=== PATIENT | female | born 1995 | race Caucasian/White ===

== ENCOUNTER 2017-08-10 18:05 | Inpatient (IN) | payer MEDICAID, SELFPAY ==
[2017-08-10 18:05] VITALS: BMI 32.6
[2017-08-10] MEDS: Lactated Ringers 1,000 ML 50 ML IV ×2 (18:15→19:18)
[2017-08-10 18:32] LABS: Hematocrit 32.6 % (37-47); Hemoglobin 10.4 g/dl (12.0-15.0); Mean Corp Hgb Conc 31.9 g/gl (32-36); Mean Corpuscular Hgb 27.7 pg (27.0-32.0); Mean Corpuscular Volume 86.7 fL (81-99); Mean Platelet Vol. 10.8 fl (6.2-12.0); Platelet Count 173 K/mm3 (150-450); RBC Distribution Width SD 41.4 fl (35.1-43.9); Red Blood Count 3.76 M/mm3 (4.2-5.4); White Blood Count 13.1 K/mm3 (4.4-11.0)
[2017-08-10 18:36] LABS: Scan Indicated on CBC? Y/N NO
--- NOTE | 2017-08-10 18:49 | PCM.HP.OB ---
(1) abnormality affecting management of mother, single gestation Status: Acute Comment: enlarged cisterna magna on fetus, recommended by [facility] for fu after delivery with peds (2) complicated by tobacco use in third trimester Status: Acute Comment: BI- 08/22/17 evelynDigna LANG janell jeanie (3) Abnormal ultrasonic finding on screening of mother Status: Acute Comment: following with [facility]- HC 8 %ile but overall growth normal, mildly enlarged cisterna magna- plan fu . seen by treatment center (4) Gall bladder disease Status: Acute Comment: recommend surgical consult (5) Unspecified high-risk Status: Acute Qualifiers: Comment: BI- 08/22/17 ulises LANG janell jeanie History Date of Admission: 08/10/17 Gestational age: 38.1 History of this : 22 yo @ 38w1d presents IAL. she has had a complicated by AGA size but decreased AC. The baby also has a borderline enlarged cisterna magna and it was recommended to have a fu after . Allergies No Known Allergies Allergy (Verified 08/10/17 07:55)
--- NOTE | 2017-08-10 19:28 | HP.PCM_ITS ---
(1) abnormality affecting management of mother, single gestation Status: Acute Comment: enlarged cisterna magna on fetus, recommended by [facility] for fu after delivery with peds (2) complicated by tobacco use in third trimester Status: Acute Comment: BI- 08/22/17 evelynDigna LANG janell jeanie (3) Abnormal ultrasonic finding on screening of mother Status: Acute Comment: following with [facility]- HC 8 %ile but overall growth normal , mildly enlarged cisterna magna- plan fu . seen by treatment center (4) Gall bladder disease Status: Acute Comment: recommend surgical consult (5) Unspecified high-risk Status: Acute Qualifiers: Comment: BI- 08/22/17 ulises LANG janell jenaie History Date of Admission: 08/10/17 Gestational age: 38.1 History of this : 22 yo @ 38w1d presents IAL. she has had a complicated by AGA size but decreased AC. The baby also has a borderline enlarged cisterna magna and it was recommended to have a fu after . Allergies No Known Allergies Allergy (Verified 08/10/17 07:55)
[2017-08-10] MEDS: Oxytocin 30 units/NS 500 ml 30 UNITS/500 ML IV.SOLN 334 UNITS IV (20:12)
--- NOTE | 2017-08-10 20:39 | PCM.OB.VAG ---
(1) abnormality affecting management of mother, single gestation Status: Acute Comment: enlarged cisterna magna on fetus, recommended by [facility] for fu after delivery with peds (2) complicated by tobacco use in third trimester Status: Acute Comment: BI- 08/22/17 ulises ware (3) Abnormal ultrasonic finding on screening of mother Status: Acute Comment: following with [facility]- HC 8 %ile but overall growth normal, mildly enlarged cisterna magna- plan fu . seen by treatment center (4) Gall bladder disease Status: Acute Comment: recommend surgical consult (5) Unspecified high-risk Status: Acute Qualifiers: Comment: BI- 08/22/17 ulises ware (6) Normal delivery at term Status: Acute Vaginal Delivery Maternal Presentation: Active Labor 22 yo @ 38w1d prsents IAL Amniotic Membrane Rupture Type: Artificial Amniotic Fluid Description: Clear Final BI: 08/22/17 Gestational age: 38 Weeks and 2 Days Date of Procedure: 08/10/17 Pre-Operative Diagnosis: ial Post-Operative Diagnosis: same Surgery/ Procedure Performed: Spontaneous Vaginal Delivery Type of Anesthesia: Epidural Description of Procedure: Patient began pushing and delivered the head in the GALLITO presentation. The head was delivered atraumatically. The anterior and posterior shoulders delivered without complication followed by the rest of the infant and the was placed on the maternal abdomen. Delayed cord clamping was employed for approximately 60 seconds. Cord was clamped and cut and gentle traction was applied to the cord and the placenta delivered spontaneously immediately following it was noted to be intact with three-vessel cord. The perineum and vagina were inspected and noted to have a small superficial area of bleeding that was remedied with 3-0 Vicryl repeat. EBL was 250. Patient and tolerated delivery well. Presentation: GALLITO Placental Delivery Description: Spontaneous Placenta Disposition: [facility] Cord Vessel Description: 3 Vessels Cord Entanglement: None Estimated Blood Loss: 250 A gender: Male Episiotomy Description: None Laceration: Perineal Extension/lac, 1st degree Medications given after delivery: IV Pitocin Complications: None
--- NOTE | 2017-08-10 20:42 | OP.PCM_ITS ---
(1) abnormality affecting management of mother, single gestation Status: Acute Comment: enlarged cisterna magna on fetus, recommended by [facility] for fu after delivery with peds (2) complicated by tobacco use in third trimester Status: Acute Comment: BI- 08/22/17 ulises ware (3) Abnormal ultrasonic finding on screening of mother Status: Acute Comment: following with [facility]- HC 8 %ile but overall growth normal , mildly enlarged cisterna magna- plan fu . seen by treatment center (4) Gall bladder disease Status: Acute Comment: recommend surgical consult (5) Unspecified high-risk Status: Acute Qualifiers: Comment: BI- 08/22/17 ulises ware (6) Normal delivery at term Status: Acute Vaginal Delivery Maternal Presentation: Active Labor 22 yo @ 38w1d prsents IAL Amniotic Membrane Rupture Type: Artificial Amniotic Fluid Description: Clear Final BI: 08/22/17 Gestational age: 38 Weeks and 2 Days Date of Procedure: 08/10/17 Pre-Operative Diagnosis: ial Post-Operative Diagnosis: same Surgery/ Procedure Performed: Spontaneous Vaginal Delivery Type of Anesthesia: Epidural Description of Procedure: Patient began pushing and delivered the head in the GALLITO presentation. The head was delivered atraumatically. The anterior and posterior shoulders delivered without complication followed by the rest of the infant and the was placed on the maternal abdomen. Delayed cord clamping was employed for approximately 60 seconds. Cord was clamped and cut and gentle traction was applied to the cord and the placenta delivered spontaneously immediately following it was noted to be intact with three-vessel cord. The perineum and vagina were inspected and noted to have a small superficial area of bleeding that was remedied with 3-0 Vicryl repeat. EBL was 250. Patient and infant tolerated delivery well. Presentation: GALLITO Placental Delivery Description: Spontaneous Placenta Disposition: [facility] Cord Vessel Description: 3 Vessels Cord Entanglement: None Estimated Blood Loss: 250 Infant A gender: Male Episiotomy Description: None Laceration: Perineal Extension/lac, 1st degree Medications given after delivery: IV Pitocin Complications: None
[2017-08-10] MEDS: Oxytocin 30 units/NS 500 ml 30 UNITS/500 ML IV.SOLN 167 UNITS IV (20:43)
[2017-08-10] MEDS: 0.9% Saline Lock 10 ML Syringe IV (21:43)
[2017-08-10 23:49] VITALS: BP 111/89; PULSE 114; RESP 18; TEMP 37.3; O2SAT 97
[2017-08-11] MEDS: Naproxen 250 MG Tablet PO ×3 (00:35→17:15)
[2017-08-11 03:35] VITALS: BP 111/71; PULSE 75; RESP 17; TEMP 36.2; O2SAT 96
[2017-08-11 08:59] VITALS: BP 107/71; PULSE 70; RESP 16; TEMP 36.5; O2SAT 99
--- NOTE | 2017-08-11 09:41 | NURSING ---
pumping instructions given. patient pumped bilaterally at 0830 for 15 minutes. Colostrum collected and taken to [facility].
[2017-08-11 13:30] VITALS: BP 125/71; PULSE 76; RESP 16; TEMP 36.7; O2SAT 98
[2017-08-11 17:10] VITALS: BP 107/54; PULSE 70; RESP 16; TEMP 36.6; O2SAT 99
[2017-08-11] MEDS: Famotidine 20 MG Tablet PO (18:44)
--- NOTE | 2017-08-11 18:47 | NURSING ---
Mom pumped every 3 hours throughout the day and milk was delivered to baby in SCN
[2017-08-11 20:10] VITALS: BP 106/64; PULSE 66; RESP 16; TEMP 36.4
[2017-08-12 02:15] VITALS: BP 101/59; PULSE 75; RESP 16; TEMP 36.4
[2017-08-12] MEDS: Naproxen 250 MG Tablet PO ×2 (02:23→11:00)
--- NOTE | 2017-08-12 06:31 | PCM.PN.OB ---
Patient Problems: Active and Suspected Problems (Last Reviewed 08/10/17 @ 07:56 by Chanel Gonzales) Normal delivery at term (Acute) Subjective: late entry- patient seen 08/11/17 at 12:20 pm. doing wel lno complaints - Physical Exam General: Alert, Oriented x3 Vital Signs Temp Pulse Resp BP Pulse Ox 97.5 F L 75 16 101/59 L 99 08/12/17 02:15 08/12/17 02:15 08/12/17 02:15 08/12/17 02:15 08/11/17 17:10 Oxygen Delivery Method Room Air Weight: 196 lb 3.382 oz Body Mass Index (BMI) 32.6 Intake and Output for Last 24 Hours 08/10/17 08/11/17 08/12/17 23:59 23:59 23:59 Intake Total 1367 / 1367 Output Total 800 / 800 200 / 200 Balance 567 / 567 -200 / -200 Assessment/Plan Active and Suspected Problems (Last Reviewed 08/10/17 @ 07:56 by Chanel Gonzales) Normal delivery at term (Acute) s/p routine care in SCN- doing well, BS issues
[2017-08-12 09:30] VITALS: BP 120/58; PULSE 74; RESP 16; TEMP 36.3
--- NOTE | 2017-08-12 10:48 | NURSING ---
Called [facility] notified of pt's request for breastpump. Shrtui stating she will take care of pump today or tuesday. Pt has medicaid and called already for approval.
[2017-08-12] MEDS: Famotidine 20 MG Tablet PO (11:01)
--- NOTE | 2017-08-12 12:48 | PCM.PN.OB ---
Patient Problems: Active and Suspected Problems (Last Reviewed 08/10/17 @ 07:56 by Chanel Gonzales) Normal delivery at term (Acute) Subjective: doing well n ocomplaints - Physical Exam General: Alert, Oriented x3 Vital Signs Temp Pulse Resp BP Pulse Ox 97.4 F L 74 16 120/58 L 99 08/12/17 09:30 08/12/17 09:30 08/12/17 09:30 08/12/17 09:30 08/11/17 17:10 Oxygen Delivery Method Room Air Weight: 196 lb 3.382 oz Body Mass Index (BMI) 32.6 Intake and Output for Last 24 Hours 08/10/17 08/11/17 08/12/17 23:59 23:59 23:59 Intake Total 1367 / 1367 Output Total 800 / 800 200 / 200 Balance 567 / 567 -200 / -200 Assessment/Plan Active and Suspected Problems (Last Reviewed 08/10/17 @ 07:56 by Chanel Gonzales) Normal delivery at term (Acute) s/p routine care infant in SCN- doing well, BS issues dc home
[2017-08-12 14:00] VITALS: BP 127/61; PULSE 80; RESP 16; TEMP 36.8
[2017-08-12] MEDS: Acetaminophen 500 MG Tablet 1000 MG PO (15:28)
--- NOTE | 2017-08-12 17:11 | DCINST_ITS ---
Discharge Diet: No Restrictions Discharge Activity: Return to Normal Activity, May not drive while taking narcotic pain medications., May Shower May resume sexual activity in: 4-6 weeks Additional Activity Instructions:: Nothing in the vagina for 4-6 weeks. You may return to work/school in 6 weeks. Call your doctor if your incision/area has: Continuous Slow Oozing, Sudden Increased Bleeding, Increased Pain/ Swelling, Increased Redness, Foul Smelling Discharge Additional Instructions: If you experience any of the following, contact your healthcare provider. * Bleeding that soaks a pad every hour for 2 hours * Fever 100.4 or higher * Unrelieved incision or abdominal pain * Swelling, redness, discharge or bleeding from your incision or episiotomy site * Your incision begins to separate * Problems urinating (including inability to urinate or burning while urinating) . * Visual changes * Severe headache * Flu-like symptoms * Pain or redness in one of both of your breasts * Pain, warmth, tenderness or swelling in your legs, especially the calf area * Frequent nausea and vomiting * Symptoms of depression or anxiety If you experience any of the following, call 911 or go to the nearest Emergency Room. * Chest pain * Problems breathing * Seizure activity * Partial or complete paralysis of a body part, slurred speech, weakness or drooping of the face, or a sudden inability to walk or hold your balance Allergies/Adverse Reactions: Allergies No Known Allergies Allergy (Verified 08/10/17 07:55) Medications to take at Discharge Vits [Prenatabs FA] 1 tab PO DAILY 11/20/16 Ranitidine [Zantac] 150 mg PO BID 06/10/17 When: Call to make an appointment with your doctor in 6 weeks. If you had elevated Blood Pressure or 4th degree laceration you will need to be seen in 2 weeks. Primary Care Physician: Care Physician,No Primary [Primary Care Provider] -
--- NOTE | 2017-08-15 13:40 | CASEMGMT ---
Social Work Assessment completed. Refer to documentation below for further details. Referral: per nursing staff Reason for referral: maternal history of depression and resources History obtained from: Medical record and patient/mother of baby (MOB) Bertha Bal. Household composition: MOB, father of baby (FOB), and infant's older sibling Dennis Bal (born 6[birth year]15). MOB reports this is their own home, reports home situation is safe and adequate. Patient's parent/guardian status: MOB and FOB Tay Bal have been together for 4 years, since October 2016. MOB denies any form of abuse in relationship with FOB. Medical History: MOB is G2, P1 to 2 after delivering Rex. Rex born at 38 weeks, weighed 5 pounds 9 ounces. Apgars 8 and 10 at 1 and 5 minutes of life. Rex admitted to [facility] shortly after due to small for gestational age and hypoglycemia issues. Developmental Concerns: No reported or identified concerns. 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 MOB denies any issues with reading, writing, or learning comprehension. Health Care Coverage: [employer] Medicaid. Financial Status: FOB works full stack php developer at [employer] on 1st shift. 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 Supplies: MOB reports to have needed supplies including pack-n-play, crib, bassinet, cradle, car seat, clothing, diapers, and plans to breast feed. Has a breast pump. Childcare/Caregiver(s): MOB to be the primary caregiver to . Transportation: No reports issues for either parent. Programs/Agencies Involved: [place] has [employer] medicaid through [facility]. MOB reports willingness to apply for WIC.. Children Services History: MOB denies any current children services involvement, but reports history in 06/2016 related to MOB's mother/infant's maternal grandmother making a reports of claims of neglect and unkempt household. MOB reports that MOB's mother was unhappy at the time that MOB was reconnecting with the FOB (apparently took a break in relationship). MOB reports that MOB's mother actually tried to kidnap Dennis, making false reports, trying to keep Dennis from MOB and FOB. MOB reports had to call the police as an escort to get Dennis back from MOB's mother. MOB reports this issues turned into a court issue between the family, which ended in MOB and FOB keeping custody of Dennis, but the grandmother getting some visitation. Children services reported investigated the claims and closed the case. MOB denies other involvement with children services outside of this time in June 2016. Behavioral Health Issues: MOB reports history of depression and anxiety, history of treatment at [facility]. No medication history, denies any history thoughts of harm to self or others. MOB denies history of depression. MOB denies any illicit substance use or abuse history. MOB reports history of occasional wine consumption, not during however. MOB reports to be tobacco smoker, not in the home. Family and/or Social Stressors/Concerns: History of stress within family systems, after MOB's mother tried to kidnap and obtain custody of Dennis. MOB reports this has put strain on relationships. [place] baby is now admitted to [facility] for further treatment. MOB is hopeful that baby will discharge soon however. FOB reportedly has history of bipolar disorder, ADHD, and is on medication, treated by Dr. Hearn at [facility]. MOB reports FOB does well with staying on medication and adhering to treatment recommendations. MOB reports things are going well with FOB and again, denies any safety concerns in marriage or home situation. Otherwise, MOB denies other stressors or concerns. Support Systems: MOB reports support from FOB, who will be able to take some time off after discharge. MOB reports 's paternal grandmother lives close by and is able to help out. MOB reports support from infant's maternal uncle/MOB's brother. Assessment MOB engaged in conversation with this advertising writer, non defensive, good eye contact, pleasant, and talkative. MOB with appropriate mood and congruent affect to content discussed. MOB reports to have needed baby supplies at home, reports to have support from famiy and to feel this is adequate. MOB reports to feel a connection to this baby, denies any symptoms ofdepression. MOB listened attentively to social work faculty member on depression and anxiety, as well as safe sleeping and shaken baby. MOB able to identify coping skills in the form of talking with , playing with son Dennis, taking some me time each day, to enjoy watching [employer] An[employer], and to walk. MOB reports receptivity to taking WIC applications and even a medicaid application to apply for food assistance, but declines a rferral to help me grow. MOB denies any safety concerns the home home at this time, and reports to have adequate supplies to care for baby. No reported concerns by nursing regarding mother/child interactions or care of baby thus far. Plan MOB is already discharged home, just wating on hotel status at hospital for baby to be discharge from the [facility]. [facility] Tube Knitter resource list given Packet on depression given, including information on local supports and online support programs MOB given WIC and Medicaid applications. Response to Plan: MOB does express understanding of proposed plan. No other services requested at this time, though social work does remain available should needs arise. BINA Mercer 08/15/2017
== END 2017-08-12 17:15 | disposition home or self-care (01) | DRG 373 ==
LOC: WPOUT 18:10 → WP 08-11 09:21
PROVIDERS: Admitting Provider Obstetrics & Gynecology; Visit Provider Obstetrics & Gynecology
DX: O35.8XX0 Maternal care for other (suspected) fetal abnormality and damage, not applicable or unspecified (principal); F17.200 Nicotine dependence, unspecified, uncomplicated; O70.0 First degree perineal laceration during delivery; O99.334 Smoking (tobacco) complicating childbirth; O99.613 Diseases of the digestive system complicating pregnancy, third trimester; Z37.0 Single live birth; Z3A.38 38 weeks gestation of pregnancy
CPT/HCPCS: 59050; 85027; 86850; 86900; 99218; J7120; A4216; G0378

== ENCOUNTER 2017-09-03 15:05 | Inpatient (IN) | payer MEDICAID, SELFPAY ==
[2017-09-03] VITALS (7 sets, daily range): BP systolic 131–140; BP diastolic 73–95; PULSE 51–73; RESP 14–16; TEMP 36.7–37; O2SAT 97–99; BMI 30.2; BMI 30.1
[2017-09-03 16:33] LABS: Absolute Lymphocyte Count 1.53 X10^3/ul (0.83-4.51); Absolute Neutrophil Count 6.5 X10^3/uL (2.0-7.7); Basophil# 0.01 X10^3/uL; Basophil% 0.1 % (0-1); Eosinophil# 0.66 X10^3/uL; Eosinophils% 7.1 % (0-5); Hematocrit 39.3 % (37-47); Hemoglobin 12.3 g/dl (12.0-15.0); Lymphocyte # 1.53 X10^3/ul (4.0); Lymphocyte % 16.4 % (19-41); Mean Corp Hgb Conc 31.3 g/gl (32-36); Mean Corpuscular Hgb 26.9 pg (27.0-32.0); Mean Platelet Vol. 10.3 fl (6.2-12.0); Monocyte# 0.59 X10^3/uL; Monocyte% 6.3 % (0-10); Neutrophil % 69.9 % (47-70); POSITIVE COUNT NO; POSITIVE DIFFERENTIAL NO; POSITIVE MORPHOLOGY NO; Platelet Count 272 K/mm3 (150-450); RBC Distribution Width CV 12.9 % (11.6-14.6); RBC Distribution Width SD 40.6 fl (35.1-43.9); Red Blood Count 4.57 M/mm3 (4.2-5.4); White Blood Count 9.3 K/mm3 (4.4-11.0)
--- NOTE | 2017-09-03 16:51 | ED.VISSUMM ---
- ER Visit Summary Date of Service: 09/03/17 Chief Complaint: Abdominal pain History of Present Illness: The patient is a 22 F who presents with abdominal pain. Patient has been having intermittent similar symptoms for months. However she was . She is 2 weeks . She has seen Dr. Alvarenga as an outpatient and was scheduled for laparoscopic cholecystectomy on September 07. However she has had constant right upper quadrant abdominal pain for greater than 24 hours. She currently rates her pain as 7 out of 10. She states all that she had eaten or drank was water. She reports nausea without vomiting. No diarrhea. She denies fever. She spoke to Dr. Sanchez today and given her ongoing pain was advised to present to the emergency department with plan for surgery today. Physical Examination: Afebrile vitals are stable Patient resting comfortably in no distress Heart regular rate and rhythm Lungs are clear Abdomen soft nondistended she does have right upper quadrant tenderness she does not have a Perkins's sign Alert Test Results: CBC unremarkable. Total bilirubin is 3.1, alkaline phosphatase 312, ALT 602, AST 1065. Final results not yet resulted on lipase but we were called by lab and told that it would be greater than 30,000. Emergency Department Course and Treatment: Patient was treated with IV fluids Toradol and Zofran here. She is resting comfortably. I spoke to Dr. Sanchez who asked that the patient be admitted to the hospitalist service and will see the patient in consult. Treatment Plan: [] Disposition: Admit Impression: Gallstone pancreatitis This note was generated with [employer] dictation software. It may contain incorrect words, spelling, and punctuation that were not noted in review of the chart prior to signing ED Disposition - Plan for ED Patient: Chief Complaint: Abd Pain Referrals: Care Physician,No Primary [Primary Care Provider] -
[2017-09-03 16:57] LABS: ALB/GLOB Ratio 0.8 RATIO (0.9-2.4); AST(SGOT) 1065 U/L (15-37); Alanine Aminotransfer ALT/SGPT 602 U/L (13-56); Albumin, Serum 3.1 g/dL (3.2-5.0); Alkaline Phosphatase 312 U/L (45-117); Anion Gap 8 (5-15); BUN 6 mg/dL (7-18); BUN/Creat Ratio 8.4 RATIO (10-20); Calcium,Total 9.4 mg/dL (8.5-10.1); Chloride 104 mmol/L (98-107); Creatinine, Serum 0.72 mg/dL (0.55-1.02); EST Glomerular Filtration Rate 108 mL/min (>60); Est Glom Filt Rate - Afr Amer 131 mL/min (>60); Estimated Creatinine Clearance 110.28 ml/min; Glucose 106 mg/dL (74-106); Potassium 3.5 mmol/L (3.5-5.1); Protein, Total 7.1 g/dL (6.4-8.2); Sodium Level 140 mmol/L (136-145)
[2017-09-03] MEDS: Ondansetron 4 MG/2 ML Vial IV ×2 (17:03→23:01)
[2017-09-03] MEDS: Ketorolac 30 MG/ML Syringe IV ×2 (17:03→23:01)
[2017-09-03] MEDS: 0.9% Normal Saline 1,000 ML 1000 ML IV (17:03)
[2017-09-03 17:25] LABS: Lipase 33845 U/L (73-393)
--- NOTE | 2017-09-03 17:26 | HP.PCM_ITS ---
Problem List (1) Acute biliary pancreatitis Status: Acute Qualifiers: Acute pancreatitis complication: no infection or necrosis Qualified Code(s) : K85.10 - Biliary acute pancreatitis without necrosis or infection History of Present Illness Date of Admission: 09/03/17 Chief Complaint: left upper abdominal pain The patient is a 22 year old F with a PMH of gallstones, and who is 3 weeks presents with a 2 day history of left upper abdominal pain. Pain is colicky at baseline, with sharp exacerbations, rated ~ 8/10, aggravated by eating and drinking, and relieved with rest and not eating. She has a history of gallstones and was scheduled for cholecystectomy with Dr Alvarenga on Sep 07. SHe had associated nausea and vomiting, but denied any diarrhea, fever, chills, SOB or palpitations or excessive alcohol intake. She called the diamond mounter surgeon (Dr Sanchez) because her symptoms lasted for >24hrs, which is unusual. She was asked to come to the ED. On arrival in the ED, CT showed acute pancreatitis, and labwork showed lipase of >30,000. She is being admitted and managed for acute gallstone pancreatitis. 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 Had spontaneous vaginal delivery Smoking Status: Current every day smoker - *Family History Maternal History Items: No pertinent history Review of Systems Constitutional: Denies: Chills, Fever, Malaise, Weight Change Eyes: Denies: Blurred vision HEENT: Denies: Head Aches, Sinus Congestion, Sinus Drainage Cardiovascular: Denies: Chest Pain, Light Headedness, Palpitations Respiratory: Denies: Cough, Shortness of breath at rest, Sputum production Gastrointestinal: Reports: Abdominal Pain, Nausea, Vomiting. Denies: Diarrhea Genitourinary: Denies: Dysuria Musculoskeletal: Denies: Joint Pain, Joint Tenderness Skin: Denies: Rash, Wounds Neurological: Denies: Numbness, Tingling, Focal weakness Psychiatric: Denies: Anxiety, Depression, Homicidal Ideations, Suicidal Ideations Hematologic/ Lymphatic: Denies: Easy Bruising, Easy Bleeding VTE Information - Inpt Only VTE Present on Admission: No VTE Mechan Device Prophylaxis: SCD's VTE Pharm Prophylaxis ordered?: Yes Patient Problems: Active and Suspected Problems (Last Reviewed 08/25/17 @ 13:26 by Rosario Moreno) Acute biliary pancreatitis (Acute) - Physical Exam General: Alert, Oriented x3, Cooperative, No apparent distress HEENT: Atraumatic, PERRLA, EOMI, Normocephalic Oral: Moist Mucosa Neck: Supple, No JVD, Negative Carotid Bruits Lungs: Clear to auscultation, Normal air movement, No rhonchi, No wheeze, No rales Cardiovascular: Regular rate, Regular Rhythm, Normal S1, Normal S2, No murmurs Abdomen: Bowel Sounds Present, Soft, No Hepato-splenomegaly, - - mild left hypochondrial tenderness, with positive Perkins's sign. No epigastric tenderness. No guarding or rebound tenderness Extremities: No clubbing, No cyanosis, No edema, Capillary Refill Less than 3 Seconds Skin: No rashes Musculoskeletal: No Tenderness to Palpation of Joints or Extremities Lymphatic: No Cervical, Supraclavicular, or Inguinal Adenopathy Neurological: Cranial nerves II-XII grossly intact Psych/Mental Status: Normal Affect, Alert and oriented to time, place, person, mood and affect Vital Signs Temp Pulse Resp BP Pulse Ox 98.6 F 73 16 139/73 H 99 09/03/17 15:07 09/03/17 17:18 09/03/17 17:18 09/03/17 17:18 09/03/17 17:18 Oxygen Delivery Method Room Air Weight: 181 lb 10.574 oz Body Mass Index (BMI) 30.2 Laboratory Tests Past 24 Hrs 09/03/17 09/03/17 16:20 16:20 WBC 9.3 RBC 4.57 Hgb 12.3 Hct 39.3 MCV 86.0 MCH 26.9 L MCHC 31.3 L RDW 12.9 RDW Differential 40.6 Plt Count 272 MPV 10.3 Immature Gran % (Auto) 0.200 Neut % (Auto) 69.9 Lymph % (Auto) 16.4 L Oliver % (Auto) 6.3 Eos % (Auto) 7.1 H Baso % (Auto) 0.1 Absolute Neuts (auto) 6.5 Absolute Lymphs (auto) 1.53 Total Counted Not Reportable Sodium 140 Potassium 3.5 Chloride 104 Carbon Dioxide 28.0 Anion Gap 8 BUN 6 L Creatinine 0.72 Estim Creat Clear Calc 110.28 Est GFR (MDRD) Af Amer 131 Est GFR (MDRD) Non-Af 108 BUN/Creatinine Ratio 8.4 L Glucose 106 Calcium 9.4 Total Bilirubin 3.10 H AST 1065 H ALT 602 H Alkaline Phosphatase 312 H Total Protein 7.1 Albumin 3.1 L Globulin 4.0 Albumin/Globulin Ratio 0.8 L Lipase Pending Assessment/Plan Active and Suspected Problems (Last Reviewed 08/25/17 @ 13:26 by Rosario Moreno) Acute biliary pancreatitis (Acute) 1. Acute BILIARY pancreatitis due to gallstones * vitals are stable. has mild left upper quadrant tenderness, with no guarding or rebound tenderness * has a history of gallstones and had been scheduled for cholecystectomy on 09/07. * CBC: no leucocytosis * CMP: lipase [id number]. * AST/ALT- 1065/602 * CT abdomen not done as patient meets criteria for acute pancreatitis with abdominal pain and elevated lipase * will admit to med surg floor. Patient reviewed with Dr Sanchez in ED * will keep NPO; will hydrate with NS @ 150cc/hr * will give IV ketorolac for pain control * IV zofran to help with nausea * for cholecystectomy once acute pancreatitis resolves * 2. DVT prophylaxis * heparin * 3. GI prophylaxis * pantoprazole Code Visit Inpatient E&M: 67789 Init Hosp L2
--- NOTE | 2017-09-03 17:40 | PCM.CONS.GEN ---
Problem List (1) Acute biliary pancreatitis Status: Acute Qualifiers: Acute pancreatitis complication: no infection or necrosis Qualified Code(s): K85.10 - Biliary acute pancreatitis without necrosis or infection Reason for Consult Date of Consultation: 09/03/17 History of Present Illness: The patient is a 22 year old F with a PMH of gallstones, and who is 3 weeks presents with a 2 day history of left upper abdominal pain. Pain is colicky at baseline, with sharp exacerbations, rated ~ 8/10, aggravated by eating and drinking, and relieved with rest and not eating. She has a history of gallstones and was scheduled for cholecystectomy with Dr Alvarenga on Sep 07. SHe had associated nausea and vomiting, but denied any diarrhea, fever, chills, SOB or palpitations or excessive alcohol intake. She called the on me because her symptoms lasted for >24hrs, which is unusual. She was asked to come to the ED. On arrival in the ED, CT showed acute pancreatitis, and labwork showed lipase of >30,000. She is being admitted and managed for acute gallstone pancreatitis by the hospitalist service. 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 Had spontaneous vaginal delivery Smoking Status: Current every day smoker - *Family History Maternal History Items: No pertinent history Review of Systems Constitutional: Reports: Anorexia Cardiovascular: Denies: Chest Pain, Chest Pressure, Chest Tightness, Palpitations Respiratory: Denies: Cough, Hemoptysis, Shortness of breath at rest, Shortness of breath upon exertion, Wheezing Gastrointestinal: Reports: Abdominal Pain Gynecological: Reports: - - Patient is status post vaginal delivery 3 weeks ago Patient Problems: Active and Suspected Problems (Last Reviewed 08/25/17 @ 13:26 by Rosario Moreno) Acute biliary pancreatitis (Acute) - Physical Exam General: Alert, Oriented x3 HEENT: Atraumatic, PERRLA, EOMI, Normocephalic Oral: Moist Mucosa Neck: Supple, No JVD Lungs: Clear to auscultation Cardiovascular: Regular rate, Regular Rhythm, No murmurs Abdomen: Bowel Sounds Present, Soft, Non Tender, Non-Distended Extremities: No clubbing, No cyanosis, No edema Psych/Mental Status: Normal Affect, Appropriate Vital Signs Temp Pulse Resp BP Pulse Ox 98.6 F 73 16 139/73 H 99 09/03/17 15:07 09/03/17 17:18 09/03/17 17:18 09/03/17 17:18 09/03/17 17:18 Oxygen Delivery Method Room Air Weight: 181 lb 10.574 oz Body Mass Index (BMI) 30.2 Laboratory Tests Past 24 Hrs 09/03/17 09/03/17 16:20 16:20 WBC 9.3 RBC 4.57 Hgb 12.3 Hct 39.3 MCV 86.0 MCH 26.9 L MCHC 31.3 L RDW 12.9 RDW Differential 40.6 Plt Count 272 MPV 10.3 Immature Gran % (Auto) 0.200 Neut % (Auto) 69.9 Lymph % (Auto) 16.4 L Rice % (Auto) 6.3 Eos % (Auto) 7.1 H Baso % (Auto) 0.1 Absolute Neuts (auto) 6.5 Absolute Lymphs (auto) 1.53 Total Counted Not Reportable Sodium 140 Potassium 3.5 Chloride 104 Carbon Dioxide 28.0 Anion Gap 8 BUN 6 L Creatinine 0.72 Estim Creat Clear Calc 110.28 Est GFR (MDRD) Af Amer 131 Est GFR (MDRD) Non-Af 108 BUN/Creatinine Ratio 8.4 L Glucose 106 Calcium 9.4 Total Bilirubin 3.10 H AST 1065 H ALT 602 H Alkaline Phosphatase 312 H Total Protein 7.1 Albumin 3.1 L Globulin 4.0 Albumin/Globulin Ratio 0.8 L Lipase 29464 H Assessment/Plan Active and Suspected Problems (Last Reviewed 08/25/17 @ 13:26 by Rosario Moreno) Acute biliary pancreatitis (Acute) We will need to see that her labs come down appropriately and her pain improved. Once this is accomplished then during this admission she will need to undergo a laparoscopic cholecystectomy with intraoperative cholangiograms. DVT prophylaxis will need to be stopped at least 24 hours prior to surgery
--- NOTE | 2017-09-03 17:44 | CON.PCM_ITS ---
Problem List (1) Acute biliary pancreatitis Status: Acute Qualifiers: Acute pancreatitis complication: no infection or necrosis Qualified Code(s) : K85.10 - Biliary acute pancreatitis without necrosis or infection Reason for Consult Date of Consultation: 09/03/17 History of Present Illness: The patient is a 22 year old F with a PMH of gallstones, and who is 3 weeks presents with a 2 day history of left upper abdominal pain. Pain is colicky at baseline, with sharp exacerbations, rated ~ 8/10, aggravated by eating and drinking, and relieved with rest and not eating. She has a history of gallstones and was scheduled for cholecystectomy with Dr Alvarenga on Sep 07. SHe had associated nausea and vomiting, but denied any diarrhea, fever, chills, SOB or palpitations or excessive alcohol intake. She called the on me because her symptoms lasted for >24hrs, which is unusual. She was asked to come to the ED. On arrival in the ED, CT showed acute pancreatitis, and labwork showed lipase of >30,000. She is being admitted and managed for acute gallstone pancreatitis by the hospitalist service. 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 Had spontaneous vaginal delivery Smoking Status: Current every day smoker - *Family History Maternal History Items: No pertinent history Review of Systems Constitutional: Reports: Anorexia Cardiovascular: Denies: Chest Pain, Chest Pressure, Chest Tightness, Palpitations Respiratory: Denies: Cough, Hemoptysis, Shortness of breath at rest, Shortness of breath upon exertion, Wheezing Gastrointestinal: Reports: Abdominal Pain Gynecological: Reports: - - Patient is status post vaginal delivery 3 weeks ago Patient Problems: Active and Suspected Problems (Last Reviewed 08/25/17 @ 13:26 by Rosario Moreno) Acute biliary pancreatitis (Acute) - Physical Exam General: Alert, Oriented x3 HEENT: Atraumatic, PERRLA, EOMI, Normocephalic Oral: Moist Mucosa Neck: Supple, No JVD Lungs: Clear to auscultation Cardiovascular: Regular rate, Regular Rhythm, No murmurs Abdomen: Bowel Sounds Present, Soft, Non Tender, Non-Distended Extremities: No clubbing, No cyanosis, No edema Psych/Mental Status: Normal Affect, Appropriate Vital Signs Temp Pulse Resp BP Pulse Ox 98.6 F 73 16 139/73 H 99 09/03/17 15:07 09/03/17 17:18 09/03/17 17:18 09/03/17 17:18 09/03/17 17:18 Oxygen Delivery Method Room Air Weight: 181 lb 10.574 oz Body Mass Index (BMI) 30.2 Laboratory Tests Past 24 Hrs 09/03/17 09/03/17 16:20 16:20 WBC 9.3 RBC 4.57 Hgb 12.3 Hct 39.3 MCV 86.0 MCH 26.9 L MCHC 31.3 L RDW 12.9 RDW Differential 40.6 Plt Count 272 MPV 10.3 Immature Gran % (Auto) 0.200 Neut % (Auto) 69.9 Lymph % (Auto) 16.4 L [place] % (Auto) 6.3 Eos % (Auto) 7.1 H Baso % (Auto) 0.1 Absolute Neuts (auto) 6.5 Absolute Lymphs (auto) 1.53 Total Counted Not Reportable Sodium 140 Potassium 3.5 Chloride 104 Carbon Dioxide 28.0 Anion Gap 8 BUN 6 L Creatinine 0.72 Estim Creat Clear Calc 110.28 Est GFR (MDRD) Af Amer 131 Est GFR (MDRD) Non-Af 108 BUN/Creatinine Ratio 8.4 L Glucose 106 Calcium 9.4 Total Bilirubin 3.10 H AST 1065 H ALT 602 H Alkaline Phosphatase 312 H Total Protein 7.1 Albumin 3.1 L Globulin 4.0 Albumin/Globulin Ratio 0.8 L Lipase 50367 H Assessment/Plan Active and Suspected Problems (Last Reviewed 08/25/17 @ 13:26 by Rosario Moreno) Acute biliary pancreatitis (Acute) We will need to see that her labs come down appropriately and her pain improved. Once this is accomplished then during this admission she will need to undergo a laparoscopic cholecystectomy with intraoperative cholangiograms. DVT prophylaxis will need to be stopped at least 24 hours prior to surgery
[2017-09-03] MEDS: 0.9% Normal Saline 1,000 ML 150 ML IV (19:01)
[2017-09-04] MEDS: 0.9% Normal Saline 1,000 ML 150 ML IV ×4 (01:47→23:25)
[2017-09-04 04:15] VITALS: BP 112/67; PULSE 83; RESP 18; TEMP 36.9; O2SAT 95
[2017-09-04 06:40] LABS: Absolute Lymphocyte Count 1.71 X10^3/ul (0.83-4.51); Absolute Neutrophil Count 2.8 X10^3/uL (2.0-7.7); Basophil# 0.01 X10^3/uL; Basophil% 0.2 % (0-1); Eosinophil# 0.67 X10^3/uL; Eosinophils% 11.8 % (0-5); Hemoglobin 11.1 g/dl (12.0-15.0); Lymphocyte # 1.71 X10^3/ul (4.0); Lymphocyte % 30.1 % (19-41); Mean Corp Hgb Conc 30.8 g/gl (32-36); Mean Corpuscular Hgb 26.9 pg (27.0-32.0); Mean Corpuscular Volume 87.2 fL (81-99); Mean Platelet Vol. 10.2 fl (6.2-12.0); Monocyte# 0.47 X10^3/uL; Monocyte% 8.3 % (0-10); Neutrophil # 2.83 X10^3/uL (2.7-7.7); Neutrophil % 49.6 % (47-70); Platelet Count 228 K/mm3 (150-450); RBC Distribution Width CV 13.1 % (11.6-14.6); RBC Distribution Width SD 42.2 fl (35.1-43.9); Red Blood Count 4.13 M/mm3 (4.2-5.4); White Blood Count 5.7 K/mm3 (4.4-11.0)
[2017-09-04 06:42] LABS: POSITIVE COUNT NO; POSITIVE DIFFERENTIAL NO; POSITIVE MORPHOLOGY NO
[2017-09-04 07:09] LABS: ALB/GLOB Ratio 0.7 RATIO (0.9-2.4); AST(SGOT) 515 U/L (15-37); Alanine Aminotransfer ALT/SGPT 417 U/L (13-56); Albumin, Serum 2.5 g/dL (3.2-5.0); Alkaline Phosphatase 314 U/L (45-117); Anion Gap 5 (5-15); BUN 6 mg/dL (7-18); BUN/Creat Ratio 8.7 RATIO (10-20); Calcium,Total 8.3 mg/dL (8.5-10.1); Chloride 111 mmol/L (98-107); Creatinine, Serum 0.69 mg/dL (0.55-1.02); EST Glomerular Filtration Rate 113 mL/min (>60); Est Glom Filt Rate - Afr Amer 137 mL/min (>60); Estimated Creatinine Clearance 115.08 ml/min; Globulin 3.4 g/dL (2.2-4.2); Glucose 89 mg/dL (74-106); Lipase 1778 U/L (73-393); Potassium 3.8 mmol/L (3.5-5.1); Protein, Total 5.9 g/dL (6.4-8.2); Sodium Level 144 mmol/L (136-145)
[2017-09-04] MEDS: Ketorolac 30 MG/ML Syringe IV ×2 (07:19→22:26)
[2017-09-04] MEDS: Ondansetron 4 MG/2 ML Vial IV ×2 (07:20→22:26)
[2017-09-04 09:20] VITALS: BP 135/79; PULSE 54; RESP 16; TEMP 36.8; O2SAT 97
--- NOTE | 2017-09-04 09:40 | PCM.PN.HOSP ---
Patient Problems: Active and Suspected Problems (Last Reviewed 08/25/17 @ 13:26 by Rosario Moreno) Acute biliary pancreatitis (Acute) Subjective: Patient is a 22-year-old female with past medical history of gallstones who presented with a complaint of left upper abdominal pain for the past 2 days prior to presentation. She had been scheduled for cholecystectomy on September 07, 2017 but had to come in this time because abdominal pain recurred and did not resolve within 24 hours and occasionally did. In admission, she was found to have lipase level of around 34,000 and a diagnosis of gallstone pancreatitis was made. She has been admitted and managed for gallstone pancreatitis, and general surgery is on board with the plan for laparoscopic cholecystectomy once pancreatitis resolves. Seen and examined this morning. She has no complaints and pain has significantly improved. She denies any fever, chills, nausea or vomiting or diarrhea. She still n.p.o. and has IV fluids running. Review of systems otherwise negative. She is anxious about cholecystectomy and wishes that it will be done today. Patient counseled that Dr. Sanchez would need to evaluate her and decide if it was ok to do surgery today. Vitals/I&O's: Vital Signs Temp Pulse Resp BP Pulse Ox 98.4 F 83 18 112/67 95 09/04/17 04:15 09/04/17 04:15 09/04/17 04:15 09/04/17 04:15 09/04/17 04:15 Oxygen Delivery Method Room Air Weight: 181 lb Body Mass Index (BMI) 30.1 Intake and Output for Last 24 Hours 09/02/17 09/03/17 09/04/17 23:59 23:59 23:59 Intake Total 427 / 427 1098 / 1098 Output Total 300 / 300 Balance 427 / 427 798 / 798 General: Alert, Oriented x3, Cooperative, No apparent distress HEENT: Atraumatic, PERRLA, EOMI, Normocephalic Oral: Moist Mucosa Neck: Supple, No JVD, Negative Carotid Bruits Lungs: Clear to auscultation, Normal air movement, No rhonchi, No wheeze, No rales Cardiovascular: Regular rate, Regular Rhythm, Normal S1, Normal S2, No murmurs Abdomen: Bowel Sounds Present, Soft, Non Tender, Non-Distended, No Hepato-splenomegaly Extremities: No clubbing, No cyanosis, No edema, Capillary Refill Less than 3 Seconds Skin: No rashes, No breakdown Musculoskeletal: No Tenderness to Palpation of Joints or Extremities Lymphatic: No Cervical, Supraclavicular, or Inguinal Adenopathy Neurological: Cranial nerves II-XII grossly intact Psych/Mental Status: Normal Affect, Appropriate, Alert and oriented to time, place, person, mood and affect Laboratory Results 09/04/17 06:27: WBC 5.7, RBC 4.13 L, Hgb 11.1 L, Hct 36.0 L, MCV 87.2, MCH 26.9 L, MCHC 30.8 L, RDW 13.1, RDW Differential 42.2, Plt Count 228, MPV 10.2, Immature Gran % (Auto) 0.000, Neut % (Auto) 49.6, Lymph % (Auto) 30.1, [place] % (Auto) 8.3, Eos % (Auto) 11.8 H, Baso % (Auto) 0.2, Absolute Neuts (auto) 2.8, Absolute Lymphs (auto) 1.71, Total Counted Not Reportable 09/04/17 06:27: Sodium 144, Potassium 3.8, Chloride 111 H, Carbon Dioxide 28.0, Anion Gap 5, BUN 6 L, Creatinine 0.69, Estim Creat Clear Calc 115.08, Est GFR (MDRD) Af Amer 137, Est GFR (MDRD) Non-Af 113, BUN/Creatinine Ratio 8.7 L, Glucose 89, Calcium 8.3 L, Total Bilirubin 2.60 H, AST 515 H, ALT 417 H, Alkaline Phosphatase 314 H, Total Protein 5.9 L, Albumin 2.5 L, Globulin 3.4, Albumin/Globulin Ratio 0.7 L, Lipase 1778 H Current Medications Hydrocodone Bitart/Acetaminophen ([place] 5mg-325mg) 1 - 2 tablet PO Q6H PRN PRN PRN Reason: Moderate-severe pain Enoxaparin Sodium (Lovenox) 40 mg SC DAILY@1000 YEE Last Admin: 09/04/17 09:29 Dose: Not Given Sodium Chloride () 1,000 mls @ 150 mls/hr IV .Q6H40M [facility] Last Admin: 09/04/17 09:28 Dose: 150 mls/hr Pantoprazole Sodium 40 mg/ (Sodium Chloride) 110 mls @ 330 mls/hr IV Q24 YEE Last Admin: 09/04/17 09:23 Dose: 330 mls/hr Ketorolac Tromethamine (Toradol) 30 mg IV Q6H PRN PRN PRN Reason: PAIN Stop: 09/08/17 18:39 Last Admin: 09/04/17 07:19 Dose: 30 mg Magnesium Hydroxide (Milk Of Magnesia) 30 ml PO DAILY PRN PRN PRN Reason: Constipation Morphine Sulfate (Morphine) 1 - 2 mg IV Q4H PRN PRN PRN Reason: PAIN Ondansetron HCl (Zofran) 4 mg IV Q6H PRN PRN PRN Reason: NAUSEA/VOMITING Last Admin: 09/04/17 07:20 Dose: 4 mg Sodium Chloride () 5 - 30 ml IV UD PRN PRN Reason: SALINE FLUSH Assessment/Plan Active and Suspected Problems (Last Reviewed 08/25/17 @ 13:26 by Rosario Moreno) Acute biliary pancreatitis (Acute) 1. Acute BILIARY pancreatitis due to gallstones Resolving. Left upper quadrant tenderness has improved significantly. Vitals have remained stable. Lipase has trended down from 33,845 down to about 1777 this morning. Bilirubin has also trended down from 3.1 on admission to 2.6. AST has trended down from 1065 on admission to 515 today and ALT has gone down from 602 on admission to 417 today. ALP has remained around 312 Will maintain on IV fluids normal saline at 1 50 cc/h. General surgery on board. Will await recommendations about whether to do cholecystectomy today or tomorrow. On IV ketorolac and morphine for pain and IV Zofran for nausea. Will hold Lovenox for 24 hours prior to surgery. maintain NPO 2. DVT prophylaxis lovenox sc 40mg daily; will hold today as per Dr Sanchez's note, she may go for surgery tomorrow. On SCDs. Lovenox to be resumed after surgery. 3. GI prophylaxis pantoprazole This note was generated with [employer] software. It may contain incorrect words, spelling, and punctuation that were not noted in checking the note before signing. Code Visit Inpatient E&M: 27493 Subs Hosp L2
--- NOTE | 2017-09-04 09:46 | PN_ITS ---
Patient Problems: Active and Suspected Problems (Last Reviewed 08/25/17 @ 13:26 by Rosario Moreno) Acute biliary pancreatitis (Acute) Subjective: Patient is a 22-year-old female with past medical history of gallstones who presented with a complaint of left upper abdominal pain for the past 2 days prior to presentation. She had been scheduled for cholecystectomy on September 07, 2017 but had to come in this time because abdominal pain recurred and did not resolve within 24 hours and occasionally did. In admission, she was found to have lipase level of around 34,000 and a diagnosis of gallstone pancreatitis was made. She has been admitted and managed for gallstone pancreatitis, and general surgery is on board with the plan for laparoscopic cholecystectomy once pancreatitis resolves. Seen and examined this morning. She has no complaints and pain has significantly improved. She denies any fever, chills, nausea or vomiting or diarrhea. She still n.p.o. and has IV fluids running. Review of systems otherwise negative. She is anxious about cholecystectomy and wishes that it will be done today. Patient counseled that Dr. Sanchez would need to evaluate her and decide if it was ok to do surgery today. Vitals/I&O's: Vital Signs Temp Pulse Resp BP Pulse Ox 98.4 F 83 18 112/67 95 09/04/17 04:15 09/04/17 04:15 09/04/17 04:15 09/04/17 04:15 09/04/17 04:15 Oxygen Delivery Method Room Air Weight: 181 lb Body Mass Index (BMI) 30.1 Intake and Output for Last 24 Hours 09/02/17 09/03/17 09/04/17 23:59 23:59 23:59 Intake Total 427 / 427 1098 / 1098 Output Total 300 / 300 Balance 427 / 427 798 / 798 General: Alert, Oriented x3, Cooperative, No apparent distress HEENT: Atraumatic, PERRLA, EOMI, Normocephalic Oral: Moist Mucosa Neck: Supple, No JVD, Negative Carotid Bruits Lungs: Clear to auscultation, Normal air movement, No rhonchi, No wheeze, No rales Cardiovascular: Regular rate, Regular Rhythm, Normal S1, Normal S2, No murmurs Abdomen: Bowel Sounds Present, Soft, Non Tender, Non-Distended, No Hepato- splenomegaly Extremities: No clubbing, No cyanosis, No edema, Capillary Refill Less than 3 Seconds Skin: No rashes, No breakdown Musculoskeletal: No Tenderness to Palpation of Joints or Extremities Lymphatic: No Cervical, Supraclavicular, or Inguinal Adenopathy Neurological: Cranial nerves II-XII grossly intact Psych/Mental Status: Normal Affect, Appropriate, Alert and oriented to time, place, person, mood and affect Laboratory Results 09/04/17 06:27: WBC 5.7, RBC 4.13 L, Hgb 11.1 L, Hct 36.0 L, MCV 87.2, MCH 26.9 L, MCHC 30.8 L, RDW 13.1, RDW Differential 42.2, Plt Count 228, MPV 10.2, Immature Gran % (Auto) 0.000, Neut % (Auto) 49.6, Lymph % (Auto) 30.1, [place] % ( Auto) 8.3, Eos % (Auto) 11.8 H, Baso % (Auto) 0.2, Absolute Neuts (auto) 2.8, Absolute Lymphs (auto) 1.71, Total Counted Not Reportable 09/04/17 06:27: Sodium 144, Potassium 3.8, Chloride 111 H, Carbon Dioxide 28.0, Anion Gap 5, BUN 6 L, Creatinine 0.69, Estim Creat Clear Calc 115.08, Est GFR ( MDRD) Af Amer 137, Est GFR (MDRD) Non-Af 113, BUN/Creatinine Ratio 8.7 L, Glucose 89, Calcium 8.3 L, Total Bilirubin 2.60 H, AST 515 H, ALT 417 H, Alkaline Phosphatase 314 H, Total Protein 5.9 L, Albumin 2.5 L, Globulin 3.4, Albumin/Globulin Ratio 0.7 L, Lipase 1778 H Current Medications Hydrocodone Bitart/Acetaminophen ([place] 5mg-325mg) 1 - 2 tablet PO Q6H PRN PRN PRN Reason: Moderate-severe pain Enoxaparin Sodium (Lovenox) 40 mg SC DAILY@1000 YEE Last Admin: 09/04/17 09:29 Dose: Not Given Sodium Chloride () 1,000 mls @ 150 mls/hr IV .Q6H40M [facility] Last Admin: 09/04/17 09:28 Dose: 150 mls/hr Pantoprazole Sodium 40 mg/ (Sodium Chloride) 110 mls @ 330 mls/hr IV Q24 YEE Last Admin: 09/04/17 09:23 Dose: 330 mls/hr Ketorolac Tromethamine (Toradol) 30 mg IV Q6H PRN PRN PRN Reason: PAIN Stop: 09/08/17 18:39 Last Admin: 09/04/17 07:19 Dose: 30 mg Magnesium Hydroxide (Milk Of Magnesia) 30 ml PO DAILY PRN PRN PRN Reason: Constipation Morphine Sulfate (Morphine) 1 - 2 mg IV Q4H PRN PRN PRN Reason: PAIN Ondansetron HCl (Zofran) 4 mg IV Q6H PRN PRN PRN Reason: NAUSEA/VOMITING Last Admin: 09/04/17 07:20 Dose: 4 mg Sodium Chloride () 5 - 30 ml IV UD PRN PRN Reason: SALINE FLUSH Assessment/Plan Active and Suspected Problems (Last Reviewed 08/25/17 @ 13:26 by Rosario Moreno) Acute biliary pancreatitis (Acute) 1. Acute BILIARY pancreatitis due to gallstones * Resolving. Left upper quadrant tenderness has improved significantly. * Vitals have remained stable. * Lipase has trended down from 33,845 down to about 1777 this morning. * Bilirubin has also trended down from 3.1 on admission to 2.6. AST has trended down from 1065 on admission to 515 today and ALT has gone down from 602 on admission to 417 today. * ALP has remained around 312 * Will maintain on IV fluids normal saline at 1 50 cc/h. General surgery on board. Will await recommendations about whether to do cholecystectomy today or tomorrow. * On IV ketorolac and morphine for pain and IV Zofran for nausea. * Will hold Lovenox for 24 hours prior to surgery. * maintain NPO * 2. DVT prophylaxis * lovenox sc 40mg daily; will hold today as per Dr Sanchez's note, she may go for surgery tomorrow. On SCDs. Lovenox to be resumed after surgery. * 3. GI prophylaxis * pantoprazole * This note was generated with [employer] software. It may contain incorrect words, spelling, and punctuation that were not noted in checking the note before signing. Code Visit Inpatient E&M: 45476 Subs Hosp L2
--- NOTE | 2017-09-04 11:28 | PCM.PN.SRG ---
Patient Problems: Active and Suspected Problems (Last Reviewed 08/25/17 @ 13:26 by Rosario Moreno) Acute biliary pancreatitis (Acute) Subjective: She is no longer complaining of pain. She is complaining though that she is unable to see her newly born infant. - Physical Exam Abdomen: Bowel Sounds Present, Soft, Non Tender, Non-Distended Vital Signs Temp Pulse Resp BP Pulse Ox 98.3 F 54 L 16 135/79 H 97 09/04/17 09:20 09/04/17 09:20 09/04/17 09:20 09/04/17 09:20 09/04/17 09:20 Oxygen Delivery Method Room Air Weight: 181 lb Body Mass Index (BMI) 30.1 Intake and Output for Last 24 Hours 09/02/17 09/03/17 09/04/17 23:59 23:59 23:59 Intake Total 427 / 427 1098 / 1098 Output Total 300 / 300 Balance 427 / 427 798 / 798 Laboratory Tests Past 24 Hrs 09/04/17 09/04/17 06:27 06:27 WBC 5.7 RBC 4.13 L Hgb 11.1 L Hct 36.0 L MCV 87.2 MCH 26.9 L MCHC 30.8 L RDW 13.1 RDW Differential 42.2 Plt Count 228 MPV 10.2 Immature Gran % (Auto) 0.000 Neut % (Auto) 49.6 Lymph % (Auto) 30.1 [place] % (Auto) 8.3 Eos % (Auto) 11.8 H Baso % (Auto) 0.2 Absolute Neuts (auto) 2.8 Absolute Lymphs (auto) 1.71 Total Counted Not Reportable Sodium 144 Potassium 3.8 Chloride 111 H Carbon Dioxide 28.0 Anion Gap 5 BUN 6 L Creatinine 0.69 Estim Creat Clear Calc 115.08 Est GFR (MDRD) Af Amer 137 Est GFR (MDRD) Non-Af 113 BUN/Creatinine Ratio 8.7 L Glucose 89 Calcium 8.3 L Total Bilirubin 2.60 H AST 515 H ALT 417 H Alkaline Phosphatase 314 H Total Protein 5.9 L Albumin 2.5 L Globulin 3.4 Albumin/Globulin Ratio 0.7 L Lipase 1778 H Assessment/Plan Active and Suspected Problems (Last Reviewed 08/25/17 @ 13:26 by Rosario Moreno) Acute biliary pancreatitis (Acute) Going to put her on the surgery schedule for tomorrow. I have told her there is a chance that she may have a gallstone stuck in her common bile duct still. This may require an ERCP to be removed. Patient is very adamant that she must see her and she is contemplating leaving the hospital AMA.
[2017-09-04 14:50] VITALS: BP 131/82; PULSE 100; RESP 16; TEMP 36.4; O2SAT 97
[2017-09-04 20:45] VITALS: BP 111/73; PULSE 60; RESP 16; TEMP 36.7; O2SAT 94
[2017-09-04 21:48] VITALS: BMI 30.1
[2017-09-05] VITALS (11 sets, daily range): BP systolic 117–137; BP diastolic 66–85; PULSE 55–77; RESP 16–18; TEMP 36.2–37; O2SAT 93–99; BMI 30.1
[2017-09-05 00:20] LABS: Internal QC Validated? YES +Cl - CLEAR BKGD; Pregnancy, Urine Negative Negative
--- NOTE | 2017-09-05 05:00 | EKG12_ITS ---
Test Reason : AM EKG Blood Pressure : / mmHG Vent. Rate : 066 BPM Atrial Rate : 066 BPM P-R Int : 138 ms QRS Dur : 080 ms QT Int : 426 ms P-R-T Axes : 040 042 041 degrees QTc Int : 446 ms Normal sinus rhythm Normal ECG Confirmed by ARIADNE GARCIA, ANITA ([id number]), avid editor ANTHONY NEELY ([id number]) on 09/14/2017 2:39:29 PM Referred By: NAHUN Confirmed By:ANITA RON MD
[2017-09-05 06:07] LABS: Absolute Lymphocyte Count 2.04 X10^3/ul (0.83-4.51); Absolute Neutrophil Count 2.8 X10^3/uL (2.0-7.7); Basophil# 0.02 X10^3/uL; Basophil% 0.3 % (0-1); Eosinophil# 0.73 X10^3/uL; Eosinophils% 12.2 % (0-5); Hematocrit 32.9 % (37-47); Hemoglobin 10.1 g/dl (12.0-15.0); Lymphocyte # 2.04 X10^3/ul (4.0); Mean Corp Hgb Conc 30.7 g/gl (32-36); Mean Corpuscular Hgb 27.2 pg (27.0-32.0); Mean Corpuscular Volume 88.4 fL (81-99); Mean Platelet Vol. 10.3 fl (6.2-12.0); Monocyte% 6.7 % (0-10); Neutrophil # 2.81 X10^3/uL (2.7-7.7); Neutrophil % 46.8 % (47-70); Platelet Count 209 K/mm3 (150-450); RBC Distribution Width CV 13.1 % (11.6-14.6); RBC Distribution Width SD 42.2 fl (35.1-43.9); Red Blood Count 3.72 M/mm3 (4.2-5.4)
[2017-09-05 06:14] LABS: ALB/GLOB Ratio 0.8 RATIO (0.9-2.4); AST(SGOT) 177 U/L (15-37); Alanine Aminotransfer ALT/SGPT 254 U/L (13-56); Albumin, Serum 2.5 g/dL (3.2-5.0); Alkaline Phosphatase 256 U/L (45-117); Anion Gap 13 (5-15); BUN 10 mg/dL (7-18); BUN/Creat Ratio 14.5 RATIO (10-20); Calcium,Total 8.1 mg/dL (8.5-10.1); Chloride 108 mmol/L (98-107); Creatinine, Serum 0.69 mg/dL (0.55-1.02); EST Glomerular Filtration Rate 113 mL/min (>60); Est Glom Filt Rate - Afr Amer 136 mL/min (>60); Estimated Creatinine Clearance 115.08 ml/min; Globulin 3.1 g/dL (2.2-4.2); Glucose 60 mg/dL (74-106); Potassium 3.6 mmol/L (3.5-5.1); Protein, Total 5.6 g/dL (6.4-8.2); Sodium Level 140 mmol/L (136-145)
[2017-09-05 06:22] LABS: POSITIVE COUNT NO; POSITIVE DIFFERENTIAL NO; POSITIVE MORPHOLOGY NO
[2017-09-05] MEDS: 0.9% NaCl Peripheral Flush Adult/Peds IV ×3 (06:44→13:02)
[2017-09-05] MEDS: 0.9% Normal Saline 1,000 ML 150 ML IV (06:44)
[2017-09-05] MEDS: Dextrose 50%-Water 25 GM/50 ML DISP.SYRIN IV (06:47)
[2017-09-05] MEDS: Dext 5%-0.45% NS 1,000 ML 125 ML IV (07:03)
[2017-09-05 07:11] LABS: Bedside Glucose 103 mg/dL (70-110)
--- NOTE | 2017-09-05 07:38 | PCM.PN.SRG ---
Patient Problems: Active and Suspected Problems (Last Reviewed 08/25/17 @ 13:26 by Rosario Moreno) Acute biliary pancreatitis (Acute) Subjective: Patient is feeling well this morning with no pain or nausea or vomiting. - Physical Exam General: Alert, Oriented x3, Cooperative Neck: No JVD Lungs: Normal air movement Cardiovascular: Regular rate, Regular Rhythm Abdomen: Soft, Non Tender, Non-Distended Vital Signs Temp Pulse Resp BP Pulse Ox 98.4 F 68 16 117/73 94 09/05/17 02:45 09/05/17 02:45 09/05/17 02:45 09/05/17 02:45 09/05/17 02:45 Oxygen Delivery Method Room Air Weight: 180 lb 15.992 oz Body Mass Index (BMI) 30.1 Intake and Output for Last 24 Hours 09/03/17 09/04/17 09/05/17 23:59 23:59 23:59 Intake Total 427 / 427 3636 / 3636 1033 / 1033 Output Total 1300 / 1300 600 / 600 Balance 427 / 427 2336 / 2336 433 / 433 Laboratory Tests Past 24 Hrs 09/05/17 09/05/17 09/05/17 00:10 05:35 05:35 WBC 6.0 RBC 3.72 L Hgb 10.1 L Hct 32.9 L MCV 88.4 MCH 27.2 MCHC 30.7 L RDW 13.1 RDW Differential 42.2 Plt Count 209 MPV 10.3 Immature Gran % (Auto) 0.000 Neut % (Auto) 46.8 L Lymph % (Auto) 34.0 [place] % (Auto) 6.7 Eos % (Auto) 12.2 H Baso % (Auto) 0.3 Absolute Neuts (auto) 2.8 Absolute Lymphs (auto) 2.04 Total Counted Not Reportable Sodium 140 Potassium 3.6 Chloride 108 H Carbon Dioxide 19.0 L Anion Gap 13 BUN 10 Creatinine 0.69 Estim Creat Clear Calc 115.08 Est GFR (MDRD) Af Amer 136 Est GFR (MDRD) Non-Af 113 BUN/Creatinine Ratio 14.5 Glucose 60 L Calcium 8.1 L Total Bilirubin 0.70 AST 177 H ALT 254 H Alkaline Phosphatase 256 H Total Protein 5.6 L Albumin 2.5 L Globulin 3.1 Albumin/Globulin Ratio 0.8 L Urine Test Negative POC Glucose 09/05/17 07:02 POC Glucose 103 Assessment/Plan Active and Suspected Problems (Last Reviewed 08/25/17 @ 13:26 by Rosario Moreno) Acute biliary pancreatitis (Acute) 22-year-old female with gallstone pancreatitis and choledocholithiasis 1. The patient's LFTs are downtrending. She is having no abdominal pain this morning and her pancreatitis is resolved. 2. I discussed the fact that she has may still have small stones in her common bile duct. I discussed bringing her this morning instead of Tuesday for laparoscopic cholecystectomy with cholangiogram. I went over the risks again with her. I also discussed the possibility of adding on an ERCP if I do find small stones in the duct. I explained the ERCP in detail including the risks of bleeding, infection, pancreatitis, bile duct or bowel perforation. Patient understands risks and is willing to proceed if needed. Paul Alvarenga MD Pager: [facility] [address], [address] [address] Office:
--- NOTE | 2017-09-05 10:35 | GALL_PTH ---
PATIENT: MARLON QUINTERO LOC: MS2 U#:[id number] AGE/SX: 22/F ROOM: MS213 RE09/03/[address]: Dr. Sammy Moulton DO : 1995 BED: 1 DIS: 09/05/2017 SPEC #: [id number] RECD: 09/05/17 12:04 STATUS: TRUONG RECrow #: [id number] BROCK: 09/05/17 10:[address]: Paul Alvarenga DEPT: SURGICAL PATHOLOGY RECD BY: Yaron Benitez ENTERED: 09/05/17 13:23 SP TYPE: GALLBLADDE OTHR DR: MD Dr. Sammy Boyd DO Dr. Nana Yaa Koram, MD No Primary Care Phys Tissues: Gallbladder, NOS Procedures: Surgery Specimen Level III Comments: @ Ordering doctor for SUIII edited from to @ by ABBY at 09/05/17 1535 @ Submitting doctor edited from to @ by DELMYOD at 09/05/17 1535 HEADER OPERATION: Laparoscopic cholecystectomy with cholangiogram PRE-OP DIAGNOSIS: Acute pancreatitis, gallstones TISSUE SUBMITTED: Gallbladder MICROSCOPIC DIAGNOSIS Gallbladder: Mild chronic cholecystitis and cholelithiasis. RAYSA:mary 09/06/17 MICROSCOPIC DESCRIPTION Slides are reviewed. GROSS DESCRIPTION Received is one container labeled with the patient's name and designated gallbladder. The specimen consists of a gallbladder measuring 9 x 3 x 3 cm. The external surface is smooth and glistening. Focally, it is granular, hemorrhagic and contains cautery artifact. The lumen of the gallbladder contains yellow mucoid bile and multiple mulberry-shaped yellow calculi ranging in size from 0.1 to 0.5 cm in greatest dimension. The mucosa is bile-stained and without any mass lesions. The gallbladder wall measures 0.2 cm in thickness and is free of mass lesions. Lawyer sections of the gallbladder and the cystic duct are submitted in one cassette. / AM:mary 09/05/17 TC:3 CPT: 03310
--- NOTE | 2017-09-05 10:45 | RAD_ITS ---
STUDY: INTRAOPERATIVE CHOLANGIOGRAM. REASON FOR EXAM: Female, 22 years old. Laparoscopic cholecystectomy. FLUOROSCOPY TIME (if supplied): (17.5 seconds) minutes/seconds TECHNIQUE: Intraoperative cholangiogram was performed by the surgeon. Imaging was submitted. COMPARISON: None. FINDINGS: The intrahepatic biliary ducts are unremarkable. The common bile duct is unremarkable as well. No intraluminal filling defect is seen. There is free flow of contrast into the duodenum. RAD/Cholangiogram/ O R,Initial IMPRESSION: Unremarkable intraoperative cholangiogram. Electronically Signed: Miguel Carrera MD at 14:19 EST Tel [phone], Service support ,
[2017-09-05] MEDS: Bupivacaine 0.25% 30 ML Vial (11:31)
--- NOTE | 2017-09-05 11:48 | OP.PCM_ITS ---
Problem List (1) Acute biliary pancreatitis Status: Acute Qualifiers: Acute pancreatitis complication: no infection or necrosis Qualified Code(s) : K85.10 - Biliary acute pancreatitis without necrosis or infection Report of Operation Date of Procedure: 09/05/17 Pre-Operative Diagnosis: Gallstone pancreatitis Post-Operative Diagnosis: Gallstone pancreatitis Surgery/Procedure Performed:: Laparoscopic cholecystectomy with cholangiogram Description of Surgical Findings:: Normal intraoperative cholangiogram with no filling defects noted in the common bile duct. Good filling of the duodenum. Specimen's removed: Gallbladder and contents Description of Procedure: After obtaining informed consent patient was brought back to the operating room. General anesthesia was induced. The abdomen was prepped and draped in usual sterile fashion. A small midline incision was made superior to the umbilicus and deepened to the level of fascia. The fascia was elevated and incised. Next the peritoneum was elevated and incised in the same fashion. Finger sweep was performed and the Thompson trocar was placed into the abdomen. The balloon was inflated. The abdomen was inflated to 15 mmHg. Next a camera was introduced into the abdomen and the abdomen was inspected. Next under direct visualization three 5-mm ports were placed one subxiphoid and 2 subcostal. Next the gallbladder was elevated and retracted toward the right shoulder. The peritoneum was stripped from the gallbladder. The infundibulum was located and retracted laterally. Next the triangle of [place] was dissected and the cystic duct and cystic artery were identified. Cholangiograms were performed. The Gonzalez catheter was used to clamp across the infundibulum and the needle was inserted into the gallbladder. Under fluoroscopy contrast was instilled into the gallbladder and the common duct, cystic duct as well as proximal hepatic ducts were identified. There was good filling of the duodenum. There were no filling defects noted in the common bile duct. The clamp was removed as well as the needle and the infundibulum was grasped once more. Three hemolock clips were placed across the cystic duct. The cystic duct was then divided leaving 2 clips on the stump. The cystic artery was clipped and divided in the same fashion. The hook cautery was then used to take the gallbladder off of the gallbladder bed. Hemostasis was obtained. Gallbladder fossa was irrigated and no active bleeding or bile leakage was noted. Next the camera switched to a 5 mm camera and introduced in the subxiphoid port. An Endopouch bag was placed through the umbilical port and the gallbladder was placed into it. The gallbladder was then removed through the umbilical incision. The camera was then reinserted through the umbilical port. The gallbladder fossa was inspected once more and noted to be hemostatic with no leaking bile. The abdomen was suctioned dry the 5 mm ports were removed under direct visualization. The umbilical port was then removed and the air was removed from the abdomen. Next using an 0 Vicryl suture the umbilical fascia was closed in a [id number] fashion. The umbilical port site was irrigated local anesthetic was administered to all the incisions. All the incisions were closed subcuticular 4-0 Monocryl sutures followed by Steri- Strips and dressings. The patient was awoken and taken to PACU in stable condition. - Admit VTE Documentation VTE Mechan Device Prophylaxis: SCD's
--- NOTE | 2017-09-05 11:48 | PCM.DC.GB ---
Discharge Diet: Light diet - advance as tolerated Discharge Activity: Return to Normal Activity, May Not Drive - for 2-3 days or while taking narcotic pain medicataions., - - Do not drive, work heavy equipment or sign legal documents for 24 hours. May shower in (days): 1 - with the bandage in place. Lifting Restrictions: 20 lbs for 2 weeks Additional Activity Instructions:: Pain medication may cause nausea. You should typically eat light foods as you take your pain medications. Pain medication may also cause constipation. If this is a problem for you, please discuss with your doctor. Call your doctor if your incision/area has: Continuous Slow Oozing, Sudden Increased Bleeding, Increased Pain/ Swelling, Increased Redness, Foul Smelling Discharge, Fever of 101 or Higher Call your doctor if you observe: Fever of 101 or Higher Suture Line Care: Avoid Pulling/Pushing, Avoid Pinching/Bending Additional Dressing/Incision Instructions:: Leave operative bandaids on for 2 days. When you remove dressing, leave Steri-Strips on until your follow-up appointment, or until the Steri-Strips fall off on their own. Additional Instructions: No while on [place] Allergies/Adverse Reactions: Allergies No Known Allergies Allergy (Verified 09/03/17 15:10) Medications to take at Discharge Vits [Prenatabs FA ] 1 tab PO DAILY 11/20/16 Ranitidine [Zantac] 150 mg PO BID 06/10/17 Acetaminophen [Tylenol] 650 mg PO Q4H PRN 09/03/17 Hydrocodone Bitart/Apap 5-325 [[place] 5MG-325MG] 1 - 2 tablet PO Q4H PRN PRN 7 Days #40 tablet 09/05/17 The following prescriptions were given: Hydrocodone Bitart/Apap 5-325 [[place] 5MG-325MG] 1 - 2 tablet PO Q4H PRN PRN 7 Days #40 tablet PRN Reason: Pain Primary Care Physician: Care Physician,No Primary [Primary Care Provider] - Please Follow Up With: Paul Alvarenga MD When: call tomorrow to make 2 week follow up appt [phone]
--- NOTE | 2017-09-05 12:49 | PCM.PN.HOSP ---
Patient Problems: Active and Suspected Problems (Last Reviewed 08/25/17 @ 13:26 by Rosario Moreno) Acute biliary pancreatitis (Acute) Subjective: Postop. Patient did have some right upper quadrant abdominal pain related with his incision but otherwise feeling okay. Vitals/I&O's: Vital Signs Temp Pulse Resp BP Pulse Ox 36.7 C 55 L 16 124/82 H 99 09/05/17 12:45 09/05/17 12:45 09/05/17 12:45 09/05/17 12:45 09/05/17 12:45 Oxygen Flow Rate 2 Oxygen Delivery Method Nasal Cannula Weight: 82.1 kg Body Mass Index (BMI) 30.1 Intake and Output for Last 24 Hours 09/03/17 09/04/17 09/05/17 23:59 23:59 23:59 Intake Total 427 / 427 3636 / 3636 2633 / 2633 Output Total 1300 / 1300 600 / 600 Balance 427 / 427 2336 / 2336 2032 / 2032 General: Alert, - - Boggy. Afebrile. HEENT: Atraumatic, Normocephalic Neck: No Nodes, Thyroid Normal Size and Texture Lungs: Clear to auscultation, Normal air movement, No rhonchi, No wheeze Cardiovascular: Regular rate, Regular Rhythm, Normal S1, Normal S2 Abdomen: Non Tender, Hypoactive Bowel Sounds, Distended Laboratory Results 09/05/17 00:10: Urine Test Negative 09/05/17 05:35: Sodium 140, Potassium 3.6, Chloride 108 H, Carbon Dioxide 19.0 L, Anion Gap 13, BUN 10, Creatinine 0.69, Estim Creat Clear Calc 115.08, Est GFR (MDRD) Af Amer 136, Est GFR (MDRD) Non-Af 113, BUN/Creatinine Ratio 14.5, Glucose 60 L, Calcium 8.1 L, Total Bilirubin 0.70, AST 177 H, ALT 254 H, Alkaline Phosphatase 256 H, Total Protein 5.6 L, Albumin 2.5 L, Globulin 3.1, Albumin/Globulin Ratio 0.8 L 09/05/17 05:35: WBC 6.0, RBC 3.72 L, Hgb 10.1 L, Hct 32.9 L, MCV 88.4, MCH 27.2, MCHC 30.7 L, RDW 13.1, RDW Differential 42.2, Plt Count 209, MPV 10.3, Immature Gran % (Auto) 0.000, Neut % (Auto) 46.8 L, Lymph % (Auto) 34.0, [place] % (Auto) 6.7, Eos % (Auto) 12.2 H, Baso % (Auto) 0.3, Absolute Neuts (auto) 2.8, Absolute Lymphs (auto) 2.04, Total Counted Not Reportable 09/05/17 07:02: POC Glucose 103 Current Medications Hydrocodone Bitart/Acetaminophen ([place] 5mg-325mg) 1 - 2 tablet PO Q6H PRN PRN PRN Reason: Moderate-severe pain Enoxaparin Sodium (Lovenox) 40 mg SC DAILY@1000 YEE Last Admin: 09/04/17 09:29 Dose: Not Given Pantoprazole Sodium 40 mg/ (Sodium Chloride) 110 mls @ 330 mls/hr IV Q24 YEE Last Admin: 09/05/17 09:01 Dose: 330 mls/hr Dextrose/Sodium Chloride () 1,000 mls @ 125 mls/hr IV .Q8H YEE Last Admin: 09/05/17 07:03 Dose: 125 mls/hr Ketorolac Tromethamine (Toradol) 30 mg IV Q6H PRN PRN PRN Reason: PAIN Stop: 09/08/17 18:39 Last Admin: 09/04/17 22:26 Dose: 30 mg Magnesium Hydroxide (Milk Of Magnesia) 30 ml PO DAILY PRN PRN PRN Reason: Constipation Morphine Sulfate (Morphine) 1 - 2 mg IV Q4H PRN PRN PRN Reason: PAIN Ondansetron HCl (Zofran) 4 mg IV Q6H PRN PRN PRN Reason: NAUSEA/VOMITING Last Admin: 09/04/17 22:26 Dose: 4 mg Sodium Chloride () 5 - 30 ml IV UD PRN PRN Reason: SALINE FLUSH Last Admin: 09/05/17 09:37 Dose: 10 ml Assessment/Plan Active and Suspected Problems (Last Reviewed 08/25/17 @ 13:26 by Rosario Moreno) Acute biliary pancreatitis (Acute) 1. Gallstone pancreatitis Status post left scopic cholecystectomy and cholangiogram. No filling defects noted in the common bile duct surgery. Patient be started on diet and if doing well discharge orders are very been placed by general surgery. Patient may follow Dr. Sterling in the coming weeks.
--- NOTE | 2017-09-05 12:52 | PN_ITS ---
Patient Problems: Active and Suspected Problems (Last Reviewed 08/25/17 @ 13:26 by Rosario Moreno) Acute biliary pancreatitis (Acute) Subjective: Postop. Patient did have some right upper quadrant abdominal pain related with his incision but otherwise feeling okay. Vitals/I&O's: Vital Signs Temp Pulse Resp BP Pulse Ox 36.7 C 55 L 16 124/82 H 99 09/05/17 12:45 09/05/17 12:45 09/05/17 12:45 09/05/17 12:45 09/05/17 12:45 Oxygen Flow Rate 2 Oxygen Delivery Method Nasal Cannula Weight: 82.1 kg Body Mass Index (BMI) 30.1 Intake and Output for Last 24 Hours 09/03/17 09/04/17 09/05/17 23:59 23:59 23:59 Intake Total 427 / 427 3636 / 3636 2633 / 2633 Output Total 1300 / 1300 600 / 600 Balance 427 / 427 2336 / 2336 2032 / 2032 General: Alert, - - Boggy. Afebrile. HEENT: Atraumatic, Normocephalic Neck: No Nodes, Thyroid Normal Size and Texture Lungs: Clear to auscultation, Normal air movement, No rhonchi, No wheeze Cardiovascular: Regular rate, Regular Rhythm, Normal S1, Normal S2 Abdomen: Non Tender, Hypoactive Bowel Sounds, Distended Laboratory Results 09/05/17 00:10: Urine Test Negative 09/05/17 05:35: Sodium 140, Potassium 3.6, Chloride 108 H, Carbon Dioxide 19.0 L , Anion Gap 13, BUN 10, Creatinine 0.69, Estim Creat Clear Calc 115.08, Est GFR (MDRD) Af Amer 136, Est GFR (MDRD) Non-Af 113, BUN/Creatinine Ratio 14.5, Glucose 60 L, Calcium 8.1 L, Total Bilirubin 0.70, AST 177 H, ALT 254 H, Alkaline Phosphatase 256 H, Total Protein 5.6 L, Albumin 2.5 L, Globulin 3.1, Albumin/Globulin Ratio 0.8 L 09/05/17 05:35: WBC 6.0, RBC 3.72 L, Hgb 10.1 L, Hct 32.9 L, MCV 88.4, MCH 27.2 , MCHC 30.7 L, RDW 13.1, RDW Differential 42.2, Plt Count 209, MPV 10.3, Immature Gran % (Auto) 0.000, Neut % (Auto) 46.8 L, Lymph % (Auto) 34.0, [place] % (Auto) 6.7, Eos % (Auto) 12.2 H, Baso % (Auto) 0.3, Absolute Neuts (auto) 2.8, Absolute Lymphs (auto) 2.04, Total Counted Not Reportable 09/05/17 07:02: POC Glucose 103 Current Medications Hydrocodone Bitart/Acetaminophen ([place] 5mg-325mg) 1 - 2 tablet PO Q6H PRN PRN PRN Reason: Moderate-severe pain Enoxaparin Sodium (Lovenox) 40 mg SC DAILY@1000 YEE Last Admin: 09/04/17 09:29 Dose: Not Given Pantoprazole Sodium 40 mg/ (Sodium Chloride) 110 mls @ 330 mls/hr IV Q24 YEE Last Admin: 09/05/17 09:01 Dose: 330 mls/hr Dextrose/Sodium Chloride () 1,000 mls @ 125 mls/hr IV .Q8H YEE Last Admin: 09/05/17 07:03 Dose: 125 mls/hr Ketorolac Tromethamine (Toradol) 30 mg IV Q6H PRN PRN PRN Reason: PAIN Stop: 09/08/17 18:39 Last Admin: 09/04/17 22:26 Dose: 30 mg Magnesium Hydroxide (Milk Of Magnesia) 30 ml PO DAILY PRN PRN PRN Reason: Constipation Morphine Sulfate (Morphine) 1 - 2 mg IV Q4H PRN PRN PRN Reason: PAIN Ondansetron HCl (Zofran) 4 mg IV Q6H PRN PRN PRN Reason: NAUSEA/VOMITING Last Admin: 09/04/17 22:26 Dose: 4 mg Sodium Chloride () 5 - 30 ml IV UD PRN PRN Reason: SALINE FLUSH Last Admin: 09/05/17 09:37 Dose: 10 ml Assessment/Plan Active and Suspected Problems (Last Reviewed 08/25/17 @ 13:26 by Rosario Moreno) Acute biliary pancreatitis (Acute) 1. Gallstone pancreatitis * Status post left scopic cholecystectomy and cholangiogram. No filling defects noted in the common bile duct surgery. * Patient be started on diet and if doing well discharge orders are very been placed by general surgery. Patient may follow Dr. Sterling in the coming weeks.
--- NOTE | 2017-09-05 12:52 | PCM.DC.SUM ---
Discharge Date and Diagnosis - Problem List Patient Problems: Active and Suspected Problems (Last Reviewed 08/25/17 @ 13:26 by Rosario Moreno) Acute biliary pancreatitis (Acute) Date of Admission: 09/03/17 Date of Discharge: 09/05/17 - Primary Discharge Diagnosis Active and Suspected Problems (Last Reviewed 08/25/17 @ 13:26 by Rosario Moreno) Acute biliary pancreatitis (Acute) Hospital Course and Treatment Imaging Results: 09/05/17 10:35 O.R. Fluoro for C-Arm [RAD] Urgent 09/05/17 10:45 Cholangiogram/ O R,Initial [RAD] Urgent [place] Operations: cholecystecomy Procedures: None Summary of Care Provided: The patient is a 22 year old F presents with abdominal pain. Patient was found to have acute pancreatitis of 32,845. Cerner was for gallstone pancreatitis and general surgery was consulted. Patient underwent a lap scopic cholecystectomy today. Cholangiogram did not show any bile duct obstruction at this time but the patient's lipase had been trending down to 1778 on the . Patient will be discharged pending if she tolerates diet and to follow-up with general surgery in 2 weeks time. [] Discharge Diet: Light diet - advance as tolerated Discharge Activity: Return to Normal Activity, May Not Drive - for 2-3 days or while taking narcotic pain medicataions., - - Do not drive, work heavy equipment or sign legal documents for 24 hours. May shower in (days): 1 - with the bandage in place. Additional Activity Instructions:: Pain medication may cause nausea. You should typically eat light foods as you take your pain medications. Pain medication may also cause constipation. If this is a problem for you, please discuss with your doctor. Call your doctor if your incision/area has: Continuous Slow Oozing, Sudden Increased Bleeding, Increased Pain/ Swelling, Increased Redness, Foul Smelling Discharge, Fever of 101 or Higher Call your doctor if you observe: Fever of 101 or Higher Suture Line Care: Avoid Pulling/Pushing, Avoid Pinching/Bending Additional Dressing/Incision Instructions:: Leave operative bandaids on for 2 days. When you remove dressing, leave Steri-Strips on until your follow-up appointment, or until the Steri-Strips fall off on their own. Home Medications: Medications to take at Discharge Vits [Prenatabs FA ] 1 tab PO DAILY 11/20/16 Ranitidine [Zantac] 150 mg PO BID 06/10/17 Acetaminophen [Tylenol] 650 mg PO Q4H PRN 09/03/17 Hydrocodone Bitart/Apap 5-325 [[place] 5MG-325MG] 1 - 2 tablet PO Q4H PRN PRN 7 Days #40 tablet 09/05/17 Following Prescrptions Were Given to Patient: Hydrocodone Bitart/Apap 5-325 [[place] 5MG-325MG] 1 - 2 tablet PO Q4H PRN PRN 7 Days #40 tablet PRN Reason: Pain Primary Care Physician: Care Physician,No Primary [Primary Care Provider] - Please Follow Up With: Paul Alvarenga MD When: call tomorrow to make 2 week follow up appt [phone] Additional Instructions: No while on [place] Disposition: Home Minutes spent on discharge:: 25 Patient Condition:: Good Meaningful Use Info Meaningful Use Diagnoses (Choose all that apply): None applicable Code Visit Inpatient E&M: 44882 Disch Hosp
--- NOTE | 2017-09-05 12:55 | DS.PCM_ITS ---
Discharge Date and Diagnosis - Problem List Patient Problems: Active and Suspected Problems (Last Reviewed 08/25/17 @ 13:26 by Rosario Moreno) Acute biliary pancreatitis (Acute) Date of Admission: 09/03/17 Date of Discharge: 09/05/17 - Primary Discharge Diagnosis Active and Suspected Problems (Last Reviewed 08/25/17 @ 13:26 by Rosario Moreno) Acute biliary pancreatitis (Acute) Hospital Course and Treatment Imaging Results: 09/05/17 10:35 O.R. Fluoro for C-Arm [RAD] Urgent 09/05/17 10:45 Cholangiogram/ O R,Initial [RAD] Urgent [place]aura Operations: cholecystecomy Procedures: None Summary of Care Provided: The patient is a 22 year old F presents with abdominal pain. Patient was found to have acute pancreatitis of 32,845. Cerner was for gallstone pancreatitis and general surgery was consulted. Patient underwent a lap scopic cholecystectomy today. Cholangiogram did not show any bile duct obstruction at this time but the patient's lipase had been trending down to 1778 on the . Patient will be discharged pending if she tolerates diet and to follow-up with general surgery in 2 weeks time. [] Discharge Diet: Light diet - advance as tolerated Discharge Activity: Return to Normal Activity, May Not Drive - for 2-3 days or while taking narcotic pain medicataions., - - Do not drive, work heavy equipment or sign legal documents for 24 hours. May shower in (days): 1 - with the bandage in place. Additional Activity Instructions:: Pain medication may cause nausea. You should typically eat light foods as you take your pain medications. Pain medication may also cause constipation. If this is a problem for you, please discuss with your doctor. Call your doctor if your incision/area has: Continuous Slow Oozing, Sudden Increased Bleeding, Increased Pain/ Swelling, Increased Redness, Foul Smelling Discharge, Fever of 101 or Higher Call your doctor if you observe: Fever of 101 or Higher Suture Line Care: Avoid Pulling/Pushing, Avoid Pinching/Bending Additional Dressing/Incision Instructions:: Leave operative bandaids on for 2 days. When you remove dressing, leave Steri-Strips on until your follow-up appointment, or until the Steri-Strips fall off on their own. Home Medications: Medications to take at Discharge Vits [Prenatabs FA ] 1 tab PO DAILY 11/20/16 Ranitidine [Zantac] 150 mg PO BID 06/10/17 Acetaminophen [Tylenol] 650 mg PO Q4H PRN 09/03/17 Hydrocodone Bitart/Apap 5-325 [[place] 5MG-325MG] 1 - 2 tablet PO Q4H PRN PRN 7 Days #40 tablet 09/05/17 Following Prescrptions Were Given to Patient: Hydrocodone Bitart/Apap 5-325 [[place] 5MG-325MG] 1 - 2 tablet PO Q4H PRN PRN 7 Days #40 tablet PRN Reason: Pain Primary Care Physician: Care Physician,No Primary [Primary Care Provider] - Please Follow Up With: Paul Alvarenga MD When: call tomorrow to make 2 week follow up appt [phone] Additional Instructions: No while on [place] Disposition: Home Minutes spent on discharge:: 25 Patient Condition:: Good Meaningful Use Info Meaningful Use Diagnoses (Choose all that apply): None applicable Code Visit Inpatient E&M: 27943 Disch Hosp
[2017-09-05] MEDS: Ketorolac 30 MG/ML Syringe IV (13:02)
--- NOTE | 2017-09-05 14:54 | NURSING ---
UMBILICAL DRSG CHANGED FOR SATURATION OF SANGINOUS DRAINAGE. APPLIED FOLDED 2X2 GAUZE & TAPE.
== END 2017-09-05 16:00 | disposition home or self-care (01) | DRG 377 ==
LOC: ED 17:02 → MS2 17:49
PROVIDERS: Anesthesiology; Surgery; Admitting Provider Student in an Organized Health Care Education/Training Program; Emergency Provider Emergency Medicine
PROC: 0FT44ZZ Resection of Gallbladder, Percutaneous Endoscopic Approach (ICD-10-PCS; CPT 47610; principal; 2017-09-05 10:15)
DX: O26.63 Liver and biliary tract disorders in the puerperium (principal); K85.10 Biliary acute pancreatitis without necrosis or infection; O99.335 Smoking (tobacco) complicating the puerperium; F17.200 Nicotine dependence, unspecified, uncomplicated
CPT/HCPCS: 36415; 74300; 76000; 80053; 81025; 82962; 83690; 85025; 88304; 93005; 99282; 99406; J7030; A4216; J2405; J7799

== ENCOUNTER → 2017-10-03 07:13 | Outpatient (CLI) | payer MEDICAID, SELFPAY ==
[2017-10-13 14:29] LABS: HPV APTIMA, High Risk Positive (Negative); HPV Reflexed? YES, CHARGE PATIENT
== END ==
PROVIDERS: Visit Provider Obstetrics & Gynecology
DX: Z12.4 Encounter for screening for malignant neoplasm of cervix (principal)
CPT/HCPCS: 87624; 88175; G0145

== ENCOUNTER → 2017-10-11 05:33 | Outpatient (CLI) | payer MEDICAID, SELFPAY ==
[2017-08-12 14:00] VITALS: BP 127/61
[2017-08-25 13:26] VITALS: BP 122/80
== END ==
PROVIDERS: Visit Provider Surgery
DX: Z01.818 Encounter for other preprocedural examination (principal)

== ENCOUNTER → 2018-01-30 11:37 | Outpatient (CLI) | payer MEDICAID, SELFPAY ==
[2018-01-30 12:27] LABS: hCG Titer Quant., Serum 136 mIU/mL (<9 non-preg)
== END ==
PROVIDERS: Visit Provider Obstetrics & Gynecology
DX: O09.91 Supervision of high risk pregnancy, unspecified, first trimester (principal); N91.2 Amenorrhea, unspecified; Z3A.00 Weeks of gestation of pregnancy not specified
CPT/HCPCS: 36415; 84702

== ENCOUNTER → 2018-02-01 11:10 | Outpatient (CLI) | payer MEDICAID, SELFPAY ==
[2018-02-01 12:33] LABS: hCG Titer Quant., Serum 342 mIU/mL (<9 non-preg)
== END ==
PROVIDERS: Visit Provider Obstetrics & Gynecology
DX: N91.2 Amenorrhea, unspecified (principal)
CPT/HCPCS: 36415; 84702

== ENCOUNTER 2018-02-11 18:29 | Emergency (ER) | payer MEDICAID, SELFPAY ==
[2018-02-11 18:31] VITALS: BP 116/63; PULSE 95; RESP 16; TEMP 36.6; BMI 29.9
--- NOTE | 2018-02-11 18:43 | ED.RN ---
LAST REGULAR PERIOD December. UPCOMING OB APPT. Feb.
[2018-02-11 18:44] VITALS: O2SAT 95
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
[2018-02-11 20:54] VITALS: RESP 16
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
[2018-02-11 21:11] VITALS: BP 110/65; PULSE 79; RESP 18; O2SAT 96
== END 2018-02-11 21:12 | disposition home or self-care (01) ==
PROVIDERS: Emergency Provider Emergency Medicine
DX: S30.1XXA Contusion of abdominal wall, initial encounter (principal); S00.81XA Abrasion of other part of head, initial encounter; Y04.2XXA Assault by strike against or bumped into by another person, initial encounter; Y93.9 Activity, unspecified; Y92.9 Unspecified place or not applicable; F17.200 Nicotine dependence, unspecified, uncomplicated
CPT/HCPCS: 99282

== ENCOUNTER → 2018-02-13 11:44 | Outpatient (CLI) | payer MEDICAID, SELFPAY ==
[2018-02-13 12:56] LABS: hCG Titer Quant., Serum 33008 mIU/mL (<9 non-preg)
== END ==
PROVIDERS: Visit Provider Nurse Practitioner Women's Health
DX: O20.0 Threatened abortion (principal); Z3A.00 Weeks of gestation of pregnancy not specified
CPT/HCPCS: 36415; 84702

== ENCOUNTER → 2018-02-15 13:42 | Outpatient (CLI) | payer MEDICAID, SELFPAY ==
--- NOTE | 2018-02-15 13:44 | US_ITS ---
STUDY: FIRST TRIMESTER OBSTETRICAL ULTRASOUND REASON FOR EXAM: Female, 22 years old. Viability. LMP: 12/26/2017 TECHNIQUE: Transabdominal PRIOR ULTRASOUND: None. FINDINGS: There is visualization of a single gestational sac in a normal intrauterine position. The mean sac diameter (MSD) measures 2.1 cm, indicating an estimated gestational age (EGA) of 7 weeks, 1 days. The gestational sac shape is within normal limits. There is a visualized yolk sac. The yolk sac measures 3 mm. The placenta is non-visualized. There is visualization of a live embryo. The crown-rump length (CRL) measures 0.6 cm, indicating an estimated gestational age (EGA) of 6 weeks, 3 days. There is demonstrated cardiac activity with a heart rate of 114 bpm. The estimated gestation age (EGA) by LMP is 7 weeks, 2 days. The estimated date of delivery (BI) by LMP is 10/02/2018. The estimated gestation age (EGA) by US is 6 weeks, 6 days. The estimated date of delivery (BI) by US is 10/05/2018. The uterus measures 9.3 x 7.6 x 5.9 cm. There is no demonstrated uterine fibroid. The cervix is closed. The right ovary measures 2.9 x 1.9 x 1.9 cm. There is no right ovarian cyst. There is no visualized right adnexal mass or complex lesion. The left ovary measures 3.8 x 3.8 x 2.9 cm. There is no left ovarian cyst. There is no visualized left adnexal mass or complex lesion. There is no fluid in the cul de sac. US/Transvaginal w/Preg US IMPRESSION: Single live intrauterine gestation with ultrasound EGA of 6 weeks 6 days. Electronically Signed: Adalberto Vaughn MD at 21:26 EDT , Service support ,
== END ==
PROVIDERS: Visit Provider Nurse Practitioner Women's Health
DX: O20.0 Threatened abortion (principal); Z3A.00 Weeks of gestation of pregnancy not specified
CPT/HCPCS: 76817

== ENCOUNTER → 2018-03-03 16:19 | Outpatient (CLI) | payer MEDICAID, SELFPAY ==
[2018-03-03 18:34] LABS: Chlamydia Trachomatis by PCR Negative (Negative); Neisserai gonorrhoeae by PCR Negative (Negative); Probe Check PASS; Sample Adequacy Control PASS; Specimen Processing Control PASS
== END ==
PROVIDERS: Visit Provider Obstetrics & Gynecology
DX: Z34.90 Encounter for supervision of normal pregnancy, unspecified, unspecified trimester (principal)
CPT/HCPCS: 87086; 87491; 87591

== ENCOUNTER 2018-06-13 17:05 | Outpatient (CLI) | payer MEDICAID, SELFPAY ==
[2018-06-13 17:39] VITALS: BMI 30.4
--- NOTE | 2018-06-14 08:18 | OB.TRI.HP_ITS ---
History of Present Illness Date of Service: 06/13/18 Was patient seen by the physician?: Yes Reason For Visit: FALL Date of Service: 06/13/18 Final BI: 10/08/18 Gestational age: 23 Weeks and 2 Days History of Present Illness: 22 yo female presents at 23 wk EGA with CC of fall at noon. Tripped on step while carrying dog food bag... Fell onto abdomen. No bruising. No vaginal bleeding. No cramping. Denies any pain. baby is moving well. Allergies hydrocodone [From [place]] Adverse Reaction (Verified 06/13/18 17:42) Vomiting oxycodone [From Percocet] Adverse Reaction (Verified 06/13/18 17:42) Vomiting - Pertinent Past Medical History Medical History: Past Medical History (Last Reviewed 05/24/18 @ 13:26 by Georgiana Gutierrez) Anxiety Back pain Cholelithiasis Chronic cholecystitis Depression GERD (gastroesophageal reflux disease) Hemorrhoids Surgical History: Past Surgical History (Last Reviewed 05/24/18 @ 13:26 by Georgaina Gutierrez) S/P colonoscopy S/P laparoscopic cholecystectomy Onset Date: ~09/03/17 S/P tonsillectomy and adenoidectomy Review of Systems Gastrointestinal: Denies: Abdominal Pain Gynecological: Denies: Vaginal bleeding, Vaginal discharge Neurological: Denies: Balance problems Hematologic/ Lymphatic: Denies: Easy Bruising NST - FHR Rate Baby A Baseline: 130-140 Variability:: Moderate Accelerations:: None Decelerations:: Variable NST Reactive:: Appropriate for gestational age, Non-Reactive FHR Category:: Category I Uterine Activity:: no UCs noted. Active movement audible Impression/Plan 23 2/7 wk s/p fall onto abdomen , tripped on stairs. No bruising, no pain. Presents 5 1/2-6 hr later for evaluation 6 hr after fall Active FM noted. No bruising, NT abdomen. NO UCs. No vaginal bleeding. Stable. O positive blood type. Home. F/U with Dr Brunson in 1-2 wk for PNV, f/u from hospital.
--- OUTSIDE RECORDS SUMMARY | 2018-08-09 09:28 | XMS RPT_ITS ---
:1995 Author Organization OHIP Support Name Relationship Address Phone CRAOTONIEL, SUNDAY Unavailable [address] + [place] [address] UE Unavailable Unavailable Unavailable BERTHA QUINTERO Unavailable [address] [phone] [place] [address] CRAYDDEN, SUNDAY Unavailable [address] + [place] [address] UE Unavailable Unavailable Unavailable BERTHA QUINTERO Unavailable [address] [phone] [place] [address] CRAYDDEN, SUNDAY Unavailable [address] + [place] [address] UE Unavailable Unavailable Unavailable BERTHA QUINTERO Unavailable [address] [phone] [place] [address] CRAYDDEN, SUNDAY Unavailable [address] + [place] [address] UE Unavailable Unavailable Unavailable CRAYDDEN, SUNDAY Unavailable [address] + [place] [address] UE Unavailable Unavailable Unavailable CRAYDDEN, SUNDAY Unavailable [address] + [place] [address] UE Unavailable Unavailable Unavailable CRAYDDEN, SUNDAY Unavailable [address] + [place] [address] UE Unavailable Unavailable Unavailable CRAYDDEN, SUNDAY Unavailable [address] + [place] [address] UE Unavailable Unavailable Unavailable CRAYDDEN, SUNDAY Unavailable [address] + [place] [address] UE Unavailable Unavailable Unavailable CRAYDDEN, SUNDAY Unavailable [address] + [place] [address] UE Unavailable Unavailable Unavailable CRAYDDEN, SUNDAY Unavailable [address] + [place] [address] UE Unavailable Unavailable Unavailable CRAYDDEN, SUNDAY Unavailable [address] + [place] [address] UE Unavailable Unavailable Unavailable UE Unavailable Unavailable Unavailable CRAYDDEN, SUNDAY Unavailable [address] + [place] [address] UE Unavailable Unavailable Unavailable INGRID, TAY Unavailable [address] + [place] [address] CRAYDDEN, SUNDAY Unavailable [address] + [place] [address] UE Unavailable Unavailable Unavailable INGRID, TAY Unavailable [address] + [place] [address] CRAYDDEN, SUNDAY Unavailable [address] + [place] [address] UE Unavailable Unavailable Unavailable INGRID, TAY Unavailable [address] + [place] [address] CRAYDDEN, SUNDAY Unavailable [address] + [place] [address] UE Unavailable Unavailable Unavailable INGRID, TAY Unavailable [address] + [place] [address] CRAYDDEN, SUNDAY Unavailable [address] + [place] [address] UE Unavailable Unavailable Unavailable INGRID, TAY Unavailable [address] + [place] [address] CRAYDDEN, SUNDAY Unavailable [address] + [place] [address] UE Unavailable Unavailable Unavailable INGRID, TAY Unavailable [address] + [place] [address] CRAYDDEN, SUNDAY Unavailable [address] + [place] [address] UE Unavailable Unavailable Unavailable INGRID, TAY Unavailable [address] + [place] [address] CRAYDDEN, SUNDAY Unavailable [address] + [place] [address] UE Unavailable Unavailable Unavailable INGRID, TAY Unavailable [address] + [place] [address] CRAYDDEN, SUNDAY Unavailable [address] + [place] [address] UE Unavailable Unavailable Unavailable INGRID, TAY Unavailable [address] + [place] [address] CRAYDDEN, SUNDAY Unavailable [address] + [place] [address] UE Unavailable Unavailable Unavailable INGRID, TAY Unavailable [address] + [place] [address] CRAYDDEN, SUNDAY Unavailable [address] + [place] [address] UE Unavailable Unavailable Unavailable INGRID, TAY Unavailable [address] + [place] [address] CRAYDDEN, SUNDAY Unavailable [address] + [place] [address] UE Unavailable Unavailable Unavailable INGRID, TAY Unavailable [address] + [place] [address] CRAYDDEN, SUNDAY Unavailable [address] + [place] [address] UE Unavailable Unavailable Unavailable INGRID, TAY Unavailable [address] + [place] [address] CRAYDDEN, SUNDAY Unavailable [address] + [place] [address] UE Unavailable Unavailable Unavailable INGRID, TAY Unavailable [address] + [place] [address] CRAYDDEN, SUNDAY Unavailable [address] + [place] [address] UE Unavailable Unavailable Unavailable INGRID, TAY Unavailable [address] + [place] [address] CRAYDDEN, SUNDAY Unavailable [address] + [place] [address] UE Unavailable Unavailable Unavailable INGRID, TAY Unavailable [address] + [place] [address] CRAYDDEN, SUNDAY Unavailable [address] + [place] [address] UE Unavailable Unavailable Unavailable INGRID, TAY Unavailable [address] + [place] [address] CRAYDDEN, SUNDAY Unavailable [address] + [place] [address] UE Unavailable Unavailable Unavailable INGRID, TAY Unavailable [address] + [place] [address] CRAYDDEN, SUNDAY Unavailable [address] + [place] [address] UE Unavailable Unavailable Unavailable INGRID, TAY Unavailable [address] + [place] [address] CRAYDDEN, SUNDAY Unavailable [address] + [place] [address] UE Unavailable Unavailable Unavailable INGRID, TAY Unavailable [address] + [place] [address] CRAYDDEN, SUNDAY Unavailable [address] + [place] [address] UE Unavailable Unavailable Unavailable INGRID, TAY Unavailable [address] + [place] [address] CRAYDDEN, SUNDAY Unavailable [address] + [place] [address] UE Unavailable Unavailable Unavailable INGRID, TAY Unavailable [address] + [place] [address] CRAYDDEN, SUNDAY Unavailable [address] + [place] [address] UE Unavailable Unavailable Unavailable INGRID, TAY Unavailable [address] + [place] [address] CRAYDDEN, SUNDAY Unavailable [address] + [place] [address] UE Unavailable Unavailable Unavailable INGRID, TAY Unavailable [address] + [place] [address] CRAYDDEN, SUNDAY Unavailable [address] + [place] [address] UE Unavailable Unavailable Unavailable INGRID, TAY Unavailable [address] + [place] [address] DEQUAN SUNDAY Unavailable [address] + [place] [address] UE Unavailable Unavailable Unavailable INGRID, TAY Unavailable [address] + [place] [address] AVELINOAUSTIN NGYN Unavailable [address] + [place] [address] ZEVDEN, SUNDAY Unavailable [address] + [place] [address] UE Unavailable Unavailable Unavailable INGRID, TAY Unavailable [address] + [place] [address] DEQUAN, SUNDAY Unavailable [address] + [place] [address] UE Unavailable Unavailable Unavailable INGRID, TAY Unavailable [address] + [place] [address] Care Team Providers Name Role Phone AIDA BEACH (PROPERTY CONSULTANT) Referring Unavailable MARIO DUCKWORTH Attending Unavailable AIDA BEACH (PROPERTY CONSULTANT) Referring Unavailable MARIO DUCKWORTH Referring Unavailable COOPER VALLE Attending Unavailable NICOLE VELAZQUEZ Referring Unavailable NO PRIMARY CARE, Primary Care Unavailable COOPER VALLE Attending Unavailable NICOLE VELAZQUEZ Referring Unavailable NO PRIMARY CARE, Primary Care Unavailable SERAFIN VAN Attending Unavailable NICOLE VELAZQUEZ Referring Unavailable NO PRIMARY CARE, Primary Care Unavailable EPIFANIO ZAMBRANO Attending Unavailable NICOLE VELAZQUEZ Referring Unavailable NO PRIMARY CARE, Primary Care Unavailable Nicole Velazquez Admitting Unavailable Nicole Velazquez Attending Unavailable Primay Care Physicia, No Primary Care Unavailable Nicole Velazquez Consulting Unavailable Nicole Velazquez Attending Unavailable Primay Care Physicia, No Referring Unavailable Primay Care Physicia, No Primary Care Unavailable Grace Thomas Attending Unavailable Grace Thomas Referring Unavailable Primay Care Physicia, No Primary Care Unavailable Primay Care Physicia, No Primary Care Unavailable MARIO BRIDGES Attending Unavailable Nicole Velazquez Attending Unavailable Nicole Velazquez Referring Unavailable Primay Care Physicia, No Primary Care Unavailable MarcanthonyNicole Attending Unavailable MarcanthonyNicole Referring Unavailable Primay Care Physicia, No Primary Care Unavailable HildaJulia baird Attending Unavailable Primay Care Physicia, No Referring Unavailable Primay Care Physicia, No Primary Care Unavailable Refugio Ferrera Attending Unavailable Koram, Elda Joana Referring Unavailable Marcanthony, Nicole Attending Unavailable MarcanthonyNicole Referring Unavailable Primay Care Physicia, No Primary Care Unavailable Marcanthony, Nicole Attending Unavailable Primay Care Physicia, No Referring Unavailable Primay Care Physicia, No Primary Care Unavailable TereletsGuevara spann Attending Unavailable Koram, Elda Joana Admitting Unavailable JopperiElioic Attending Unavailable Primay Care Physicia, No Primary Care Unavailable Laura, Wilfredo Consulting Unavailable Jopperi, Sammy Consulting Unavailable Koram, Elda Joana Admitting Unavailable CalabrettaScottieAlana Attending Unavailable Primay Care Physicia, No Primary Care Unavailable [place], Wilfredo Consulting Unavailable Jopperi, Sammy Consulting Unavailable Koram, Elda Joana Admitting Unavailable Laura, Wilfredo Attending Unavailable Primay Care Physicia, No Primary Care Unavailable Laura, Wilfredo Consulting Unavailable Koram, Elda Joana Consulting Unavailable Primay Care Physicia, No Primary Care Unavailable Tereletsky, Guevara Attending Unavailable Primay Care Physicia, No Primary Care Unavailable Koram, Elda Joana Admitting Unavailable Laura, Wilfredo Consulting Unavailable Jopperi, Sammy Attending Unavailable CalabrettaAlana Attending Unavailable CalabrettaScottieAlana Referring Unavailable Primay Care Physicia, No Primary Care Unavailable MarcanthNicole dodge Attending Unavailable Primay Care Physicia, No Referring Unavailable MarcanthonyNicole Admitting Unavailable Marcanthony, Nicole Attending Unavailable Primay Care Physicia, No Primary Care Unavailable MarcanthNicole dodge Consulting Unavailable MarcanthonyNicole Attending Unavailable Primay Care Physicia, No Primary Care Unavailable MarcanthNicole oddge Admitting Unavailable MarcanthonyNicole Attending Unavailable MarcanthonyNicole Attending Unavailable Primay Care Physicia, No Referring Unavailable Primay Care Physicia, No Primary Care Unavailable MarcanthNicole dodge Attending Unavailable Primay Care Physicia, No Referring Unavailable MarcanthonyNicole Attending Unavailable Primay Care Physicia, No Primary Care Unavailable Marcanthony, Nicole Attending Unavailable Primay Care Physicia, No Primary Care Unavailable Marcanthony, Nicole Attending Unavailable Primay Care Physicia, No Referring Unavailable Marcanthony, Nicole Attending Unavailable Primay Care Physicia, No Referring Unavailable Marcanthony, Nicole Admitting Unavailable Marcanthony, Nicole Attending Unavailable Primay Care Physicia, No Primary Care Unavailable Hilda, Julia Attending Unavailable Primay Care Physicia, No Referring Unavailable Marcanthony, Nicole Attending Unavailable Primay Care Physicia, No Referring Unavailable Marcanthony, Nicole Attending Unavailable Primay Care Physicia, No Referring Unavailable Marcanthony, Nicole Attending Unavailable Primay Care Physicia, No Referring Unavailable Marcanthony, Nicole Attending Unavailable Primay Care Physicia, No Referring Unavailable Primay Care Physicia, No Primary Care Unavailable Taylor, Julia Attending Unavailable Taylor, Julia Referring Unavailable Primay Care Physicia, No Primary Care Unavailable Taylor, Julia Attending Unavailable Primay Care Physicia, No Referring Unavailable Hilda, Julia Attending Unavailable Hilda, Juila Referring Unavailable Primay Care Physicia, No Primary Care Unavailable Calabretta, Alana Attending Unavailable Primay Care Physicia, No Referring Unavailable Primay Care Physicia, No Primary Care Unavailable Calabretta, Alana Attending Unavailable Primay Care Physicia, No Referring Unavailable Primay Care Physicia, No Primary Care Unavailable Marcanthony, Nicole Attending Unavailable Primay Care Physicia, No Referring Unavailable Primay Care Physicia, No Primary Care Unavailable Marcanthony, Nicole Attending Unavailable Primay Care Physicia, No Primary Care Unavailable Marcanthony, Nicole Referring Unavailable PROBLEMS PROBLEMS DATE TYPE CONDITION / CODE ATTENDING STATUS SOURCE 06/21/2018 Unknown O09.92 - Supervision HildaJulia baird Active [facility] of high risk Community , Hospital unspecified, second Repository trimester / O09.92(ICD-10) 06/21/2018 Unknown Z3A.24 - 24 weeks HildaJulia baird Active [facility] gestation of Community / Hospital Z3A.24(ICD-10) Repository 06/21/2018 Unknown O09.899 - Hilda, Julia Active [facility] Supervision of other Community high risk Hospital pregnancies, Repository unspecified trimester / O09.899(ICD-10) 06/21/2018 Unknown R87.610 - Atypical Hilda, Julia Active [facility] squamous cells of Community undetermined Hospital significance on Repository cytologic smear of cervix (ASC-US) / R87.610(ICD-10) 06/21/2018 Unknown R87.810 - Cervical HildaJulia baird Active [facility] high risk human Community papillomavirus (HPV) Hospital DNA test positive / Repository R87.810(ICD-10) 05/24/2018 Unknown Z3A.20 - 20 weeks Marcanthecho, Active [facility] gestation of [facility] / Hospital Z3A.20(ICD-10) Repository 05/24/2018 Unknown F53.0 - Marcanthecho, Active [facility] depression / [facility] F53.0(ICD-10) Hospital Repository 04/28/2018 Unknown Z3A.16 - 16 weeks Marcanthony, Active [place] gestation of [facility] / Hospital Z3A.16(ICD-10) Repository 03/04/2018 Unknown Z34.90 - Encounter Nannette, Active [place] for supervision of [facility] normal , Hospital unspecified, Repository unspecified trimester / Z34.90(ICD-10) 02/13/2018 Unknown O20.0 - Threatened TaylorJulia baird Active [place] / [facility] O20.0(ICD-10) Hospital Repository 02/01/2018 Unknown N91.2 - Amenorrhea, Roneyanthecho, Active [place] unspecified / [facility] N91.2(ICD-10) Hospital Repository 12/15/2017 Active Pain in right wrist NA Active [facility] / M25.531(ICD-10) [facility] [place] Repository 11/14/2017 Unknown Z30.431 - Encounter Julia Stevens Active [facility] for routine checking [facility] intrauterine Hospital contraceptive device Repository / Z30.431(ICD-10) 10/03/2017 Unknown Z30.430 - Encounter Nannette, Active [place] for insertion of [facility] intrauterine Hospital contraceptive device Repository / Z30.430(ICD-10) 10/03/2017 Unknown Z39.2 - Encounter Marcalana, Active [place] for routine [facility] follow-up Hospital / Z39.2(ICD-10) Repository 10/03/2017 Unknown F53 - Puerperal Marcalana, 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 / [facility] F53(ICD-10) Hospital Repository 10/04/2017 Unknown Z12.4 - Encounter Marcanthony, Active [facility] for screening for [facility] malignant neoplasm Hospital of cervix / Repository Z12.4(ICD-10) 10/19/2017 Unknown Z01.810 - Encounter Refugio Ferrera Active [place] for preprocedural [facility] cardiovascular Hospital examination / Repository Z01.810(ICD-10) 09/05/2017 Unknown K82.9 - Disease of Jopperi, Sammy Active [facility] gallbladder, Community unspecified / Hospital K82.9(ICD-10) Repository 09/05/2017 Unknown K85.10 - Biliary Jopperi, Sammy Active [facility] acute pancreatitis Community without necrosis or Hospital infection / Repository K85.10(ICD-10) 08/25/2017 Unknown K80.50 - Calculus of Calabretta, Active [facility] bile duct without [facility] cholangitis or Hospital cholecystitis Repository without obstruction / K80.50(ICD-10) 08/17/2017 Unknown O35.8XX0 - Maternal Marcanthony, Active [facility] care for other [facility] (suspected) Hospital abnormality and Repository damage, not applicable or unspecified / O35.8XX0(ICD-10) 08/03/2017 Unknown O99.333 - Smoking Marcanthony, Active [facility] (tobacco) [facility] complicating Hospital , third Repository trimester / O99.333(ICD-10) 08/03/2017 Unknown O09.93 - Supervision Marcanthony, Active [facility] of high risk [facility] , Hospital unspecified, third Repository trimester / O09.93(ICD-10) 08/03/2017 Unknown O28.3 - Abnormal Marcanthony, Active [place] ultrasonic finding [facility] on Hospital screening of mother Repository / O28.3(ICD-10) 08/03/2017 Unknown O09.90 - Supervision Marcanthony, Active [place] of high risk [facility] , Hospital unspecified, Repository unspecified trimester / O09.90(ICD-10) 08/03/2017 Unknown O26.843 - Uterine Marcanthony, Active [facility] size-date [facility] discrepancy, third Hospital trimester / Repository O26.843(ICD-10) 07/27/2017 Unknown O26.899 - Other Marcanthony, Active [facility] specified [facility] related conditions, Hospital unspecified Repository trimester / O26.899(ICD-10) 07/27/2017 Unknown R51 - Headache / Roneyanthecho, Active [facility] R51(ICD-10) [facility] Repository 07/19/2017 Unknown Z34.00 - Encounter Roneyscottieecho, Active [place] for supervision of [facility] , Repository unspecified trimester / Z34.00(ICD-10) PROCEDURES PROCEDURES No Procedure Records FoundRESULTS RESULTS INSPECTOR PLUG SEAM OFFICE VISIT Observed: 06/21/2018 Status: F Source: [place] REPORT 2:21 PM [facility] [place] 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 Ecommerce Required: No Is patient in pain?: No Allergies hydrocodone [From Perrin] Adverse Reaction (Verified 06/21/18 14:02) Vomiting oxycodone [From Percocet] Adverse Reaction (Verified 06/21/18 14:02) Vomiting Medications Acetaminophen [Tylenol] 650 mg PO Q4H PRN 09/03/17 [History Confirmed 06/21/18] vitamin #56-iron 35 mg and 5 mg-folic acid 1 mg-dha capsule 1 cap PO QDAY #30 cap 01/31/18 [Rx Confirmed 06/21/18] ranitidine 75 mg tablet 75 mg PO BID PRN #30 tab 06/06/18 [Rx Confirmed 06/21/18] Last Menstral Period: 01/02/18 Zika: Zika virus screening: Negative : No PFSH PFSH Medical History Anxiety (Acute) Back pain (Acute) Cholelithiasis (Acute) Chronic cholecystitis (Acute) Depression (Acute) GERD (gastroesophageal reflux disease) (Acute) Hemorrhoids (Acute) Surgical History S/P colonoscopy (Acute) S/P laparoscopic cholecystectomy (Acute 09/03/17) S/P tonsillectomy and adenoidectomy (Acute) Family History Brother Asthma Hypertension Mother Asthma Hypertension Clotting disorder malignant hyperthermia--Mother Social History adopted: No Smoking Status: Current every day smoker quit status: considering quitting alcohol intake: never substance use type: does not use caffeine: Yes frequency: 1-2 times per week seatbelt use: always do you feel safe at home: Yes additional social history: Dennis Pregancy History 2 Elective abortions Hx Para 2 Spontaneous abortions Past Pregnancies Del. DateName GA/Weeks Outcome Route Bth WeighInfant GeLabor LgtAnesthesiDel LocatProvider FOB t n h a n Delivery Date: 08/10/17 On 03/03/18 @ 13:58 Georgiana Gutierrez No issues during or delivery. Delivery Date: 01/11/15 On 03/03/18 @ 13:57 Georgiana Gutierrez No issues during or delivery. HPI 25 WEEK OB: Details: BERTHA QUINTERO is a 22 year old who presents for routine OB visit. OB Visit BI Calculator Estimated Delivery Date 10/08/18 Based on Ultrasound Date 02/15/18 Current WG 24w 3d Number 1 Expected Delivery Route/Plan Specific Issue/Plans flu vaccine: declines tdap vaccine: [] rhogam: [] LARC form signed: [] labor support person: [] pain management: [] cut cord/dad catch: [] : [] PP control planned: [] Initial Weight: 175 lb Date Weight BP Urine PrFHR FuHt Pres MoCTX DilationFetal StVisit NoProviderComments E ot v te GA G Effac lucose ed Visit Notes Visit Date: 06/21/18 Had BH yesterday, then stopped. No VB, LOF. Julia Stevens NP-C on 06/21/18 Visit Date: 05/24/18 no vb some cramping. Nicole Velazquez MD on 05/24/18 Visit Date: 04/28/18 no vb abnormal discharge- fell several times denies any dizziness, states she has a bad ankle which causes her to fall at times. no bleeding Nicole Velazquez MD on 04/28/18 Visit Date: 03/30/18 cervix closed us normal placenta fundal Nicole Velazquez MD on 03/30/18 Visit Date: 03/03/18 No visit notes to display ACOG First Trimester First Trimester: Discussed Diagnostics Diagnostics Labs Obstetrics Ultrasound 02/15/18 Chlam trachomat DNA PCR Negative (Negative) 03/03/18 N.gonorrhoeae DNA (PCR) Negative (Negative) 03/03/18 Blood Type O POSITIVE 08/10/17 Antibody Screen NEGATIVE 08/10/17 Hct 32.9 % (37-47) L 09/05/17 Hgb 10.1 g/dl (12.0-15.0) L 09/05/17 Rubella IgG Antibody 73.9 IU/mL 03/18/17 RPR NONREACTIVE (NONREACTIVE) 03/15/17 Hep Bs Antigen Negative (Negative) 03/15/17 Glucose 1 Hr 50 gm 113 mg/dL (70-140) 05/16/17 Group B Strep DNA Negative (Negative) 07/27/17 Details: HIV: Urine Culture: Sequential Screen: NIPT Screen: ROS Const Reports system reviewed and no additional complaints, except as docu GI Denies nausea, Denies vomiting, Denies abdominal pain Exam Const General: cooperative Nutritional Appearance: well nourished GI Palpation: soft, nontender, other (gravid) Results [id number] Office Urine Glucose Negative Last Edit by Loly Diaz on 06/21/18 14:00 Office Urine Protein Negative Last Edit by Loly Diaz on 06/21/18 14:00 Assessment AND Plan Problems 1. Supervision of high risk in second trimester O09.92 BI 10/08/18 boy Rex Dahl FOB- 2. 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 anatomy scan 05/11/18- Repeat US normal of heart/spine. echo scheduled. 3. Short interval between pregnancies affecting , antepartum O09.899 4. Atypical squamous cell changes of undetermined significance (ASCUS) on cervical cytology with positive high risk human papilloma virus (HPV) R87.610; R87.810 repeat pap 2019 Plan Orders placed: none Had echo 2 days ago-results pending Reviewed of labor precautions, movement/kick counts ACOG trimester education reviewed and updated See problem list details for updated plan of care Gestational age appropriate handout given RTO: 4 weeks Orders Orders: Coding Level of Care Code Off vis,est,level 3 Diagnoses Supervision of high risk in second trimester O09.92 Trimester: second trimester 24 weeks gestation of Z3A.24 Weeks of gestation: 24 weeks Short interval between pregnancies affecting , antepartum O09.899 Atypical squamous cell changes of undetermined significance (ASCUS) on cervical cytology with positive high risk human papilloma virus (HPV) R87.610; R87.810 06/21/18 1421 <Electronically signed by Julia BOUDREAUX> Date Julia BOUDREAUX Cosigner Signature: Date (if applicable) CC: INSPECTOR PLUG SEAM OFFICE VISIT Observed: 05/24/2018 Status: F Source: [place] REPORT 1:48 PM [facility] 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 Ecommerce Required: No Is patient in pain?: No Allergies hydrocodone [From Perrin] Adverse Reaction (Verified 05/24/18 13:26) Vomiting oxycodone [From Percocet] Adverse Reaction (Verified 05/24/18 13:26) Vomiting Medications Acetaminophen [Tylenol] 650 mg PO Q4H PRN 09/03/17 [History Confirmed 05/24/18] vitamin #56-iron 35 mg and 5 mg-folic acid 1 mg-dha capsule 1 cap PO QDAY #30 cap 01/31/18 [Rx Confirmed 05/24/18] metoclopramide 10 mg tablet 10 mg PO Q6H PRN #30 tab 04/04/18 [Rx Confirmed 05/24/18] Last Menstral Period: 01/02/18 Zika: Zika virus screening: Negative : No PFSH PFSH Medical History Anxiety (Acute) Back pain (Acute) Cholelithiasis (Acute) Chronic cholecystitis (Acute) Depression (Acute) GERD (gastroesophageal reflux disease) (Acute) Hemorrhoids (Acute) Surgical History S/P colonoscopy (Acute) S/P laparoscopic cholecystectomy (Acute 09/03/17) S/P tonsillectomy and adenoidectomy (Acute) Family History Brother Asthma Hypertension Mother Asthma Hypertension Clotting disorder malignant hyperthermia--Mother Social History adopted: No Smoking Status: Current every day smoker quit status: considering quitting alcohol intake: never substance use type: does not use caffeine: Yes frequency: 1-2 times per week seatbelt use: always do you feel safe at home: Yes additional social history: Dennis Pregancy History 2 Elective abortions Hx Para 2 Spontaneous abortions Past Pregnancies Del. DateName GA/Weeks Outcome Route Bth WeighInfant GeLabor LgtAnesthesiDel LocatProvider FOB t n h a n Delivery Date: 08/10/17 On 03/03/18 @ 13:58 Georgiana Gutierrez No issues during or delivery. Delivery Date: 01/11/15 On 03/03/18 @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 Crouch RN Service: (none) Author Type: (none) Type: Progress Notes Filed: 01/04/2018 8:05 AM Note Text: AMB ROOMING INTAKE FLOWSHEET DATA Risk Screening Do you have concerns about personal safety or safety in the home?: No Pain Pain Score: 8/10 Pain Location: Wrist-Right Description: Aching, Dull, Sharp Duration Amount of Time: 2 Duration Units: Weeks (2 days) Frequency: Continuous Intervention: Splinting, Cold, Positioning Patient presents with: New Patient: right wrist pain, REF: aida Beach, xray 11-29-17, last seen 12-31-13 for right ankle pain Pt. states on 11-29-17 she fell down steps when she had migraine and flu and became dizzy. She injured right wrist. She is wearing splint. She states she was instructed to have another xray done, since they only used portable, and they were unable to do certain view. She has been Tylenol for pain. VIANIA Observed: 12/15/2017 Status: COMPLETED Source: [place] 3:00 PM [facility] REPOSITORY Office Visit (ORTHWS) BERTHA QUINTERO ([id number]) 1995 F Date Time Provider Department 12/15/17 3:00 PM MARIO DUCKWORTH During your visit today, we recorded the following information about you: Weight Height Last Period 78.4 kg 1.6 m 12/08/17 Jayleen Crouch RN 01/04/2018 8:05 AM Signed [facility] ROOMING INTAKE FLOWSHEET DATA Risk Screening Do you have concerns about personal safety or safety in the home?: No Pain Pain Score: 8/10 Pain Location: Wrist-Right Description: Aching, Dull, Sharp Duration Amount of Time: 2 Duration Units: Weeks (2 days) Frequency: Continuous Intervention: Splinting, Cold, Positioning Patient presents with: New Patient: right wrist pain, REF: aida Beach, xray 11-29-17, last seen 12-31-13 for right ankle pain Pt. states on 11-29-17 she fell down steps when she had migraine and flu and became dizzy. She injured right wrist. She is wearing splint. She states she was instructed to have another xray done, since they only used portable, and they were unable to do certain view. She has been Tylenol for pain. Mario Duckworth MD 01/04/2018 8:05 AM Signed Mario Duckworth MD Department of Orthopaedics [facility] [address] [facility] [address] Dept: [phone] Dept December 15, 2017 CHIEF COMPLAINT: New Patient (right wrist pain, REF: aida Beach, xray 11-29-17, last seen 12-31-13 for right ankle pain) HPI: Ms. Bertha Quintero is a 22 year old female who presents about 2 weeks after injuring her right wrist when she fell down some stairs after she became dizzy. She's been wearing a splint during that time. At time she has 8 out of 10 pain that is sharp depending in activities but aching and dull otherwise. She's been using some ice. ASSESSMENT: M25.531 Pain in right wrist (primary encounter diagnosis) PLAN: She remains still some tenderness to the scaphoid though her repeat films look normal. We'll get her into a thumb spica brace and repeat images in 2-4 weeks. FOLLOW UP INSTRUCTIONS: As above Ms. Bertha Quintero was advised as to contrast therapies and/or to take analgesics/anti-inflammatories as needed and all contraindications were reviewed. OBJECTIVE: Ms. Bertha Quintero is a pleasant 22 year old in no apparent distress. Gen:Ht 5' 3 (1.60m) Wt 172 lb 12.8 oz (78.4kg) LMP 12/08/2017 BMI 30.62 kg/(m2). nl development, non obese, no deformities ENT: Normocephalic, normal hearing, moist mucosa CV: Pulses:Radial= 2+ and symmetric, capillary refill < 2 secs, no peripheral edema/varicosities Skin: no rash, bruising or lesions. Good turgor. Psych: cooperative and appropriate, alert and oriented x 3, good mood and affect. Musculoskeletal: No obvious swelling in the wrist or hand, though she does have tenderness at the volar scaphoid tubercle as well as in the anatomic snuffbox. Gentle range of motion with flexion and extension of the wrist joint is without much discomfort. Median, radial and ulnar nerves are intact. Full flexion and extension of all the digits. IMAGING: IMPRESSION: Unremarkable study. [employer]: [employer] ? Transcribe Date/Time: Dec ?4:09P Dictated by : GUEVARA SOLIS MD This examination was interpreted and the report reviewed and electronically signed by: GUEVARA SOLIS MD on Dec ?4:14PM ?EST Results-Findings * * *Final Report* * * DATE OF EXAM: Dec 15 2017 ?3:46PM ? WRX ? 5273 ?- ?XR WRIST 4V PA/LAT/OBL/SCAPH RT ?/ PROCEDURE REASON: Pain in right wrist ?? ? * * * * Physician Interpretation * * * * ?Right wrist HISTORY: ?22 years old Clinical information: Pain in right wrist pt states fell November 29 pain radial side navicular area TECHNIQUE: Images: ?XR WRIST 4V PA/LAT/OBL/SCAPH RT Comparison: ?None. RESULT: Findings: No fracture or dislocation is evident. ?Joint spaces maintained. Supporting Subjective Information Below: Past Medical History: PAST MEDICAL HISTORY Diagnosis Date - acl tear - Encounter for insertion of mirena IUD 03/05/15 Past Surgical History: PAST SURGICAL HISTORY Procedure Laterality Date - COLONOSCOP W/ OR W/O [facility] SPEC 10/2005 Colonoscopy - REMOVAL ADENOIDS,PRIMARY,<12 Y/O 05/2001 Adenoidectomy - REMOVAL OF TONSILS,<12 Y/O 05/2001 Tonsillectomy Family History: FAMILY HISTORY Problem Relation Age of Onset - Allergies Mother - Multiple Sclerosis Mother also on fathers side - Thyroid Mother - Obesity Mother - chiari malformation [OTHER] Mother - sleep apnea [OTHER] Father - Cancer Paternal Grandfather lung - Diabetes Paternal Grandmother - Hypertension Maternal Grandfather - Heart Maternal Grandfather - Seizures Maternal Grandmother was accident related after car accident - Cancer Maternal Aunt ovarian Social History:Social History Marital status: Single Spouse name: Tay Years of education: 12 Number of children: 1 Occupational History 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 triamcinolone acetonide (KENALOG) 0.1 % cream Apply 1 application to affected area three times daily. Apply sparingly to area for rash/itching. (Patient not taking: Reported on 11/29/2017 ) ranitidine (ZANTAC) 150 mg tablet Take 150 mg by mouth twice daily. Aanhewao-Fk-Vav-Fe-FA ( VITAMIN) tab Take 1 tablet by mouth once daily. (Patient not taking: Reported on 11/21/2017 ) No current facility-administered medications for this visit. Allergies: Patient has no known allergies. ROS: General (negative for fatigue, malaise, weight loss/gain) HEENT (negative for headache, earache, recent vision changes, sinus pain, sore throat) Respiratory (no recent shortness of breath, hemoptysis) CV (negative for chest tightness, palpitations) Musculoskeletal (see HPI) Psych (no depression, anxiety) REFERRING PHYSICIAN: Ms. Bertha Quintero was referred to in for consultation by the following physician. This consultation note will be sent to the following physician by either mail or electronic medical record. Aida Beach APRN.[facility] [address] [facility] [address] Abhijit Pizarro MD [address] [facility] [address] This note was partially generated using [employer] voice recognition system, and there may be some incorrect words, spellings, and punctuation that were not noted in checking the note before saving. Mario Duckworth MD Referring Provider: AIDA BEACH ([facility]) [[id number]] Allergies As of Date: 12/15/2017 (No Known Allergies) Date Reviewed: 12/15/2017 Reviewed by: Jayleen Crouch RN - Fully Assessed Reason for Visit: New Patient [172] Cmt: right wrist pain, REF: amelie Cortez 11-29-17, last seen 12-31-13 for right ankle pain Primary Visit Diagnosis:Pain in right wrist [M25.531] Order(s):XR WRIST INJURY 4V PA/LAT/OBL/SCAPH RT [[id number]] Order #: [id number] FUTURE Prescriptions as of 12/15/2017 Sig: TYLENOL ORAL Take by mouth. TRIAMCINOLONE ACETONIDE 0.1 %* Apply 1 application to affect* Patient not taking: Reported on 11/29/2017 RANITIDINE 150 MG TABLET Take 150 mg by mouth twice da* VITAMIN,CALCIUM,MINE* Take 1 tablet by mouth once d* Patient not taking: Reported on 11/21/2017 Problem List As Of Date 12/15/2017 Noted Resolved Hemangioma of skin and subcutaneous tissue [D18*INVALID FOR*07/05/2014 Backache, unspecified [M54.9] INVALID FOR* Sprain of right ankle [S93.401A] INVALID FOR*07/05/2014 Supervision of normal first [Z34.00] INVALID FOR*02/26/2015 More... Bacterial vaginitis [N76.0, B96.89] INVALID FOR*02/26/2015 More... Teen [KTC9519] INVALID FOR*02/26/2015 More... Lymphadenopathy of other site [R59.0] INVALID FOR* Bleeding in early [O20.9] INVALID FOR* More... Obesity in [O99.210] INVALID FOR* More... Tobacco use during , antepartum [O99.3*INVALID FOR* More... Family history of defects [Z82.79] INVALID FOR* More... Encounter Status:Closed by MARIO DUCKWORTH MD on 01/04/18 XR WRIST 3V PA/LAT/OBL Observed: 11/29/2017 Status: F Source: [place] RT 3:27 PM [facility] REPOSITORY * * *Final Report* * * DATE OF EXAM: Nov 29 2017 3:27PM WOX 5271 - XR WRIST 3V PA/LAT/OBL RT / PROCEDURE REASON: Pain in right wrist * * * * Physician Interpretation * * * * Indication: Right wrist pain after fall Comparison: None 3 views of the right wrist are obtained. There is normal architecture and mineralization of the bones. There is no acute fracture or dislocation. Joint spaces are maintained. Impression: 1. No acute fracture or dislocation. [employer]: [employer] Transcribe Date/Time: Nov 29 2017 3:32P Dictated by : BUDDY SAMPSON MD This examination was interpreted and the report reviewed and electronically signed by: BUDDY SAMPSON MD on Nov 29 2017 3:33PM EST [id number] PROGRESS Observed: 11/29/2017 Status: COMPLETED Source: [place] 3:16 PM [facility] REPOSITORY HNO ID: [id number] Author: Annalise Lala (Rt) Service: (none) Author Type: Voice Over Artist Type: Progress Notes Filed: 11/29/2017 3:27 PM Note Text: Radiology Service Progress Note PATIENT NAME: Bertha Quintero DATE OF SERVICE: November 29, 2017 TIME: 3:16 PM PATIENT IDENTITY VERIFICATION COMPLETED USING TWO (2) METHODS: Patient confirmed name verbally and Date of . PATIENT GENDER DATA: Female. status: : No status: NO. PATIENT RELEVANT IMPLANT DATA REVIEWED: Not Applicable RADIOLOGY DEPARTMENT: General X-ray: Exam(s) Completed: Upper Extremity X-Ray(s): Wrist, right : PERIPHERAL IV DATA: Not applicable SIGNED BY: RT Dai November 29, 2017 3:16 PM PROGRESS Observed: 11/29/2017 Status: COMPLETED Source: [place] 2:59 PM [facility] REPOSITORY HNO ID: [id number] Author: Aida Beach Service: (none) Author Type: Nurse Practitioner Type: Progress Notes Filed: 11/29/2017 4:08 PM Note Text: SUBJECTIVE: Bertha Quintero is a 22 year old female. Who presents today with wrist injury. States she woke up this morning and felt dizzy - lightheaded- she denies any spinning, And fell down 13 steps head over heel. -LOC states that she did not hit her head. She put her wrist out to stop her and now she is having wrist pain. This was 6 hours ago. She states she is no longer dizzy. The lightheadedness is common for her and accompanies her migraines. The headache is gone now as well. She also feels lightheaded when she is dehydrated and she drank 9 bottles of water to rehydrate herself. She feels safe at home. No fever abd pain v cp or sob no loss bowel bladder control no weakness in arms or legs HPI PAST MEDICAL HISTORY Diagnosis Date - acl tear - Encounter for insertion of mirena IUD 03/05/15 FAMILY HISTORY Problem Relation Age of Onset - Allergies Mother - Multiple Sclerosis Mother also on fathers side - Thyroid Mother - Obesity Mother - chiari malformation [OTHER] Mother - sleep apnea [OTHER] Father - Cancer Paternal Grandfather lung - Diabetes Paternal Grandmother - Hypertension Maternal Grandfather - Heart Maternal Grandfather - Seizures Maternal Grandmother was accident related after car accident - Cancer Maternal Aunt ovarian Social History Substance Use Topics - Smoking status: Current Every Day Smoker Packs/day: 0.50 Years: 2.00 Types: Cigarettes - Smokeless tobacco: Never Used - Alcohol use Yes Comment: Occasionally, not while ALLERGIES No Known Allergies Current Outpatient Prescriptions: predniSONE (DELTASONE) 10 mg tablet Take 4 tabs daily for 3 days, then 2 tabs daily for 3 days, then 1 tab daily for 3 days with food. Disp: 21 tablet Rfl: 0 ACETAMINOPHEN (TYLENOL ORAL) Take by mouth. Disp: Rfl: triamcinolone acetonide (KENALOG) 0.1 % cream Apply 1 application to affected area three times daily. Apply sparingly to area for rash/itching. (Patient not taking: Reported on 11/29/2017 ) Disp: 80 g Rfl: 0 ranitidine (ZANTAC) 150 mg tablet Take 150 mg by mouth twice daily. Disp: Rfl: Pkpnayea-Fd-Eke-Fe-FA ( VITAMIN) tab Take 1 tablet by mouth once daily. (Patient not taking: Reported on 11/21/2017 ) Disp: 30 tablet Rfl: 12 No current facility-administered medications for this visit. OBJECTIVE: BP 110/80 Pulse 80 Temp 36.6 ?C (97.9 ?F) (Tympanic) Resp 16 Wt 78 kg (172 lb) ? No BMI 29.52 kg/m? ROS all other systems reviewed and are negative Physical Exam Constitutional: Well developed, well nourished, NAD, alert and oriented to person , place and time, in no apparent distress. ENT: Head is atraumatic, airway patent, mucosal membranes moist. Eyes: EOMI, PERRL, no drainage, vision unchanged Neck: supple with no palpable lymph nodes, no midline tenderness Cardiac: Normal rate and rhythm. Heart sounds S1, S2. No murmurs, rubs or gallops. Chest: nontender Respiratory: No retractions or use of accessory muscles. Breath sounds clear and equal bilaterally. GI: Abdomen soft and non-distended, without tenderness, rebound or guarding. Bowel sounds normal. : no CVA tenderness MS: no swelling tenderness or deformity in upper or lower extremities, no midline tenderness in cervical, thoracic or lumbar spine no step off no deformity no paraspinal muscle spasm. Hips stable head atraumatic and nontender Neuro: strength sensation and coordination intact in each upper and lower extremity. R wrist tenderness with swelling and bruising, the wrist has decreased ROM due to pain and guarding, no snuff box tenderness CN II-XII grossly intact, Skin: warm and dry with out rash, lesion or ecchymosis Psych: alert appropriate, speech clear It was a pleasure to take care of Bertha Quintero today. Xray was obtained of the wrist that shows no acute fracture or dislocation. She was placed in a thumb spica splint. Given a work note for left handed work only until seen by ortho. Patient will follow up with family physician. They may return to the Urgent Care or go to the ER for worsening symptoms or concerns. Patient verbalized understanding of plan of care and is in agreement. ASSESSMENT/PLAN: 1. Wrist pain, acute, right - ICD9: 719.43, ICD10: M25.531 - XR WRIST GENERAL 3V PA/LAT/OBL RT Aida Beach APRN.CNP CNOV Observed: 11/29/2017 Status: COMPLETED Source: [place] 2:45 PM [facility] REPOSITORY Office Visit ([facility]) BERTHA QUINTERO ([id number]) 1995 F Date Time Provider Department [facility] During your visit today, we recorded the following information about you: Temperature Pulse Respiration Blood pressure 97.9 degrees 80/minute 16/minute 110/80 Weight 78 kg Aida Beach APRN.CNP 11/29/2017 4:08 PM Signed SUBJECTIVE: Bertha Quintero is a 22 year old female. Who presents today with wrist injury. States she woke up this morning and felt dizzy - lightheaded- she denies any spinning, And fell down 13 steps head over heel. -LOC states that she did not hit her head. She put her wrist out to stop her and now she is having wrist pain. This was 6 hours ago. She states she is no longer dizzy. The lightheadedness is common for her and accompanies her migraines. The headache is gone now as well. She also feels lightheaded when she is dehydrated and she drank 9 bottles of water to rehydrate herself. She feels safe at home. No fever abd pain v cp or sob no loss bowel bladder control no weakness in arms or legs HPI PAST MEDICAL HISTORY Diagnosis Date - acl tear - Encounter for insertion of mirena IUD 03/05/15 FAMILY HISTORY Problem Relation Age of Onset - Allergies Mother - Multiple Sclerosis Mother also on fathers side - Thyroid Mother - Obesity Mother - chiari malformation [OTHER] Mother - sleep apnea [OTHER] Father - Cancer Paternal Grandfather lung - Diabetes Paternal Grandmother - Hypertension Maternal Grandfather - Heart Maternal Grandfather - Seizures Maternal Grandmother was accident related after car accident - Cancer Maternal Aunt ovarian Social History Substance Use Topics - Smoking status: Current Every Day Smoker Packs/day: 0.50 Years: 2.00 Types: Cigarettes - Smokeless tobacco: Never Used - Alcohol use Yes Comment: Occasionally, not while ALLERGIES No Known Allergies Current Outpatient Prescriptions: predniSONE (DELTASONE) 10 mg tablet Take 4 tabs daily for 3 days, then 2 tabs daily for 3 days, then 1 tab daily for 3 days with food. Disp: 21 tablet Rfl: 0 ACETAMINOPHEN (TYLENOL ORAL) Take by mouth. Disp: Rfl: triamcinolone acetonide (KENALOG) 0.1 % cream Apply 1 application to affected area three times daily. Apply sparingly to area for rash/itching. (Patient not taking: Reported on 11/29/2017 ) Disp: 80 g Rfl: 0 ranitidine (ZANTAC) 150 mg tablet Take 150 mg by mouth twice daily. Disp: Rfl: Thrbxqww-Cm-Wgq-Fe-FA ( VITAMIN) tab Take 1 tablet by mouth once daily. (Patient not taking: Reported on 11/21/2017 ) Disp: 30 tablet Rfl: 12 No current facility-administered medications for this visit. OBJECTIVE: BP 110/80 Pulse 80 Temp 36.6 ?C (97.9 ?F) (Tympanic) Resp 16 Wt 78 kg (172 lb) ? No BMI 29.52 kg/m? ROS all other systems reviewed and are negative Physical Exam Constitutional: Well developed, well nourished, NAD, alert and oriented to person , place and time, in no apparent distress. ENT: Head is atraumatic, airway patent, mucosal membranes moist. Eyes: EOMI, PERRL, no drainage, vision unchanged Neck: supple with no palpable lymph nodes, no midline tenderness Cardiac: Normal rate and rhythm. Heart sounds S1, S2. No murmurs, rubs or gallops. Chest: nontender Respiratory: No retractions or use of accessory muscles. Breath sounds clear and equal bilaterally. GI: Abdomen soft and non-distended, without tenderness, rebound or guarding. Bowel sounds normal. : no CVA tenderness MS: no swelling tenderness or deformity in upper or lower extremities, no midline tenderness in cervical, thoracic or lumbar spine no step off no deformity no paraspinal muscle spasm. Hips stable head atraumatic and nontender Neuro: strength sensation and coordination intact in each upper and lower extremity. R wrist tenderness with swelling and bruising, the wrist has decreased ROM due to pain and guarding, no snuff box tenderness CN II-XII grossly intact, Skin: warm and dry with out rash, lesion or ecchymosis Psych: alert appropriate, speech clear It was a pleasure to take care of Bertha Quintero today. Xray was obtained of the wrist that shows no acute fracture or dislocation. She was placed in a thumb spica splint. Given a work note for left handed work only until seen by ortho. Patient will follow up with family physician. They may return to the Urgent Care or go to the ER for worsening symptoms or concerns. Patient verbalized understanding of plan of care and is in agreement. ASSESSMENT/PLAN: 1. Wrist pain, acute, right - ICD9: 719.43, ICD10: M25.531 - XR WRIST GENERAL 3V PA/LAT/OBL RT Aida Beach APRN.[employer]ERTY CONSULTANT Referring Provider: SELF [[id number]] Allergies As of Date: 11/29/2017 (No Known Allergies) Date Reviewed: 11/29/2017 Reviewed by: Nhung Miller LPN - Fully Assessed Reason for Visit: Wrist/forearm Injury [1749] Cmt: Fell down stairs this am injurying right wrist this am Primary Visit Diagnosis:Wrist pain, acute, right [M25.531] Order(s):XR WRIST GENERAL 3V PA/LAT/OBL RT [[id number]] Order #: [id number] #:[id number] Prescriptions as of 11/29/2017 Sig: PREDNISONE 10 MG TABLET Take 4 tabs daily for 3 days,* TYLENOL ORAL Take by mouth. TRIAMCINOLONE ACETONIDE 0.1 %* Apply 1 application to affect* Patient not taking: Reported on 11/29/2017 RANITIDINE 150 MG TABLET Take 150 mg by mouth twice da* VITAMIN,CALCIUM,MINE* Take 1 tablet by mouth once d* Patient not taking: Reported on 11/21/2017 Problem List As Of Date 11/29/2017 Noted Resolved Hemangioma of skin and subcutaneous tissue [D18*INVALID FOR*07/05/2014 Backache, unspecified [M54.9] INVALID FOR* Sprain of right ankle [S93.401A] INVALID FOR*07/05/2014 Supervision of normal first [Z34.00] INVALID FOR*02/26/2015 More... Bacterial vaginitis [N76.0, B96.89] INVALID FOR*02/26/2015 More... Teen [[id number]] INVALID FOR*02/26/2015 More... Lymphadenopathy of other site [R59.0] INVALID FOR* Bleeding in early [O20.9] INVALID FOR* More... Obesity in [O99.210] INVALID FOR* More... Tobacco use during , antepartum [O99.3*INVALID FOR* More... Family history of defects [Z82.79] INVALID FOR* More... Letter Text [facility] [address], [place] [address] 11/29/2017 TO WHOM IT MAY CONCERN: This is to confirm that Bertha Quintero had an appointment and was seen at the [facility] in the Department of Urgent Care on 11/29/2017. She may return to work on 11/30/17 with LEFT handed work only. Until seen by ortho in 2 weeks Sincerely yours, Aida Beach APRN, CNP Encounter Status:Closed by AIDA BEACH CNP on 11/29/17 PROGRESS Observed: 11/21/2017 Status: COMPLETED Source: [place] 7:40 PM [facility] REPOSITORY HNO ID: [id number] Author: Stanley Wylie ([place]ixie) Service: (none) Author Type: Nurse Practitioner Type: Progress Notes Filed: 11/21/2017 8:49 PM Note Text: Subjective HPI HPI Bertha Quintero is a 22 year old female who presents today for CC of itchy rash. This started 2 days ago. Has tried otc treatments. Symptoms are worsened by nothing. Risk factors none. No recent cold symptoms. .Patient presents with: Rash: x 2 days on upper body PAST MEDICAL HISTORY Diagnosis Date - acl tear - Encounter for insertion of mirena IUD 03/05/15 PAST SURGICAL HISTORY Procedure Laterality Date - COLONOSCOP W/ OR W/O [facility] SPEC 10/2005 Colonoscopy - REMOVAL ADENOIDS,PRIMARY,<12 Y/O 05/2001 Adenoidectomy - REMOVAL OF TONSILS,<12 Y/O 05/2001 Tonsillectomy ALLERGIES Patient has no known allergies. MEDICATIONS ACETAMINOPHEN (TYLENOL ORAL) Take by mouth. ranitidine (ZANTAC) 150 mg tablet Take 150 mg by mouth twice daily. Kciyhfrx-Am-Ean-Fe-FA ( VITAMIN) tab Take 1 tablet by mouth once daily. FAMILY HISTORY Problem Relation Age of Onset - Allergies Mother - Multiple Sclerosis Mother also on fathers side - Thyroid Mother - Obesity Mother - chiari malformation [OTHER] Mother - sleep apnea [OTHER] Father - Cancer Paternal Grandfather lung - Diabetes Paternal Grandmother - Hypertension Maternal Grandfather - Heart Maternal Grandfather - Seizures Maternal Grandmother was accident related after car accident - Cancer Maternal Aunt ovarian Social History Substance Use Topics - Smoking status: Current Every Day Smoker Packs/day: 0.50 Years: 2.00 Types: Cigarettes - Smokeless tobacco: Never Used - Alcohol use Yes Comment: Occasionally, not while ROS Objective Blood pressure 110/72, pulse 96, temperature 36.6 ?C (97.9 ?F), temperature source Left Tympanic, resp. rate 16, weight 79.8 kg (176 lb), unknown if currently . Physical Exam Constitutional: She is oriented to person, place, and time and well-developed, well-nourished, and in no distress. Non-toxic appearance. She does not have a sickly appearance. No distress. HENT: Head: Normocephalic and atraumatic. Cardiovascular: Normal rate, regular rhythm, S1 normal, S2 normal and normal heart sounds. Pulmonary/Chest: Effort normal and breath sounds normal. Neurological: She is alert and oriented to person, place, and time. Gait normal. Skin: She is not diaphoretic. ASSESSMENT/PLAN: 1. Rash - ICD9: 782.1, ICD10: R21 -unclear etiology, potentially contact derm, do not suspect insect bite -take medication as prescribed -follow up if symptoms persist/change - PREDNISONE 10 MG TABLET - TRIAMCINOLONE ACETONIDE 0.1 % TOPICAL CREAM Prescription instructions reviewed with patient as applicable. Patient advised if symptoms do not improve or if symptoms worsen sooner, to contact the office for further evaluation by their primary care physician. Potential red flag symptoms discussed with the patient. Reviewed appropriate action plan to take if red flag symptoms occur. Patient agreeable to treatment plan. Stanley Wylie APRN.DIXIE CNOV Observed: 11/21/2017 Status: COMPLETED Source: [place] 7:00 PM [facility] REPOSITORY Office Visit (UCWSTR) BERTHA QUINTERO ([id number]) 1995 F Date Time Provider Department 11/21/17 7:00 PM STANLEY WYLIE) [facility] During your visit today, we recorded the following information about you: Temperature Pulse Respiration Blood pressure 97.9 degrees 96/minute 16/minute 110/72 Weight 79.8 kg Stanley Wylie) 11/21/2017 8:49 PM Signed Subjective HPI HPI Bertha Quintero is a 22 year old female who presents today for CC of itchy rash. This started 2 days ago. Has tried otc treatments. Symptoms are worsened by nothing. Risk factors none. No recent cold symptoms. .Patient presents with: Rash: x 2 days on upper body PAST MEDICAL HISTORY Diagnosis Date - acl tear - Encounter for insertion of mirena IUD 03/05/15 PAST SURGICAL HISTORY Procedure Laterality Date - COLONOSCOP W/ OR W/O [facility] SPEC 10/2005 Colonoscopy - REMOVAL ADENOIDS,PRIMARY,<12 Y/O 05/2001 Adenoidectomy - REMOVAL OF TONSILS,<12 Y/O 05/2001 Tonsillectomy ALLERGIES Patient has no known allergies. MEDICATIONS ACETAMINOPHEN (TYLENOL ORAL) Take by mouth. ranitidine (ZANTAC) 150 mg tablet Take 150 mg by mouth twice daily. Xjdqkjjw-Pv-Nxq-Fe-FA ( VITAMIN) tab Take 1 tablet by mouth once daily. FAMILY HISTORY Problem Relation Age of Onset - Allergies Mother - Multiple Sclerosis Mother also on fathers side - Thyroid Mother - Obesity Mother - chiari malformation [OTHER] Mother - sleep apnea [OTHER] Father - Cancer Paternal Grandfather lung - Diabetes Paternal Grandmother - Hypertension Maternal Grandfather - Heart Maternal Grandfather - Seizures Maternal Grandmother was accident related after car accident - Cancer Maternal Aunt ovarian Social History Substance Use Topics - Smoking status: Current Every Day Smoker Packs/day: 0.50 Years: 2.00 Types: Cigarettes - Smokeless tobacco: Never Used - Alcohol use Yes Comment: Occasionally, not while ROS Objective Blood pressure 110/72, pulse 96, temperature 36.6 ?C (97.9 ?F), temperature source Left Tympanic, resp. rate 16, weight 79.8 kg (176 lb), unknown if currently . Physical Exam Constitutional: She is oriented to person, place, and time and well-developed, well-nourished, and in no distress. Non-toxic appearance. She does not have a sickly appearance. No distress. HENT: Head: Normocephalic and atraumatic. Cardiovascular: Normal rate, regular rhythm, S1 normal, S2 normal and normal heart sounds. Pulmonary/Chest: Effort normal and breath sounds normal. Neurological: She is alert and oriented to person, place, and time. Gait normal. Skin: She is not diaphoretic. ASSESSMENT/PLAN: 1. Rash - ICD9: 782.1, ICD10: R21 -unclear etiology, potentially contact derm, do not suspect insect bite -take medication as prescribed -follow up if symptoms persist/change - PREDNISONE 10 MG TABLET - TRIAMCINOLONE ACETONIDE 0.1 % TOPICAL CREAM Prescription instructions reviewed with patient as applicable. Patient advised if symptoms do not improve or if symptoms worsen sooner, to contact the office for further evaluation by their primary care physician. Potential red flag symptoms discussed with the patient. Reviewed appropriate action plan to take if red flag symptoms occur. Patient agreeable to treatment plan. Stanley Wylie APRN.Stanley Abbott ([facility]) 11/21/2017 7:43 PM Signed ASSESSMENT/PLAN: 1. Rash - ICD9: 782.1, ICD10: R21 -take medication as prescribed -follow up if symptoms persist/change - PREDNISONE 10 MG TABLET - TRIAMCINOLONE ACETONIDE 0.1 % TOPICAL CREAM Referring Provider: SELF [200] Allergies As of Date: 11/21/2017 (No Known Allergies) Date Reviewed: 11/21/2017 Reviewed by: Stanley Wylie ([facility]) - Fully Assessed Reason for Visit: Rash [1087] Cmt: x 2 days on upper body Primary Visit Diagnosis:Rash [R21] Order(s):predniSONE (DELTASONE) 10 mg tabletTake 4 tabs daily for 3 days, then 2 tabs daily for 3 days, then 1 tab daily for 3 days with food.Disp: 21 tabletRfl: 0 triamcinolone acetonide (KENALOG) 0.1 % creamApply 1 application to affected area three times daily. Apply sparingly to area for rash/itching.Disp: 80 gRfl: 0 Prescriptions as of 11/21/2017 Sig: TYLENOL ORAL Take by mouth. PREDNISONE 10 MG TABLET Take 4 tabs daily for 3 days,* TRIAMCINOLONE ACETONIDE 0.1 %* Apply 1 application to affect* RANITIDINE 150 MG TABLET Take 150 mg by mouth twice da* VITAMIN,CALCIUM,MINE* Take 1 tablet by mouth once d* Patient not taking: Reported on 11/21/2017 Problem List As Of Date 11/21/2017 Noted Resolved Hemangioma of skin and subcutaneous tissue [D18*INVALID FOR*07/05/2014 Backache, unspecified [M54.9] INVALID FOR* Sprain of right ankle [S93.401A] INVALID FOR*07/05/2014 Supervision of normal first [Z34.00] INVALID FOR*02/26/2015 More... Bacterial vaginitis [N76.0, B96.89] INVALID FOR*02/26/2015 More... Teen [YUS6969] INVALID FOR*02/26/2015 More... Lymphadenopathy of other site [R59.0] INVALID FOR* Bleeding in early [O20.9] INVALID FOR* More... Obesity in [O99.210] INVALID FOR* More... Tobacco use during , antepartum [O99.3*INVALID FOR* More... Family history of defects [Z82.79] INVALID FOR* More... Other instructions from your clinician: ASSESSMENT/PLAN: 1. Rash - ICD9: 782.1, ICD10: R21 -take medication as prescribed -follow up if symptoms persist/change - PREDNISONE 10 MG TABLET - TRIAMCINOLONE ACETONIDE 0.1 % TOPICAL CREAM Prescriptions ordered this encounter Disp Refills Start End PREDNISONE 10 MG TABLET 21 t* 0 11/21/2017 11/30/2017 Sig: Take 4 tabs daily for 3 days, then 2 tabs daily for 3 days, then 1 tab daily for 3 days with food. TRIAMCINOLONE ACETONIDE 0.1 % TOPICA* 80 g 0 11/21/2017 Route: TOPICAL Sig: Apply 1 application to affected area three times daily. Apply sparingly to area for rash/itching. Encounter Status:Closed by STANLEY WYLIE CNP on 11/21/17 INSPECTOR PL[employer] SE[employer] OFFICE VISIT Observed: 11/14/2017 Status: F Source: [place] RE[place] 10:22 AM [facility] [address] [place] [address] OFFICE VISIT Date of Service: 11/14/17 MR#: [id number] Acct: [id number] Name: AMINA QUINTEROBERTHA Ridge Rep #: [id number] : 1995 Provider: DIONISIO Stevens Age/Sex: 22/F [place] [facility] [place]: Signed Intake Vital Signs11/14/17 Height 5 ft 5 in 11/14/17 Weight: 175 lb 11/14/17 Body Mass Index (BMI) 29.1 11/14/17 Blood Pressure 118/76 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 Is patient in pain?: No Allergies acetaminophen [From Perrin] Adverse Reaction (Verified 11/14/17 10:08) Vomiting hydrocodone [From Perrin] Adverse Reaction (Verified 11/14/17 10:08) Vomiting oxycodone [From Percocet] Adverse Reaction (Verified 11/14/17 10:08) Vomiting Medications Acetaminophen [Tylenol] 650 mg PO Q4H PRN 09/03/17 [History Confirmed 11/14/17] citalopram 20 mg tablet 20 mg PO QDAY #30 tab 10/03/17 [Rx Confirmed 11/14/17] Is last menstrual period known: Yes Last Menstral Period: 10/03/17 Post menopausal: No Patient : No : No PFSH Medical History Anxiety (Acute) Back pain (Acute) Cholelithiasis (Acute) Chronic cholecystitis (Acute) Depression (Acute) GERD (gastroesophageal reflux disease) (Acute) Hemorrhoids (Acute) Surgical History S/P colonoscopy (Acute) S/P laparoscopic cholecystectomy (Acute 09/03/17) S/P tonsillectomy and adenoidectomy (Acute) Family History Brother Asthma Hypertension Mother Asthma Hypertension Clotting disorder malignant hyperthermia--Mother Social History adopted: No Smoking Status: Current every day smoker quit status: considering quitting alcohol intake: never substance use type: does not use caffeine: Yes frequency: 1-2 times per week seatbelt use: always do you feel safe at home: Yes additional social history: Dennis RENO CHECK: Details: BERTHA QUINTERO is a 22 year old who presents for follow up insertion Mirena IUD 10/03/17. She denies pain. She has had light spotting off and on. Female Reproductive History Last Menstral Period: 10/03/17 Pregancy History 2 Elective abortions Hx Para 2 Spontaneous abortions Past Pregnancies Del. DateName GA/Weeks Outcome Route Bth WeighInfant GeLabor LgtAnesthesiDel LocatProvider FOB t n h a n Exam General: bladder normal to palpation External Female Exam: normal external appearance, normal appearance of the urethra Urethra: normal appearance of the urethra Speculum Exam - Vagina: normal appearance of the vagina, normal vaginal discharge, nontender, no lesions Speculum Exam - Cervix: normal appearance of the cervix, other (smooth, nonfriable; IUD strings noted 3cm from os) Bimanual Exam- Vagina AND Uterus: bladder normal to palpation, normal bimanual exam, uterine size normal, uterine shape normal, uterine mobility normal, uterus non-tender Bimanual Exam- Adnexa, other: normal adnexae, no adnexal masses, adnexae non-tender Assessment AND Plan Problems 1. IUD check up Z30.431 Plan Reassured spotting normal especially first 4-6 months RTO 1 year for annual exam and pap, prn with problems. Coding Level of Care Code Off vis,est,level 3 Diagnoses IUD check up Z30.431 11/14/17 1022 <Electronically signed by Julia BOUDREAUX> Date Julia BOUDREAUX Cosigner Signature: Date (if applicable) CC: INSPECTOR PL[employer] SEAM OFFICE VISIT Observed: 10/03/2017 Status: F Source: [place] 2:12 PM [facility] [address] [place] [address]. 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: No Is patient in pain?: No Allergies acetaminophen [From Perrin] Adverse Reaction (Verified 10/03/17 13:35) Vomiting hydrocodone [From Perrin] Adverse Reaction (Verified 10/03/17 13:35) Vomiting oxycodone [From Percocet] Adverse Reaction (Verified 10/03/17 13:35) Vomiting Medications Acetaminophen [Tylenol] 650 mg PO Q4H PRN 09/03/17 [History Confirmed 10/03/17] citalopram 20 mg tablet 20 mg PO QDAY #30 tab 10/03/17 [Rx Confirmed 10/03/17] Last Menstral Period: 10/01/17 : No PFSH Medical History Anxiety (Acute) Back pain (Acute) Cholelithiasis (Acute) Chronic cholecystitis (Acute) Depression (Acute) GERD (gastroesophageal reflux disease) (Acute) Hemorrhoids (Acute) Surgical History S/P colonoscopy (Acute) S/P laparoscopic cholecystectomy (Acute 09/03/17) S/P tonsillectomy and adenoidectomy (Acute) Family History Brother Asthma Hypertension Mother Asthma Hypertension Clotting disorder malignant hyperthermia--Mother Social History adopted: No Smoking Status: Current every day smoker quit status: considering quitting alcohol intake: never substance use type: does not use caffeine: Yes frequency: 1-2 times per week seatbelt use: always do you feel safe at home: Yes additional social history: Dennis Pregancy History 2 Elective abortions Hx Para 2 Spontaneous abortions Past Pregnancies Del. DateName GA/Weeks Outcome Route Bth WeighInfant GeLabor LgtAnesthesiDel LocatProvider FOB t n h a n Depression Screen PHQ-2/9 PHQ-2 Over the last 2 weeks, how often have you been bothered by any of the following problems? 1. Little interest or pleasure in doing things: nearly every day 2. Feeling down, depressed, or hopeless: more than half the days Total score: 5 If score is 2 or greater, continue 3. Trouble falling or staying asleep, or sleeping too much: nearly every day 4. Feeling tired or having little energy: nearly every day 5. Poor appetite or overeating: nearly every day 6. Feeling bad about yourself - or that you are a failure or have let yourself and your family down: not at all 7. Trouble concentrating on things, such as reading the newspaper or watching television: several days 8. Moving or speaking so slowly that other people could have noticed? - Or the opposite - being so fidgety or restless that you have been moving around a lot more than usual: not at all 9. Thoughts that you would be better off or of hurting yourself in some way: several days Total score: 16 Source: Developed by Drs. Ky Currie, Rosmery Keen, Nick Rodriguez and colleagues, with an educational lolly from [employer]. Scoring: Total Score Depression Severity Action 1-4 Minimal depression No action needed 5-9 Mild depression Repeat PHQ-9 at follow up 10-14 Moderate depression Make tx plan,consider counseling, fup, prescription Post HPI 6 WEEK PP: Details: BERTHA QUINTERO is a 22 year old who presents for her post visit. bleeding heavy right now on menses. Feeding: Bottle Menses resumed: Yes [place] since delivery: Yes Emotional Support: No Last Pap:: due ROS Const Reports system reviewed and no additional complaints, except as docu GI Reports system reviewed and no additional complaints, except as docu, Denies bloating, Denies nausea, Denies vomiting, Denies constipation Reports system reviewed and no additional complaints, except as docu, Denies abnormal vaginal bleeding, Denies pelvic pain, Denies sexual problems, Denies urinary urgency, Denies vaginal discharge, Denies urinary hesitancy, Denies urinary incontinence Skin/Breast Reports system reviewed and no additional complaints, except as docu, Reports as per HPI Psych Reports as per HPI Exam Const General: cooperative, healthy appearing, comfortable, no acute distress [facility] Head: normal to inspection Neck Neck: normal visual inspection, no lymphadenopathy Thyroid: thyroid normal Chest Breast inspection: normal inspection of the breasts, normal inspection of the axillae Breast palpation: normal palpation of the breasts, normal palpation of the axillae Resp Effort AND Inspection: normal respiratory effort GI Inspection: normal to inspection Palpation: soft, no hepatosplenomegaly, nontender General: bladder normal to palpation External Female Exam: normal external appearance, normal appearance of the urethra Urethra: normal appearance of the urethra Speculum Exam - Vagina: normal appearance of the vagina, normal vaginal discharge Speculum Exam - Cervix: normal appearance of the cervix Bimanual Exam- Vagina AND Uterus: bladder normal to palpation, normal bimanual exam, uterine shape normal, uterine size normal, uterus non-tender Bimanual Exam- Adnexa, other: normal adnexae, pelvic support normal Pelvic Support: normal Skin General: no rashes or lesions noted Office Procedures Mirena IUD IUD GC/Chlamydia:: not done Test: Yes declined Consent Signed: Yes Time out checklist: patient, procedure, site marked/identified, positioning of patient, supplies available, allergies confirmed, team agrees on procedure IUD: Yes Mirena Time out time: 14:08 Details: Sign in Communication: Completed Sign out documentation: Completed The uterus sounded to 8 cm. After prepping the cervix with betadine and using sterile technique, the cervix was grasped with a single tooth tenaculum and the IUD was inserted without difficulty and the string was cut to 3cm from the external os of the cervix. All instruments were removed from the vagina and excellent hemostasis was noted. Procedure Summary: patient tolerated the procedure well without complication. Office Meds levonorgestrel Performing Provider: Nicole Velazquez MD Administered by: Nicole Velazquez MD on 10/03/17 13:59 Dose Route Admin Location Lot Number Expiration DateNDC Auto Hiker 1 insert Intrauterine alsea [id number] 02/16/20 52709-216-05 [facility] en's care Assessment AND Plan Problems 1. care and examination Z39.2 2. depression F53 celexa Plan Cervical cancer screening: pap Contraceptive plans: mirena iud Complications: discussed celexa for ppd follow up in 6 weeks Follow up for annual exams or sooner if indicated. Orders Orders: Medications New: Discontinued: levonorgestrel Discontinued Reason: Office Medicati1 insert Intrauterine ONCE Z30.430 on has been Documented as given Coding Level of Care Code Off vis,est,level 4 Diagnoses care and examination Z39.2 depression F53 Additional Codes IUD ([id number]) 10/03/17 1412 <Electronically signed by Nicole Velazquez MD> Date Nicole Velazquez MD Cosigner Signature: Date (if applicable) CC: PAP I-G W/RFX Collected: 10/03/2017 Status: F Source: [place] HRH[facility] 1:30 PM [facility] [place] Order Comment: CYTOLOGY INFORMATION: - CLINICAL INFORMATION: ANNUAL - DATE LMP/MENOPAUSE: LMP/ NOT GIVEN - COLLECTION VIAL: Thin Prep Vial - TONGUE AND QUARTER STITCHER SOURCE: CERVICAL - COLLECTION TECHNIQUE: BRUSH ONLY/ CERVIX BROOM ONLY Specimen Comment: [id number] Specimen Comment: No. of containers..01 ThinPrep Vial TYPE CODE TESTS RESULT OUT OF REFERENCE UNITS RANGE LAB L7400.0800 . High DIAGN Comment Result Comment: EPITHELIAL CELL ABNORMALITY. ATYPICAL SQUAMOUS CELLS OF UNDETERMINED SIGNIFICANCE. LAB L7400.0900 . Normal ADEQ Comment Result Comment: Satisfactory for evaluation. Endocervical and/or squamous metaplastic cells (endocervical component) are present. Areas of partially obscuring blood are present. LAB L7400.1300 . High RECOMM Comment Result Comment: If not for the atypia seen, the specimen would have been considered unsatisfactory due to low cellularity. Suggest follow up as clinically appropriate. LAB L7400.1400 . Normal PERFORM Comment Result Comment: Peggy Azar, Room Service Manager (ASCP) LAB L7400.1700 . Normal SIGN Comment Result Comment: Benjie Looney MD, Pathologist LAB L7400.1720 . Normal Path prov. Comment ICD9 Result Comment: R87.610 LAB L7400.2575 . Normal TEST METHOD Comment Result Comment: This liquid based ThinPrep(R) pap test was screened with the use of an image guided system. LAB L7400.2600 . Normal . COMM LAB L7400.2700 . Normal PAPSMR Comment Result Comment: The Pap smear is a screening test designed to aid in the detection of premalignant and malignant conditions of the uterine cervix. It is not a diagnostic procedure and should not be used as the sole means of detecting cervical cancer. Both false-positive and false-negative reports do occur. LAB L7400.2760 Negative High HPV APTIMA, HR Positive Result Comment: This test detects fourteen high-risk HPV types (16/18/31/33/35/39/45/ 51/52/56/58/59/66/68) without differentiation. Performed at: - [facility] [id number] Mrp Controller: Gemini Vargas MD, Phone: [phone] Performed at: = - [facility] [id number] Mrp Controller: Gemini Vargas MD, Phone: [phone] LAB L7400.1602 . Normal HPV RFLX Comment Result Comment: See below for HPV testing results. Performed By: #### L7400.0353 #### [facility] (refer to report for specific site) refer to report for address and phone number PAP I-G W/RFX Collected: 10/03/2017 Status: F Source: [place] HRHPV[facility] 1:30 PM [facility] [place] Order Comment: CYTOLOGY INFORMATION: - CLINICAL INFORMATION: ANNUAL - DATE LMP/MENOPAUSE: LMP/ NOT GIVEN - COLLECTION VIAL: Thin Prep Vial - TONGUE AND QUARTER STITCHER SOURCE: CERVICAL - COLLECTION TECHNIQUE: BRUSH ONLY/ CERVIX BROOM ONLY Specimen Comment: [id number] Specimen Comment: No. of containers..01 ThinPrep Vial TYPE CODE TESTS RESULT OUT OF REFERENCE UNITS RANGE LAB L7400.0800 . High DIAGN Comment Result Comment: EPITHELIAL CELL ABNORMALITY. ATYPICAL SQUAMOUS CELLS OF UNDETERMINED SIGNIFICANCE. LAB L7400.0900 . Normal ADEQ Comment Result Comment: Satisfactory for evaluation. Endocervical and/or squamous metaplastic cells (endocervical component) are present. Areas of partially obscuring blood are present. LAB L7400.1300 . High RECOMM Comment Result Comment: If not for the atypia seen, the specimen would have been considered unsatisfactory due to low cellularity. Suggest follow up as clinically appropriate. LAB L7400.1400 . Normal PERFORM Comment Result Comment: Peggy Azar, Room Service Manager (ASCP) LAB L7400.1700 . Normal SIGN Comment Result Comment: Benjie Looney MD, Pathologist LAB L7400.1720 . Normal Path prov. Comment ICD9 Result Comment: R87.610 LAB L7400.2575 . Normal TEST METHOD Comment Result Comment: This liquid based ThinPrep(R) pap test was screened with the use of an image guided system. LAB L7400.2600 . Normal . COMM LAB L7400.2700 . Normal PAPSMR Comment Result Comment: The Pap smear is a screening test designed to aid in the detection of premalignant and malignant conditions of the uterine cervix. It is not a diagnostic procedure and should not be used as the sole means of detecting cervical cancer. Both false-positive and false-negative reports do occur. LAB L7400.2760 Negative High HPV APTIMA, HR Positive Result Comment: This test detects fourteen high-risk HPV types (16/18/31/33/35/39/45/ 51/52/56/58/59/66/68) without differentiation. Performed at: [address] [id number] Mrp Controller: Gemini Vargas MD, Phone: [phone] Performed at: =[facility] [id number] Mrp Controller: Gemini Vargas MD, Phone: [phone] LAB L7400.0525 . Normal HPV RFLX Comment Result Comment: See below for HPV testing results. 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: No Is patient in pain?: No Allergies acetaminophen [From Perrin] Adverse Reaction (Verified 09/16/17 13:30) Vomiting hydrocodone [From Perrin] Adverse Reaction (Verified 09/16/17 13:30) Vomiting oxycodone [From Percocet] Adverse Reaction (Verified 09/16/17 13:30) Vomiting Medications Vits [Prenatabs FA ] 1 tab PO DAILY 11/20/16 [History Confirmed 09/16/17] Ranitidine [Zantac] 150 mg PO BID 06/10/17 [History Confirmed 09/16/17] Acetaminophen [Tylenol] 650 mg PO Q4H PRN 09/03/17 [History Confirmed 09/16/17] TraMADol [Ultram (G)] 50 - 100 mg PO Q4H PRN PRN 7 Days #40 tab 09/05/17 [Rx Confirmed 09/16/17] PFSH Medical History (Reviewed 09/16/17 @ 1:27 pm by Lorena Rosales) Anxiety (Acute) Back pain (Acute) Cholelithiasis (Acute) Chronic cholecystitis (Acute) Depression (Acute) GERD (gastroesophageal reflux disease) (Acute) Hemorrhoids (Acute) Surgical History (Reviewed 09/16/17 @ 1:27 pm by Lorena Rosales) S/P colonoscopy (Acute) S/P laparoscopic cholecystectomy (Acute 09/03/17) S/P tonsillectomy and adenoidectomy (Acute) Family History Brother Asthma Hypertension Mother Asthma Hypertension Clotting disorder malignant hyperthermia--Mother Social History adopted: No Smoking Status: Current every day smoker quit status: considering quitting alcohol intake: never substance use type: does not use caffeine: Yes frequency: 1-2 times per week seatbelt use: always do you feel safe at home: Yes additional social history: Dennis HPI HPI HPI: BERTHA QUINTERO, is a 22 F who presents to the office today for follow-up after laparoscopic cholecystectomy. The patient is doing well with no nausea or vomiting. She has no abdominal pain at this time. She is tolerating regular diet. Exam GI Other: Abdomen is soft, nontender, nondistended. Incisions are clean dry and intact and healing well. Assessment AND Plan Problems 1. Acute biliary pancreatitis without infection or necrosis K85.10 Plan 1. Patient is doing well after surgery. I advised her that she can have diet and activity as tolerated. Follow-up as needed. Alana Alvarenga MD Pager: [facility] [address], [address] [place] [address] Office: Coding Level of Care Code Global Post Op Diagnoses Acute biliary pancreatitis without infection or necrosis K85.10 Acute pancreatitis complication: no infection or necrosis 09/16/17 1403 <Electronically signed by Alana Alvarenga MD> Date Alana Alvarenga MD Cosign Signature: Date (if applicable) CC: 12 LEAD ELECTROCARDIOGRAM Observed: 09/14/2017 Status: F Source: [place] 2:39 PM [facility] Cardiovascular Services [address] [place] [address] 12 Lead EKG 09/05/17 0517 MR#: [id number] Acct: [id number] Name: BERTHA PÉREZ MAGDALENE Rep #: [id number] : 1995 22 From: Refugio Ferrera MD Attending Dr: Sammy Moulton DO Status: DIS IN Ordering Dr: Sammy Oakes MD Date: 09/05/17 Location: [facility] Sex: F C Admitted: 09/03/17 Test Reason : AM EKG Blood Pressure : / mmHG Vent. Rate : 066 BPM Atrial Rate : 066 BPM P-R Int : 138 ms QRS Dur : 080 ms QT Int : 426 ms P-R-T Axes : 040 042 041 degrees QTc Int : 446 ms Normal sinus rhythm Normal ECG Confirmed by REFUGIO FERRERA MD ([id number]), development editor ANTHONY NEELY ([id number]) on 09/14/2017 2:39:29 PM Referred By: NAHUN Confirmed By:REFUGIO FERRERA MD 09/14/17 1439 Date Refugio Ferrera MD CC: No Primary Care Physician; Sammy Oakes MD Signed CONSULTATION Observed: 09/09/2017 Status: F Source: [place] 1:34 PM [facility] Medical Records Department [address] [place] [address] Consultation 09/03/17 1740 MR#: [id number] Acct: [id number] Name: BERTHA PÉREZ MAGDALENE Rep #: [id number] : 1995 22 From: Wilfredo Sanchez MD PCP: Care Physician, No Primary Status: DIS IN Y Location: [facility] [id number] Problem List (1) Acute biliary pancreatitis Status: Acute Qualifiers: Acute pancreatitis complication: no infection or necrosis Qualified Code(s): K85.10 - Biliary acute pancreatitis without necrosis or infection Reason for Consult Date of Consultation: 09/03/17 History of Present Illness: The patient is a 22 year old F with a PMH of gallstones, and who is 3 weeks presents with a 2 day history of left upper abdominal pain. Pain is colicky at baseline, with sharp exacerbations, rated 8/10, aggravated by eating and drinking, and relieved with rest and not eating. She has a history of gallstones and was scheduled for cholecystectomy with Dr Alvarenga on Sep 07. SHe had associated nausea and vomiting, but denied any diarrhea, fever, chills, SOB or palpitations or excessive alcohol intake. She called the on me because her symptoms lasted for >24hrs, which is unusual. She was asked to come to the ED. On arrival in the ED, CT showed acute pancreatitis, and labwork showed lipase of >30,000. She is being admitted and managed for acute gallstone pancreatitis by the hospitalist service. 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 Had spontaneous vaginal delivery Smoking Status: Current every day smoker - *Family History Maternal History Items: No pertinent history Review of Systems Constitutional: Reports: Anorexia Cardiovascular: Denies: Chest Pain, Chest Pressure, Chest Tightness, Palpitations Respiratory: Denies: Cough, Hemoptysis, Shortness of breath at rest, Shortness of breath upon exertion, Wheezing Gastrointestinal: Reports: Abdominal Pain Gynecological: Reports: - - Patient is status post vaginal delivery 3 weeks ago Patient Problems: Active and Suspected Problems (Last Reviewed 08/25/17 @ 13:26 by Rosario Moreno) Acute biliary pancreatitis (Acute) - Physical Exam General: Alert, Oriented x3 HEENT: Atraumatic, PERRLA, EOMI, Normocephalic Oral: Moist Mucosa Neck: Supple, No JVD Lungs: Clear to auscultation Cardiovascular: Regular rate, Regular Rhythm, No murmurs Abdomen: Bowel Sounds Present, Soft, Non Tender, Non-Distended Extremities: No clubbing, No cyanosis, No edema Psych/Mental Status: Normal Affect, Appropriate Vital Signs Temp Pulse Resp BP Pulse Ox 98.6 F 73 16 139/73 H 99 09/03/17 15:07 09/03/17 17:18 09/03/17 17:18 09/03/17 17:18 09/03/17 17:18 Oxygen Delivery Method Room Air Weight: 181 lb 10.574 oz Body Mass Index (BMI) 30.2 Laboratory Tests Past 24 Hrs WBC 9.3 RBC 4.57 Hgb 12.3 Hct 39.3 MCV 86.0 MCH 26.9 L MCHC 31.3 L Assessment/Plan Active and Suspected Problems (Last Reviewed 08/25/17 @ 13:26 by Rosario Moreno) Acute biliary pancreatitis (Acute) We will need to see that her labs come down appropriately and her pain improved. Once this is accomplished then during this admission she will need to undergo a laparoscopic cholecystectomy with intraoperative cholangiograms. DVT prophylaxis will need to be stopped at least 24 hours prior to surgery 09/09/17 1334 <Electronically signed by Wilfredo Sanchez MD> Date Wilfredo Sanchez MD Cosigner Signature (if applicable): Date CC: No Primary Care Physician; Wilfredo Sanchez MD Signed DISCHARGE SUMMARY Observed: 09/05/2017 Status: F Source: [place] 12:55 PM [facility] Medical Records Department [address] [place] [address] Discharge Summary 09/05/17 1252 MR#: [id number] Acct: [id number] Name: BERTHA PÉREZ Rep #: [id number] : 1995 22 From: Sammy Moulton DO PCP: Care Physician, No Primary Status: ADM IN Location: [place] [address] Discharge Date and Diagnosis - Problem List Patient Problems: Active and Suspected Problems (Last Reviewed 08/25/17 @ 13:26 by Rosario Moreno) Acute biliary pancreatitis (Acute) Date of Admission: 09/03/17 Date of Discharge: 09/05/17 - Primary Discharge Diagnosis Active and Suspected Problems (Last Reviewed 08/25/17 @ 13:26 by Rosario Moreno) Acute biliary pancreatitis (Acute) Hospital Course and Treatment Imaging Results: 09/05/17 10:35 O.R. Fluoro for C-Arm [RAD] Urgent 09/05/17 10:45 Cholangiogram/ O R,Initial [RAD] Urgent Lyle/Laura Operations: cholecystecomy Procedures: None Summary of Care Provided: The patient is a 22 year old F presents with abdominal pain. Patient was found to have acute pancreatitis of 32,845. Cerner was for gallstone pancreatitis and general surgery was consulted. Patient underwent a lap scopic cholecystectomy today. Cholangiogram did not show any bile duct obstruction at this time but the patient's lipase had been trending down to 1778 on the . Patient will be discharged pending if she tolerates diet and to follow-up with general surgery in 2 weeks time. [] Discharge Diet: Light diet - advance as tolerated Discharge Activity: Return to Normal Activity, May Not Drive - for 2-3 days or while taking narcotic pain medicataions., - - Do not drive, work heavy equipment or sign legal documents for 24 hours. May shower in (days): 1 - with the bandage in place. Additional Activity Instructions:: Pain medication may cause nausea. You should typically eat light foods as you take your pain medications. Pain medication may also cause constipation. If this is a problem for you, please discuss with your doctor. Call your doctor if your incision/area has: Continuous Slow Oozing, Sudden Increased Bleeding, Increased Pain/ Swelling, Increased Redness, Foul Smelling Discharge, Fever of 101 or Higher Call your doctor if you observe: Fever of 101 or Higher Suture Line Care: Avoid Pulling/Pushing, Avoid Pinching/Bending Additional Dressing/Incision Instructions:: Leave operative bandaids on for 2 days. When you remove dressing, leave Steri-Strips on until your follow-up appointment, or until the Steri-Strips fall off on their own. Home Medications: Medications to take at Discharge Vits [Prenatabs FA ] 1 tab PO DAILY 11/20/16 Ranitidine [Zantac] 150 mg PO BID 06/10/17 Acetaminophen [Tylenol] 650 mg PO Q4H PRN 09/03/17 Hydrocodone Bitart/Apap 5-325 [Perrin 5MG-325MG] 1 - 2 tablet PO Q4H PRN PRN 7 Days #40 tablet 09/05/17 Following Prescrptions Were Given to Patient: Hydrocodone Bitart/Apap 5-325 [Perrin 5MG-325MG] 1 - 2 tablet PO Q4H PRN PRN 7 Days #40 tablet PRN Reason: Pain Primary Care Physician: Care Physician,No Primary [Primary Care Provider] - Please Follow Up With: Alana Alvarenga MD When: call tomorrow to make 2 week follow up appt [phone] Additional Instructions: No while on Perrin Disposition: Home Minutes spent on discharge:: 25 Patient Condition:: Good Meaningful Use Info Meaningful Use Diagnoses (Choose all that apply): None applicable Code Visit Inpatient Tanesha REYES M: [id number] Disch Hosp 09/05/17 1255 <Electronically signed by Sammy Moulton DO> Date Sammy Moulton DO Cosigner Signature (if applicable): Date CC: No Primary Care Physician; Sammy Moulton DO Signed DISCHARGE INSTRUCTION Observed: 09/05/2017 Status: F Source: [place] 11:50 AM [facility] Medical Records Department [address] [place] [address] Instructions for Home/Discharge Instructions 09/05/17 1148 MR#: [id number] Acct: [id number] Name: AMINA BENITEZBERTHA ELY Rep #: [id number] : 1995 22 From: Alana Alvarenga MD PCP: Care Physician, No Primary Status: ADM IN Discharge Diet: Light diet - advance as tolerated Discharge Activity: Return to Normal Activity, May Not Drive - for 2-3 days or while taking narcotic pain medicataions., - - Do not drive, work heavy equipment or sign legal documents for 24 hours. May shower in (days): 1 - with the bandage in place. Lifting Restrictions: 20 lbs for 2 weeks Additional Activity Instructions:: Pain medication may cause nausea. You should typically eat light foods as you take your pain medications. Pain medication may also cause constipation. If this is a problem for you, please discuss with your doctor. Call your doctor if your incision/area has: Continuous Slow Oozing, Sudden Increased Bleeding, Increased Pain/ Swelling, Increased Redness, Foul Smelling Discharge, Fever of 101 or Higher Call your doctor if you observe: Fever of 101 or Higher Suture Line Care: Avoid Pulling/Pushing, Avoid Pinching/Bending Additional Dressing/Incision Instructions:: Leave operative bandaids on for 2 days. When you remove dressing, leave Steri-Strips on until your follow-up appointment, or until the Steri-Strips fall off on their own. Additional Instructions: No while on Perrin Allergies/Adverse Reactions: Allergies No Known Allergies Allergy (Verified 09/03/17 15:10) Medications to take at Discharge Vits [Prenatabs FA ] 1 tab PO DAILY 11/20/16 Ranitidine [Zantac] 150 mg PO BID 06/10/17 Acetaminophen [Tylenol] 650 mg PO Q4H PRN 09/03/17 Hydrocodone Bitart/Apap 5-325 [Perrin 5MG-325MG] 1 - 2 tablet PO Q4H PRN PRN 7 Days #40 tablet 09/05/17 The following prescriptions were given: Hydrocodone Bitart/Apap 5-325 [Perrin 5MG-325MG] 1 - 2 tablet PO Q4H PRN PRN 7 Days #40 tablet PRN Reason: Pain Primary Care Physician: Care Physician,No Primary [Primary Care Provider] - Please Follow Up With: Alana Alvarenga MD When: call tomorrow to make 2 week follow up appt [phone] 09/05/17 1150 <Electronically signed by Alana Alvarenga MD> Date Alana Alvarenga MD CC: No Primary Care Physician; Wilfredo Sanchez MD OPERATIVE REPORT Observed: 09/05/2017 Status: F Source: [place] 11:48 AM [facility] Medical Records Department [address] [place] [place] [address] Operative Report 09/05/17 1147 MR#: [id number] Acct: [id number] Name: BERTHA PÉREZ MAGDALENE Rep #: [id number] : 1995 22 From: Alana Alvarenga MD PCP: Care Physician, No Primary Status: ADM IN Y Location: [facility] [place] [id number] Problem List (1) Acute biliary pancreatitis Status: Acute Qualifiers: Acute pancreatitis complication: no infection or necrosis Qualified Code(s): K85.10 - Biliary acute pancreatitis without necrosis or infection Report of Operation Date of Procedure: 09/05/17 Pre-Operative Diagnosis: Gallstone pancreatitis Post-Operative Diagnosis: Gallstone pancreatitis Surgery/Procedure Performed:: Laparoscopic cholecystectomy with cholangiogram Description of Surgical Findings:: Normal intraoperative cholangiogram with no filling defects noted in the common bile duct. Good filling of the duodenum. Specimen's removed: Gallbladder and contents Description of Procedure: After obtaining informed consent patient was brought back to the operating room. General anesthesia was induced. The abdomen was prepped and draped in usual sterile fashion. A small midline incision was made superior to the umbilicus and deepened to the level of fascia. The fascia was elevated and incised. Next the peritoneum was elevated and incised in the same fashion. Finger sweep was performed and the Thompson trocar was placed into the abdomen. The balloon was inflated. The abdomen was inflated to 15 mmHg. Next a camera was introduced into the abdomen and the abdomen was inspected. Next under direct visualization three 5-mm ports were placed one subxiphoid and 2 subcostal. Next the gallbladder was elevated and retracted toward the right shoulder. The peritoneum was stripped from the gallbladder. The infundibulum was located and retracted laterally. Next the triangle of Calot was dissected and the cystic duct and cystic artery were identified. Cholangiograms were performed. The Gonzalez catheter was used to clamp across the infundibulum and the needle was inserted into the gallbladder. Under fluoroscopy contrast was instilled into the gallbladder and the common duct, cystic duct as well as proximal hepatic ducts were identified. There was good filling of the duodenum. There were no filling defects noted in the common bile duct. The clamp was removed as well as the needle and the infundibulum was grasped once more. Three hemolock clips were placed across the cystic duct. The cystic duct was then divided leaving 2 clips on the stump. The cystic artery was clipped and divided in the same fashion. The hook cautery was then used to take the gallbladder off of the gallbladder bed. Hemostasis was obtained. Gallbladder fossa was irrigated and no active bleeding or bile leakage was noted. Next the camera switched to a 5 mm camera and introduced in the subxiphoid port. An Endopouch bag was placed through the umbilical port and the gallbladder was placed into it. The gallbladder was then removed through the umbilical incision. The camera was then reinserted through the umbilical port. The gallbladder fossa was inspected once more and noted to be hemostatic with no leaking bile. The abdomen was suctioned dry the 5 mm ports were removed under direct visualization. The umbilical port was then removed and the air was removed from the abdomen. Next using an 0 Vicryl suture the umbilical fascia was closed in a [id number] fashion. The umbilical port site was irrigated local anesthetic was administered to all the incisions. All the incisions were closed subcuticular 4-0 Monocryl sutures followed by Steri-Strips and dressings. The patient was awoken and taken to PACU in stable condition. - Admit VTE Documentation VTE Mechan Device Prophylaxis: SCD's 09/05/17 1148 <Electronically signed by Alana Alvarenga MD> Date Alana Alvarenga MD CC: No Primary Care Physician; Alana Alvarenga MD; Wilfredo Sanchez MD Signed GALLBLADDER Observed: 09/05/2017 Status: F Source: [place] 10:35 AM [facility] Patient: BERTHA PÉREZ : 1995 (22/) Acct Num: [id number] Phys: Sammy Moulton DO Unit Num: [id number] Loc: MS2 [id number] Specimen: [id number] Received: 09/05/17 - 1204 Spec Type: GALLBLADDE TISSUES TISSUES: Gallbladder, NOS GROSS DESCRIPTION Received is one container labeled with the patient's name and designated gallbladder. The specimen consists of a gallbladder measuring 9 x 3 x 3 cm. The external surface is smooth and glistening. Focally, it is granular, hemorrhagic and contains cautery artifact. The lumen of the gallbladder contains yellow mucoid bile and multiple mulberry-shaped yellow calculi ranging in size from 0.1 to 0.5 cm in greatest dimension. The mucosa is bile-stained and without any mass lesions. The gallbladder wall measures 0.2 cm in thickness and is free of mass lesions. Aerial Applicator Pilot sections of the gallbladder and the cystic duct are submitted in one cassette. / AM:mary 09/05/17 TC:3 CPT: 51717 HEADER OPERATION: Laparoscopic cholecystectomy with cholangiogram PRE-OP DIAGNOSIS: Acute pancreatitis, gallstones TISSUE SUBMITTED: Gallbladder MICROSCOPIC DESCRIPTION Slides are reviewed. MICROSCOPIC DIAGNOSIS Gallbladder: Mild chronic cholecystitis and cholelithiasis. SJ:mary 09/06/17 Signed Kal Fox 09/06/17 <signature on file> Performed By: #### PGALL #### [facility] [address] [place], [address] CHOLANGIOGRAM/ O Observed: 09/05/2017 Status: F Source: [place] R,INITIAL 8:38 AM [facility] Imaging Services [address] [place] [address] Cholangiogram/ O R,Initial MR#: [id number] Acct: [id number] Name: BERTHA PÉREZ MAGDALENE Rep #: [id number] : 1995 F 22 From: Miguel Carrera MD PCP: Care Physician, No Primary Status: ADM IN Study: Cholangiogram/ O R,Initial Date of Exam: 09/05/17 Exam# [id number] Ordering Dr: Alana Alvarenga MD STUDY: INTRAOPERATIVE CHOLANGIOGRAM. REASON FOR EXAM: Female, 22 years old. Laparoscopic cholecystectomy. FLUOROSCOPY TIME (if supplied): (17.5 seconds) minutes/seconds TECHNIQUE: Intraoperative cholangiogram was performed by the surgeon. Imaging was submitted. COMPARISON: None. FINDINGS: The intrahepatic biliary ducts are unremarkable. The common bile duct is unremarkable as well. No intraluminal filling defect is seen. There is free flow of contrast into the duodenum. RAD/Cholangiogram/ O R,Initial IMPRESSION: Unremarkable intraoperative cholangiogram. 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 BEDSIDE GLUCOSE Collected: 09/05/2017 Status: F Source: [place] 7:02 AM [facility] TYPE CODE TESTS RESULT OUT OF RANGE REFERENCE UNITS LAB L501.080 70-110 mg/dL Normal BEDSIDE GLU 103 Result Comment: MANAGEMENT OF PATIENT CARE PER NURSING PROTOCOL Performed By: #### L501.080 #### [facility] Point of Care [address]ame[address] [place], [place] [id number] COMPREHENSIVE METABOLIC Collected: 09/05/2017 Status: F Source: [facility] 5:35 AM [facility] TYPE CODE TESTS RESULT OUT OF RANGE REFERENCE UNITS LAB L501.0100 74-106 mg/dL Low GLU 60 Result Comment: Please note revised GLUCOSE reference range effective 2017. LAB L501.1000 7-18 mg/dL Normal BUN 10 LAB L501.1100 0.55-1.02 mg/dL Normal CREAT,SERUM 0.69 Result Comment: The validity of the calculated GFR AND GFRAA in patients over 70 years has not been determined. Clinical correlation is essential. LAB L501.1110 >60 mL/min Normal EST GFR 113 Result Comment: Non- GFR Calc LAB L501.1115 >60 mL/min Normal EST GFR - AA 136 Result Comment: GFR Calc LAB L501.1255 ml/min Normal Estimated CRCL 115.08 LAB L501.1300 10-20 RATIO BUN/CRE Normal 14.5 LAB L501.1500 6.4-8. g/dL Low 2 T PROT 5.6 LAB L501.1800 3.2-5. g/dL Low 0 ALB 2.5 LAB L501.1950 2.2-4. g/dL 2 GLOB Normal 3.1 LAB L501.2000 0.9-2. RATIO Low 4 A/G 0.8 LAB L501.2200 8.5-10 mg/dL Low .1 CA 8.1 LAB L501.4100 15-37 U/L High AST 177 LAB L501.4305 45-117 U/L High ALK P 256 LAB L501.4405 13-56 U/L High ALT 254 Result Comment: Please note revised ALT reference range effective 2017. LAB L501.4600 0.20-1.00 mg/dL Normal T BILI 0.70 LAB L501.5300 136-145 mmol/L Normal NA 140 LAB L501.5600 3.5-5.1 mmol/L Normal K 3.6 LAB L501.5900 98-107 mmol/L High CL 108 LAB L501.6100 21.0-32.0 mmol/L Low CO2 19.0 LAB L501.6200 5-15 Normal GAP 13 Performed By: #### L500.4050 #### [facility] [address] [place], [address] CBC W/DIFF, AUTOMATED Collected: 09/05/2017 Status: F Source: [place] 5:35 AM [facility] TYPE CODE TESTS RESULT OUT OF RANGE REFERENCE UNITS LAB L100.1000 4.4-11.0 K/mm3 Normal WBC 6.0 LAB L100.1200 4.2-5.4 M/mm3 Low RBC 3.72 LAB L100.1300 12.0-15.0 g/dl Low HGB 10.1 LAB L100.1400 37-47 % Low HCT 32.9 LAB L100.1500 81-99 fL Normal MCV 88.4 LAB L100.1600 27.0-32.0 pg Normal MCH 27.2 LAB L100.1700 32-36 g/gl Low MCHC 30.7 LAB L100.1810 11.6-14.6 % Normal RDW CV 13.1 LAB L100.1820 35.1-43.9 fl Normal RDW SD 42.2 LAB L100.1900 150-450 K/mm3 Normal PLT 209 LAB L100.2000 6.2-12.0 fl Normal MPV 10.3 LAB L100.2100 47-70 % Low NEUT% 46.8 LAB L100.2200 19-41 % Normal LY% 34.0 LAB L100.2300 0-10 % Normal MONO% 6.7 LAB L100.2400 0-5 % High EO% 12.2 LAB L100.2500 0-1 % Normal BASO% 0.3 LAB L100.2550 0.0-0.9 % Normal IM GRAN % 0.000 Result Comment: IG% - Immature Granulocytes (promyelocytes, myelocytes and metamyelocytes) > 1% indicates that a LEFT SHIFT is Present. LAB L100.2620 2.0-7.7 X10 3/uL Normal Absolute Neut 2.8 LAB L100.2720 0.83-4.51 X10 3/ul Normal Absolute Lymph 2.04 Performed By: #### L100.0100 #### [facility] [address]. [place], [place], [address] ,URINE Collected: 09/05/2017 Status: F Source: [place] 12:10 AM [facility] [place] CODE TESTS RESULT OUT OF REFERENCE UNITS RANGE LAB L400.8000 Negative Normal HCGUQUAL Negative Result Comment: Very dilute urine specimens, as indicated by a low specific gravity, may not contain senior outside sales representative levels of hCG. If is still suspected, a first morning urine specimen should be collected 48 hours later and tested. Performed By: #### L400.7600 #### [facility] [address] [facility]. [place], [place], [address] CBC W/DIFF, AUTOMATED Collected: 09/04/2017 Status: F Source: [place] 6:27 AM [facility] [place] TYPE CODE TESTS RESULT OUT OF RANGE REFERENCE UNITS LAB L100.1000 4.4-11.0 K/mm3 Normal WBC 5.7 LAB L100.1200 4.2-5.4 M/mm3 Low RBC 4.13 LAB L100.1300 12.0-15.0 g/dl Low HGB 11.1 LAB L100.1400 37-47 % Low HCT 36.0 LAB L100.1500 81-99 fL Normal MCV 87.2 LAB L100.1600 27.0-32.0 pg Low MCH 26.9 LAB L100.1700 32-36 g/gl Low MCHC 30.8 LAB L100.1810 11.6-14.6 % Normal RDW CV 13.1 LAB L100.1820 35.1-43.9 fl Normal RDW SD 42.2 LAB L100.1900 150-450 K/mm3 Normal PLT 228 LAB L100.2000 6.2-12.0 fl Normal MPV 10.2 LAB L100.2100 47-70 % Normal NEUT% 49.6 LAB L100.2200 19-41 % Normal LY% 30.1 LAB L100.2300 0-10 % Normal MONO% 8.3 LAB L100.2400 0-5 % High EO% 11.8 LAB L100.2500 0-1 % Normal BASO% 0.2 LAB L100.2550 0.0-0.9 % Normal IM GRAN % 0.000 Result Comment: IG% - Immature Granulocytes (promyelocytes, myelocytes and metamyelocytes) > 1% indicates that a LEFT SHIFT is Present. LAB L100.2620 2.0-7.7 X10 3/uL Normal Absolute Neut 2.8 LAB L100.2720 0.83-4.51 X10 3/ul Normal Absolute Lymph 1.71 Performed By: #### L100.0100 #### [facility] [address] [place], [address] COMPREHENSIVE METABOLIC Collected: 09/04/2017 Status: F Source: [facility] 6:27 AM [facility] [place] TYPE CODE TESTS RESULT OUT OF RANGE REFERENCE UNITS LAB L501.0100 74-106 mg/dL Normal GLU 89 Result Comment: Please note revised GLUCOSE reference range effective 2017. LAB L501.1000 7-18 mg/dL Low BUN 6 LAB L501.1100 0.55-1.02 mg/dL Normal CREAT,SERUM 0.69 Result Comment: The validity of the calculated GFR AND GFRAA in patients over 70 years has not been determined. Clinical correlation is essential. LAB L501.1110 >60 mL/min Normal EST GFR 113 Result Comment: Non- GFR Calc LAB L501.1115 >60 mL/min Normal EST GFR - AA 137 Result Comment: GFR Calc LAB L501.1255 ml/min Normal Estimated CRCL 115.08 LAB L501.1300 10-20 RATIO Low BUN/CRE 8.7 LAB L501.1500 6.4-8. g/dL Low 2 T PROT 5.9 LAB L501.1800 3.2-5. g/dL Low 0 ALB 2.5 LAB L501.1950 2.2-4. g/dL 2 GLOB Normal 3.4 LAB L501.2000 0.9-2. RATIO Low 4 A/G 0.7 LAB L501.2200 8.5-10 mg/dL Low .1 CA 8.3 LAB L501.4100 15-37 U/L High AST 515 LAB L501.4305 45-117 U/L High ALK P 314 LAB L501.4405 13-56 U/L High ALT 417 Result Comment: Please note revised ALT reference range effective 2017. LAB L501.4600 0.20-1.00 mg/dL High T BILI 2.60 LAB L501.5300 136-145 mmol/L Normal NA 144 LAB L501.5600 3.5-5.1 mmol/L Normal K 3.8 LAB L501.5900 98-107 mmol/L High CL 111 LAB L501.6100 21.0-32.0 mmol/L Normal CO2 28.0 LAB L501.6200 5-15 Normal GAP 5 Performed By: #### L500.4050, L501.2450 #### [facility] [address] [place], [address] LIPASE Collected: 09/04/2017 Status: F Source: [place] 6:27 AM [facility] CODE TESTS RESULT OUT OF REFERENCE UNITS RANGE LAB L501.2450 73-393 U/L High LIPASE 1778 Performed By: #### L500.4050, L501.2450 #### [facility] [address] [place], [address] HISTORY AND PHYSICAL Observed: 09/03/2017 Status: F Source: [place] EXAM 5:47 PM [facility] [facility] Medical Records Department [address] [place] [address] History and Physical 09/03/17 1725 MR#: [id number] Acct: [id number] Name: BERTHA PÉREZ MAGDALENE Rep #: [id number] : 1995 22 From: Elda Matos MD PCP: Care Physician, No Primary Status: REG ER Y Location: ED Problem List (1) Acute biliary pancreatitis Status: Acute Qualifiers: Acute pancreatitis complication: no infection or necrosis Qualified Code(s): K85.10 - Biliary acute pancreatitis without necrosis or infection History of Present Illness Date of Admission: 09/03/17 Chief Complaint: left upper abdominal pain The patient is a 22 year old F with a PMH of gallstones, and who is 3 weeks presents with a 2 day history of left upper abdominal pain. Pain is colicky at baseline, with sharp exacerbations, rated 8/10, aggravated by eating and drinking, and relieved with rest and not eating. She has a history of gallstones and was scheduled for cholecystectomy with Dr Alvarenga on Sep 07. SHe had associated nausea and vomiting, but denied any diarrhea, fever, chills, SOB or palpitations or excessive alcohol intake. She called the data migration lead surgeon (Dr Sanchez) because her symptoms lasted for >24hrs, which is unusual. She was asked to come to the ED. On arrival in the ED, CT showed acute pancreatitis, and labwork showed lipase of >30,000. She is being admitted and managed for acute gallstone pancreatitis. 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 Had spontaneous vaginal delivery Smoking Status: Current every day smoker - *Family History Maternal History Items: No pertinent history Review of Systems Constitutional: Denies: Chills, Fever, Malaise, Weight Change Eyes: Denies: Blurred vision HEENT: Denies: Head Aches, Sinus Congestion, Sinus Drainage Cardiovascular: Denies: Chest Pain, Light Headedness, Palpitations Respiratory: Denies: Cough, Shortness of breath at rest, Sputum production Gastrointestinal: Reports: Abdominal Pain, Nausea, Vomiting. Denies: Diarrhea Genitourinary: Denies: Dysuria Musculoskeletal: Denies: Joint Pain, Joint Tenderness Skin: Denies: Rash, Wounds Neurological: Denies: Numbness, Tingling, Focal weakness Psychiatric: Denies: Anxiety, Depression, Homicidal Ideations, Suicidal Ideations Hematologic/ Lymphatic: Denies: Easy Bruising, Easy Bleeding VTE Information - Inpt Only VTE Present on Admission: No VTE Mechan Device Prophylaxis: SCD's VTE Pharm Prophylaxis ordered?: Yes Patient Problems: Active and Suspected Problems (Last Reviewed 08/25/17 @ 13:26 by Rosario Moreno) Acute biliary pancreatitis (Acute) - Physical Exam General: Alert, Oriented x3, Cooperative, No apparent distress HEENT: Atraumatic, PERRLA, EOMI, Normocephalic Oral: Moist Mucosa Neck: Supple, No JVD, Negative Carotid Bruits Lungs: Clear to auscultation, Normal air movement, No rhonchi, No wheeze, No rales Cardiovascular: Regular rate, Regular Rhythm, Normal S1, Normal S2, No murmurs Abdomen: Bowel Sounds Present, Soft, No Hepato-splenomegaly, - - mild left hypochondrial tenderness, with positive Perkins's sign. No epigastric tenderness. No guarding or rebound tenderness Extremities: No clubbing, No cyanosis, No edema, Capillary Refill Less than 3 Seconds Skin: No rashes Musculoskeletal: No Tenderness to Palpation of Joints or Extremities Lymphatic: No Cervical, Supraclavicular, or Inguinal Adenopathy Neurological: Cranial nerves II-XII grossly intact Psych/Mental Status: Normal Affect, Alert and oriented to time, place, person, mood and affect Vital Signs Temp Pulse Resp BP Pulse Ox 98.6 F 73 16 139/73 H 99 09/03/17 15:07 09/03/17 17:18 09/03/17 17:18 09/03/17 17:18 09/03/17 17:18 Oxygen Delivery Method Room Air Weight: 181 lb 10.574 oz Body Mass Index (BMI) 30.2 Laboratory Tests Past 24 Hrs WBC 9.3 RBC 4.57 Hgb 12.3 Hct 39.3 MCV 86.0 MCH 26.9 L MCHC 31.3 L Assessment/Plan Active and Suspected Problems (Last Reviewed 08/25/17 @ 13:26 by Rosario Moreno) Acute biliary pancreatitis (Acute) 1. Acute BILIARY pancreatitis due to gallstones * vitals are stable. has mild left upper quadrant tenderness, with no guarding or rebound tenderness * has a history of gallstones and had been scheduled for cholecystectomy on 09/07/17. * CBC: no leucocytosis * CMP: lipase 16337. * AST/ALT- 1065/602 * CT abdomen not done as patient meets criteria for acute pancreatitis with abdominal pain and elevated lipase * will admit to med surg floor. Patient reviewed with Dr Sanchez in ED * will keep NPO; will hydrate with NS @ 150cc/hr * will give IV ketorolac for pain control * IV zofran to help with nausea * for cholecystectomy once acute pancreatitis resolves * 2. DVT prophylaxis * heparin * 3. GI prophylaxis * pantoprazole Code Visit Inpatient E AND M: 02730 Init Hosp L2 09/03/17 1747 <Electronically signed by Elda Matos MD> Date Elda Matos MD Cosigner Signature: Date (if applicable) CC: No Primary Care Physician; Elda Matos MD Signed EMERGENCY DEPARTMENT Observed: 09/03/2017 Status: F Source: [place] SUMMARY 5:13 PM [facility] [facility] Medical Records Department [address] [place] [address] Emergency Department Summary 09/03/17 1651 MR#: [id number] Acct: [id number] Name: AMINA BENITEZRUFFBERTHA MAGDALENE Rep #: [id number] : 1995 22 From: Kayden Shipman MD PCP: Care Physician, No Primary Status: REG ER - ER Visit Summary Date of Service: 09/03/17 Chief Complaint: Abdominal pain History of Present Illness: The patient is a 22 F who presents with abdominal pain. Patient has been having intermittent similar symptoms for months. However she was . She is 2 weeks . She has seen Dr. Alvarenga as an outpatient and was scheduled for laparoscopic cholecystectomy on September 07. However she has had constant right upper quadrant abdominal pain for greater than 24 hours. She currently rates her pain as 7 out of 10. She states all that she had eaten or drank was water. She reports nausea without vomiting. No diarrhea. She denies fever. She spoke to Dr. Sanchez today and given her ongoing pain was advised to present to the emergency department with plan for surgery today. Physical Examination: Afebrile vitals are stable Patient resting comfortably in no distress Heart regular rate and rhythm Lungs are clear Abdomen soft nondistended she does have right upper quadrant tenderness she does not have a Perkins's sign Alert Test Results: CBC unremarkable. Total bilirubin is 3.1, alkaline phosphatase 312, ALT 602, AST 1065. Final results not yet resulted on lipase but we were called by lab and told that it would be greater than 30,000. Emergency Department Course and Treatment: Patient was treated with IV fluids Toradol and Zofran here. She is resting comfortably. I spoke to Dr. Sanchez who asked that the patient be admitted to the hospitalist service and will see the patient in consult. Treatment Plan: [] Disposition: Admit Impression: Gallstone pancreatitis This note was generated with [employer] dictation software. It may contain incorrect words, spelling, and punctuation that were not noted in review of the chart prior to signing ED Disposition - Plan for ED Patient: Chief Complaint: Abd Pain Referrals: Care Physician,No Primary [Primary Care Provider] - What to do if you have Problems For any increased pain, shortness of breath, bleeding, nausea or vomiting, chest pain, or any unexpected problems, contact your Primary Care Provider. Call [facility] ([phone]) or report to the closest Emergency Room. Call 911 if necessary. 09/03/17 0624 <Electronically signed by Kayden Shipman MD> Date Kayden Shipman MD Cosigner Signature (If Indicated): Date CC: No Primary Care Physician CBC W/DIFF, AUTOMATED Collected: 09/03/2017 Status: F Source: [place] 4:20 PM [facility] TYPE CODE TESTS RESULT OUT OF RANGE REFERENCE UNITS LAB L100.1000 4.4-11.0 K/mm3 Normal WBC 9.3 LAB L100.1200 4.2-5.4 M/mm3 Normal RBC 4.57 LAB L100.1300 12.0-15.0 g/dl Normal HGB 12.3 LAB L100.1400 37-47 % Normal HCT 39.3 LAB L100.1500 81-99 fL Normal MCV 86.0 LAB L100.1600 27.0-32.0 pg Low MCH 26.9 LAB L100.1700 32-36 g/gl Low MCHC 31.3 LAB L100.1810 11.6-14.6 % Normal RDW CV 12.9 LAB L100.1820 35.1-43.9 fl Normal RDW SD 40.6 LAB L100.1900 150-450 K/mm3 Normal PLT 272 LAB L100.2000 6.2-12.0 fl Normal MPV 10.3 LAB L100.2100 47-70 % Normal NEUT% 69.9 LAB L100.2200 19-41 % Low LY% 16.4 LAB L100.2300 0-10 % Normal MONO% 6.3 LAB L100.2400 0-5 % High EO% 7.1 LAB L100.2500 0-1 % Normal BASO% 0.1 LAB L100.2550 0.0-0.9 % Normal IM GRAN % 0.200 Result Comment: IG% - Immature Granulocytes (promyelocytes, myelocytes and metamyelocytes) > 1% indicates that a LEFT SHIFT is Present. LAB L100.2620 2.0-7.7 X10 3/uL Normal Absolute Neut 6.5 LAB L100.2720 0.83-4.51 X10 3/ul Normal Absolute Lymph 1.53 Performed By: #### L100.0100 #### [facility] [address] [place], [place], [id number] COMPREHENSIVE METABOLIC Collected: 09/03/2017 Status: F Source: [facility] 4:20 PM [facility] TYPE CODE TESTS RESULT OUT OF RANGE REFERENCE UNITS LAB L501.0100 74-106 mg/dL Normal GLU 106 Result Comment: Fasting Glucose result from 100 to 125 mg/dL suggests IMPAIRED HOMEOSTASIS per A.D.A. criteria. Please note revised GLUCOSE reference range effective 2017. LAB L501.1000 7-18 mg/dL Low BUN 6 LAB L501.1100 0.55-1.02 mg/dL Normal CREAT,SERUM 0.72 Result Comment: The validity of the calculated GFR AND GFRAA in patients over 70 years has not been determined. Clinical correlation is essential. LAB L501.1110 >60 mL/min Normal EST GFR 108 Result Comment: Non- GFR Calc LAB L501.1115 >60 mL/min Normal EST GFR - AA 131 Result Comment: GFR Calc LAB L501.1255 ml/min Normal Estimated CRCL 110.28 LAB L501.1300 10-20 RATIO Low BUN/CRE 8.4 LAB L501.1500 6.4-8. g/dL 2 T PROT Normal 7.1 LAB L501.1800 3.2-5. g/dL Low 0 ALB 3.1 LAB L501.1950 2.2-4. g/dL 2 GLOB Normal 4.0 LAB L501.2000 0.9-2. RATIO Low 4 A/G 0.8 LAB L501.2200 8.5-10 mg/dL .1 CA Normal 9.4 LAB L501.4100 15-37 U/L High AST 1065 LAB L501.4305 45-117 U/L High ALK P 312 LAB L501.4405 13-56 U/L High ALT 602 Result Comment: Please note revised ALT reference range effective 2017. LAB L501.4600 0.20-1.00 mg/dL High T BILI 3.10 LAB L501.5300 136-145 mmol/L Normal NA 140 LAB L501.5600 3.5-5.1 mmol/L Normal K 3.5 LAB L501.5900 98-107 mmol/L Normal CL 104 LAB L501.6100 21.0-32.0 mmol/L Normal CO2 28.0 LAB L501.6200 5-15 Normal GAP 8 Performed By: #### L500.4050, L501.2450 #### [facility] [place], [address] LIPASE Collected: 09/03/2017 Status: F Source: [place] 4:20 PM [facility] [place] TYPE CODE TESTS RESULT OUT OF REFERENCE UNITS RANGE LAB L501.2450 73-393 U/L High LIPASE [address] Result Comment: Critical Result(s) Called at: 17:25:29 09/03/2017 by: Yifan Dick to [email or web address] Performed By: #### L500.4050, L501.2450 #### [facility] [address] 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 Ecommerce Required: No Is patient in pain?: No Allergies No Known Allergies Allergy (Verified 08/25/17 13:26) Medications Vits [Prenatabs FA] 1 tab PO DAILY 11/20/16 [History Confirmed 08/25/17] Ranitidine [Zantac] 150 mg PO BID 06/10/17 [History Confirmed 08/25/17] PFSH Medical History Anxiety (Acute) Back pain (Acute) Depression (Acute) GERD (gastroesophageal reflux disease) (Acute) Hemorrhoids (Acute) Surgical History S/P colonoscopy (Acute) S/P tonsillectomy and adenoidectomy (Acute) Family History Brother Asthma Hypertension Mother Asthma Hypertension Clotting disorder malignant hyperthermia--Mother Social History adopted: No Smoking Status: Current every day smoker quit status: considering quitting alcohol intake: never substance use type: does not use caffeine: Yes frequency: 1-2 times per week seatbelt use: always do you feel safe at home: Yes additional social history: Dennis HPI HPI HPI: BERTHA QUINTERO, is a 22 F who presents to the office today for follow-up for her gallbladder. She reports that she is 2 weeks post vaginal delivery. She still having right upper quadrant pain and the other day she had an attack for 7 hours. She reports the pain is still in the right upper quadrant and she does have nausea with the episodes. ROS Cardio Cardiovascular: No murmur, pacemaker, heart disease, atrial fibrillation, high blood pressure, heart attack, heart stent, palpitations, shortness of breat with exertion or chest pain Gastro Gastrointestinal: Yes abdominal pain, Yes nausea or vomiting, No diarrhea, No blood in stool Exam Const General: cooperative, healthy appearing, comfortable Resp Effort AND Inspection: normal respiratory effort Auscultation: clear to auscultation bilaterally Cardio Rate: regular rate Rhythm: regular rhythm Heart Sounds: no murmurs GI Inspection: normal to inspection, non-distended Palpation: soft Assessment AND Plan Problems 1. Biliary colic K80.50 Plan 1. Patient is 2 weeks status post uncomplicated vaginal delivery. Now that she has given I will schedule her for laparoscopic cholecystectomy in 1-2 weeks. I rediscussed surgery with her as well as all the risks including but not limited to bleeding, infection, damage to surrounding organs such as the bile duct, bowels, liver. The patient understands risks and is willing to proceed with surgery. Alana Alvarenga MD Pager: [facility] [place] , [address] [address] Office: Coding Level of Care Code Off vis,est,level 3 Diagnoses Biliary colic K80.50 08/25/17 1342 <Electronically signed by Alana Alvarenga MD> Date Alana Alvarenga MD Cosigner Signature: Date (if applicable) CC: Nicole Velazquez MD INSPECTOR PLUG SEAM OFFICE VISIT Observed: 08/14/2017 Status: F Source: [place] REPORT 2:27 PM [facility] [address] [place] [address] OFFICE VISIT Date of Service: 08/10/17 MR#: [id number] Acct: [id number] Name: BERTHA PÉREZ MAGDALENE Rep #: [id number] : 1995 Provider: Nicole Velazquez MD Age/Sex: 22/F [place] [facility]: Signed Intake Vital Signs08/10/17 Height 5 ft 5 in 08/10/17 Weight: 195 lb 08/10/17 Body Mass Index (BMI) 32.4 08/10/17 Blood Pressure 116/71 Intake Visit Reasons: (OB) Chief Complaint: est ob Business Analyst Ecommerce Required: No Is patient in pain?: No Allergies No Known Allergies Allergy (Verified 08/10/17 07:55) Medications Vits [Prenatabs FA] 1 tab PO DAILY 11/20/16 [History Confirmed 08/10/17] Ranitidine [Zantac] 150 mg PO BID 06/10/17 [History Confirmed 08/10/17] Last Menstral Period: 11/15/16 Zika: Zika virus screening: Negative : No PFSH PFSH Medical History Anxiety (Acute) Back pain (Acute) Depression (Acute) GERD (gastroesophageal reflux disease) (Acute) Hemorrhoids (Acute) Surgical History S/P colonoscopy (Acute) S/P tonsillectomy and adenoidectomy (Acute) Family History Brother Asthma Hypertension Mother Asthma Hypertension Clotting disorder malignant hyperthermia--Mother Pregancy History 2 Elective abortions Hx Para 1 Spontaneous abortions Past Pregnancies Del. DatName GA/WeeksOutcome Route Bth WeigInfant GLacarla LgAnesthesDel LocaProviderFOB e ht en th ia tn Unknown 2014 Lan38 live birNSVD 7LB 8 OZMale 10 epiduralWCH SUSIE don th - ful l term HPI (OB): Details: BERTHA QUINTERO is a 22 year old who presents for routine OB visit. OB Visit BI Calculator Estimated Delivery Date 08/22/17 Based on LMP (certain) 11/15/16 Current WG 38w 6d Number 1 Expected Delivery Route/Plan Specific Issue/Plans MC given, flu vaccine declined, given tdap larc form signed Initial Weight: Not Recorded Date Weight BP Urine PrFHR FuHt Pres MoCTX DilationFetal StVisit NoProviderComments E ot v te GA G Effac lucose ed Visit Notes Visit Date: 08/10/17 no vb lof good fm irregular ctx low FH but normal bedside GENO Nicole Velazquez MD on 08/10/17 co migraines, particulary right side, no vb lo goo fm Nicole Velazquez MD on 07/27/17 no CTX, LOF, VB Julia Hilda, FINISHER TAILOR APPRENTICE-C on 07/13/17 Visit Date: 08/03/17 no vb lof good fm irregular ctx. low FH geno at bedside normal. Nicole Velazquez MD on 08/07/17 co migraines, particulary right side, no vb lo goo fm Nicole Velazquez MD on 07/27/17 no CTX, LOF, VB Julia Taylor, FINISHER TAILOR APPRENTICE-C on 07/13/17 no vb lof good fm no regular ctx co abdominal pain with gall bladder attacks, saw general surgery and planning lap sandra 4-6 weeks PP Nicole Velazquez MD on 06/29/17 Visit Date: 07/27/17 co migraines, particulary right side, no vb lo goo fm Nicole Velazquez MD on 07/27/17 no CTX, LOF, VB Julia Hilda, FINISHER TAILOR APPRENTICE-C on 07/13/17 no CTX, LOF, VB Julia Hilda, FINISHER TAILOR APPRENTICE-C on 07/13/17 no vb lof good fm no regular ctx co abdominal pain with gall bladder attacks, saw general surgery and planning lap sandra 4-6 weeks PP Nicole Velazquez MD on 06/29/17 Visit Date: 07/19/17 no CTX, LOF, VB Julia Hilda, FINISHER TAILOR APPRENTICE-C on 07/13/17 no CTX, LOF, VB Julia Hilda, FINISHER TAILOR APPRENTICE-C on 07/13/17 Visit Date: 07/13/17 no CTX, LOF, VB Julia Hilda, FINISHER TAILOR APPRENTICE-C on 07/13/17 no vb lof good fm no regular ctx co abdominal pain with gall bladder attacks, saw general surgery and planning lap sandra 4-6 weeks PP Nicole Velazquez MD on 06/29/17 Visit Date: 06/29/17 no vb lof good fm no regular ctx co abdominal pain with gall bladder attacks, saw general surgery and planning lap sandra 4-6 weeks PP Nicole Velazquez MD on 06/29/17 ACOG First Trimester First Trimester: Desire for , Alcohol, Tobacco Cessation, Illicit/Recreational Drug/Substance Use, Intimate Partner Violence, Barriers to care, Unstable Housing, Communication Barriers, Environmental/Work Hazards, Anticipated Course of Care, Nurtrition and weight gain, Toxoplasmosis Precations, Use of Any medications, Sexual activity, Exercise, Dental Care, Sauna/Hot tub use, Seat Belt use, Childbirth classes/Hospital facilities, , Travel, Indications for US and Screening for Aneuploidy Second Trimester Second Trimester: Signs and Symptoms of Labor, Selecting a care provider, Reproductive Life Planning (mirena iud 6 weeks), Care Planning, Tobacco Cessation, Depression/Anxiety and Intimate Partner Violence Third Trimester Third Trimester: Pain Management Plans, Trial of Labor after Counseling, Labor support person(s) (mom adopted mom tay and best friend in room), Immediate Larc (declined), Circumcision preference Yes Yes, Movement Monitoring, Signs and Symptoms of Preeclampsia, Labor Signs, Cervical Ripening/Labor Induction Counseling, Postterm Counseling, Feeding Yes , Education, Family Medical Leave or Disability Forms, Depression, Tobacco Cessation, Depression and Intimate Partner Violence ROS Const Denies fever(s) GI Denies abdominal pain, Reports as per HPI Denies vaginal discharge, Denies abnormal vaginal bleeding, Reports as per HPI Exam Const General: healthy appearing, comfortable, no acute distress GI Inspection: normal to inspection Palpation: soft, nontender Assessment AND Plan Problems 1. High-risk in third trimester O09.93 BI- 08/22/17 ulises Reynayden RICKEY maciel tay 2. Abnormal ultrasonic finding on screening of mother O28.3 following with [facility]- HC 8 %ile but overall growth normal, mildly enlarged cisterna magna- plan fu . seen by treatment center 3. Gall bladder disease K82.9 recommend surgical consult 4. complicated by tobacco use in third trimester O99.333 BI- 2 evelynDigna LANG dennis tay 5. abnormality affecting management of mother, single gestation O35.9XX0 enlarged cisterna magna on fetus, recommended by [facility] for fu after delivery with peds 6. headache in third trimester O26.893 likely migraine- has history of them. recommend preeclampsia panel 7. 38 weeks gestation of Z3A.38 Plan Orders placed: none ACOG trimester education reviewed and updated. see problem list details for updated plan management information. [place] appropriate handout given. Orders Orders: Results [id number] Office Urine Glucose Negative Last Edit by Chanel Gonzales on 08/10/17 07:58 Office Urine Protein Negative Last Edit by Chanel Gonzales on 08/10/17 07:58 Coding Level of Care Code Off vis,est,level 3 Diagnoses High-risk in third trimester O09.93 Trimester: third trimester Abnormal ultrasonic finding on screening of mother O28.3 Gall bladder disease K82.9 complicated by tobacco use in third trimester O99.333 abnormality affecting management of mother, single gestation O35.9XX0 headache in third trimester O26.893 Trimester: third trimester 38 weeks gestation of Z3A.38 08/14/17 1427 <Electronically signed by Nicole Velazquez MD> Date Nicole Velazquez MD Cosigner Signature: Date (if applicable) CC: DISCHARGE INSTRUCTION Observed: 08/12/2017 Status: F Source: KATE 5:11 PM [facility] [place] Medical Records Department [address] [place] [address] Instructions for Home/Discharge Instructions 08/12/17 1710 MR#: [id number] Acct: [id number] Name: BERTHA PÉREZ MAGDALENE Rep #: [id number] : 1995 22 From: Nicole Velazquez MD PCP: Care Physician, No Primary Status: ADM IN Discharge Diet: No Restrictions Discharge Activity: Return to Normal Activity, May not drive while taking narcotic pain medications., May Shower May resume sexual activity in: 4-6 weeks Additional Activity Instructions:: Nothing in the vagina for 4-6 weeks. You may return to work/school in 6 weeks. Call your doctor if your incision/area has: Continuous Slow Oozing, Sudden Increased Bleeding, Increased Pain/ Swelling, Increased Redness, Foul Smelling Discharge Additional Instructions: If you experience any of the following, contact your healthcare provider. * Bleeding that soaks a pad every hour for 2 hours * Fever 100.4 or higher * Unrelieved incision or abdominal pain * Swelling, redness, discharge or bleeding from your incision or episiotomy site * Your incision begins to separate * Problems urinating (including inability to urinate or burning while urinating). * Visual changes * Severe headache * Flu-like symptoms * Pain or redness in one of both of your breasts * Pain, warmth, tenderness or swelling in your legs, especially the calf area * Frequent nausea and vomiting * Symptoms of depression or anxiety If you experience any of the following, call 911 or go to the nearest Emergency Room. * Chest pain * Problems breathing * Seizure activity * Partial or complete paralysis of a body part, slurred speech, weakness or drooping of the face, or a sudden inability to walk or hold your balance Allergies/Adverse Reactions: Allergies No Known Allergies Allergy (Verified 08/10/17 07:55) Medications to take at Discharge Vits [Prenatabs FA] 1 tab PO DAILY 11/20/16 Ranitidine [Zantac] 150 mg PO BID 06/10/17 When: Call to make an appointment with your doctor in 6 weeks. If you had elevated Blood Pressure or 4th degree laceration you will need to be seen in 2 weeks. Primary Care Physician: Praveena Physician,Kiki Primary [Primary Care Provider] - 08/12/17 1711 <Electronically signed by Nicole Velazquez MD> Date Nicole Velazquez MD CC: No Primary Care Physician HISTORY AND PHYSICAL Observed: 08/12/2017 Status: F Source: EVANT EXAM 6:29 AM [facility] [place] [facility] Medical Records Department [address] [place] [place] [address] History and Physical 08/10/17 1849 MR#: [id number] Acct: [id number] Name: BERTHA PÉREZ MAGDALENE Rep #: [id number] : 1995 22 From: Nicole Velazquez MD PCP: Praveena Physician, No Primary Status: ADM IN Y Location: [id number] (1) abnormality affecting management of mother, single gestation Status: Acute Comment: enlarged cisterna magna on fetus, recommended by [facility] for fu after delivery with peds (2) complicated by tobacco use in third trimester Status: Acute Comment: BI- 08/22/17 ulises maciel tay (3) Abnormal ultrasonic finding on screening of mother Status: Acute Comment: following with [facility]- HC 8 %ile but overall growth normal, mildly enlarged cisterna magna- plan fu . seen by treatment center (4) Gall bladder disease Status: Acute Comment: recommend surgical consult (5) Unspecified high-risk Status: Acute Qualifiers: Comment: BI- 08/22/17 uilses maciel tay History Date of Admission: 08/10/17 Gestational age: 38.1 History of this : 22 yo @ 38w1d presents IAL. she has had a complicated by AGA size but decreased AC. The baby also has a borderline enlarged cisterna magna and it was recommended to have a fu after . Allergies No Known Allergies Allergy (Verified 08/10/17 07:55) 08/12/17 0629 <Electronically signed by Nicole Velazquez MD> Date Nicole Velazquez MD Cosigner Signature: Date (if applicable) CC: No Primary Care Physician; Nicole Velazquez MD Signed OPERATIVE REPORT Observed: 08/10/2017 Status: F Source: EVANT 8:42 PM [facility] [place] [facility] Medical Records Department [address] [place] [address] [place] [address] Operative Report 08/10/172038 MR#: [id number] Acct: [id number] Name: BERTHA PÉREZ MAGDALENE Rep #: [id number] : 1995 22 From: Nicole Velazquez MD PCP: Care Physician, No Primary Status: ADM IN Location: [id number] (1) abnormality affecting management of mother, single gestation Status: Acute Comment: enlarged cisterna magna on fetus, recommended by [facility] for fu after delivery with peds (2) complicated by tobacco use in third trimester Status: Acute Comment: BI- 08/22/17 uilses ware (3) Abnormal ultrasonic finding on screening of mother Status: Acute Comment: following with [facility]- 8 %ile but overall growth normal, mildly enlarged cisterna magna- plan fu . seen by treatment center (4) Gall bladder disease Status: Acute Comment: recommend surgical consult (5) Unspecified high-risk Status: Acute Qualifiers: Comment: BI- 08/22/17 ulises ware (6) Normal delivery at term Status: Acute Vaginal Delivery Maternal Presentation: Active Labor 22 yo @ 38w1d prsents IAL Amniotic Membrane Rupture Type: Artificial Amniotic Fluid Description: Clear Final BI: 08/22/17 Gestational age: 38 Weeks and 2 Days Date of Procedure: 08/10/17 Pre-Operative Diagnosis: ial Post-Operative Diagnosis: same Surgery/ Procedure Performed: Spontaneous Vaginal Delivery Type of Anesthesia: Epidural Description of Procedure: Patient began pushing and delivered the head in the GALLITO presentation. The head was delivered atraumatically. The anterior and posterior shoulders delivered without complication followed by the rest of the infant and the infant was placed on the maternal abdomen. Delayed cord clamping was employed for approximately 60 seconds. Cord was clamped and cut and gentle traction was applied to the cord and the placenta delivered spontaneously immediately following it was noted to be intact with three-vessel cord. The perineum and vagina were inspected and noted to have a small superficial area of bleeding that was remedied with 3-0 Vicryl repeat. EBL was 250. Patient and tolerated delivery well. Presentation: GALLITO Placental Delivery Description: Spontaneous Placenta Disposition: [facility] Cord Vessel Description: 3 Vessels Cord Entanglement: None Estimated Blood Loss: 250 A gender: Male Episiotomy Description: None Laceration: Perineal Extension/lac, 1st degree Medications given after delivery: IV Pitocin Complications: None 08/10/172041 <Electronically signed by Nicole Velazquez MD> Date Nicole Velazquez MD CC: No Primary Care Physician; Nicole Velazquez MD Signed CBC-COMPLETE BLOOD CNT Collected: 08/10/2017 Status: F Source: KATE NO DIFF 6:15 PM [facility] [place] TYPE CODE TESTS RESULT OUT OF RANGE REFERENCE UNITS LAB L100.1000 4.4-11.0 K/mm3 High WBC 13.1 LAB L100.1200 4.2-5.4 M/mm3 Low RBC 3.76 LAB L100.1300 12.0-15.0 g/dl Low HGB 10.4 LAB L100.1400 37-47 % Low HCT 32.6 LAB L100.1500 81-99 fL Normal MCV 86.7 LAB L100.1600 27.0-32.0 pg Normal MCH 27.7 LAB L100.1700 32-36 g/gl Low MCHC 31.9 LAB L100.1810 11.6-14.6 % Normal RDW CV 13.0 LAB L100.1820 35.1-43.9 fl Normal RDW SD 41.4 LAB L100.1900 150-450 K/mm3 Normal PLT 173 LAB L100.2000 6.2-12.0 fl Normal MPV 10.8 Performed By: #### L100.0500 #### [facility] [address] [place], [address] TYPE AND SCREEN Collected: 08/10/2017 Status: F Source: KATE 6:15 PM [facility] [place] Order Comment: Reason for Type AND Screen/Red Cells: ROUTINE TYPE CODE TESTS RESULT OUT OF RANGE REFERENCE UNITS LAB B10.0800 O Normal BLOOD TYPE GEL POSITIVE LAB B100.4000 Normal Antibody NEGATIVE Screen Performed By: #### B101.7450 #### [facility] [address] [place], [address] INSPECTOR PLUG SEAM OFFICE VISIT Observed: 08/10/2017 Status: F Source: KATE REPORT 12:15 PM [facility] [place] [facility] [address] [place] [address] OFFICE VISIT Date of Service: 07/19/17 MR#: [id number] Acct: [id number] Name: BERTHA PÉREZ MAGDALENE Rep #: [id number] : 1995 Provider: Nicole Vealzquez MD Age/Sex: 21/F [place] [facility] [place]: Signed Intake Vital Signs07/19/17 Height 5 ft 5 in 07/19/17 Weight: 192 lb 2 oz 07/19/17 Body Mass Index (BMI) 31.9 07/19/17 Blood Pressure 121/73 Intake Visit Reasons: (OB) Chief Complaint: est ob Is patient in pain?: No Allergies No Known Allergies Allergy (Verified 07/19/17 14:24) Medications Vits [Prenatabs FA] 1 tab PO DAILY 11/20/16 [History Confirmed 07/19/17] Ranitidine [Zantac] 150 mg PO BID 06/10/17 [History Confirmed 07/19/17] Last Menstral Period: 11/15/16 Zika: Zika virus screening: Negative : No PFSH PFSH Medical History complicated by tobacco use in third trimester (Acute) Abnormal ultrasonic finding on screening of mother (Acute) Gall bladder disease (Acute) Unspecified high-risk (Acute) Anxiety (Acute) Back pain (Acute) Depression (Acute) GERD (gastroesophageal reflux disease) (Acute) Hemorrhoids (Acute) Surgical History S/P colonoscopy (Acute) S/P tonsillectomy and adenoidectomy (Acute) Family History Brother Asthma Hypertension Mother Asthma Hypertension Clotting disorder malignant hyperthermia--Mother Social History adopted: No Smoking Status: Current every day smoker quit status: considering quitting alcohol intake: never substance use type: does not use caffeine: Yes frequency: 1-2 times per week seatbelt use: always do you feel safe at home: Yes additional social history: Dennis Pregancy History 2 Elective abortions Hx Para 1 Spontaneous abortions Past Pregnancies Del. DatName GA/WeeksOutcome Route [facility] LgAnesthesDel LocaProviderFOB e ht en ia tn Unknown 2014 Lan38 live birNSVD 7LB 8 OZMale 10 epiduralWCH SUSIE don th - ful l term HPI (OB): Details: BERTHA QUINTERO is a 21 year old who presents for routine OB visit. ROS Const Denies fever(s) GI Denies abdominal pain, Reports as per HPI Denies vaginal discharge, Denies abnormal vaginal bleeding, Reports as per HPI Exam Const General: healthy appearing, comfortable, no acute distress GI Inspection: normal to inspection Palpation: soft, nontender Assessment AND Plan Problems 1. complicated by tobacco use in third trimester O99.333 BI- 2 boyDigna LANG dennis tay 2. High-risk in third trimester O09.93 BI- 08/22/17 ulises LANG dennis tay 3. Abnormal ultrasonic finding on screening of mother O28.3 following with [facility]- HC 8 %ile but overall growth normal, upper limit normal of cisterna magna. repeat us 07/25/17 4. Gall bladder disease K82.9 recommend surgical consult 5. 35 weeks gestation of Z3A.35 Plan Orders placed: none movement and labor precautions reviewed. ACOG trimester education reviewed and updated. see problem list details for updated plan management information. [place] appropriate handout given. Orders Orders: OB Visit BI Calculator Estimated Delivery Date 08/22/17 Based on LMP (certain) 11/15/16 Current WG 35w 5d Number 1 Estimated Due Date: 08/22/17 Expected Delivery Route/Plan Specific Issue/Plans MC given, flu vaccine declined, given tdap Initial Weight: Not Recorded Date Weight BP Urine PrFHR FuHt Pres MoCTX DilationFetal StVisit NoProviderComments E ot v te GA G Effac lucose ed Visit Notes Visit Date: 07/19/17 no CTX, LOF, VB Julia Hilda, FINISHER TAILOR APPRENTICE-C on 07/13/17 no CTX, LOF, VB Julia Hilda, FINISHER TAILOR APPRENTICE-C on 07/13/17 Visit Date: 07/13/17 no CTX, LOF, VB Julia Taylor, FINISHER TAILOR APPRENTICE-C on 07/13/17 no vb lof good fm no regular ctx co abdominal pain with gall bladder attacks, saw general surgery and planning lap sandra 4-6 weeks PP Nicole Velazquez MD on 06/29/17 Visit Date: 06/29/17 no vb lof good fm no regular ctx co abdominal pain with gall bladder attacks, saw general surgery and planning lap sandra 4-6 weeks PP Nicole Velazquez MD on 06/29/17 Results BMSUA Office Urine Color Last Edit by Chanel Gonzales on 07/19/17 14:30 08/10/17 1215 <Electronically signed by Nicole Velazquez MD> Date Nicole Velazquez MD Cosigner Signature: Date (if applicable) CC: INSPECTOR PLUG SEAM OFFICE VISIT Observed: 08/10/2017 Status: F Source: KATE REPORT 12:13 PM [facility] [address] [place] [address] OFFICE VISIT Date of Service: 07/27/17 MR#: [id number] Acct: [id number] Name: BERTHA PÉREZ MAGDALENE Rep #: [id number] : 1995 Provider: Nicole Velazquez MD Age/Sex: 21/F [place] [facility] [place] Signed Intake Vital Signs07/27/17 Height 5 ft 5 in 07/27/17 Weight: 193 lb 9 oz 07/27/17 Body Mass Index (BMI) 32.2 07/27/17 Blood Pressure 120/83 Intake Visit Reasons: ROUTINE OB Allergies No Known Allergies Allergy (Verified 07/27/17 11:21) Medications Vits [Prenatabs FA] 1 tab PO DAILY 11/20/16 [History Confirmed 07/27/17] Ranitidine [Zantac] 150 mg PO BID 06/10/17 [History Confirmed 07/27/17] Last Menstral Period: 10/16/16 Zika: Zika virus screening: Negative PFS PFS Medical History complicated by tobacco use in third trimester (Acute) Abnormal ultrasonic finding on screening of mother (Acute) Gall bladder disease (Acute) Unspecified high-risk (Acute) Anxiety (Acute) Back pain (Acute) Depression (Acute) GERD (gastroesophageal reflux disease) (Acute) Hemorrhoids (Acute) Surgical History S/P colonoscopy (Acute) S/P tonsillectomy and adenoidectomy (Acute) Family History Brother Asthma Hypertension Mother Asthma Hypertension Clotting disorder malignant hyperthermia--Mother Social History adopted: No Smoking Status: Current every day smoker quit status: considering quitting alcohol intake: never substance use type: does not use caffeine: Yes frequency: 1-2 times per week seatbelt use: always do you feel safe at home: Yes additional social history: Dennis Pregancy History 2 Elective abortions Hx Para 1 Spontaneous abortions Past Pregnancies Del. DatName GA/WeeksOutcome Route [facility] Franca Nielson LgAnesthesDel LocaProviderFOB e ht en th ia tn Unknown 2014 Lan38 live birNSVD 7LB 8 OZMale 10 epiduralWCH SUSIE don th - ful l term HPI ROUTINE OB: Details: BERTHA QUINTERO is a 21 year old who presents for routine OB visit. ROS Const Denies fever(s) GI Denies abdominal pain, Reports as per HPI Denies vaginal discharge, Denies abnormal vaginal bleeding, Reports as per HPI Exam Const General: healthy appearing, comfortable, no acute distress GI Inspection: normal to inspection Palpation: soft, nontender Assessment AND Plan Problems 1. High-risk in third trimester O09.93 BI- 08/22/17 ulises LANG dennis tay 2. Gall bladder disease K82.9 recommend surgical consult 3. Abnormal ultrasonic finding on screening of mother O28.3 following with [facility]- HC 8 %ile but overall growth normal, upper limit normal of cisterna magna. repeat us 07/25/17 4. complicated by tobacco use in third trimester O99.333 BI- 08/22/17 ulises LANG dennis tay 5. abnormality affecting management of mother, single gestation O35.9XX0 enlarged cisterna magna on fetus, recommended by [facility] for fu after delivery with peds 6. headache in third trimester O26.893; O26.893; R51; R51 likely migraine- has history of them. recommend preeclampsia panel 7. 36 weeks gestation of Z3A.36 Plan reviewed preeclampsia precautions, likely just migraine but cehck preeclampsia labs discussed [facility] recommendations and patient wants to proceed with postdelivery pediatric evaluation Orders placed: labs and gbs done ACOG trimester education reviewed and updated. see problem list details for updated plan management information. [place] appropriate handout given. Orders Orders: OB Visit BI Calculator Estimated Delivery Date 08/22/17 Based on LMP (certain) 11/15/16 Current WG 36w 4d Number 1 Estimated Due Date: 08/22/17 Expected Delivery Route/Plan Specific Issue/Plans MC given, flu vaccine declined, given tdap larc form signed Initial Weight: Not Recorded Date Weight BP Urine PrFHR FuHt Pres MoCTX DilationFetal StVisit NoProviderComments E ot v te GA G Effac lucose ed Visit Notes Visit Date: 07/27/17 co migraines, particulary right side, no vb lo goo fm Nicole Velazquez MD on 07/27/17 no CTX, LOF, VB Julia Hilda, FINISHER TAILOR APPRENTICE-C on 07/13/17 no CTX, LOF, VB Julia Hilda, FINISHER TAILOR APPRENTICE-C on 07/13/17 no vb lof good fm no regular ctx co abdominal pain with gall bladder attacks, saw general surgery and planning lap sandra 4-6 weeks PP Nicole Velazquez MD on 06/29/17 Visit Date: 07/19/17 no CTX, LOF, VB Julia Hilda, FINISHER TAILOR APPRENTICE-C on 07/13/17 no CTX, LOF, VB Julia Hilda, FINISHER TAILOR APPRENTICE-C on 07/13/17 Visit Date: 07/13/17 no CTX, LOF, VB Julia Hilda, FINISHER TAILOR APPRENTICE-C on 07/13/17 no vb lof good fm no regular ctx co abdominal pain with gall bladder attacks, saw general surgery and planning lap sandra 4-6 weeks PP Nicole Velazquez MD on 06/29/17 Visit Date: 06/29/17 no vb lof good fm no regular ctx co abdominal pain with gall bladder attacks, saw general surgery and planning lap sandra 4-6 weeks PP Nicole Velazquez MD on 06/29/17 Results BMSUA Office Urine Color Last Edit by Grace Westbrook on 07/27/17 11:24 08/10/17 1213 <Electronically signed by Nicole Velazquez MD> Date Nicole Velazquez MD Cosigner Signature: Date (if applicable) CC: INSPECTOR PLUG SEAM OFFICE VISIT Observed: 08/07/2017 Status: F Source: KATE REPORT 3:11 AM [facility] 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: No Is patient in pain?: No Allergies No Known Allergies Allergy (Verified 08/03/17 10:02) Medications Vits [Prenatabs FA] 1 tab PO DAILY 11/20/16 [History Confirmed 08/03/17] Ranitidine [Zantac] 150 mg PO BID 06/10/17 [History Confirmed 08/03/17] Last Menstral Period: 11/15/16 Zika: Zika virus screening: Negative : No PFSH PFSH Medical History Anxiety (Acute) Back pain (Acute) Depression (Acute) GERD (gastroesophageal reflux disease) (Acute) Hemorrhoids (Acute) Surgical History S/P colonoscopy (Acute) S/P tonsillectomy and adenoidectomy (Acute) Family History Brother Asthma Hypertension Mother Asthma Hypertension Clotting disorder malignant hyperthermia--Mother Social History adopted: No Smoking Status: Current every day smoker quit status: considering quitting alcohol intake: never substance use type: does not use caffeine: Yes frequency: 1-2 times per week seatbelt use: always do you feel safe at home: Yes additional social history: Dennis Pregancy History 2 Elective abortions Hx Para 1 Spontaneous abortions Past Pregnancies Del. DatName GA/WeeksOutcome Route Bth WeigInfant GLacarla LgAnesthesDel LocaProviderFOB e ht en th ia tn Unknown 2014 Lan38 live birNSVD 7LB 8 OZMale 10 epiduralWCH SUSIE don th - ful l term HPI ROUTINE OB: Details: BERTHA QUINTERO is a 22 year old who presents for routine OB visit. ROS Const Denies fever(s) GI Denies abdominal pain, Reports as per HPI Denies vaginal discharge, Denies abnormal vaginal bleeding, Reports as per HPI Exam Const General: healthy appearing, comfortable, no acute distress GI Inspection: normal to inspection Palpation: soft, nontender Assessment AND Plan Problems 1. High-risk in third trimester O09.93 BI- 08/22/17 ulises LANG dennis tay 2. Abnormal ultrasonic finding on screening of mother O28.3 following with [facility]- HC 8 %ile but overall growth normal, mildly enlarged cisterna magna- plan fu . seen by treatment center 3. Gall bladder disease K82.9 recommend surgical consult 4. complicated by tobacco use in third trimester O99.333 BI- 08/22/17 ulises maciel tay 5. abnormality affecting management of mother, single gestation O35.9XX0 enlarged cisterna magna on fetus, recommended by [facility] for fu after delivery with peds 6. headache in third trimester O26.893 likely migraine- has history of them. recommend preeclampsia panel Plan Orders placed: geno normal movement and labor precautions reviewed. ACOG trimester education reviewed and updated. see problem list details for updated plan management information. [place] appropriate handout given. Orders Orders: OB Visit BI Calculator Estimated Delivery Date 08/22/17 Based on LMP (certain) 11/15/16 Current WG 37w 6d Number 1 Expected Delivery Route/Plan Specific Issue/Plans MC given, flu vaccine declined, given tdap larc form signed Initial Weight: Not Recorded Date Weight BP Urine PFHR FuHt Pres MCTX DilatioFetal SVisit NProvideComment rot ov n t ote r s EGA Ef Gluco faced se 06/29/1189 lb 98/62 Sclkdee637 30 CephaliActive occasio no vb lSM 7 e c nal of good 32 fm no w 2d Negati regular ve ctx co abdomi nal marina n with gall bl [facility], saw ge neral s urgery and jessie nning l ap chol e 4-6 w eeks PP Visit Notes Visit Date: 08/03/17 no vb lof good fm irregular ctx. low FH geno at bedside normal. Nicole Velazquez MD on 08/07/17 co migraines, particulary right side, no vb lo goo fm Nicole Velazquez MD on 07/27/17 no CTX, LOF, VB Julia Hilda, FINISHER TAILOR APPRENTICE-C on 07/13/17 no vb lof good fm no regular ctx co abdominal pain with gall bladder attacks, saw general surgery and planning lap sandra 4-6 weeks PP Nicole Velazquez MD on 06/29/17 Visit Date: 07/27/17 co migraines, particulary right side, no vb lo goo fm Nicole Velazquez MD on 07/27/17 no CTX, LOF, VB Julia Hilda, FINISHER TAILOR APPRENTICE-C on 07/13/17 no CTX, LOF, VB Julia Hilda, FINISHER TAILOR APPRENTICE-C on 07/13/17 no vb lof good fm no regular ctx co abdominal pain with gall bladder attacks, saw general surgery and planning lap sandra 4-6 weeks PP Nicole Velazquez MD on 06/29/17 Visit Date: 07/19/17 no CTX, LOF, VB Julia Taylor, FINISHER TAILOR APPRENTICE-C on 07/13/17 no CTX, LOF, VB Julia Hilda, FINISHER TAILOR APPRENTICE-C on 07/13/17 Visit Date: 07/13/17 no CTX, LOF, VB Julia Taylor, FINISHER TAILOR APPRENTICE-C on 07/13/17 no vb lof good fm no regular ctx co abdominal pain with gall bladder attacks, saw general surgery and planning lap sandra 4-6 weeks PP Nicole Velazquez MD on 06/29/17 Visit Date: 06/29/17 no vb lof good fm no regular ctx co abdominal pain with gall bladder attacks, saw general surgery and planning lap sandra 4-6 weeks PP Nicole Velazquez MD on 06/29/17 Results [facility] Office Urine Color Last Edit by Chanel Gonzales on 08/03/17 10:06 08/07/17 0311 <Electronically signed by Nicole Velazquez MD> Date Nicole Velazquez MD Cosigner Signature: Date (if applicable) CC: GROUP B STREP DNA Collected: 07/27/2017 Status: F Source: [place] BY PCR 3:16 PM [facility] [place] Order Comment: Source: Vaginal-Rectal TYPE CODE TESTS RESULT OUT OF RANGE REFERENCE UNITS LAB L8200.0100 Negative Normal GBS TEST Negative RESULT Performed By: #### L8200.0000 #### [facility] [address] [place], [address] PROTEIN+CREATININE Collected: Status: F Source: [place] RATIO,URINE 07/27/2017 11:43 AM [facility] TYPE CODE TESTS RESULT OUT OF RANGE REFERENCE UNITS LAB L501.1200 NO RANGE EST. mg/dL Normal UR CREAT 72.20 LAB L501.1930 <11.9 mg/dL High 18.5 PROTEIN,UR.R AN. LAB L501.1940 0-200 mg/g CRE High PROT:CRE 256 RATIO Performed By: #### L501.0900 #### [facility] [address] [place], [address] COMPREHENSIVE METABOLIC Collected: 07/27/2017 Status: F Source: [place] PROFIL 11:43 AM [facility] [place] [facility] [place] Order Comment: Serial Specimen #1, #2 or #3? 1 TYPE CODE TESTS RESULT OUT OF RANGE REFERENCE UNITS LAB L501.0100 70-110 mg/dL Normal GLU 81 LAB L501.1000 7-18 mg/dL Low BUN 4 LAB L501.1100 0.55-1.02 mg/dL Low 0.47 CREAT,SERUM Result Comment: The validity of the calculated GFR AND GFRAA in patients over 70 years has not been determined. Clinical correlation is essential. LAB L501.1110 >60 mL/min Normal EST GFR 176 Result Comment: Non- GFR Calc LAB L501.1115 >60 mL/min Normal EST GFR - AA 213 Result Comment: GFR Calc LAB L501.1300 10-20 RATIO Low BUN/CRE 8.5 LAB L501.1500 6.4-8.2 g/dL Normal T PROT 6.7 LAB L501.1800 3.4-5.0 g/dL Low ALB 2.4 Result Comment: Please note revised Albumin AND Globulin reference range effective 2017. LAB L501.1950 2.2-4.2 g/dL High GLOB 4.3 LAB L501.2000 0.9-2.4 RATIO Low A/G 0.6 LAB L501.2200 8.5-10.1 mg/dL Normal CA 8.8 LAB L501.4100 15-37 U/L Normal AST 16 LAB L501.4305 45-117 U/L High ALK P 130 LAB L501.4405 12-78 U/L Normal ALT 17 LAB L501.4600 0.20-1.00 mg/dL Normal T BILI 0.20 LAB L501.5300 136-145 mmol/L Normal NA 139 LAB L501.5600 3.5-5.1 mmol/L Low K 3.4 LAB L501.5900 98-107 mmol/L Normal CL 106 LAB L501.6100 21.0-32.0 mmol/L Normal CO2 23.0 LAB L501.6200 5-15 Normal GAP 10 Performed By: #### L500.4050, L501.1400, L504.2610 #### [facility] [address] [place], [address] URIC ACID Collected: 07/27/2017 Status: F Source: [place] 11:43 AM [facility] [place] Order Comment: Serial Specimen #1, #2 or #3? 1 TYPE CODE TESTS RESULT OUT OF RANGE REFERENCE UNITS LAB L501.1400 2.6-6.0 mg/dL Normal URIC 3.8 Result Comment: The drugs N-Acetylcysteine and Metamizole may falsely depress this assay. Performed By: #### L500.4050, L501.1400, L504.2610 #### [facility] [address] [place], [address] LDH Collected: 07/27/2017 Status: F Source: [place] 11:43 AM [facility] [facility] [place] Order Comment: Serial Specimen #1, #2 or #3? 1 TYPE CODE TESTS RESULT OUT OF RANGE REFERENCE UNITS LAB L504.2610 84-246 U/L Normal LDH 138 Performed By: #### L500.4050, L501.1400, L504.2610 #### [facility] [address] [place], [address] Observed: 07/27/2017 Status: F Source: [place] CULTURE, GROUP B 12:00 AM [facility] [place] [facility] BRITTNEE Culture Group B Beta Streptococcus is not isolated. Performed By: #### M100.1800 #### [facility] [address] [place], [address] INSPECTOR PLUG SEAM OFFICE VISIT Observed: 07/13/2017 Status: F Source: [place] REPORT 4:24 PM [facility] [facility] [place] [facility] [address] [place] [address] OFFICE VISIT Date of Service: 07/13/17 MR#: [id number] Acct: [id number] Name: AVELINOTHOMPSONBERTHA ELY MAGDALENE Rep #: [id number] : 1995 Provider: Nicole Velazquez MD Age/Sex: 21/F [place] [facility] [place]: Signed Intake Vital Signs07/13/17 Height 5 ft 5 in Intake Visit Reasons: ROUTINE OB Chief Complaint: routine ob Is patient in pain?: No Allergies No Known Allergies Allergy (Verified 06/29/17 11:19) Medications Vits [Prenatabs FA] 1 tab PO DAILY 11/20/16 [History Confirmed 06/29/17] Ranitidine [Zantac] 150 mg PO BID 06/10/17 [History Confirmed 06/29/17] Zika: Zika virus screening: Negative PFS PFS Medical History complicated by tobacco use in third trimester (Acute) Abnormal ultrasonic finding on screening of mother (Acute) Gall bladder disease (Acute) Unspecified high-risk (Acute) Anxiety (Acute) Back pain (Acute) Depression (Acute) GERD (gastroesophageal reflux disease) (Acute) Hemorrhoids (Acute) Surgical History S/P colonoscopy (Acute) S/P tonsillectomy and adenoidectomy (Acute) Family History Brother Asthma Hypertension Mother Asthma Hypertension Clotting disorder malignant hyperthermia--Mother Social History adopted: No Smoking Status: Current every day smoker quit status: considering quitting substance use type: does not use Pregancy History 2 Elective abortions Hx Para 1 Spontaneous abortions Past Pregnancies Del. DatName GA/WeeksOutcome Route [facility] LgAnestheUTel LocaProviderFOB e ht en ia tn Unknown 2014 Lan38 live birNSVD 7LB 8 OZMale 10 epiduralWCH SUSIE don th - ful l term HPI ROUTINE OB: Details: BERTHA QUINTERO is a 21 year old who presents at [] weeks gestation for routine OB visit. Exam Const General: cooperative Nutritional Appearance: well nourished GI Palpation: soft, nontender, other (gravid) Assessment AND Plan Problems 1. High-risk in third trimester O09.93 BI- 08/22/17 boy- Jay PC dennis tay 2. Abnormal ultrasonic finding on screening of mother O28.3 following with MFM- HC 8 %ile but overall growth normal, upper limit normal of cisterna magna. repeat us 07/25/17 Plan - JANUSZ Betancourt Has growth US 07/25/17. Reviewed PTL and kick counts RTO 2 weeks Orders Orders: OB Visit BI Calculator Estimated Delivery Date 08/22/17 Based on LMP (certain) 11/15/16 Current WG 34w 2d Number 1 Expected Delivery Route/Plan Specific Issue/Plans MC given, flu vaccine declined, given tdap Initial Weight: Not Recorded Date Weight BP Urine PrFHR FuHt Pres MoCTX DilationFetal StVisit NoProviderComments E ot v te GA G Effac lucose ed Visit Notes Visit Date: 07/13/17 no CTX, LOF, VB JANUSZ Betancourt on 07/13/17 no vb lof good fm no regular ctx co abdominal pain with gall bladder attacks, saw general surgery and planning lap sandra 4-6 weeks PP Nicole Velazquez MD on 06/29/17 Visit Date: 06/29/17 no vb lof good fm no regular ctx co abdominal pain with gall bladder attacks, saw general surgery and planning lap sandra 4-6 weeks PP Nicole Velazquez MD on 06/29/17 07/13/17 1624 <Electronically signed by Nicole Velazquez MD> Date Nicole Velazquez MD 07/13/17 1618<Electronically signed by Julia BOUDREAUX> Cosigner Signature: Date (if applicable) Julia Stevens CC: PROGRESS Observed: 07/05/2017 Status: COMPLETED Source: [place] 1:53 PM [facility] O ID: [id number] Author: Sonal (Animal Stunner) Tamara Service: (none) Author Type: Nurse Practitioner Type: Progress Notes Filed: 07/05/2017 2:09 PM Note Text: HPI Bertha Quintero is a 21 year old female who presents with a cough and chest congestion, sinus congestion for 3 weeks. She has taken mucinex, robitussin, cough drops, vicks, humidifier for the past few weeks without result. She has ear pain. She complains of green nasal drainage and sinus pain. Review of Systems Constitutional: Negative. Negative for fever. HENT: Positive for congestion, ear pain, sinus pain and sore throat (from coughing). Respiratory: Positive for cough. Negative for shortness of breath. Cardiovascular: Negative. Gastrointestinal: Negative. Negative for abdominal pain, diarrhea, nausea and vomiting. Musculoskeletal: Negative. Skin: Negative. Negative for rash. Neurological: Positive for headaches. BP 102/58 Pulse 102 Temp 36.8 ?C (98.2 ?F) (Left Tympanic) Resp 16 Wt 88 kg (194 lb) LMP 11/15/2016 SpO2 98% BMI 33.3 kg/m2 PAST MEDICAL HISTORY Diagnosis Date - acl tear - Encounter for insertion of mirena IUD 03/05/15 PAST SURGICAL HISTORY Procedure Laterality Date - COLONOSCOP W/ OR W/O BRSH SPEC 10/2005 Colonoscopy - REMOVAL ADENOIDS,PRIMARY,<12 Y/O 05/2001 Adenoidectomy - REMOVAL OF TONSILS,<12 Y/O 05/2001 Tonsillectomy ALLERGIES Review of patient's allergies indicates no known allergies. MEDICATIONS ranitidine (ZANTAC) 150 mg tablet Take 150 mg by mouth twice daily. Pmhzwbcz-Uh-Pii-Fe-FA ( VITAMIN) tab Take 1 tablet by mouth once daily. ACETAMINOPHEN (TYLENOL ORAL) Take by mouth. FAMILY HISTORY Problem Relation Age of Onset - Allergies Mother - Multiple Sclerosis Mother also on fathers side - Thyroid Mother - Obesity Mother - chiari malformation [OTHER] Mother - sleep apnea [OTHER] Father - Cancer Paternal Grandfather lung - Diabetes Paternal Grandmother - Hypertension Maternal Grandfather - Heart Maternal Grandfather - Seizures Maternal Grandmother was accident related after car accident - Cancer Maternal Aunt ovarian Social History Substance Use Topics - Smoking status: Current Every Day Smoker Packs/day: 0.50 Years: 2.00 Types: Cigarettes - Smokeless tobacco: Never Used - Alcohol use Yes Comment: Occasionally, not while Physical Exam Constitutional: She is well-developed, well-nourished, and in no distress. HENT: Head: Normocephalic. Right Ear: Tympanic membrane, external ear and ear canal normal. Left Ear: Tympanic membrane, external ear and ear canal normal. Nose: Rhinorrhea and sinus tenderness present. Right sinus exhibits frontal sinus tenderness. Left sinus exhibits frontal sinus tenderness. Mouth/Throat: Uvula is midline, oropharynx is clear and moist and mucous membranes are normal. No posterior oropharyngeal edema or posterior oropharyngeal erythema. Eyes: Conjunctivae are normal. Right eye exhibits no discharge. Left eye exhibits no discharge. Neck: Neck supple. Cardiovascular: Normal rate and regular rhythm. Pulmonary/Chest: Effort normal and breath sounds normal. No respiratory distress. She has no wheezes. She has no rales. Lymphadenopathy: She has no cervical adenopathy. Neurological: She is alert. Skin: Skin is warm and dry. No rash noted. Nursing note and vitals reviewed. ASSESSMENT/PLAN: 1. Sinobronchitis - ICD9: 473.9, 490, ICD10: J32.9, J40 - Will begin treatment with Amoxicillin for 10 days - The patient should also be given Mucinex for the first 5- 7 days of treatment. - Supportive care with plenty of fluids, rest, and analgesia prn. - AMOXICILLIN 875 MG TABLET - Follow-up with your PCP in 3-5 days if symptoms have not improved or sooner if symptoms worsen - Discussed red flags and need for immediate medical evaluation if any occur. - Discussed supportive care treatment with fluids, rest and analgesia. - Discussed expected course of illness Sonal Mcdonald CNP CNOV Observed: 07/05/2017 Status: COMPLETED Source: [place] 1:15 PM [facility] REPOSITORY Office Visit (WSTR) BERTHA QUINTERO ([id number]) 1995 F Date Time Provider Department 07/05/17 1:15 PM SONAL MCDONALD (DIXIE) [facility] During your visit today, we recorded the following information about you: Temperature Pulse Respiration Blood pressure 98.2 degrees 102/minute 16/minute 102/58 Weight 88 kg Sonal Mcdonald CNP 07/05/2017 2:09 PM Signed HPI Bertha Quintero is a 21 year old female who presents with a cough and chest congestion, sinus congestion for 3 weeks. She has taken mucinex, robitussin, cough drops, vicks, humidifier for the past few weeks without result. She has ear pain. She complains of green nasal drainage and sinus pain. Review of Systems Constitutional: Negative. Negative for fever. HENT: Positive for congestion, ear pain, sinus pain and sore throat (ANDquot;from coughingANDquot;). Respiratory: Positive for cough. Negative for shortness of breath. Cardiovascular: Negative. Gastrointestinal: Negative. Negative for abdominal pain, diarrhea, nausea and vomiting. Musculoskeletal: Negative. Skin: Negative. Negative for rash. Neurological: Positive for headaches. BP 102/58 Pulse 102 Temp 36.8 ?C (98.2 ?F) (Left Tympanic) Resp 16 Wt 88 kg (194 lb) LMP 11/15/2016 SpO2 98% BMI 33.3 kg/m2 PAST MEDICAL HISTORY Diagnosis Date - acl tear - Encounter for insertion of mirena IUD 03/05/15 PAST SURGICAL HISTORY Procedure Laterality Date - COLONOSCOP W/ OR W/O BRSH SPEC 10/2005 Colonoscopy - REMOVAL ADENOIDS,PRIMARY,ANDlt;12 Y/O 05/2001 Adenoidectomy - REMOVAL OF TONSILS,ANDlt;12 Y/O 05/2001 Tonsillectomy ALLERGIES Review of patient's allergies indicates no known allergies. MEDICATIONS ranitidine (ZANTAC) 150 mg tablet Take 150 mg by mouth twice daily. Etvwgwym-Wl-Ldx-Fe-FA ( VITAMIN) tab Take 1 tablet by mouth once daily. ACETAMINOPHEN (TYLENOL ORAL) Take by mouth. FAMILY HISTORY Problem Relation Age of Onset - Allergies Mother - Multiple Sclerosis Mother also on fathers side - Thyroid Mother - Obesity Mother - chiari malformation [OTHER] Mother - sleep apnea [OTHER] Father - Cancer Paternal Grandfather lung - Diabetes Paternal Grandmother - Hypertension Maternal Grandfather - Heart Maternal Grandfather - Seizures Maternal Grandmother was accident related after car accident - Cancer Maternal Aunt ovarian Social History Substance Use Topics - Smoking status: Current Every Day Smoker Packs/day: 0.50 Years: 2.00 Types: Cigarettes - Smokeless tobacco: Never Used - Alcohol use Yes Comment: Occasionally, not while Physical Exam Constitutional: She is well-developed, well-nourished, and in no distress. HENT: Head: Normocephalic. Right Ear: Tympanic membrane, external ear and ear canal normal. Left Ear: Tympanic membrane, external ear and ear canal normal. Nose: Rhinorrhea and sinus tenderness present. Right sinus exhibits frontal sinus tenderness. Left sinus exhibits frontal sinus tenderness. Mouth/Throat: Uvula is midline, oropharynx is clear and moist and mucous membranes are normal. No posterior oropharyngeal edema or posterior oropharyngeal erythema. Eyes: Conjunctivae are normal. Right eye exhibits no discharge. Left eye exhibits no discharge. Neck: Neck supple. Cardiovascular: Normal rate and regular rhythm. Pulmonary/Chest: Effort normal and breath sounds normal. No respiratory distress. She has no wheezes. She has no rales. Lymphadenopathy: She has no cervical adenopathy. Neurological: She is alert. Skin: Skin is warm and dry. No rash noted. Nursing note and vitals reviewed. ASSESSMENT/PLAN: 1. Sinobronchitis - ICD9: 473.9, 490, ICD10: J32.9, J40 - Will begin treatment with Amoxicillin for 10 days - The patient should also be given Mucinex for the first 5- 7 days of treatment. - Supportive care with plenty of fluids, rest, and analgesia prn. - AMOXICILLIN 875 MG TABLET - Follow-up with your PCP in 3-5 days if symptoms have not improved or sooner if symptoms worsen - Discussed red flags and need for immediate medical evaluation if any occur. - Discussed supportive care treatment with fluids, rest and analgesia. - Discussed expected course of illness Sonal Mcdonald, DIXIE Mcdonald CNP 07/05/2017 2:00 PM Signed ACUTE BRONCHITIS: You have acute bronchitis. This means the airway passages in your lungs are inflamed. Bronchitis may be caused by viruses or bacteria. Inhaling cigarette smoke will always make it worse. Exposure to irritating chemicals or second hand smoke as well as allergies can contribute to bronchitis. Repeat episodes of bronchitis may cause lifelong lung problems. Acute bronchitis is usually treated with rest, fluids, cough medicine, and possibly antibiotics or inhaled medicine to open up the small airways. It is very important that you avoid smoke and drink increased amounts of fluids. A cool air vaporizer can help thin bronchial secretions. This makes it easier to cough and clear your chest. If you are a cigarette smoker, consider using nicotine gum or skin patches to help you withdraw. Recovery from bronchitis is often slow, but you should start feeling better after 2-3 days of treatment. Please call your doctor or return here if you have any of the following symptoms: - Increased fever, chills, or chest pain. - Severe shortness of breath or bloody sputum. - Do not improve after 3 days of proper treatment. Acute Sinusitis Each of us has four paired cavities (spaces) in our head that are connected to the nose by narrow channels. These cavities, known as sinuses, produce thin mucus that drains out of the channels of the nose. This drainage helps keep the nose clean and free of particles and bacteria. Normally, sinuses are filled with air. But when sinuses become blocked and filled with fluid, bacteria can grow and cause an infection (bacterial sinusitis). Conditions that cause sinus blockage include: ? the common cold ? allergic rhinitis (swelling of the lining of the nose due to allergies) ? nasal polyps (small growths in the lining of the nose), or ? a deviated septum (the wall between the left and right nostril is crooked). Allergies, such as hay fever, can also cause swelling and poor drainage of the sinuses. One confusing factor to consider is that many people with ?sinus headaches? are actually suffering from migraines. In fact, in large clinical studies, up to 90% of people who reported sinus headaches were diagnosed with migraines instead. Migraines can cause headaches in combination with facial pressure over the sinuses, a runny nose, and nasal congestion. If you have symptoms that involve the sinuses, it may be difficult to tell if you have sinusitis, a cold, nasal allergy, or even a migraine. This article will describe the symptoms, diagnosis, and treatment of sinusitis, and how to tell the difference between sinusitis, cold, migraines, and nasal allergy. What is sinusitis? Sinusitis is an inflammation, or swelling, of the tissue lining the sinuses. There are two types of sinusitis: ? Acute bacterial sinusitis: a sudden onset of cold symptoms such as runny nose, stuffy nose, and facial pain that does not go away after 10 days, or symptoms that seem to begin improving but return worse than the initial symptoms. It responds well to antibiotics and decongestants. ? Chronic sinusitis: a condition defined by nasal congestion, drainage, facial pain/pressure, and decreased sense of smell for at least 12 weeks. Who gets sinusitis? Every year, approximately 1 billion Americans have at least one episode of viral sinusitis. About 37 million will develop a bacterial sinusitis. People who have the following conditions have a higher risk of sinusitis: ? Nasal mucus membrane swelling, as from a common cold or allergies ? Blockage of drainage ducts, leading to trapping of mucus ? Structure differences that narrow the drainage ducts ? Conditions that result in an increased risk of infection ? Polyps (growths) In children, common factors in the environment that contribute to sinusitis include allergies, illness from other children at day care or school, and smoke in the environment. In adults, the contributing factors are most frequently viral infections, allergies, and smoking. What are the signs and symptoms of acute sinusitis? The primary symptoms of acute sinusitis include: ? Facial pain/pressure/tenderness ? Nasal stuffiness ? Nasal discharge (thick yellow or green discharge from nose), especially if it is long-lasting. These also may be present with viral illness. ? Loss of smell and taste ? Cough/congestion Additional symptoms may include: ? Fever of 102? or higher ? Ear pain ? Headache ? Bad breath ? Fatigue ? Ache in upper jaw and teeth How is sinusitis diagnosed? To diagnose sinusitis, your doctor will discuss your symptoms and examine your nose for swelling and drainage. Your personal history is most important in diagnosing sinusitis. A physical exam of the ears, nose, and throat is performed to look for signs of obstruction (blockage) or infection. Some patients may have conditions that may need to be referred to a specialist, such as an ear, nose, and throat (ENT) physician. How is sinusitis treated? Acute sinusitis. If you have a simple sinusitis infection, your health care provider may recommend treatment with ecfi-peu-xpcbinz medications for cold and allergy, nasal saline irrigation, and drinking fluids (as most sinusitis is viral). Use of prescription intranasal steroid sprays might be added to help control symptoms. However, non-prescription drops or sprays should not be used beyond 5 days -- or they may actually increase congestion. If symptoms do not improve after at least 10 days, if the symptoms seem to be getting worse, or if medications for cold or allergy do not improve symptoms, a bacterial infection may be causing the sinusitis. In this case, antibiotics are given for 7 days in adults and 10 days in children. Antibiotics should improve symptoms within 48 hours. Chronic sinusitis. Treating chronic sinusitis begins with controlling the underlying condition, which is most often allergies. Standard treatments include intranasal steroid sprays, topical antihistamine sprays, or antihistamine pills, and leukotriene antagonists such as montelukast. Often you will be encouraged to rinse the nose with saline irrigations. Sometimes medications may be added to these irrigations. If sinusitis is not controlled, the next step is a visit with an Ear, Nose and Throat Specialist. Will I need to make lifestyle changes? If you have indoor allergies, avoiding triggers -- such as animal dander and dust mites ? is recommended in addition to medications. Smoking is never recommended, but if you do smoke, strongly consider a program to help you stop smoking, as this may be the main reason you have sinus infections. No special diet is required, but drinking extra fluids helps to thin nasal secretions. What are the symptoms of the common cold? An upper respiratory infection (the common cold) is usually caused by a virus that infects the nose and throat. Most upper respiratory infections are not bacterial and do not respond to antibiotics. A cold may cause swelling in the sinuses, preventing the outflow of mucus. Cold symptoms include nasal congestion, runny nose, post-nasal drip (ktap-lx-esne release of nasal fluid into the back of the throat), headache, achiness, and fatigue. Cough and fever may also go along with these symptoms. Cold symptoms usually build, peak, and slowly disappear. No treatment is necessary for a cold, but some medications can ease symptoms. For example, decongestants may decrease drainage and open the nasal passages. Analgesics (pain relievers) may help with fever and headache. Cough medication may help, as well. Colds will typically last from a few days to about a week. What is the harm in getting an antibiotic for a common cold? Viral infections like the common cold are not cured by antibiotics. Taking an antibiotic for a viral infection unnecessarily puts you at risk for side effects related to the antibiotic. In addition, the overuse of antibiotics leads to antibiotic resistance, which may make future infections more difficult to treat. Finally, the use of inappropriate medication increases health care costs unnecessarily. What are the symptoms of nasal allergy? Symptoms of nasal allergy include: ? Sneezing ? Itchy nose ? Clear, watery nasal discharge ? Nasal blockage ? Feeling fatigued How is nasal allergy treated? Usually medications are prescribed to relieve symptoms. These may include antihistamines, with or without decongestants, or steroid nasal sprays. Other nasal sprays, which deliver antihistamines or cromolyn sodium, are sometimes helpful. If allergy symptoms are chronic (long-term), allergy testing and allergy shots (immunotherapy) may be helpful. How can I tell if I have a sinus infection, cold, or nasal allergy? Although the symptoms of sinusitis and nasal allergy may occur with a common cold, in general, cold-related symptoms disappear within 1 week. The point at which a normal cold ends and a sinus condition begins is not always easy to know. If you are fighting off a cold and develop symptoms of a sinus infection or nasal allergy, see your health care provider. You will be asked to describe your symptoms and medical history. ? How do I know if my sinus condition requires the care of an ear, nose, and throat specialist? Most routine sinus conditions are easily cared for by primary care physicians. If, however, you are bothered by ongoing abnormal symptoms, recurring infections, or have abnormal X-ray findings or complications, a referral to a specialist is appropriate. References ? Nika Garcia et al., IDSA Clinical Practice Guideline for Acute Bacterial Rhinosinusitis in Children and Adults. Clinical Infectious Diseases; 2012;54(8):3876-0998. ? Evans Nails, Sinusitis: Allergies, antibiotics, aspirin, asthma. [facility] Journal of Medicine 2006; 73(7): 671-678 ? National [place] of Allergy and Infectious Diseases. Sinusitis (Sinus Infection) Accessed 05/27/2015. ? [employer] Academy of Allergy, Asthma, and Immunology. Sinusitis Accessed 05/27/2015. ? [employer] College of Allergy, Asthma ANDamp; Immunology. Sinus Information Accessed 05/27/2015. ? Joe Mccormack., Prevalence of migraine in patients with a history of self-reported or physician-diagnosed ANDquot;sinusANDquot; headache. Arch Vacuum Cleaner Operator Med, 2004. 164(16):1769-72. ? Copyright 8775-4971 [facility]. All rights reserved. Referring Provider: SELF [200] Allergies As of Date: 07/05/2017 (No Known Allergies) Date Reviewed: 07/05/2017 Reviewed by: Sonal ([facility]) Tamara - Fully Assessed Reason for Visit: Cough [28] Cmt: x 3 weeks cough and chest congestion Pain, Sinus [857] Cmt: x 3 weeks Post Nasal Drip [1367] Cmt: x 3 weeks Primary Visit Diagnosis:Sinobronchitis [J32.9, J40] Order(s):amoxicillin (AMOXIL) 875 mg tabletTake 1 tablet by mouth twice daily for 10 days.Disp: 20 tabletRfl: 0 Prescriptions as of 07/05/2017 Sig: RANITIDINE 150 MG TABLET Take 150 mg by mouth twice da* VITAMIN,CALCIUM,MINE* Take 1 tablet by mouth once d* TYLENOL ORAL Take by mouth. AMOXICILLIN 875 MG TABLET Take 1 tablet by mouth twice * Problem List As Of Date 07/05/2017 Noted Resolved Hemangioma of skin and subcutaneous tissue [D18*INVALID FOR*07/05/2014 Backache, unspecified [M54.9] INVALID FOR* Sprain of right ankle [S93.401A] INVALID FOR*07/05/2014 Supervision of normal first [Z34.00] INVALID FOR*02/26/2015 More... Bacterial vaginitis [N76.0, B96.89] INVALID FOR*02/26/2015 More... Teen [TMR6863] INVALID FOR*02/26/2015 More... Lymphadenopathy of other site [R59.0] INVALID FOR* Bleeding in early [O20.9] INVALID FOR* More... Obesity in [O99.210] INVALID FOR* More... Tobacco use during , antepartum [O99.3*INVALID FOR* More... Family history of defects [Z82.79] INVALID FOR* More... Other instructions from your clinician: ACUTE BRONCHITIS: You have acute bronchitis. This means the airway passages in your lungs are inflamed. Bronchitis may be caused by viruses or bacteria. Inhaling cigarette smoke will always make it worse. Exposure to irritating chemicals or second hand smoke as well as allergies can contribute to bronchitis. Repeat episodes of bronchitis may cause lifelong lung problems. Acute bronchitis is usually treated with rest, fluids, cough medicine, and possibly antibiotics or inhaled medicine to open up the small airways. It is very important that you avoid smoke and drink increased amounts of fluids. A cool air vaporizer can help thin bronchial secretions. This makes it easier to cough and clear your chest. If you are a cigarette smoker, consider using nicotine gum or skin patches to help you withdraw. Recovery from bronchitis is often slow, but you should start feeling better after 2-3 days of treatment. Please call your doctor or return here if you have any of the following symptoms: - Increased fever, chills, or chest pain. - Severe shortness of breath or bloody sputum. - Do not improve after 3 days of proper treatment. Acute Sinusitis Each of us has four paired cavities (spaces) in our head that are connected to the nose by narrow channels. These cavities, known as sinuses, produce thin mucus that drains out of the channels of the nose. This drainage helps keep the nose clean and free of particles and bacteria. Normally, sinuses are filled with air. But when sinuses become blocked and filled with fluid, bacteria can grow and cause an infection (bacterial sinusitis). Conditions that cause sinus blockage include: ? the common cold ? allergic rhinitis (swelling of the lining of the nose due to allergies) ? nasal polyps (small growths in the lining of the nose), or ? a deviated septum (the wall between the left and right nostril is crooked). Allergies, such as hay fever, can also cause swelling and poor drainage of the sinuses. One confusing factor to consider is that many people with ?sinus headaches? are actually suffering from migraines. In fact, in large clinical studies, up to 90% of people who reported sinus headaches were diagnosed with migraines instead. Migraines can cause headaches in combination with facial pressure over the sinuses, a runny nose, and nasal congestion. If you have symptoms that involve the sinuses, it may be difficult to tell if you have sinusitis, a cold, nasal allergy, or even a migraine. This article will describe the symptoms, diagnosis, and treatment of sinusitis, and how to tell the difference between sinusitis, cold, migraines, and nasal allergy. What is sinusitis? Sinusitis is an inflammation, or swelling, of the tissue lining the sinuses. There are two types of sinusitis: ? Acute bacterial sinusitis: a sudden onset of cold symptoms such as runny nose, stuffy nose, and facial pain that does not go away after 10 days, or symptoms that seem to begin improving but return worse than the initial symptoms. It responds well to antibiotics and decongestants. ? Chronic sinusitis: a condition defined by nasal congestion, drainage, facial pain/pressure, and decreased sense of smell for at least 12 weeks. Who gets sinusitis? Every year, approximately 1 billion Americans have at least one episode of viral sinusitis. About 37 million will develop a bacterial sinusitis. People who have the following conditions have a higher risk of sinusitis: ? Nasal mucus membrane swelling, as from a common cold or allergies ? Blockage of drainage ducts, leading to trapping of mucus ? Structure differences that narrow the drainage ducts ? Conditions that result in an increased risk of infection ? Polyps (growths) In children, common factors in the environment that contribute to sinusitis include allergies, illness from other children at day care or school, and smoke in the environment. In adults, the contributing factors are most frequently viral infections, allergies, and smoking. What are the signs and symptoms of acute sinusitis? The primary symptoms of acute sinusitis include: ? Facial pain/pressure/tenderness ? Nasal stuffiness ? Nasal discharge (thick yellow or green discharge from nose), especially if it is long-lasting. These also may be present with viral illness. ? Loss of smell and taste ? Cough/congestion Additional symptoms may include: ? Fever of 102? or higher ? Ear pain ? Headache ? Bad breath ? Fatigue ? Ache in upper jaw and teeth How is sinusitis diagnosed? To diagnose sinusitis, your doctor will discuss your symptoms and examine your nose for swelling and drainage. Your personal history is most important in diagnosing sinusitis. A physical exam of the ears, nose, and throat is performed to look for signs of obstruction (blockage) or infection. Some patients may have conditions that may need to be referred to a specialist, such as an ear, nose, and throat (ENT) physician. How is sinusitis treated? Acute sinusitis. If you have a simple sinusitis infection, your health care provider may recommend treatment with krue-srn-pjasgjx medications for cold and allergy, nasal saline irrigation, and drinking fluids (as most sinusitis is viral). Use of prescription intranasal steroid sprays might be added to help control symptoms. However, non- prescription drops or sprays should not be used beyond 5 days -- or they may actually increase congestion. If symptoms do not improve after at least 10 days, if the symptoms seem to be getting worse, or if medications for cold or allergy do not improve symptoms, a bacterial infection may be causing the sinusitis. In this case, antibiotics are given for 7 days in adults and 10 days in children. Antibiotics should improve symptoms within 48 hours. Chronic sinusitis. Treating chronic sinusitis begins with controlling the underlying condition, which is most often allergies. Standard treatments include intranasal steroid sprays, topical antihistamine sprays, or antihistamine pills, and leukotriene antagonists such as montelukast. Often you will be encouraged to rinse the nose with saline irrigations. Sometimes medications may be added to these irrigations. If sinusitis is not controlled, the next step is a visit with an Ear, Nose and Throat Specialist. Will I need to make lifestyle changes? If you have indoor allergies, avoiding triggers -- such as animal dander and dust mites ? is recommended in addition to medications. Smoking is never recommended, but if you do smoke, strongly consider a program to help you stop smoking, as this may be the main reason you have sinus infections. No special diet is required, but drinking extra fluids helps to thin nasal secretions. What are the symptoms of the common cold? An upper respiratory infection (the common cold) is usually caused by a virus that infects the nose and throat. Most upper respiratory infections are not bacterial and do not respond to antibiotics. A cold may cause swelling in the sinuses, preventing the outflow of mucus. Cold symptoms include nasal congestion, runny nose, post- nasal drip (cgvi-sn-arar release of nasal fluid into the back of the throat), headache, achiness, and fatigue. Cough and fever may also go along with these symptoms. Cold symptoms usually build, peak, and slowly disappear. No treatment is necessary for a cold, but some medications can ease symptoms. For example, decongestants may decrease drainage and open the nasal passages. Analgesics (pain relievers) may help with fever and headache. Cough medication may help, as well. Colds will typically last from a few days to about a week. What is the harm in getting an antibiotic for a common cold? Viral infections like the common cold are not cured by antibiotics. Taking an antibiotic for a viral infection unnecessarily puts you at risk for side effects related to the antibiotic. In addition, the overuse of antibiotics leads to antibiotic resistance, which may make future infections more difficult to treat. Finally, the use of inappropriate medication increases health care costs unnecessarily. What are the symptoms of nasal allergy? Symptoms of nasal allergy include: ? Sneezing ? Itchy nose ? Clear, watery nasal discharge ? Nasal blockage ? Feeling fatigued How is nasal allergy treated? Usually medications are prescribed to relieve symptoms. These may include antihistamines, with or without decongestants, or steroid nasal sprays. Other nasal sprays, which deliver antihistamines or cromolyn sodium, are sometimes helpful. If allergy symptoms are chronic (long- term), allergy testing and allergy shots (immunotherapy) may be helpful. How can I tell if I have a sinus infection, cold, or nasal allergy? Although the symptoms of sinusitis and nasal allergy may occur with a common cold, in general, cold-related symptoms disappear within 1 week. The point at which a normal cold ends and a sinus condition begins is not always easy to know. If you are fighting off a cold and develop symptoms of a sinus infection or nasal allergy, see your health care provider. You will be asked to describe your symptoms and medical history. ? How do I know if my sinus condition requires the care of an ear, nose, and throat specialist? Most routine sinus conditions are easily cared for by primary care physicians. If, however, you are bothered by ongoing abnormal symptoms, recurring infections, or have abnormal X-ray findings or complications, a referral to a specialist is appropriate. References ? Ridge Garcia. et al., IDSA Clinical Practice Guideline for Acute Bacterial Rhinosinusitis in Children and Adults. Clinical Infectious Diseases; 2012;54(8):9346-0201. ? Evans Nails, Sinusitis: Allergies, antibiotics, aspirin, asthma. [facility] Journal of Medicine 2006; 73(7): 671-678 ? National [place] of Allergy and Infectious Diseases. Sinusitis (Sinus Infection) Accessed 05/27/2015. ? [employer] Academy of Allergy, Asthma, and Immunology. Sinusitis Accessed 05/27/2015. ? [employer] College of Allergy, Asthma AND Immunology. Sinus Information Accessed 05/27/2015. ? Joe Mccormack., Prevalence of migraine in patients with a history of self-reported or physician-diagnosed sinus headache. Arch Vacuum Cleaner Operator Med, 2004. 164(16):1769-72. ? Copyright 9885-4516 [facility]. All rights reserved. Prescriptions ordered this encounter Disp Refills Start End AMOXICILLIN 875 MG TABLET 20 t* 0 07/05/2017 07/15/2017 Route: ORAL Sig: Take 1 tablet by mouth twice daily for 10 days. Encounter Status:Closed by SONAL MCDONALD on 07/05/17 ALLERGIES ALLERGIES DATE TYPE / CODE NAME / CODE REACTION SEVERITY SOURCE 06/21/2018 Drug hydrocodone/F00 Vomiting Unknown [place] Allergy/402612675(S 4871144(RXNORM) [facility] NOMED CT) Hospital Repository 06/21/2018 Drug oxycodone/F0060 Vomiting Unknown [place] Allergy/130349972(S 89408(RXNORM) [facility] 11/14/2017 Drug acetaminophen/F Vomiting Unknown [place] Allergy/202404398(S 422078043(RXNOR [facility] ) Hospital Repository 09/03/2017 Drug No Known Unknown [place] Allergy/672334256(S Allergies/F0019 [facility] [place]) [address](RXNORM) Hospital Repository Miscellaneous NO KNOWN [place] Allergy/415487089(S ALLERGIES [facility] Hospital Repository Drug NO KNOWN [place] Class/720568451(SNO ALLERGIES [facility]) [place] Repository ENCOUNTERS ENCOUNTERS ADMIT/DISCHARGE ACCOUNT ADMITTING ENCOUNTER LOCATION SOURCE NUMBER CLASS 06/21/2018/06/21/20 [id number] Ambulatory BMSBuilding:Dl Love 18 [place] Repository 06/19/2018/06/19/20 [id number] Ambulatory Building:[address] Repository 06/13/2018/06/13/20 [id number] Ambulatory [address] ing:WPOUTRoom Repository : [id number] 05/29/2018/05/29/20 [id number] Ambulatory Building:[address] Repository 05/24/2018/05/24/20 [id number] Ambulatory BMSBuilding:Dl Love 18 [facility] Repository 05/11/2018/05/11/20 [id number] Ambulatory Building:[address] Repository 04/28/2018/04/28/20 [id number] Ambulatory BMSBuilding:Dl Love 18 [facility] Repository 03/31/2018 [id number] Ambulatory BMSBuilding:Dl Love [place] Repository 03/30/2018/03/30/20 [id number] Ambulatory BMSBuilding:Dl Love 18 [facility] Repository 03/03/2018 [id number] [facility] Repository 03/03/2018/03/03/20 [id number] Ambulatory BMSBuilding:B Kate 18 [facility] Hospital Repository 02/15/2018 [id number] Ambulatory [facility] [place] [facility] ing:US Repository 02/15/2018 [id number] Ambulatory BMSBuilding:B [place] Repository 02/13/2018 [id number] Ambulatory [facility] ing:LAB Repository 02/11/2018/02/12/20 [id number] Emergency [address] Hospital[facility] Hospital ing:ED Repository 02/01/2018 [id number] [facility] Repository 01/30/2018 [id number] [facility] ing:LAB Repository 12/29/2017/12/31/19 [id number] Ambulatory [address] Main [place] Repository 12/15/2017/12/16/19 [id number] Ambulatory [address] [place] Repository 12/15/2017/01/05/20 [id number] Ambulatory [address] Repository 11/29/2017/11/30/19 [id number] Ambulatory [address] [place] Repository 11/29/2017/12/01/19 [id number] Ambulatory [address] Repository 11/21/2017/11/23/19 [id number] Ambulatory [address] Repository 11/14/2017/11/15/19 [id number] Ambulatory BMSBuilding:B [place] 18 [facility] Repository 10/11/2017 [id number] Ambulatory [facility] Hospital ing:CTC Repository 10/03/2017/10/04/19 [id number] Ambulatory BMSBuilding:B [place] 18 [facility] Hospital Repository 10/03/2017 [id number] Ambulatory [facility] [place] [facility] ing:LAB Repository 09/16/2017/09/17/19 [id number] Ambulatory BMSBuilding:B Kate [facility] Repository 09/05/2017/09/05/19 [id number] Ambulatory BMSBuilding:W [place] 18 [facility] Repository 09/03/2017/09/05/19 [id number] Ambulatory BMSBuilding:W Kate 18 [facility] Repository 09/03/2017 [id number] Koram, Elda Ambulatory BMSBuilding:B Kate [place] [facility] Repository 09/03/2017 [id number] Koram, Elda Ambulatory BMSBuilding:B [place] [facility] Repository 09/03/2017 [id number] Koram, Elda Ambulatory BMSBuilding:B [place] [facility] Repository 09/03/2017/09/05/19 [id number] KorKathy hernandeza Inpatient [place] 18 [place] Encounter [facility] ing:VW0Lwor: Repository BD386Hrh: 1 09/03/2017 [id number] Ambulatory BMSBuilding:B Kate [facility] Repository 08/25/2017/08/25/19 [id number] Ambulatory BMSBuilding:B [place] 18 [facility] access [facility] Repository 08/22/2017 [id number] Nannette, Ambulatory [place] [facility] Hospital ing:WP Repository 08/16/2017 [id number] Ambulatory BMSBuilding:B Kate [facility] Repository 08/10/2017 [id number] Nannette, Ambulatory BMSBuilding:B Kate Rivera [place].[facility] Repository 08/10/2017 [id number] Nannette, Ambulatory BMSBuilding:B [place].[facility] Repository 08/10/2017/08/12/19 [id number] Nannette, Inpatient [place] 18 Nicole Encounter [facility] ing:WPRoom: Repository MZ172Dkc: 1 08/10/2017/08/10/19 [id number] Ambulatory BMSBuilding:B Kate 18 [facility] Repository 08/10/2017 [id number] Ambulatory BMS [facility] Repository 08/03/2017/08/03/19 [id number] Ambulatory BMSBuilding:B [place] 18 [facility] Repository 07/28/2017 [id number] Ambulatory [facility] ing:LABSPEC Repository 07/27/2017 [id number] Ambulatory [facility] ing:LAB Repository 07/27/2017/07/27/19 [id number] Ambulatory BMSBuilding:Dl Kate 18 [facility] Repository 07/25/2017/07/25/19 [id number] Ambulatory Building:[facility] [place] 18 [facility] Repository 07/19/2017/07/19/19 [id number] Ambulatory BMSBuilding:Dl Love 18 [facility] Repository 07/13/2017/07/13/20 [id number] Ambulatory BMSBuilding:Dl Love 17 [facility] Repository 07/05/2017/07/07/20 [id number] Ambulatory [address] Repository PAYERS PAYERS ENCOUNTER GUARANTOR PAYER SUBSCRIBER SOURCE 06/21/2018 BERTHA A Primary BERTHA Love [id number] [facility] DANIAL matamoros [place]: [id number] [id number] Repository [address]Arb: [phone]) Date:2018-05-24 [phone] () [address]ATTN: [place] [address]CK: 06/21/2018 Secondary NOT GIVENUNK Kate Insurance:SELF PAY [facility] Number: Effective Repository Date:2018-06-21 06/19/2018 BERTHA A Primary [facility]ER[facility]A [place] [facility]OST[facility]: [facility] Number: [id number] [place] [address] [id number] [place] [address] Date: [place], [place] [address]Noq: [phone] () 06/19/2018 Secondary BERTHA A [place] [facility] Insurance:CARESOURCEP WOODRUFFDOB: Hospital olicy Number: [id number] Repository [id number] [address] [place] Date: [place] [address] 06/13/2018 BERTHA A Primary BERTHA A Kate [id number] Insurance:CARESOURCEP WOODRUFFDOB: [facility] Number: [id number] [place], [place] [id number] Repository [address]Poq: ([phone]) Date:2018-06-13P O [phone] () [address]ATTN: [place] [address]NU: 06/13/2018 Secondary NOT GIVENUNK [place] Insurance:SELF PAY [facility] Number: Effective Repository Date:2018-06-13 05/29/2018 BERTHA Primary BERTHA A [place] [facility] WOODRUFFDOB: Insurance:CARESOURCEP WOODRUFFDOB: [facility] olicy Number: [id number] Repository [place] [id number] [address] [place], [place] Date: [place], [place] [address]Kyo: [phone] () 05/29/2018 Secondary BERTHA A [place] [facility] Insurance:CARESOURCEP WOODRUFFDOB: [facility] Number: [id number] Repository [id number] [address] Date: [place] [address] 05/24/2018 BERTHA A Primary BETRHA A Kate [id number] Insurance:CARESOURCEP WOODRUFFDOB: [facility] Number: [id number] [place], [place] [id number] Repository [address]Cwt: ([phone]) Date:2018-04-28 O [phone] () [address]ATTN: [place] [address]EB: 05/24/2018 Secondary NOT GIVENUNK [place] Insurance:SELF PAY [facility] Number: Effective Repository Date:2018-05-10 05/11/2018 BERTHA Primary BERTHA A [place] [facility] WOODRUFFDOB: Insurance:CARESOURCEP WOODRUFFDOB: [facility] olicy Number: [id number] Repository [place] [id number] [address] [place], [place] Date: [place], [place] [address]Xnm: [phone] () 05/11/2018 Secondary BERTHA A [place] [facility] Insurance:CARESOURCEP WOODRUFFDOB: [facility] [place] Number: [id number] Repository [id number] [address] Date: [place] [address] 04/28/2018 BERTHA A Primary BERTHA A Kate [id number] Insurance:CARESOURCEP WOODRUFFDOB: [facility] Number: [id number], [place] [id number] Repository [address]Cpn: [phone]) Date:2018-03-30P O [phone] () [address]ATTN: [place] [address]CD: 04/28/2018 Secondary NOT GIVENUNK [place] Insurance:SELF PAY [facility] Number: Effective Repository Date:2018-04-28 03/31/2018 BERTHA A Primary BERTHA A Kate [id number] Insurance:CARESOURCEP WOODRUFFDOB: [facility] Number: [id number], [place] [id number] Repository 87[address]Moj: (330) Date:2018-03-03P O [phone] () [address]ATTN: [place] [address]MF: 03/31/2018 Secondary NOT GIVENUNK [place] Insurance:SELF PAY [facility] Number: Effective Repository Date:2018-03-03 03/30/2018 BERTHA A Primary BERTHA A [place] [id number] Insurance:CARESOURCEP WOODRUFFDOB: Community DANIAL icy Number: [id number], [place] [id number] Repository 76484Jnw: (330) Date:2018-03-30P O [phone] () [address]ATTN: [place] [address]CX: 03/30/2018 Secondary NOT GIVENUNK [place] Insurance:SELF PAY [facility] Number: Effective Repository Date:2018-03-30 03/03/2018 BERTHA A Primary BERTHA A [place] [id number] Insurance:CARESOURCEP WOODRUFFDOB: [facility] DANIAL [facility] Number: [id number], [place] [id number] Repository 51663Pok: (330) Date:2018-03-03P O [phone] () [address]ATTN: CLAIMS [place] [address]WP: 03/03/2018 Secondary NOT GIVENUNK [place] Insurance:SELF PAY [facility] Number: Effective Repository Date:2018-03-03 03/03/2018 BERTHA A Primary BERTHA A [place] [id number] Insurance:CARESOURCEP WOODRUFFDOB: [facility]IAL [facility] Number: [id number], [place] [id number] Repository 27[address]Nye: (330) Date:2018-02-01P O [phone] () [address]ATTN: [place] [address]VG: 03/03/2018 Secondary NOT GIVENUNK [place] Insurance:SELF PAY [facility] Number: Effective Repository Date:2018-03-03 02/15/2018 BERTHA A Primary BERTHA A [place] [id number] Insurance:CARESOURCEP WOODRUFFDOB: [facility] DANIAL [facility] Number: [id number], [place] [id number] Repository 667[address]Qne: (330) Date:2018-02-14 O [phone] () [address]ATTN: [place] [address]BG: 02/15/2018 Secondary NOT GIVENUNK [place] Insurance:SELF PAY [facility] Number: Effective Repository Date:2018-02-14 02/15/2018 BERTHA A Primary BERTHA A [place] [id number] Insurance:CARESOURCEP WOODRUFFDOB: Community DANIAL [facility] Number: [id number], [place] [id number] Repository 246[address]Esz: (330) Date:2018-02-13P O [phone] (HP) [address]ATTN: [place] [address]SL: 02/15/2018 Secondary NOT GIVENUNK [place] Insurance:SELF PAY [facility] Number: Effective Repository Date:2018-02-13 02/13/2018 BERTHA A Primary BERTHA A [place] [id number] Insurance:CARESOURCEP WOODRUFFDOB: [facility] DANIAL [facility] Number: [id number], [place] [id number] Repository 33[address]Rij: (330) Date:2018-02-13P O [phone] () [address]ATTN: [place] [address]EY: 02/13/2018 Secondary NOT GIVENUNK [place] Insurance:SELF PAY [facility] Number: Effective Repository Date:2018-02-13 02/11/2018 BERTHA A SNADER Primary BERTHA A SNADER [place] [id number] Insurance:CARESOURCEP WOODRUFFDOB: [facility] DANIAL [facility] Number: [id number], [place] [id number] Repository 723[address]Zbm: (330) Date:2018-02-11P O [phone] (HP) [address]ATTN: [place] [address]ZT: 02/11/2018 Secondary NOT GIVENUNK [place] Insurance:SELF PAY [facility] Number: Effective Repository Date:2018-02-11 02/01/2018 BERTHA A SNADER Primary BERTHA A SNADER [place] [id number] Insurance:CARESOURCEP WOODRUFFDOB: [facility] Number: [id number], [place] [id number] Repository 739[address]Wdu: (330) Date:2018-02-01P O [phone] () [address]ATTN: [place] [address]ZL: 02/01/2018 Secondary NOT GIVENUNK [place] Insurance:SELF PAY [facility] Number: Effective Repository Date:2018-02-01 01/30/2018 BERTHA A SNADER Primary BERTHA A SNADER [place] [id number] Insurance:CARESOURCEP WOODRUFFDOB: [facility] Number: [id number], [place] [id number] Repository [address]Fxj: (330) Date:2018-01-30P O [phone] () [address]ATTN: [place] [address]XI: 01/30/2018 Secondary NOT GIVENUNK [place] Insurance:SELF PAY [facility] Number: Effective Repository Date:2018-01-30 11/14/2017 BERTHA A SNADER Primary BERTHA A SNADER [place] [id number] Insurance:CARESOURCEP WOODRUFFDOB: [facility] Number: [id number], [place] [id number] Repository 924[address]Oyf: (330) Date:2017-10-03P O [phone] () [address]ATTN: [place] [address]KE: 11/14/2017 Secondary NOT GIVENUNK [place] Insurance:SELF PAY [facility] Number: Effective Repository Date:2017-11-14 10/11/2017 BERTHA A SNADER Primary BERTHA A SNADER [place] [id number] Insurance:CARESOURCEP WOODRUFFDOB: [facility] Number: [id number], [place] [id number] Repository 14[address]Bml: (330) Date:2017-08-26P O [phone] (HP) [address]ATTN: [place] [address]BQ: 10/11/2017 Secondary NOT GIVENUNK [place] Insurance:SELF PAY [facility] Number: Effective Repository Date:2017-08-26 10/03/2017 BERTHA MAGDALENE Primary BERTHA MAGDALENE [place] SNA[place] Insurance:CARESOURCEP SNADER [facility] [id number] oly Number: WOODRUFFDOB: [facility] [id number] Creek[place] Date:2017-09-09P O 72240Tna: (330) [address]ATTN: CLAIMS [phone] () [place] [address]EV: 10/03/2017 Secondary NOT GIVENUNK [place] Insurance:SELF PAY [facility] Number: Effective Repository Date:2017-09-09 10/03/2017 BERTHA A AVELINODER Primary BERTHA A SNADER [place] [id number] Insurance:CARESOURCEP WOODRUFFDOB: [facility] Number: [id number], [place] [id number] Repository 70472Bfo: (330) Date:2017-10-04P O [phone] () [address]ATTN: [place] [address]AR: 10/03/2017 Secondary NOT GIVENUNK [place] Insurance:SELF PAY [facility] Number: Effective Repository Date:2017-10-03 09/16/2017 BERTHA MAGDALENE Primary BERTHA MAGDALENE [place] SNADER Insurance:CARESOURCEP SNADER [facility] [id number] oly Number: WOODRUFFDOB: [facility] [id number] Creek, [place] Date:2017-09-09P O 11900Kse: (330) [address]ATTN: CLAIMS [phone] (HP) [place] [address]LX: 09/16/2017 Secondary NOT GIVENUNK [place] Insurance:SELF PAY [facility] Number: Effective Repository Date:2017-09-09 09/05/2017 BERTHAJESSIE YOUDER Primary BERTHA [place] SNADER [place] [id number] Insurance:CARESOURCEP [facility] Number: [id number], [place] [id number] Repository 95[address]Mdl: (330) Date:2017-09-03P O [phone] (HP) [address]ATTN: [place] [address]DM: 09/05/2017 Secondary NOT GIVENUNK [place] Insurance:SELF PAY [facility] Number: Effective Repository Date:2017-09-05 09/03/2017 BERTHA ANN Primary BERTHA MAGDALENE [place] SNADER Insurance:CARESOURCEP SNADER [facility] [id number] olicy Number: WOODRUFFDOB: [facility] [id number] Creek, [place] Date:2017-09-03P O 24809Efe: (330) [address]ATTN: CLAIMS [phone] (HP) [place] [address]NP: 09/03/2017 Secondary NOT GIVENUNK [place] Insurance:SELF PAY [facility] Number: Effective Repository Date:2017-09-03 09/03/2017 BERTHA MAGDALENE Primary BERTHA MAGDALENE [place] SNADER Insurance:CARESOURCEP SNADER [facility] [id number] olicy Number: WOODCHINOFFDOB: [facility] [id number] Creek, [place] Date:2017-09-03P O 48575Rwf: (330) [address]ATTN: CLAIMS [phone] (HP) [place] [address]VK: 09/03/2017 Secondary NOT GIVENUNK [place] Insurance:SELF PAY [facility] Number: Effective Repository Date:2017-09-03 09/03/2017 BERTHA MAGDALENE Primary BERTHA MAGDALENE [place] S[place] Insurance:CARESOURCEP SNADER Community [id number] olicy Number: MEHDIB: [facility] [id number] Repository [place] Date:2017-09-03P O 73335Awn: (330) [address]ATTN: CLAIMS [phone] (HP) [place] [address]NH: 09/03/2017 Secondary NOT GIVENUNK [place] Insurance:SELF PAY [facility] Number: Effective Repository Date:2017-09-03 09/03/2017 BERTHA DEL CASTILLO Primary BERTHA MAGDALENE [place] SNADER Insurance:CARESOURCEP [facility]DER [facility]FF[facility] olicy Number: MEHDIB: [facility] [id number] Repository [place] Date:2017-09-03P O 50361Ewg: (330) [address]ATTN: CLAIMS [phone] (HP) [place] [address]BP: 09/03/2017 Secondary NOT GIVENUNK [place] Insurance:SELF PAY [facility] Number: Effective Repository Date:2017-09-03 09/03/2017 BERTHA MAGDALENE Primary BERTHA MAGDALENE [place] SNADER Insurance:CARESOURCEP SNADER [facility] [id number] olicy Number: MEHDIB: [facility] [id number] Repository [place] Date:2017-09-03P O 35338Lyb: (330) [address]ATTN: CLAIMS [phone] (HP) [place] [address]YW: 09/03/2017 Secondary NOT GIVENUNK [place] Insurance:SELF PAY [facility] Number: Effective Repository Date:2017-09-03 09/03/2017 BERTHA MAGDALENE Primary BERTHA MAGDALENE [place] SNADER Insurance:CARESOURCEP SNADER Community [id number] olicy Number: WOODRUFFDOB: [facility] [id number] [place]ository [place] Date:2017-09-03P O 89276Kdl: (330) [address]ATTN: CLAIMS [id number] (HP) [place] [address]RW: 09/03/2017 Secondary NOT GIVENUNK [place] Insurance:SELF PAY Community [facility] Number: Effective Repository Date:2017-09-03 08/25/2017 BERTHA DEL CASTILLO Primary BERTHA DEL CASTILLO [place] SNADER Insurance:CARESOURCEP SNADER Community [id number] olicy Number: WOODCHINOFFDOB: [facility] [id number] [place]ository [place] Date:2017-08-19P O 64621Qmv: (330) [address]ATTN: CLAIMS [id number] (HP) [place] [address]XY: 08/25/2017 Secondary NOT GIVENUNK [place] Insurance:SELF PAY Community [facility] Number: Effective Repository Date:2017-08-19 08/22/2017 BERTHA DEL CASTILLO Primary BERTHA DEL CASTILLO [place] SNADER Insurance:CARESOURCEP SNADER Community [id number] olicy Number: WOODRUFFDOB: [facility] [id number] [place]ository [place] Date:2017-06-27P O 11583Ced: (330) [address]ATTN: CLAIMS [id number] (HP) [place] [address]EC: 08/22/2017 Secondary NOT GIVENUNK [place] Insurance:SELF PAY Community [facility] Number: Effective Repository Date:2017-06-27 08/16/2017 BERTHA DEL CASTILLO Primary BERTHA MAGDALENE [place] SNADER Insurance:CARESOURCEP SNADER Community [id number] olicy Number: WOODCHINOFFDOB: [facility] [id number] [place]ository [place] Date:2017-08-10P O 79055Qih: (330) [address]ATTN: CLAIMS [phone] (HP) [place] [address]XP: 08/16/2017 Secondary NOT GIVENUNK [place] Insurance:SELF PAY [facility] Number: Effective Repository Date:2017-08-10 08/10/2017 BERTHA MAGDALENE Primary BERTHA MAGDALENE [place] SNADER Insurance:CARESOURCEP SNADER Community [id number] olicy Number: WOODCHINOFFDOB: [facility] [id number] [place]ository [place] Date:2017-08-10P O 79979Mmr: (330) [address]ATTN: CLAIMS [phone] (HP) [place] [address]DP: 08/10/2017 Secondary NOT GIVENUNK [place] Insurance:SELF PAY [facility] Number: Effective Repository Date:2017-08-10 08/10/2017 BERTHA MAGDALENE Primary BERTHA MAGDALENE [place] SNADER Insurance:CARESOURCEP SNADER Community [id number] olicy Number: MEHDIB: [facility] [id number] [place]ository [place] Date:2017-08-10P O 42227Phu: (330) [address]ATTN: CLAIMS [phone] (HP) [place] [address]FW: 08/10/2017 Secondary NOT GIVENUNK [place] Insurance:SELF PAY [facility] Number: Effective Repository Date:2017-08-10 08/10/2017 BERTHA DEL CASTILLO Primary BERTHA MAGDALENE [place] SNADER Insurance:CARESOURCEP SNADER Community [id number] olicy Number: MEHDIB: [facility] [id number] [place]ository [place] Date:2017-08-10P O 98560Zkw: (330) [address]ATTN: CLAIMS [phone] (HP) [place] [address]NL: 08/10/2017 Secondary NOT GIVENUNK [place] Insurance:SELF PAY Community [facility] Number: Effective Repository Date:2017-08-10 08/10/2017 BERTHA MAGDALENE Primary BERTHA MAGDALENE [place] SNADER Insurance:CARESOURCEP SNADER Community [id number] olicy Number: MEHDIB: [facility] [id number] [place]ository [place] Date:2017-08-03P O 98110Geg: (330) [address]ATTN: CLAIMS [phone] (HP) [place] [address]WL: 08/10/2017 Secondary NOT GIVENUNK [place] Insurance:SELF PAY [facility] Number: Effective Repository Date:2017-08-03 08/10/2017 BERTHA DEL CASTILLO Primary BERTHA MAGDALENE [place] SNADER Insurance:CARESOURCEP SNADER Community [id number] olicy Number: MEHDIB: [facility] [id number] [place]ository [place] Date:2017-08-10P O 75371Buh: (330) [address]ATTN: CLAIMS [phone] (HP) [place] [address]QZ: 08/10/2017 Secondary NOT GIVENUNK [place] Insurance:SELF PAY Community [facility] Number: Effective Repository Date:2017-08-10 08/03/2017 BERTHA DEL CASTILLO Primary BERTHA MAGDALENE [place] SNADER Insurance:CARESOURCEP SNADER Community [id number] olicy Number: MEHDIB: [facility] [id number] [place]ository [place] Date:2017-06-29P O 73453Flp: (330) [address]ATTN: CLAIMS [phone] (HP) [place] [address]UJ: 08/03/2017 Secondary NOT GIVENUNK [place] Insurance:SELF PAY Community [facility] Number: Effective Repository Date:2017-06-29 07/28/2017 BERTHA MAGDALENE Primary BERTHA MAGDALENE [place] SNADER Insurance:CARESOURCEP SNADER [facility] [id number] olicy Number: MEHDIB: [facility] [id number] [place]ository [place] Date:2017-07-27P O 99645Wwv: (330) [address]ATTN: CLAIMS [id number] (HP) [place] [address]XY: 07/28/2017 Secondary NOT GIVENUNK [place] Insurance:SELF PAY Community [facility] Number: Effective Repository Date:2017-07-27 07/27/2017 BERTHA DEL CASTILLO Primary BERTHA DEL CASTILLO [place] SNADER Insurance:CARESOURCEP [facility]NA[facility] CenterFF2034 olicy Number: MEHDIB: [facility] [id number] Repository [place] Date:2017-07-27P O 49903Mpu: (330) [address]ATTN: CLAIMS [phone] () [place] [address]IL: 07/27/2017 Secondary NOT GIVENUNK [place] Insurance:SELF PAY [facility] Number: Effective Repository Date:2017-07-27 07/27/2017 BERTHA DEL CASTILLO Primary BERTHA DEL CASTILLO [place] SNADER Insurance:CARESOURCEP [facility] olicy Number: MEHDIB: [facility] [id number] Repository [place] Date:2017-06-29P O 80714Qzz: (330) [address]ATTN: CLAIMS [id number] (HP) [place] [address]YX: 07/27/2017 Secondary NOT GIVENUNK [place] Insurance:SELF PAY Community [facility] Number: Effective Repository Date:2017-06-29 07/25/2017 BERTHA Primary BERTHA [facility]DALRUFFDO Insurance:[facility] B: [place]oh Number: B: Repository [id number] [address] Date: [address] [place], [place] [address]Qpo: (330) [phone] () 07/19/2017 BERTHA DEL CASTILLO Primary BERTHA MAGDALENE [place] SNADER Insurance:CARESOURCEP SNADER Community [id number] olicy Number: MEHDIB: [facility] [id number] [place]ository [place] Date:2017-07-19P O 00061Gix: (091) [address]ATTN: CLAIMS [id number] (HP) [place] [address]SW: 07/19/2017 Secondary NOT GIVENUNK [place] Insurance:SELF PAY [facility] Number: Effective Repository Date:2017-07-19 07/13/2017 BERTHA DEL CASTILLO Primary BERTHA MAGDALENE [place] SNADER Insurance:CARESOURCEP SNADER Community [id number] olicy Number: MEHDIB: [facility] [id number] Repository [place] Date:2017-06-29P O 35549Bci: (753) [address]ATTN: CLAIMS [id number] () [place] [address]NX: 07/13/2017 Secondary NOT GIVENUNK [place] Insurance:SELF PAY Community [facility] Number: Effective Repository Date:2017-06-29
== END 2018-06-13 18:10 | disposition home or self-care (01) ==
LOC: WPOUT 17:10 → WP 17:11
PROVIDERS: Referring Provider Obstetrics & Gynecology; Visit Provider Obstetrics & Gynecology
DX: Z04.3 Encounter for examination and observation following other accident (principal); W01.0XXA Fall on same level from slipping, tripping and stumbling without subsequent striking against object, initial encounter; Y93.9 Activity, unspecified; Y92.9 Unspecified place or not applicable; O76 Abnormality in fetal heart rate and rhythm complicating labor and delivery; Z3A.23 23 weeks gestation of pregnancy
CPT/HCPCS: 59050; 99218; G0378

== ENCOUNTER → 2018-07-19 11:56 | Outpatient (CLI) | payer BC, MEDICAID, SELFPAY ==
[2018-07-19 11:21] VITALS: BMI 30.4
[2018-07-19 12:52] LABS: Absolute Lymphocyte Count 1.92 X10^3/ul (0.83-4.51); Basophil# 0.02 X10^3/uL; Basophil% 0.2 % (0-1); Eosinophil# 0.35 X10^3/uL; Eosinophils% 3.2 % (0-5); Hemoglobin 10.9 g/dl (12.0-15.0); Lymphocyte # 1.92 X10^3/ul (4.0); Lymphocyte % 17.4 % (19-41); Mean Corpuscular Hgb 29.1 pg (27.0-32.0); Mean Corpuscular Volume 88.2 fL (81-99); Mean Platelet Vol. 11.5 fl (6.2-12.0); Monocyte# 0.71 X10^3/uL; Monocyte% 6.4 % (0-10); Neutrophil # 8.01 X10^3/uL (2.7-7.7); Neutrophil % 72.5 % (47-70); Platelet Count 193 K/mm3 (150-450); RBC Distribution Width CV 13.8 % (11.6-14.6); RBC Distribution Width SD 42.9 fl (35.1-43.9); Red Blood Count 3.74 M/mm3 (4.2-5.4)
[2018-07-19 12:53] LABS: POSITIVE COUNT NO; POSITIVE DIFFERENTIAL NO; POSITIVE MORPHOLOGY NO
[2018-07-19 13:20] LABS: Glucose Challenge Gest 1H 50g 91 mg/dL (70-140)
[2018-07-19 14:13] LABS: HIV - WCH Non-Reactive (Nonreactive); Rubella IgG 40.5 IU/mL
[2018-07-20 08:58] LABS: HEPATITIS B SURFACE AG Negative (Negative)
[2018-07-21 01:41] LABS: Rapid Plasmin Reagin (RPR) NONREACTIVE (NONREACTIVE)
== END ==
PROVIDERS: Referring Provider Obstetrics & Gynecology; Visit Provider Obstetrics & Gynecology
DX: Z34.90 Encounter for supervision of normal pregnancy, unspecified, unspecified trimester (principal)
CPT/HCPCS: 36415; 82950; 85025; 86592; 86703; 86762; 86850; 86900; 87340

== ENCOUNTER 2018-08-14 12:55 | Outpatient (CLI) | payer MEDICAID, SELFPAY ==
[2018-08-01 13:59] VITALS: BMI 30.4
[2018-08-14 13:20] VITALS: BMI 31.4
[2018-08-14 17:33] LABS: Hematocrit 29.8 % (37-47); Hemoglobin 9.4 g/dl (12.0-15.0); Mean Corp Hgb Conc 31.5 g/gl (32-36); Mean Corpuscular Hgb 27.4 pg (27.0-32.0); Mean Corpuscular Volume 86.9 fL (81-99); Mean Platelet Vol. 10.3 fl (6.2-12.0); Platelet Count 204 K/mm3 (150-450); RBC Distribution Width CV 13.5 % (11.6-14.6); RBC Distribution Width SD 43.3 fl (35.1-43.9); Red Blood Count 3.43 M/mm3 (4.2-5.4); White Blood Count 8.6 K/mm3 (4.4-11.0)
[2018-08-14 17:51] LABS: Fibrinogen 464 mg/dl (203-444)
[2018-08-14 18:04] LABS: Scan Indicated on CBC? Y/N NO
--- NOTE | 2018-08-16 00:42 | OB.TRI.NOTE ---
- Problem List (1) Abdominal trauma Status: Acute History of Present Illness Date of Service: 08/14/18 Reason For Visit: EXTENDED MONITORING DUE TO FALL History of Present Illness: abdominal trauma s/p fall Allergies hydrocodone [From [place]] Adverse Reaction (Verified 08/15/18 15:46) Vomiting oxycodone [From Percocet] Adverse Reaction (Verified 08/15/18 15:46) Vomiting - Pertinent Past Medical History Medical History: Past Medical History (Last Reviewed 08/15/18 @ 15:47 by Chanel Gonzales) Anxiety Back pain Cholelithiasis Chronic cholecystitis Depression GERD (gastroesophageal reflux disease) Hemorrhoids Surgical History: Past Surgical History (Last Reviewed 08/15/18 @ 15:47 by Chanel Gonzales) S/P colonoscopy S/P laparoscopic cholecystectomy Onset Date: ~09/03/17 S/P tonsillectomy and adenoidectomy Laboratory Studies: Laboratory Tests 08/14/18 08/14/18 Range/Units 17:20 17:20 WBC 8.6 (4.4-11.0) K/mm3 RBC 3.43 L (4.2-5.4) M/mm3 Hgb 9.4 L (12.0-15.0) g/dl Hct 29.8 L (37-47) % MCV 86.9 (81-99) fL MCH 27.4 (27.0-32.0) pg MCHC 31.5 L (32-36) g/gl RDW 13.5 (11.6-14.6) % RDW Differential 43.3 (35.1-43.9) fl Plt Count 204 (150-450) K/mm3 MPV 10.3 (6.2-12.0) fl Fibrinogen 464 H (203-444) mg/dl NST - FHR Rate Baby A Baseline: 120-130 Variability:: Moderate Accelerations:: 15 x 15 Decelerations:: None NST Reactive:: Yes FHR Category:: Category I Uterine Activity:: irregular Impression/Plan abdominal trauma s/p fall
== END 2018-08-14 18:20 | disposition home or self-care (01) ==
LOC: WPOUT 13:01 → WP 13:01
PROVIDERS: Referring Provider Obstetrics & Gynecology; Visit Provider Obstetrics & Gynecology
DX: O9A.219 Injury, poisoning and certain other consequences of external causes complicating pregnancy, unspecified trimester (principal); S39.91XA Unspecified injury of abdomen, initial encounter; Z3A.00 Weeks of gestation of pregnancy not specified; W19.XXXA Unspecified fall, initial encounter; Y93.9 Activity, unspecified; Y92.9 Unspecified place or not applicable; Z90.49 Acquired absence of other specified parts of digestive tract
CPT/HCPCS: 36415; 59025; 59050; 85027; 85384; 99218; G0378

== ENCOUNTER → 2018-08-30 13:24 | Outpatient (CLI) | payer MEDICAID, SELFPAY ==
[2018-08-29 10:04] VITALS: BMI 31.4
--- NOTE | 2018-08-30 13:29 | US_ITS ---
STUDY: SUPERFICIAL ULTRASOUND - LEFT GROIN REASON FOR EXAM: Female, 23 years old. Palpable lump. TECHNIQUE: A superficial ultrasound was performed with real-time and static lyle-scale imaging. COMPARISON: None. FINDINGS: In the area of clinical concern, there is a 1.1 cm indeterminate structure in the subcutaneous tissues. Findings could represent a small hematoma. A small fibroma is not excluded. In the same general area, there is a 1.3 cm normal lymph node. Electronically Signed: Adalberto Vaughn MD at 21:09 EST , Service support , US/Ext Non Vasc Limited/Soft Tiss
== END ==
PROVIDERS: Referring Provider Obstetrics & Gynecology; Visit Provider Obstetrics & Gynecology
DX: R19.09 Other intra-abdominal and pelvic swelling, mass and lump (principal)
CPT/HCPCS: 76882

== ENCOUNTER 2018-09-07 20:25 | Inpatient (IN) | payer BC, MEDICAID, SELFPAY ==
[2018-09-06 14:14] VITALS: BMI 31.4
[2018-09-07 13:50] VITALS: BMI 29.7
[2018-09-07 14:05] LABS: ROM Internal Control Test YES-OK TO RESULT pt. (Internal QC); ROM Patient Test Negative (Negative); Record Kit Lot#, ROM+ J7836
--- NOTE | 2018-09-07 14:17 | OB.TRI.HP_ITS ---
- Problem List (1) labor Status: Acute History of Present Illness Date of Service: 09/07/18 Was patient seen by the physician?: Yes Reason For Visit: R/O LABOR Date of Service: 09/07/18 Final BI: 10/08/18 Gestational age: 35 Weeks and 4 Days History of Present Illness: 23 yo presents iwth threatened labor. she has had contractions throughout the day and hasn't felt well. she denies any vb or lof right now. she has not felt well for several days. Allergies hydrocodone [From [place]] Adverse Reaction (Mild, Verified 09/07/18 13:53) Vomiting oxycodone [From Percocet] Adverse Reaction (Mild, Verified 09/07/18 13:53) Vomiting - Pertinent Past Medical History Medical History: Past Medical History (Last Reviewed 09/06/18 @ 13:57 by Georgiana Gutierrez) Anxiety Back pain Cholelithiasis Chronic cholecystitis Depression GERD (gastroesophageal reflux disease) Hemorrhoids Surgical History: Past Surgical History (Last Reviewed 09/06/18 @ 13:57 by Georgiana Gutierrez) S/P colonoscopy S/P laparoscopic cholecystectomy Onset Date: ~09/03/17 S/P tonsillectomy and adenoidectomy Laboratory Studies: Laboratory Tests 09/07/18 Range/Units 13:30 Vag Amniotic Fld Detect Negative (Negative) Review of Systems Constitutional: Reports: Malaise. Denies: Fever Eyes: Denies: Blurred vision, Vision Change HEENT: Reports: Head Aches. Denies: Visual Changes Cardiovascular: Denies: Chest Pain, Palpitations Respiratory: Reports: Cough. Denies: Shortness of Breath, Wheezing Gastrointestinal: Reports: Abdominal Pain. Denies: Diarrhea, Nausea, Vomiting Genitourinary: Denies: Dysuria, Hematuria Musculoskeletal: Denies: Joint Pain, Muscle pain Skin: Denies: Lesions, Rash Neurological: Denies: Blurred vision, Focal weakness, Headaches Psychiatric: Denies: Anxiety, Depression Endocrine: Denies: Heat/ Cold Intolerance Hematologic/ Lymphatic: Denies: Easy Bruising, Easy Bleeding Physical Exam General: Alert, Cooperative, No apparent distress HEENT: Atraumatic, Normocephalic. Negative for: Thyromegaly, Lymphadenopathy Cardiovascular: Regular rate Lungs: Normal air movement Abdomen: Soft, Non Tender, Gravid Neurological: Deep Tendon Reflexes 2+/4 and Symmetrical, Neuro grossly intact. Negative for: Clonus PER DIEM REGISTERED NURSE: Normal external genitalia. Negative for: Vulvar lesions Estimated gestational size: Appropriate for gestational size Presentation: Cephalic Cervix Dilation (cm): 4.5 NST - FHR Rate Baby A Baseline: 130 Variability:: Moderate Accelerations:: 15 x 15 Decelerations:: None NST Reactive:: Yes FHR Category:: Category I Uterine Activity:: irregular Impression/Plan 23 yo @ 35 weeks presents with threatened labor 1. labor- exp management, IVFs and labs sent, urine culture, gc chlamydia. 2. prematurity- s/p bmz await second dose
[2018-09-07] MEDS: Betamethasone/Betamethasone 30 MG/5 ML Vial 12 MG IM (15:53)
[2018-09-07 16:23] LABS: Group B Strep DNA By PCR Negative (Negative); Internal Control PASS; Probe Check PASS; Specimen Processing Control PASS
[2018-09-07] MEDS: Lactated Ringers 1,000 ML 999 ML IV (16:37)
[2018-09-07 17:00] LABS: Hematocrit 37.1 % (37-47); Hemoglobin 11.8 g/dl (12.0-15.0); Mean Corp Hgb Conc 31.8 g/gl (32-36); Mean Corpuscular Hgb 26.7 pg (27.0-32.0); Mean Corpuscular Volume 83.9 fL (81-99); Mean Platelet Vol. 11.9 fl (6.2-12.0); Platelet Count 165 K/mm3 (150-450); RBC Distribution Width CV 14.1 % (11.6-14.6); RBC Distribution Width SD 42.7 fl (35.1-43.9); Red Blood Count 4.42 M/mm3 (4.2-5.4); Scan Indicated on CBC? Y/N NO
[2018-09-07 17:17] LABS: ALB/GLOB Ratio 0.7 RATIO (0.9-2.4); AST(SGOT) 210 U/L (15-37); Alanine Aminotransfer ALT/SGPT 145 U/L (13-56); Albumin, Serum 2.7 g/dL (3.2-5.0); Alkaline Phosphatase 362 U/L (45-117); Anion Gap 15 (5-15); BUN 4 mg/dL (7-18); BUN/Creat Ratio 4.8 RATIO (10-20); Calcium,Total 8.7 mg/dL (8.5-10.1); Chloride 107 mmol/L (98-107); Creatinine, Serum 0.83 mg/dL (0.55-1.02); EST Glomerular Filtration Rate 91 mL/min (>60); Est Glom Filt Rate - Afr Amer 110 mL/min (>60); Estimated Creatinine Clearance 94.86 ml/min; Globulin 4.1 g/dL (2.2-4.2); Glucose 98 mg/dL (74-106); Potassium 3.3 mmol/L (3.5-5.1); Protein, Total 6.8 g/dL (6.4-8.2); Sodium Level 138 mmol/L (136-145)
[2018-09-07] MEDS: Lactated Ringers 1,000 ML 100 ML IV (18:15)
[2018-09-07 18:54] LABS: Bacteria 0 SEEN /hpf (None Seen); Mucous, Urine 0 SEEN /hpf (<or=2+); Red Blood Cells-Urine 0 SEEN /hpf (0-5); White Blood Cells 0 SEEN /hpf (0-5)
[2018-09-07 18:57] LABS: Color, Urine Yellow (Yellow); Glucose, Dipstick Normal (Normal); Ketone-Dipstick 15 mg/dl (Negative); Leukocyte Esterase-Dipstick 25 /ul (Negative); Nitrite-Dipstick Negative (Negative); Occult Blood-Urine Negative /ul (Negative); Protein-Dipstick Negative (Negative); Specific Gravity, Urine 1.005 (1.002-1.030); Urine Bilirubin Dipstick Negative (Negative); Urine Clarity Clear (Clear); Urine Urobilinogen Normal (Normal)
[2018-09-07 19:02] LABS: Lipase 146 U/L (73-393)
[2018-09-07 19:06] LABS: Protein:Creat Ratio 433 mg/g CRE (0-200)
[2018-09-07 19:11] LABS: Squamous Epithelial Cells - UA 0-5 SEEN /hpf (5-10)
[2018-09-07 19:53] LABS: Chlamydia Trachomatis by PCR Negative (Negative); Neisserai gonorrhoeae by PCR Negative (Negative); Probe Check PASS; Sample Adequacy Control PASS; Specimen Processing Control PASS
[2018-09-07 19:59] LABS: Absolute Lymphocyte Count 0.74 X10^3/ul (0.83-4.51); Basophil# 0.01 X10^3/uL; Basophil% 0.1 % (0-1); Eosinophil# 0.01 X10^3/uL; Eosinophils% 0.1 % (0-5); Hematocrit 36.6 % (37-47); Hemoglobin 11.7 g/dl (12.0-15.0); Lymphocyte # 0.74 X10^3/ul (4.0); Lymphocyte % 8.2 % (19-41); Mean Corpuscular Hgb 26.6 pg (27.0-32.0); Mean Corpuscular Volume 83.2 fL (81-99); Mean Platelet Vol. 10.9 fl (6.2-12.0); Monocyte# 0.25 X10^3/uL; Monocyte% 2.8 % (0-10); Neutrophil # 8.04 X10^3/uL (2.7-7.7); Neutrophil % 88.6 % (47-70); POSITIVE COUNT NO; POSITIVE DIFFERENTIAL NO; POSITIVE MORPHOLOGY NO; Platelet Count 153 K/mm3 (150-450); RBC Distribution Width CV 14.2 % (11.6-14.6); RBC Distribution Width SD 43.4 fl (35.1-43.9); White Blood Count 9.1 K/mm3 (4.4-11.0)
[2018-09-07 20:13] LABS: ALB/GLOB Ratio 0.6 RATIO (0.9-2.4); AST(SGOT) 223 U/L (15-37); Alanine Aminotransfer ALT/SGPT 149 U/L (13-56); Albumin, Serum 2.6 g/dL (3.2-5.0); Alkaline Phosphatase 359 U/L (45-117); Anion Gap 15 (5-15); BUN 3 mg/dL (7-18); BUN/Creat Ratio 4.2 RATIO (10-20); Calcium,Total 8.5 mg/dL (8.5-10.1); Chloride 110 mmol/L (98-107); Creatinine, Serum 0.72 mg/dL (0.55-1.02); EST Glomerular Filtration Rate 106 mL/min (>60); Est Glom Filt Rate - Afr Amer 129 mL/min (>60); Estimated Creatinine Clearance 109.35 ml/min; Globulin 4.1 g/dL (2.2-4.2); Glucose 106 mg/dL (74-106); Potassium 3.4 mmol/L (3.5-5.1); Protein, Total 6.7 g/dL (6.4-8.2); Sodium Level 140 mmol/L (136-145)
[2018-09-07] MEDS: Magnesium Sulfate 20 GM/500 ML BAG IV (21:12)
[2018-09-07] MEDS: Ondansetron 4 MG/2 ML Vial IV (21:26)
[2018-09-07] MEDS: fentaNYL-bupivacaine (epidural) 100 ML BAG EPIDURAL (21:33)
[2018-09-07] MEDS: Oxytocin 30 units/NS 500 ml 30 UNITS/500 ML IV.SOLN 334 UNITS IV (22:45)
--- NOTE | 2018-09-07 22:54 | PCM.HP.OB ---
- Problem List (1) labor Status: Acute (2) Preeclampsia, severe Status: Acute History Date of Admission: 09/03/17 Final BI: 10/08/18 Gestational age: 35 Weeks and 4 Days History of this : This is a 23 year-old, , at 35 weeks gestational age presents IAL and with preeclampsia with severe features. She has not felt well the last few days and was evaluated in triage and initially made only small cervical change. Upon admission she had normal blood pressures and denies any headache or blurry vision denied any significant diarrhea or abdominal pain. Upon laboratory evaluation her liver enzymes were noted to be elevated in the 200s but her platelets are within normal limits. Urine protein creatinine ratio was elevated and therefore patient was diagnosed with preeclampsia with severe features. Medical History: Medical History (Last Reviewed 09/06/18 @ 13:57 by Georgiana Gutierrez) Anxiety F41.9 Back pain M54.9 Cholelithiasis K80.20 Chronic cholecystitis K81.1 Depression F32.9 GERD (gastroesophageal reflux disease) K21.9 Hemorrhoids K64.9 Surgical History: Surgical History (Last Reviewed 09/06/18 @ 13:57 by Georgiana Gutierrez) S/P colonoscopy Z98.890 S/P laparoscopic cholecystectomy Onset Date: ~09/03/17 Z90.49 S/P tonsillectomy and adenoidectomy Z90.89 Allergies hydrocodone [From [facility]] Adverse Reaction (Mild, Verified 09/07/18 13:53) Vomiting oxycodone [From Percocet] Adverse Reaction (Mild, Verified 09/07/18 13:53) Vomiting Home Medications: Home Medications Acetaminophen [Tylenol] 650 mg PO Q4H PRN 09/03/17 vitamin #56-iron 35 mg and 5 mg-folic acid 1 mg-dha capsule 1 cap PO QDAY #30 cap 01/31/18 ranitidine 75 mg tablet 75 mg PO BID PRN #60 tab 07/24/18 DiphenhydrAMINE [Benadryl] 1 tab PO DAILY PRN PRN 09/07/18 Smoking Status: Heavy Smoker (>10/day) Alcohol: None Number of Fetus(es): 1 Heart Tracin moderate variability reactive no decelerations category I tracing [place]: regular History Past Pregnancies: Past Pregnancies Past Pregnancies Del. Date Name GA/Weeks Outcome Route Bth Weight Gen Labor Lgth Anesthesia Del Locatn Provider FOB 01/11/15 Dennis 38 live - full term 7LB 8 OZ Male 10 epidural [facility] SUSIE 08/10/17 Rex 38 live - full term 5lbs 9oz 4 hours epidural [facility] SM Delivery Date: 08/10/17 On 03/03/18 @ 13:58 Georgiana Gutierrez No issues during or delivery. Delivery Date: 01/11/15 On 03/03/18 @ 13:57 Georgiana Gutierrez No issues during or delivery. Labs: Mom's Microbiology 09/07/18 17:10 Urine, Clean Catch Urine Culture - Pending 09/07/18 Unknown Genital vaginal Group B Streptococcus Culture - Pending Mom's Problem List Problem Status Onset Code labor Acute O60.00 Mom's Labs & Results 09/07/18 09/07/18 09/07/18 13:30 15:00 16:40 WBC 8.0 RBC 4.42 Hgb 11.8 L Hct 37.1 MCV 83.9 MCH 26.7 L MCHC 31.8 L RDW 14.1 RDW Differential 42.7 Plt Count 165 MPV 11.9 Immature Gran % (Auto) Neut % (Auto) Lymph % (Auto) Tyler % (Auto) Eos % (Auto) Baso % (Auto) Absolute Neuts (auto) Absolute Lymphs (auto) Total Counted Sodium Potassium Chloride Carbon Dioxide Anion Gap BUN Creatinine Estim Creat Clear Calc Est GFR (MDRD) Af Amer Est GFR (MDRD) Non-Af BUN/Creatinine Ratio Glucose Calcium Total Bilirubin AST ALT Alkaline Phosphatase Total Protein Albumin Globulin Albumin/Globulin Ratio Lipase Urine Color Urine Clarity Urine pH Ur Specific [place] Urine Protein Urine Glucose (UA) Urine Ketones Urine Occult Blood Urine Nitrite Urine Bilirubin Urine Urobilinogen Ur Leukocyte Esterase Urine RBC Urine WBC Ur Squamous Epith Cells Urine Bacteria Urine Mucus U Random Total Protein Urine Creatinine Protein/Creatinin Ratio Vag Amniotic Fld Detect Negative Chlam trachomat DNA PCR Hepatitis A IgM Ab Hep Bs Antigen Hep B Core IgM Ab Hepatitis C Ab (EIA) N.gonorrhoeae DNA (PCR) Group B Strep DNA Negative Miscellaneous Test Specimen Comment Not Reportable Blood Type Antibody Screen 09/07/18 09/07/18 09/07/18 16:40 16:40 17:00 WBC RBC Hgb Hct MCV MCH MCHC RDW RDW Differential Plt Count MPV Immature Gran % (Auto) Neut % (Auto) Lymph % (Auto) Tyler % (Auto) Eos % (Auto) Baso % (Auto) Absolute Neuts (auto) Absolute Lymphs (auto) Total Counted Sodium 138 Potassium 3.3 L Chloride 107 Carbon Dioxide 16.0 L Anion Gap 15 BUN 4 L Creatinine 0.83 Estim Creat Clear Calc 94.86 Est GFR (MDRD) Af Amer 110 Est GFR (MDRD) Non-Af 91 BUN/Creatinine Ratio 4.8 L Glucose 98 Calcium 8.7 Total Bilirubin 0.70 AST 210 H ALT 145 H Alkaline Phosphatase 362 H Total Protein 6.8 Albumin 2.7 L Globulin 4.1 Albumin/Globulin Ratio 0.7 L Lipase Urine Color Urine Clarity Urine pH Ur Specific [place] Urine Protein Urine Glucose (UA) Urine Ketones Urine Occult Blood Urine Nitrite Urine Bilirubin Urine Urobilinogen Ur Leukocyte Esterase Urine RBC Urine WBC Ur Squamous Epith Cells Urine Bacteria Urine Mucus U Random Total Protein Urine Creatinine Protein/Creatinin Ratio Vag Amniotic Fld Detect Chlam trachomat DNA PCR Negative Hepatitis A IgM Ab Hep Bs Antigen Hep B Core IgM Ab Hepatitis C Ab (EIA) N.gonorrhoeae DNA (PCR) Negative Group B Strep DNA Miscellaneous Test Specimen Comment Blood Type O POSITIVE Antibody Screen NEGATIVE 09/07/18 09/07/18 09/07/18 18:25 18:25 18:25 WBC RBC Hgb Hct MCV MCH MCHC RDW RDW Differential Plt Count MPV Immature Gran % (Auto) Neut % (Auto) Lymph % (Auto) Tyler % (Auto) Eos % (Auto) Baso % (Auto) Absolute Neuts (auto) Absolute Lymphs (auto) Total Counted Sodium Potassium Chloride Carbon Dioxide Anion Gap BUN Creatinine Estim Creat Clear Calc Est GFR (MDRD) Af Amer Est GFR (MDRD) Non-Af BUN/Creatinine Ratio Glucose Calcium Total Bilirubin AST ALT Alkaline Phosphatase Total Protein Albumin Globulin Albumin/Globulin Ratio Lipase 146 Urine Color Urine Clarity Urine pH Ur Specific [place] Urine Protein Urine Glucose (UA) Urine Ketones Urine Occult Blood Urine Nitrite Urine Bilirubin Urine Urobilinogen Ur Leukocyte Esterase Urine RBC Urine WBC Ur Squamous Epith Cells Urine Bacteria Urine Mucus U Random Total Protein Urine Creatinine Protein/Creatinin Ratio Vag Amniotic Fld Detect Chlam trachomat DNA PCR Hepatitis A IgM Ab Pending Hep Bs Antigen Pending Hep B Core IgM Ab Pending Hepatitis C Ab (EIA) Pending N.gonorrhoeae DNA (PCR) Group B Strep DNA Miscellaneous Test Pending Specimen Comment Blood Type Antibody Screen 09/07/18 09/07/18 09/07/18 18:40 18:40 19:45 WBC RBC Hgb Hct MCV MCH MCHC RDW RDW Differential Plt Count MPV Immature Gran % (Auto) Neut % (Auto) Lymph % (Auto) Tyler % (Auto) Eos % (Auto) Baso % (Auto) Absolute Neuts (auto) Absolute Lymphs (auto) Total Counted Sodium 140 Potassium 3.4 L Chloride 110 H Carbon Dioxide 15.0 L Anion Gap 15 BUN 3 L Creatinine 0.72 Estim Creat Clear Calc 109.35 Est GFR (MDRD) Af Amer 129 Est GFR (MDRD) Non-Af 106 BUN/Creatinine Ratio 4.2 L Glucose 106 Calcium 8.5 Total Bilirubin 0.70 AST 223 H ALT 149 H Alkaline Phosphatase 359 H Total Protein 6.7 Albumin 2.6 L Globulin 4.1 Albumin/Globulin Ratio 0.6 L Lipase Urine Color Yellow Urine Clarity Clear Urine pH 7.[address] [place] 1.005 Urine Protein Negative Urine Glucose (UA) Normal Urine Ketones 15 H Urine Occult Blood Negative Urine Nitrite Negative Urine Bilirubin Negative Urine Urobilinogen Normal Ur Leukocyte Esterase 25 H Urine RBC 0 SEEN Urine WBC 0 SEEN Ur Squamous Epith Cells 0-5 SEEN Urine Bacteria 0 SEEN Urine Mucus 0 SEEN U Random Total Protein 17.0 H Urine Creatinine 39.30 Protein/Creatinin Ratio 433 H Vag Amniotic Fld Detect Chlam trachomat DNA PCR Hepatitis A IgM Ab Hep Bs Antigen Hep B Core IgM Ab Hepatitis C Ab (EIA) N.gonorrhoeae DNA (PCR) Group B Strep DNA Miscellaneous Test Specimen Comment Blood Type Antibody Screen 09/07/18 19:45 WBC 9.1 RBC 4.40 Hgb 11.7 L Hct 36.6 L MCV 83.2 MCH 26.6 L MCHC 32.0 RDW 14.2 RDW Differential 43.4 Plt Count 153 MPV 10.9 Immature Gran % (Auto) 0.200 Neut % (Auto) 88.6 H Lymph % (Auto) 8.2 L Tyler % (Auto) 2.8 Eos % (Auto) 0.1 Baso % (Auto) 0.1 Absolute Neuts (auto) 8.0 H Absolute Lymphs (auto) 0.74 L Total Counted Not Reportable Sodium Potassium Chloride Carbon Dioxide Anion Gap BUN Creatinine Estim Creat Clear Calc Est GFR (MDRD) Af Amer Est GFR (MDRD) Non-Af BUN/Creatinine Ratio Glucose Calcium Total Bilirubin AST ALT Alkaline Phosphatase Total Protein Albumin Globulin Albumin/Globulin Ratio Lipase Urine Color Urine Clarity Urine pH Ur Specific [place] Urine Protein Urine Glucose (UA) Urine Ketones Urine Occult Blood Urine Nitrite Urine Bilirubin Urine Urobilinogen Ur Leukocyte Esterase Urine RBC Urine WBC Ur Squamous Epith Cells Urine Bacteria Urine Mucus U Random Total Protein Urine Creatinine Protein/Creatinin Ratio Vag Amniotic Fld Detect Chlam trachomat DNA PCR Hepatitis A IgM Ab Hep Bs Antigen Hep B Core IgM Ab Hepatitis C Ab (EIA) N.gonorrhoeae DNA (PCR) Group B Strep DNA Miscellaneous Test Specimen Comment Blood Type Antibody Screen Course Did the patient receive Yes care? Labs Blood Type: O RH: POSITIVE RPR/VDRL/Syphilis Nonreactive Rubella status Immune HbSAg Negative Date Done: 07/19/18 Chlamydia Negative Gonorrhea Negative HIV/AIDS Non-Reactive Group B Strep: Negative Current Obstetrical History Gestational Diabetes No Incompetent Cervix No Infertility No IUGR No Macrosomia No Hypertension/Pre-eclampsia No Placenta Previa/Abruption No PTL/PROM Yes Uterine anomaly No Oligohydramnios No Polyhydramnios No Multiple gestation No Past Medical History Asthma No Diabetes No Hypertension No Heart disease No Mitral valve prolapse No Neurologic/Seizure disorder/ Yes Migraines Kidney disease No Liver disease No Varicosities No Clotting disorders/Hx of DVT No Thyroid Dysfunction No Other medical diseases No Psychiatric disorders No Major trauma No Abnormal PAP smear No Sleep apnea No Mammogram in the last 2 years No Social History Marital Status: Alleged father Tay Hx Smoking Yes Smoking Status Heavy Smoker (>10/day) Expected Delivery Method: Spontaneous Vaginal Review of Systems Constitutional: Reports: Malaise. Denies: Fever Eyes: Denies: Blurred vision, Vision Change HEENT: Denies: Head Aches, Visual Changes Cardiovascular: Denies: Chest Pain, Palpitations Respiratory: Reports: Cough. Denies: Shortness of Breath, Wheezing Gastrointestinal: Reports: Abdominal Pain. Denies: Diarrhea, Nausea, Vomiting Genitourinary: Denies: Dysuria, Hematuria Musculoskeletal: Denies: Joint Pain, Muscle pain Skin: Denies: Lesions, Rash Neurological: Denies: Blurred vision, Focal weakness, Headaches Psychiatric: Denies: Anxiety, Depression Endocrine: Denies: Heat/ Cold Intolerance Hematologic/ Lymphatic: Denies: Easy Bruising, Easy Bleeding Physical Exam General: Alert, Cooperative, No apparent distress HEENT: Atraumatic, Normocephalic. Negative for: Thyromegaly, Lymphadenopathy Cardiovascular: Regular rate Lungs: Normal air movement Abdomen: Soft, Non Tender, Gravid Neurological: Deep Tendon Reflexes 2+/4 and Symmetrical, Neuro grossly intact. 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 Negative for: Vulvar lesions Estimated gestational size: Appropriate for gestational size Presentation: Cephalic Cervix Dilation (cm): 7 Station: -1 Effacement (%): 80 Assessment/Plan All Active Problems (Last Reviewed 09/06/18 @ 13:57 by Georgiana Gutierrez) labor (Acute) Preeclampsia, severe (Acute) Groin lump (Acute) Abdominal trauma (Acute) (Acute) Short interval between pregnancies affecting , antepartum (Acute) Supervision of high-risk (Acute) Atypical squamous cell changes of undetermined significance (ASCUS) on cervical cytology with positive high risk human papilloma virus (HPV) (Acute) Abnormal ultrasonic finding on screening of mother (Resolved) Acute biliary pancreatitis (Resolved) abnormality affecting management of mother, single gestation (Resolved) Gall bladder disease (Resolved) Headache in (Resolved) Normal delivery at term (Resolved) complicated by tobacco use in third trimester (Resolved) Unspecified high-risk (Resolved) This is a 23 year-old, at 35 weeks gestational age presents IAL and with preeclampsia with severe features Patient presents IAL, plan expectant management for , AROM wine colored fluid. Pain management: plans epidural. GBS negative Management of any complications: preeclampsia with severe features- start magnesium and monitor labs. I have reviewed the [facility], [facility] and made any clinically relevant updates.
--- NOTE | 2018-09-07 23:02 | PCM.OB.VAG ---
- Problem List (1) labor Status: Acute (2) Preeclampsia, severe Status: Acute Vaginal Delivery Maternal Presentation: Active Labor 33-year-old presented at 35 weeks 4 days in active labor with labor and preeclampsia with severe features. She had normal blood pressures but had elevated protein in her urine and her liver enzymes were in the 200s. Medical Reason for Induction: Preeclampsia, eclampsia Amniotic Fluid Description: Bloody Final BI: 10/08/18 Gestational age: 35 Weeks and 4 Days Date of Procedure: 09/07/18 Pre-Operative Diagnosis: In active labor premature, preeclampsia with severe features Post-Operative Diagnosis: Same plus abruption Surgery/ Procedure Performed: Spontaneous Vaginal Delivery Type of Anesthesia: Epidural Description of Procedure: Patient began pushing and delivered the head in the GALLITO presentation. The head was delivered atraumatically. The anterior and posterior shoulders delivered without complication followed by the rest of the and the infant was placed on the maternal abdomen. Delayed cord clamping was employed for approximately 60 seconds. Cord was clamped and cut and gentle traction was applied to the cord and the placenta delivered spontaneously immediately following it was noted to be intact with three-vessel cord and had a small peripheral abruption noted with dark adherent blood clot. The perineum and vagina were inspected and noted to have no laceration. EBL was 200 cc. Patient and infant tolerated delivery well. Presentation: GALLITO Placental Delivery Description: Spontaneous Placenta Disposition: [facility] Percentage of Placenta Abruption: 5 - Peripheral adherent dark blood clot Cord Entanglement: None Drain: German to straight drain Estimated Blood Loss: 200 A gender: Male Episiotomy Description: None Laceration: None Medications given after delivery: IV Pitocin Complications: None
--- NOTE | 2018-09-07 23:05 | OP.PCM_ITS ---
- Problem List (1) labor Status: Acute (2) Preeclampsia, severe Status: Acute Vaginal Delivery Maternal Presentation: Active Labor 33-year-old presented at 35 weeks 4 days in active labor with labor and preeclampsia with severe features. She had normal blood pressures but had elevated protein in her urine and her liver enzymes were in the 200s. Medical Reason for Induction: Preeclampsia, eclampsia Amniotic Fluid Description: Bloody Final BI: 10/08/18 Gestational age: 35 Weeks and 4 Days Date of Procedure: 09/07/18 Pre-Operative Diagnosis: In active labor premature, preeclampsia with severe features Post-Operative Diagnosis: Same plus abruption Surgery/ Procedure Performed: Spontaneous Vaginal Delivery Type of Anesthesia: Epidural Description of Procedure: Patient began pushing and delivered the head in the GALLITO presentation. The head was delivered atraumatically. The anterior and posterior shoulders delivered without complication followed by the rest of the and the infant was placed on the maternal abdomen. Delayed cord clamping was employed for approximately 60 seconds. Cord was clamped and cut and gentle traction was applied to the cord and the placenta delivered spontaneously immediately following it was noted to be intact with three-vessel cord and had a small peripheral abruption noted with dark adherent blood clot. The perineum and va sheyla were inspected and noted to have no laceration. EBL was 200 cc. Patient and tolerated delivery well. Presentation: GALLITO Placental Delivery Description: Spontaneous Placenta Disposition: [facility] Percentage of Placenta Abruption: 5 - Peripheral adherent dark blood clot Cord Entanglement: None Drain: German to straight drain Estimated Blood Loss: 200 Infant A gender: Male Episiotomy Description: None Laceration: None Medications given after delivery: IV Pitocin Complications: None
[2018-09-07] MEDS: Oxytocin 30 units/NS 500 ml 30 UNITS/500 ML IV.SOLN 167 UNITS IV (23:15)
--- NOTE | 2018-09-07 23:37 | PLAC_PTH ---
PATIENT: MARLON QUINTERO LOC: [facility] U#:[id number] AGE/SX: ROOM: [id number] RE09/07/[address]: Dr. Nicole Brunson MD : 1995 BED: 1 DIS: 09/09/2018 SPEC #: [id number] RECD: 09/07/18 23:49 STATUS: TRUONG PERCY #: [id number] BROCK: 09/07/18 23:[address]: Nicole Brunson DEPT: SURGICAL PATHOLOGY RECD BY: Coby Underwood ENTERED: 09/08/18 09:25 SP TYPE: PLACENTA OTHR DR: No Primary Care Phys Tissues: Placenta, NOS Procedures: Surgery Specimen Level V HEADER OPERATION: Vaginal delivery PRE-OP DIAGNOSIS: labor; pre-eclampsia, peripheral abruption TISSUE SUBMITTED: Placenta MICROSCOPIC DIAGNOSIS Placenta: Placental disc - third trimester placenta (458 gm). Membranes - no pathologic diagnosis. Umbilical cord - three blood vessels and no pathologic diagnosis. RAYSA:mary 09/12/18 MICROSCOPIC DESCRIPTION Slides are reviewed. GROSS DESCRIPTION SPECIMEN: PLACENTA / CLINICAL INFORMATION: A. Weight: 2.651 kg B. Gestational Age: 35 weeks C. Sex: Male PLACENTAL WEIGHT (POST FIXATION): 458 gm PLACENTAL DIMENSIONS: 16 x 16 x 3 cm PLACENTAL SHAPE: Usual ovoid PLACENTAL WEIGHT FOR GESTATIONAL AGE: Within 10-99th percentile MEMBRANES - Present A. Insertion: Marginal B. Site of rupture from edge: 5 cm from edge of placental disc C. Color of membrane: Bang-lyle D. Abnormalities: None UMBILICAL CORD - Present A. Color: Bang-lyle B. Insertion: Central C. Length: 24 cm D. Diameter: 1-1.5 cm E. Number of vessels: Three F. Abnormalities: None PLACENTAL DISC - Present A. Color of surface: Bang-lyle B. surface abnormalities: None C. Maternal cotyledons: Intact with minimal tears D. Attached retro placental clot: No clot E. Cut surface: Dark red and spongy F. Lesions: None G. Separate clot: Absent SECTIONS SUBMITTED: 1. Membrane roll 2. Cord, maternal end 3. Cord, end 4. Placental disc, and maternal surfaces 5. Placental disc, and maternal surfaces 6. Placental disc, and maternal surfaces SJ:mary 09/11/18 TC:4 CPT: 61440
[2018-09-08] VITALS (11 sets, daily range): BP systolic 95–119; BP diastolic 56–82; PULSE 78–107; RESP 16–18; TEMP 35.9–36.9; O2SAT 94–98
[2018-09-08 00:05] LABS: Pathology Specimen OB SEE PATHOLOGY REPORT
[2018-09-08] MEDS: Acetaminophen 500 MG Tablet 1000 MG PO ×2 (02:54→18:56)
[2018-09-08 05:50] LABS: Hemoglobin 9.9 g/dl (12.0-15.0); Mean Corp Hgb Conc 31.9 g/gl (32-36); Mean Corpuscular Hgb 26.7 pg (27.0-32.0); Mean Corpuscular Volume 83.6 fL (81-99); Mean Platelet Vol. 11.7 fl (6.2-12.0); Platelet Count 154 K/mm3 (150-450); RBC Distribution Width CV 13.9 % (11.6-14.6); RBC Distribution Width SD 41.1 fl (35.1-43.9); Red Blood Count 3.71 M/mm3 (4.2-5.4); White Blood Count 10.3 K/mm3 (4.4-11.0)
[2018-09-08 05:56] LABS: Scan Indicated on CBC? Y/N NO
[2018-09-08 06:00] LABS: ALB/GLOB Ratio 0.7 RATIO (0.9-2.4); AST(SGOT) 257 U/L (15-37); Alanine Aminotransfer ALT/SGPT 155 U/L (13-56); Albumin, Serum 2.3 g/dL (3.2-5.0); Alkaline Phosphatase 314 U/L (45-117); Anion Gap 13 (5-15); BUN 3 mg/dL (7-18); BUN/Creat Ratio 5.1 RATIO (10-20); Calcium,Total 7.2 mg/dL (8.5-10.1); Chloride 109 mmol/L (98-107); Creatinine, Serum 0.59 mg/dL (0.55-1.02); EST Glomerular Filtration Rate 134 mL/min (>60); Est Glom Filt Rate - Afr Amer 162 mL/min (>60); Estimated Creatinine Clearance 133.44 ml/min; Globulin 3.5 g/dL (2.2-4.2); Glucose 113 mg/dL (74-106); Potassium 3.7 mmol/L (3.5-5.1); Protein, Total 5.8 g/dL (6.4-8.2); Sodium Level 140 mmol/L (136-145)
--- NOTE | 2018-09-08 08:48 | PCM.PN.OB ---
Patient Problems: Active and Suspected Problems (Last Reviewed 09/06/18 @ 13:57 by Georgiana Gutierrez) labor (Acute) Preeclampsia, severe (Acute) Subjective: doing well no complaints pain controlled no CP SOB N V ambulating well tolerating po lochia moderate, going well no BEAR BV - Physical Exam General: Alert, Oriented x3 Vital Signs Temp Pulse Resp BP Pulse Ox 98.4 F 97 16 102/58 L 95 09/08/18 05:15 09/08/18 06:15 09/08/18 06:15 09/08/18 06:15 09/08/18 06:15 Oxygen Delivery Method Room Air Weight: 179 lb 0.246 oz Body Mass Index (BMI) 29.7 Intake and Output for Last 24 Hours 09/06/18 09/07/18 09/08/18 23:59 23:59 23:59 Intake Total 740 / 740 Output Total 1150 / 1150 Balance -410 / -410 Laboratory Tests Past 24 Hrs 09/07/18 09/07/18 09/07/18 13:30 15:00 16:40 WBC 8.0 RBC 4.42 Hgb 11.8 L Hct 37.1 MCV 83.9 MCH 26.7 L MCHC 31.8 L RDW 14.1 RDW Differential 42.7 Plt Count 165 MPV 11.9 Immature Gran % (Auto) Neut % (Auto) Lymph % (Auto) [place] % (Auto) Eos % (Auto) Baso % (Auto) Absolute Neuts (auto) Absolute Lymphs (auto) Total Counted Sodium Potassium Chloride Carbon Dioxide Anion Gap BUN Creatinine Estim Creat Clear Calc Est GFR (MDRD) Af Amer Est GFR (MDRD) Non-Af BUN/Creatinine Ratio Glucose Calcium Total Bilirubin AST ALT Alkaline Phosphatase Total Protein Albumin Globulin Albumin/Globulin Ratio Lipase Urine Color Urine Clarity Urine pH Ur Specific [place] Urine Protein Urine Glucose (UA) Urine Ketones Urine Occult Blood Urine Nitrite Urine Bilirubin Urine Urobilinogen Ur Leukocyte Esterase Urine RBC Urine WBC Ur Squamous Epith Cells Urine Bacteria Urine Mucus U Random Total Protein Urine Creatinine Protein/Creatinin Ratio Vag Amniotic Fld Detect Negative Chlam trachomat DNA PCR Hepatitis A IgM Ab Hep Bs Antigen Hep B Core IgM Ab Hepatitis C Ab (EIA) N.gonorrhoeae DNA (PCR) Group B Strep DNA Negative Miscellaneous Test Specimen Comment Not Reportable Blood Type Antibody Screen 09/07/18 09/07/18 09/07/18 16:40 16:40 17:00 WBC RBC Hgb Hct MCV MCH MCHC RDW RDW Differential Plt Count MPV Immature Gran % (Auto) Neut % (Auto) Lymph % (Auto) [place] % (Auto) Eos % (Auto) Baso % (Auto) Absolute Neuts (auto) Absolute Lymphs (auto) Total Counted Sodium 138 Potassium 3.3 L Chloride 107 Carbon Dioxide 16.0 L Anion Gap 15 BUN 4 L Creatinine 0.83 Estim Creat Clear Calc 94.86 Est GFR (MDRD) Af Amer 110 Est GFR (MDRD) Non-Af 91 BUN/Creatinine Ratio 4.8 L Glucose 98 Calcium 8.7 Total Bilirubin 0.70 AST 210 H ALT 145 H Alkaline Phosphatase 362 H Total Protein 6.8 Albumin 2.7 L Globulin 4.1 Albumin/Globulin Ratio 0.7 L Lipase Urine Color Urine Clarity Urine pH Ur Specific [place] Urine Protein Urine Glucose (UA) Urine Ketones Urine Occult Blood Urine Nitrite Urine Bilirubin Urine Urobilinogen Ur Leukocyte Esterase Urine RBC Urine WBC Ur Squamous Epith Cells Urine Bacteria Urine Mucus U Random Total Protein Urine Creatinine Protein/Creatinin Ratio Vag Amniotic Fld Detect Chlam trachomat DNA PCR Negative Hepatitis A IgM Ab Hep Bs Antigen Hep B Core IgM Ab Hepatitis C Ab (EIA) N.gonorrhoeae DNA (PCR) Negative Group B Strep DNA Miscellaneous Test Specimen Comment Blood Type O POSITIVE Antibody Screen NEGATIVE 09/07/18 09/07/18 09/07/18 18:25 18:25 18:25 WBC RBC Hgb Hct MCV MCH MCHC RDW RDW Differential Plt Count MPV Immature Gran % (Auto) Neut % (Auto) Lymph % (Auto) [place] % (Auto) Eos % (Auto) Baso % (Auto) Absolute Neuts (auto) Absolute Lymphs (auto) Total Counted Sodium Potassium Chloride Carbon Dioxide Anion Gap BUN Creatinine Estim Creat Clear Calc Est GFR (MDRD) Af Amer Est GFR (MDRD) Non-Af BUN/Creatinine Ratio Glucose Calcium Total Bilirubin AST ALT Alkaline Phosphatase Total Protein Albumin Globulin Albumin/Globulin Ratio Lipase 146 Urine Color Urine Clarity Urine pH Ur Specific [place] Urine Protein Urine Glucose (UA) Urine Ketones Urine Occult Blood Urine Nitrite Urine Bilirubin Urine Urobilinogen Ur Leukocyte Esterase Urine RBC Urine WBC Ur Squamous Epith Cells Urine Bacteria Urine Mucus U Random Total Protein Urine Creatinine Protein/Creatinin Ratio Vag Amniotic Fld Detect Chlam trachomat DNA PCR Hepatitis A IgM Ab Pending Hep Bs Antigen Pending Hep B Core IgM Ab Pending Hepatitis C Ab (EIA) Pending N.gonorrhoeae DNA (PCR) Group B Strep DNA Miscellaneous Test Pending Specimen Comment Blood Type Antibody Screen 09/07/18 09/07/18 09/07/18 18:40 18:40 19:45 WBC RBC Hgb Hct MCV MCH MCHC RDW RDW Differential Plt Count MPV Immature Gran % (Auto) Neut % (Auto) Lymph % (Auto) [place] % (Auto) Eos % (Auto) Baso % (Auto) Absolute Neuts (auto) Absolute Lymphs (auto) Total Counted Sodium 140 Potassium 3.4 L Chloride 110 H Carbon Dioxide 15.0 L Anion Gap 15 BUN 3 L Creatinine 0.72 Estim Creat Clear Calc 109.35 Est GFR (MDRD) Af Amer 129 Est GFR (MDRD) Non-Af 106 BUN/Creatinine Ratio 4.2 L Glucose 106 Calcium 8.5 Total Bilirubin 0.70 AST 223 H ALT 149 H Alkaline Phosphatase 359 H Total Protein 6.7 Albumin 2.6 L Globulin 4.1 Albumin/Globulin Ratio 0.6 L Lipase Urine Color Yellow Urine Clarity Clear Urine pH 7.0 Ur Specific [place] 1.005 Urine Protein Negative Urine Glucose (UA) Normal Urine Ketones 15 H Urine Occult Blood Negative Urine Nitrite Negative Urine Bilirubin Negative Urine Urobilinogen Normal Ur Leukocyte Esterase 25 H Urine RBC 0 SEEN Urine WBC 0 SEEN Ur Squamous Epith Cells 0-5 SEEN Urine Bacteria 0 SEEN Urine Mucus 0 SEEN U Random Total Protein 17.0 H Urine Creatinine 39.30 Protein/Creatinin Ratio 433 H Vag Amniotic Fld Detect Chlam trachomat DNA PCR Hepatitis A IgM Ab Hep Bs Antigen Hep B Core IgM Ab Hepatitis C Ab (EIA) N.gonorrhoeae DNA (PCR) Group B Strep DNA Miscellaneous Test Specimen Comment Blood Type Antibody Screen 09/07/18 09/08/18 09/08/18 19:45 05:25 05:25 WBC 9.1 10.3 RBC 4.40 3.71 L Hgb 11.7 L 9.9 L Hct 36.6 L 31.0 L MCV 83.2 83.6 MCH 26.6 L 26.7 L MCHC 32.0 31.9 L RDW 14.2 13.9 RDW Differential 43.4 41.1 Plt Count 153 154 MPV 10.9 11.7 Immature Gran % (Auto) 0.200 Neut % (Auto) 88.6 H Lymph % (Auto) 8.2 L [place] % (Auto) 2.8 Eos % (Auto) 0.1 Baso % (Auto) 0.1 Absolute Neuts (auto) 8.0 H Absolute Lymphs (auto) 0.74 L Total Counted Not Reportable Sodium 140 Potassium 3.7 Chloride 109 H Carbon Dioxide 18.0 L Anion Gap 13 BUN 3 L Creatinine 0.59 Estim Creat Clear Calc 133.44 Est GFR (MDRD) Af Amer 162 Est GFR (MDRD) Non-Af 134 BUN/Creatinine Ratio 5.1 L Glucose 113 H Calcium 7.2 L Total Bilirubin 0.40 AST 257 H ALT 155 H Alkaline Phosphatase 314 H Total Protein 5.8 L Albumin 2.3 L Globulin 3.5 Albumin/Globulin Ratio 0.7 L Lipase Urine Color Urine Clarity Urine pH Ur Specific [place] Urine Protein Urine Glucose (UA) Urine Ketones Urine Occult Blood Urine Nitrite Urine Bilirubin Urine Urobilinogen Ur Leukocyte Esterase Urine RBC Urine WBC Ur Squamous Epith Cells Urine Bacteria Urine Mucus U Random Total Protein Urine Creatinine Protein/Creatinin Ratio Vag Amniotic Fld Detect Chlam trachomat DNA PCR Hepatitis A IgM Ab Hep Bs Antigen Hep B Core IgM Ab Hepatitis C Ab (EIA) N.gonorrhoeae DNA (PCR) Group B Strep DNA Miscellaneous Test Specimen Comment Blood Type Antibody Screen Medical Necessity - Tobacco Use Smoking Status: Heavy Smoker (>10/day) Assessment/Plan All Active Problems (Last Reviewed 09/06/18 @ 13:57 by Georgiana Gutierrez) labor (Acute) Preeclampsia, severe (Acute) Groin lump (Acute) Abdominal trauma (Acute) (Acute) Short interval between pregnancies affecting , antepartum (Acute) Supervision of high-risk (Acute) Atypical squamous cell changes of undetermined significance (ASCUS) on cervical cytology with positive high risk human papilloma virus (HPV) (Acute) Abnormal ultrasonic finding on screening of mother (Resolved) Acute biliary pancreatitis (Resolved) abnormality affecting management of mother, single gestation (Resolved) Gall bladder disease (Resolved) Headache in (Resolved) Normal delivery at term (Resolved) complicated by tobacco use in third trimester (Resolved) Unspecified high-risk (Resolved) s/p PPD # 1 1. routine post delivery care 2. breast feeding- support given 3. rh positive 4. rubella immune 5. preeclampsia with severe features- nl bps and stable labs, will dc magnesium after 12 hours .
--- NOTE | 2018-09-08 08:49 | DCINST_ITS ---
Discharge Diet: No Restrictions Discharge Activity: Return to Normal Activity, May not drive while taking narcotic pain medications., May Shower May resume sexual activity in: 4-6 weeks Call your doctor if your incision/area has: Continuous Slow Oozing, Sudden Increased Bleeding, Increased Pain/ Swelling, Increased Redness, Foul Smelling Discharge Additional Instructions: If you experience any of the following, contact your healthcare provider. * Bleeding that soaks a pad every hour for 2 hours * Fever 100.4 or higher * Unrelieved incision or abdominal pain * Swelling, redness, discharge or bleeding from your incision or episiotomy site * Your incision begins to separate * Problems urinating (including inability to urinate or burning while urinating). * Visual changes * Severe headache * Flu-like symptoms * Pain or redness in one of both of your breasts * Pain, warmth, tenderness or swelling in your legs, especially the calf area * Frequent nausea and vomiting * Symptoms of depression or anxiety If you experience any of the following, call 911 or go to the nearest Emergency Room. * Chest pain * Problems breathing * Seizure activity * Partial or complete paralysis of a body part, slurred speech, weakness or drooping of the face, or a sudden inability to walk or hold your balance Allergies/Adverse Reactions: Allergies hydrocodone [From Royal] Adverse Reaction (Mild, Verified 09/07/18 13:53) Vomiting oxycodone [From Percocet] Adverse Reaction (Mild, Verified 09/07/18 13:53) Vomiting Medications to take at Discharge Acetaminophen [Tylenol] 650 mg PO Q4H PRN 09/03/17 vitamin #56-iron 35 mg and 5 mg-folic acid 1 mg-dha capsule 1 cap PO QDAY #30 cap 01/31/18 ranitidine 75 mg tablet 75 mg PO BID PRN #60 tab 07/24/18 DiphenhydrAMINE [Benadryl] 1 tab PO DAILY PRN PRN 09/07/18 Please Follow Up With: Nicole Brunson MD - [phone] When: Call to make an appointment with your doctor in 6 weeks. If you had elevated Blood pressure or 4th degree laceration you will need to be seen in 2 weeks. Primary Care Physician: Care Physician,No Primary [Primary Care Provider] - Test Results: Test results from this visit will be discussed in further detail at your follow- up appointment, if applicable.
[2018-09-08] MEDS: Naproxen 250 MG Tablet PO (08:52)
[2018-09-08] MEDS: Prenatal Vits Tablet 1 TABLET PO (11:12)
[2018-09-09 02:56] VITALS: BP 106/68; PULSE 93; RESP 18; TEMP 36.6
[2018-09-09] MEDS: Acetaminophen 500 MG Tablet 1000 MG PO (03:13)
[2018-09-09 07:07] LABS: HEPATITIS B SURFACE AG Negative (Negative); Hepatitis A IgM Antibody Negative (Negative); Hepatitis B Core AB IgM Negative (Negative)
[2018-09-09 08:00] VITALS: BP 111/69; PULSE 72; RESP 16; TEMP 36.7
[2018-09-09] MEDS: Naproxen 250 MG Tablet PO (09:18)
[2018-09-09 09:26] LABS: Hep C Antibodies 0.2 s/co ratio (0.0-0.9)
[2018-09-09 13:22] VITALS: BP 109/64; PULSE 68; RESP 18; TEMP 36.9
--- NOTE | 2018-09-09 14:52 | NURSING ---
spoke to Roney Miller concerning CMP that was ordered for this morning at 0530 States labs were fine yesterday and she does not want this done... order dcd.
== END 2018-09-09 13:35 | disposition home or self-care (01) | DRG 560 ==
LOC: WP 22:48 → WPOUT 09-08 07:51
PROVIDERS: Admitting Provider Obstetrics & Gynecology; Referring Provider Obstetrics & Gynecology; Visit Provider Obstetrics & Gynecology
DX: O60.14X0 Preterm labor third trimester with preterm delivery third trimester, not applicable or unspecified (principal); Z3A.35 35 weeks gestation of pregnancy; Z37.0 Single live birth; O14.14 Severe pre-eclampsia complicating childbirth; O99.334 Smoking (tobacco) complicating childbirth; F17.200 Nicotine dependence, unspecified, uncomplicated; J18.9 Pneumonia, unspecified organism; Y95 Nosocomial condition; Z87.891 Personal history of nicotine dependence; O99.513 Diseases of the respiratory system complicating pregnancy, third trimester
CPT/HCPCS: 59025; 59050; 71275; 80053; 80074; 81001; 82570; 83690; 84112; 84156; 85025; 85027; 85610; 85730; 86850; 86900; 87081; 87086; 87088; 87491; 87591; 87653; 88307; 93005; 96360; 96361; 99218; 99285; J7030; J7120; Q9967; A4216; G0378; J0702; J2405

== ENCOUNTER 2018-09-10 21:37 | Emergency (ER) | payer MEDICAID, SELFPAY ==
[2018-09-10] VITALS (7 sets, daily range): BP systolic 108–142; BP diastolic 74–96; PULSE 69–97; RESP 18–23; TEMP 37; O2SAT 92–97; BMI 29.2
--- NOTE | 2018-09-10 21:52 | EKG12_ITS ---
Test Reason : CP Blood Pressure : / mmHG Vent. Rate : 081 BPM Atrial Rate : 081 BPM P-R Int : 120 ms QRS Dur : 086 ms QT Int : 356 ms P-R-T Axes : 048 044 041 degrees QTc Int : 413 ms Normal sinus rhythm Normal ECG Confirmed by ARIADNE GARCIA, ANITA ([id number]), assistant film editor SHREYA CASSIDY ([id number]) on 09/12/2018 4:36:52 PM Referred By: CJ Confirmed By:ANITA RON MD
--- NOTE | 2018-09-10 21:55 | CT_ITS ---
STUDY: CTA CHEST REASON FOR EXAM: Female, 23 years old. Shortness of breath and chest pain 3 days . RADIATION DOSAGE (If Supplied By Facility): CTDIvol = ( 14.92 ) mGy, DLP = ( 457.18 ) mGycm TECHNIQUE: The examination was performed with the intravenous administration of Isovue 370 75ML IV. Post-processing of the angiographic images was performed, with multiplanar reformation and 3D reconstruction. Individualized dose optimization techniques were used for this CT. COMPARISON: None. FINDINGS: Normal enhancement of the main pulmonary artery and right and left pulmonary arteries. Normal enhancement of the bilateral peripheral pulmonary arteries. There is no demonstrated pulmonary embolism. Normal thoracic aorta and visualized great vessels. There is no demonstrated aortic dissection. Normal heart and pericardium. Normal mediastinum. Normal hilar regions. Negative for pleural effusion. Multifocal areas of consolidation in the inferior lingula and anterior left lower lobe with additional small patchy infiltrates in the remainder of the left lower lobe. On the right side, there are parenchymal infiltrates associated with bronchial thickening and volume loss in the right middle lobe and a diffuse micronodular infiltrate of the right upper lobe. Bronchial thickening is generally present. Thickening of the bronchi are more notable in the lingula and left lower lobe. Negative for pleural effusion. Normal chest wall structures. Normal osseous structures. Normal visualized upper abdomen. CT/CTA Chest W/WO Contrast IMPRESSION: Negative for pulmonary embolus. Normal thoracic aorta. Normal heart and pericardium, mediastinum and hilar areas. Multifocal consolidation in the inferior lingula and anterior left lower lobe with additional small patchy infiltrates in the remainder of the left lower lobe. Parenchymal peribronchial infiltrates in the right middle lobe with volume loss. Micronodular infiltrate of the right upper lobe. Bronchial thickening is generally present especially in the left lower lobe and lingula. Findings suggest a potential pneumonic process. Electronically Signed: Genny Young MD at 23:19 EST , Service support ,
[2018-09-10] MEDS: 0.9% Normal Saline 1,000 ML 1000 ML IV (22:04)
[2018-09-10 22:09] LABS: Absolute Lymphocyte Count 2.53 X10^3/ul (0.83-4.51); Absolute Neutrophil Count 7.2 X10^3/uL (2.0-7.7); Basophil# 0.03 X10^3/uL; Basophil% 0.3 % (0-1); Eosinophil# 0.03 X10^3/uL; Eosinophils% 0.3 % (0-5); Hematocrit 30.4 % (37-47); Hemoglobin 9.6 g/dl (12.0-15.0); Lymphocyte # 2.53 X10^3/ul (4.0); Lymphocyte % 23.3 % (19-41); Mean Corp Hgb Conc 31.6 g/gl (32-36); Mean Corpuscular Hgb 26.7 pg (27.0-32.0); Mean Corpuscular Volume 84.4 fL (81-99); Mean Platelet Vol. 10.4 fl (6.2-12.0); Monocyte# 0.98 X10^3/uL; Neutrophil # 7.18 X10^3/uL (2.7-7.7); Neutrophil % 66.2 % (47-70); Platelet Count 246 K/mm3 (150-450); RBC Distribution Width CV 13.8 % (11.6-14.6); RBC Distribution Width SD 42.8 fl (35.1-43.9); White Blood Count 10.9 K/mm3 (4.4-11.0)
[2018-09-10 22:12] LABS: Prothrombin Time (Protime)PT. 13.3 SECONDS (11.7-14.9)
[2018-09-10 22:13] LABS: Partial Thromboplast Time 39.2 Seconds (24.1-36.2)
[2018-09-10 22:15] LABS: POSITIVE COUNT NO; POSITIVE DIFFERENTIAL NO; POSITIVE MORPHOLOGY NO
[2018-09-10 22:18] LABS: BUN 9 mg/dL (7-18); Creatinine, Serum 0.55 mg/dL (0.55-1.02); Estimated Creatinine Clearance 143.15 ml/min; Glucose 87 mg/dL (74-106)
[2018-09-10 22:19] LABS: ALB/GLOB Ratio 0.6 RATIO (0.9-2.4); AST(SGOT) 46 U/L (15-37); Alanine Aminotransfer ALT/SGPT 68 U/L (13-56); Albumin, Serum 2.2 g/dL (3.2-5.0); Alkaline Phosphatase 242 U/L (45-117); Anion Gap 9 (5-15); BUN/Creat Ratio 16.4 RATIO (10-20); Chloride 109 mmol/L (98-107); EST Glomerular Filtration Rate 146 mL/min (>60); Est Glom Filt Rate - Afr Amer 176 mL/min (>60); Potassium 3.5 mmol/L (3.5-5.1); Protein, Total 6.2 g/dL (6.4-8.2); Sodium Level 140 mmol/L (136-145)
--- NOTE | 2018-09-10 22:35 | ED.DCSUM_ITS ---
- ER Visit Summary Date of Service: 09/10/18 Chief Complaint: Chest pain and shortness of breath History of Present Illness: The patient is a 23 F who presents with chest pain and shortness of breath that began yesterday. Patient states it is gotten worse today. Patient describes the pain as a heaviness across her chest. Patient states her breathing is worse with any exertion. Patient states she is having difficulty going upstairs due to the breathing. Patient states it improves when she goes to sleep. Patient admits to some diaphoresis some palpitations. Patient also admits to some lightheadedness and dizziness. Patient also admits to a nonproductive cough. Patient is 3 days and was discharged from the hospital yesterday. Physical Examination: Vital signs are stable. Patient is afebrile. Patient is in no acute distress. Oral mucosa is pink and moist. Neck is supple. Trachea is midline. There is no JVD noted. Heart was regular rate and rhythm. Lungs are clear and equal bilateral. Abdomen is soft. Bowel sounds are normal. There is no tenderness. There is no guarding noted. Skin is warm dry. Cranial nerves II through XII are intact. There are no focal motor or sensory deficits noted. The remaining physical exam is within normal limits. Test Results: EKG showed normal sinus rhythm with a rate of 81. There are no acute ST or T wave changes. CBC and conference of metabolic profile were normal. PT with INR and PTT were normal. CTA of the chest showed a left lower lobe infiltrate. There is no evidence of pulmonary embolism. Emergency Department Course and Treatment: Patient was given IV fluids here. Patient was given a dose of Levaquin. Patient was given a prescription for Levaquin and albuterol. Patient was instructed to follow-up with her primary care physician and [employer] in 3-5 days. Patient understood and was agreeable with the plan. All questions were answered. Disposition: Discharge home Impression: Healthcare associated pneumonia This note was generated with [employer] ([employer]) dictation software. It may contain incorrect words, spelling, and punctuation that were not noted in review of the chart prior to signing ED Disposition - Plan for ED Patient: Disposition: Home or Assisted Living Diagnosis: Healthcare-associated pneumonia Instructions: ED Pneumonia Adult Prescriptions: Albuterol Inhaler [Ventolin Hfa] 1 - 2 puff INHALATION Q4H PRN PRN #1 inhaler PRN Reason: Wheezing Levofloxacin [Levaquin] 750 mg PO DAILY #7 tab Referrals: Care Physician,No Primary [Primary Care Provider] - Nicole Brunson MD [STAFF PHYSICIAN] - 5-7 Days
[2018-09-10 22:43] LABS: Bacteria 0 SEEN /hpf (None Seen); Mucous, Urine 0 SEEN /hpf (<or=2+); Squamous Epithelial Cells - UA 0 SEEN /hpf (5-10)
[2018-09-10 22:46] LABS: Color, Urine Yellow (Yellow); Glucose, Dipstick Normal (Normal); Ketone-Dipstick Negative (Negative); Leukocyte Esterase-Dipstick 500 /ul (Negative); Nitrite-Dipstick Negative (Negative); Occult Blood-Urine 250 /ul (Negative); Protein-Dipstick Negative (Negative); Specific Gravity, Urine 1.005 (1.002-1.030); Urine Bilirubin Dipstick Negative (Negative); Urine Clarity Clear (Clear); Urine Urobilinogen Normal (Normal)
[2018-09-10 22:53] LABS: Red Blood Cells-Urine 0-5 SEEN /hpf (0-5); White Blood Cells 0-5 SEEN /hpf (0-5)
[2018-09-10] MEDS: levoFLOXacin 750 MG Tablet PO (23:46)
== END 2018-09-10 23:51 | disposition home or self-care (01) ==
PROVIDERS: Emergency Provider Emergency Medicine
DX: J18.9 Pneumonia, unspecified organism (principal); Y95 Nosocomial condition; Z87.891 Personal history of nicotine dependence
CPT/HCPCS: 71275; 80053; 81001; 85025; 85610; 85730; 93005; 96360; 96361; 99285; J7030; Q9967; A4216

== ENCOUNTER → 2019-02-01 | Outpatient (CLI) | payer BC, SELFPAY ==
[2018-10-19 14:58] VITALS: BMI 29.2
[2019-02-01 10:16] LABS: hCG Titer Quant., Serum < 1 mIU/mL (1-3)
== END | disposition home or self-care (01) ==
PROVIDERS: Referring Provider Obstetrics & Gynecology; Visit Provider Obstetrics & Gynecology
DX: N91.2 Amenorrhea, unspecified (principal)
CPT/HCPCS: 36415; 84702

== ENCOUNTER → 2019-02-12 | Outpatient (CLI) | payer BC, SELFPAY ==
[2018-10-19 14:58] VITALS: BMI 29.2
[2019-02-12 11:46] LABS: hCG Titer Quant., Serum < 1 mIU/mL (1-3)
== END | disposition home or self-care (01) ==
LOC: LAB 11:02
PROVIDERS: Referring Provider Obstetrics & Gynecology; Visit Provider Obstetrics & Gynecology
DX: N91.2 Amenorrhea, unspecified (principal); N92.6 Irregular menstruation, unspecified
CPT/HCPCS: 36415; 84702; 87086; 87088; 87186

== ENCOUNTER → 2019-04-11 11:30 | Outpatient (CLI) | payer BC, SELFPAY ==
[2018-10-19 14:58] VITALS: BMI 29.2
[2019-04-11 13:05] LABS: hCG Titer Quant., Serum < 1 mIU/mL (1-3)
== END ==
PROVIDERS: Referring Provider Obstetrics & Gynecology; Visit Provider Obstetrics & Gynecology
DX: N91.2 Amenorrhea, unspecified (principal)
CPT/HCPCS: 36415; 84702

== ENCOUNTER → 2019-04-13 16:02 | Outpatient (CLI) | payer BC, SELFPAY ==
[2018-10-19 14:58] VITALS: BMI 29.2
[2019-04-13 17:06] LABS: hCG Titer Quant., Serum < 1 mIU/mL (1-3)
== END ==
PROVIDERS: Referring Provider Obstetrics & Gynecology; Visit Provider Obstetrics & Gynecology
DX: N91.2 Amenorrhea, unspecified (principal)
CPT/HCPCS: 36415; 84702

== ENCOUNTER → 2019-04-17 09:17 | Outpatient (CLI) | payer BC, SELFPAY ==
[2019-04-16 16:09] VITALS: BMI 29.2
[2019-04-17 11:24] LABS: Estradiol 157.6 pg/mL; Follicle Stimulating Hormone 3.3 mIU/mL; Prolactin 5.9 ng/mL; T4 Free Direct 1.04 ng/dL (0.76-1.46); Thyroid Stim Hormone (TSH) 3.19 uIU/mL (0.358-3.74)
[2019-04-19 03:06] LABS: DHEA Sulfate 208.1 ug/dL (110.0-431.7)
[2019-04-20 12:49] LABS: Testosterone Free 1.9 pg/mL (0.0-4.2)
== END ==
PROVIDERS: Referring Provider Obstetrics & Gynecology; Visit Provider Obstetrics & Gynecology
DX: N91.4 Secondary oligomenorrhea (principal)
CPT/HCPCS: 36415; 82627; 82670; 83001; 84146; 84402; 84439; 84443; 82626

== ENCOUNTER → 2019-04-20 10:57 | Outpatient (CLI) | payer BC, SELFPAY ==
[2019-04-20 10:01] VITALS: BMI 29.2
[2019-04-20 12:41] LABS: Absolute Lymphocyte Count 2.25 X10^3/uL (0.83-4.51); Absolute Neutrophil Count 3.2 X10^3/uL (2.0-7.7); Basophil# 0.03 X10^3/uL; Basophil% 0.5 % (0-1); Eosinophil# 0.51 X10^3/uL; Eosinophils% 7.8 % (0-5); Hematocrit 42.1 % (37-47); Hemoglobin 13.1 g/dL (12.0-15.0); Lymphocyte # 2.25 X10^3/ul (4.0); Lymphocyte % 34.2 % (19-41); Mean Corp Hgb Conc 31.1 g/dL (32-36); Mean Corpuscular Hgb 26.4 pg (27.0-32.0); Mean Corpuscular Volume 84.9 fL (81-99); Mean Platelet Vol. 11.8 fl (6.2-12.0); Monocyte# 0.55 X10^3/uL; Monocyte% 8.4 % (0-10); NRBC Flagged by Analyzer 0 % (0-5); Neutrophil # 3.22 X10^3/uL (2.7-7.7); Neutrophil % 48.9 % (47-70); Platelet Count 242 K/mm3 (150-450); RBC Distribution Width CV 14.3 % (11.6-14.6); RBC Distribution Width SD 43.7 fl (35.1-43.9); Red Blood Count 4.96 M/mm3 (4.2-5.4); White Blood Count 6.6 K/mm3 (4.4-11.0)
[2019-04-20 12:58] LABS: ALB/GLOB Ratio 1.1 RATIO (0.9-2.4); AST(SGOT) 16 U/L (15-37); Alanine Aminotransfer ALT/SGPT 21 U/L (13-56); Albumin, Serum 3.7 g/dL (3.2-5.0); Alkaline Phosphatase 56 U/L (45-117); Anion Gap 6 (5-15); BUN 11 mg/dL (7-18); BUN/Creat Ratio 13.9 RATIO (10-20); Calcium,Total 9.1 mg/dL (8.5-10.1); Chloride 110 mmol/L (98-107); Creatinine, Serum 0.79 mg/dL (0.55-1.02); EST Glomerular Filtration Rate 95 mL/min (>60); Est Glom Filt Rate - Afr Amer 115 mL/min (>60); Globulin 3.5 g/dL (2.2-4.2); Glucose 56 mg/dL (74-106); Protein, Total 7.2 g/dL (6.4-8.2); Sodium Level 143 mmol/L (136-145)
[2019-04-20 12:59] LABS: Hemoglobin A1c 5.5 % (4.2-6.3)
[2019-04-23 14:07] LABS: ANTINUCLEAR ANTIBODIES DIRECT Positive (Negative); Anti-Centromere B Ab 0.2 AI (0.0-0.9); Anti-Chromatin 1.2 AI (0.0-0.9); Anti-Jo <0.2 AI (0.0-0.9); Anti-Scleroderma-70 AB <0.2 AI (0.0-0.9); RNP Ab <0.2 AI (0.0-0.9); SJOGREN'S Anti-SS-A test < 0.2 AI (0.0-0.9); SJOGREN'S Anti-SS-B test < 0.2 AI (0.0-0.9); Smith Ab <0.2 AI (0.0-0.9)
[2019-04-24 14:33] LABS: Anti-dsDNA Ab <1 IU/mL (0-9)
== END ==
PROVIDERS: Family Provider Internal Medicine; PCP Internal Medicine; Visit Provider Internal Medicine
DX: R53.82 Chronic fatigue, unspecified (principal); M35.9 Systemic involvement of connective tissue, unspecified; E66.3 Overweight
CPT/HCPCS: 36415; 80053; 82306; 83036; 85025; 86038; 86225; 86235

== ENCOUNTER → 2019-04-23 14:20 | Outpatient (CLI) | payer BC, SELFPAY ==
[2019-04-16 16:09] VITALS: BMI 29.2
[2019-04-20 10:01] VITALS: BMI 29.2
--- NOTE | 2019-04-23 14:22 | US_ITS ---
STUDY: ULTRASOUND TRANSVAGINAL CLINICAL: Female, 23 years old. Dysfunctional uterine bleeding. TECHNIQUE: Transvaginal. Transvaginal imaging is performed for improved visualization of the endometrium and adnexal regions. COMPARISON: CT of the abdomen and pelvis dated November 29, 2015. FINDINGS: Normal uterine size measuring 8.5 x 4.7 x 6.6 cm. There are no myometrial masses. Normal endometrial thickness measuring 4.9 mm. There are no endometrial masses, and there is no fluid in the endometrial cavity. Normal uterine cervix. Normal right ovary, measuring 3.9 x 2.9 x 3.0 cm. There are multiple follicles with a dominant cyst. The dominant cyst measures approximately 2.9 x 2.1 x 2.1 cm. Normal left ovary, measuring 4.1 x 2.5 x 3.5 cm. There are multiple follicles with a dominant cyst. The dominant cyst measures 2.1 x 1.1 x 2.1 cm. There is a small amount of pelvic fluid. Polycystic ovary disease: No. US/Transvaginal Non- IMPRESSION: Normal sonographic appearance of the uterus and both ovaries as described. Electronically Signed: Rosalind Henry MD at 4:57 EDT , Service support ,
--- NOTE | 2019-04-23 14:22 | US_ITS ---
STUDY: ULTRASOUND TRANSVAGINAL CLINICAL: Female, 23 years old. Dysfunctional uterine bleeding. TECHNIQUE: Transvaginal. Transvaginal imaging is performed for improved visualization of the endometrium and adnexal regions. COMPARISON: CT of the abdomen and pelvis dated November 29, 2015. FINDINGS: Normal uterine size measuring 8.5 x 4.7 x 6.6 cm. There are no myometrial masses. Normal endometrial thickness measuring 4.9 mm. There are no endometrial masses, and there is no fluid in the endometrial cavity. Normal uterine cervix. Normal right ovary, measuring 3.9 x 2.9 x 3.0 cm. There are multiple follicles with a dominant cyst. The dominant cyst measures approximately 2.9 x 2.1 x 2.1 cm. Normal left ovary, measuring 4.1 x 2.5 x 3.5 cm. There are multiple follicles with a dominant cyst. The dominant cyst measures 2.1 x 1.1 x 2.1 cm. There is a small amount of pelvic fluid. Polycystic ovary disease: No. US/Pelvic (Non ) IMPRESSION: Normal sonographic appearance of the uterus and both ovaries as described. Electronically Signed: Rosalind Henry MD at 4:57 EDT , Service support ,
== END ==
PROVIDERS: Family Provider Internal Medicine; PCP Internal Medicine; Referring Provider Obstetrics & Gynecology; Visit Provider Obstetrics & Gynecology
DX: N91.4 Secondary oligomenorrhea (principal)
CPT/HCPCS: 76830; 76856; 93976

== ENCOUNTER → 2019-04-27 11:43 | Outpatient (CLI) | payer BC, SELFPAY ==
[2019-04-20 10:01] VITALS: BMI 29.2
--- NOTE | 2019-04-27 11:47 | RAD_ITS ---
STUDY: X-RAY - LUMBAR SPINE REASON FOR EXAM: Female, 23 years old. Low back pain, spasms TECHNIQUE: 3 view(s) of the lumbar spine were obtained. COMPARISON: Report a previous study of 06/21/2012 FINDINGS: Normal lumbar lordosis. There is no substantial scoliosis. There is a normal alignment of the vertebrae. Normal vertebral bodies and endplates. Normal disc space heights. The soft tissue structures are unremarkable. RAD/Lumbar Spine 2 or 3 Views IMPRESSION: Normal x-ray examination of the lumbar spine. Electronically Signed: Jarvis Saldana MD at 19:12 EDT , Service support ,
== END ==
PROVIDERS: Family Provider Internal Medicine; PCP Internal Medicine; Referring Provider Internal Medicine; Visit Provider Internal Medicine
DX: M54.9 Dorsalgia, unspecified (principal); G89.29 Other chronic pain
CPT/HCPCS: 72100

== ENCOUNTER → 2019-08-13 14:40 | Outpatient (CLI) | payer BC, SELFPAY ==
[2019-05-25 09:15] VITALS: BMI 29.2
[2019-08-13 15:25] LABS: hCG Titer Quant., Serum < 1 mIU/mL (1-3)
== END ==
PROVIDERS: PCP Internal Medicine; Referring Provider Obstetrics & Gynecology; Visit Provider Obstetrics & Gynecology
DX: N92.6 Irregular menstruation, unspecified (principal)
CPT/HCPCS: 36415; 84702

== ENCOUNTER → 2019-08-16 16:48 | Outpatient (CLI) | payer BC, SELFPAY ==
[2019-05-25 09:15] VITALS: BMI 29.2
[2019-08-16 17:34] LABS: hCG Titer Quant., Serum < 1 mIU/mL (1-3)
== END ==
PROVIDERS: PCP Internal Medicine; Referring Provider Obstetrics & Gynecology; Visit Provider Obstetrics & Gynecology
DX: N91.4 Secondary oligomenorrhea (principal)
CPT/HCPCS: 36415; 84702

== ENCOUNTER 2019-11-01 17:13 | Emergency (ER) | payer BC, SELFPAY ==
[2019-05-25 09:15] VITALS: BMI 29.2
[2019-11-01 17:14] VITALS: BP 138/76; PULSE 103; RESP 17; TEMP 36.8; O2SAT 99
--- NOTE | 2019-11-01 17:27 | CT_ITS ---
STUDY: CT BRAIN WITHOUT CONTRAST REASON FOR EXAM: Female, 24 years old. HEADACHE, SYNCOPE, MIGRAINES RADIATION DOSAGE (If Supplied By Facility): CTDIvol = ( 44.99 ) mGy, DLP = ( 745.49 ) mGycm TECHNIQUE: Transaxial CT imaging of the brain was performed without administration of intravenous contrast material. Individualized dose optimization techniques were used for this CT. COMPARISON: No relevant priors. FINDINGS: Normal soft tissue structures. Normal calvarium. Normal size ventricles and extra-axial spaces for the patient''s age. Normal white matter tracts of the cerebral hemispheres. Normal basal ganglia and thalami. Normal brainstem. Normal cerebellum. There is no intracranial hemorrhage. There are no findings of an acute ischemic infarction. Normal visualized paranasal sinuses. CT/Brain/Head without Contrast IMPRESSION: Normal unenhanced CT scan of the brain. Electronically Signed: Genny Young MD at 18:11 EDT , Service support ,
--- NOTE | 2019-11-01 17:31 | ED.VISSUMM ---
- ER Visit Summary Date of Service: 11/01/19 Chief Complaint: [Headache] History of Present Illness: The patient is a 24 F [presents to the emergency department with complaint of a headache that started yesterday around 4 PM. Patient states that the headache came on gradually.] Patient rates her pain a 9 out of 10 and is complaining of pain above the right eye. Patient states that she started having pins and needle sensation in her left arm as well as the left side of her face and left leg yesterday. At some point today the numbness and tingling sensation resolved but then returned after about an hour. Patient complains of photophobia and some mild blurred vision. Patient complains of nausea but no vomiting. Patient does have history of migraines but typically her migraines are temporal in location and she is never had paresthesias with them before. Patient states that while making breakfast for kids this morning she got lightheaded and dizzy and passed out and her states that she was unconscious for about 15 minutes. Patient denies any fevers or recent illness. No family history of brain tumors or aneurysms. Physical Examination: [HEENT-PERRLA, EOMI. Cranial nerves II through XII grossly intact. TMs clear. Mucous membranes moist. No adenopathy. Cardiovascular-regular rate and rhythm without murmur or ectopy Lungs-clear to auscultation, chest wall stable without crepitus or subcu emphysema Abdomen-normoactive bowel sounds, soft, nontender, no rebound or rigidity, no peritoneal signs. Neuro [id number] and heel andres testing within normal limits, negative Romberg, negative for drift, fundi benign Extremities-intact ?4, normal range of motion, normal pulses, atraumatic] Test Results: [CT scan of the brain without contrast was normal] Emergency Department Course and Treatment: [She was given Reglan, Benadryl, Toradol, and a liter normal same fluid bolus. Her headache did improve down to a 5 or 6 out of 10. She still describes little bit of photophobia and paresthesias. At this point I suspect likely complex migraine phenomenon. I do not feel patient is having a stroke. Onset of pain was gradual in I do not believe the symptoms consistent with subarachnoid hemorrhage or brain aneurysm. Patient was also given Decadron 10 mg IV.] Treatment Plan: [Patient to follow-up with her primary care physician in 3 to 5 days. Patient vies to return if worsening headache, difficulty with balance or speech, or condition should worsen anyway.] Disposition: [Discharged home in stable condition] Impression: [Complex migraine] This note was generated with [employer] dictation software. It may contain incorrect words, spelling, and punctuation that were not noted in review of the chart prior to signing ED Disposition - Plan for ED Patient: Referrals: Azeb White MD [Primary Care Provider] -
[2019-11-01] MEDS: 0.9% Normal Saline 1,000 ML 1000 ML IV (17:37)
[2019-11-01] MEDS: Metoclopramide 10 MG/2 ML Vial IV (17:38)
[2019-11-01] MEDS: Ketorolac 30 MG/ML Syringe IV (17:38)
[2019-11-01] MEDS: DiphenhydrAMINE 50 MG/ML Syringe 25 MG IV (17:38)
--- NOTE | 2019-11-01 18:24 | ED.DEP ---
ED Disposition - Plan for ED Patient: Instructions: ED, Migraine (Classical) Referrals: Azeb White MD [Primary Care Provider] - 3-5 Days
[2019-11-01] MEDS: dexAMETHasone 10 MG/ML Vial IV (19:01)
[2019-11-01 19:21] VITALS: BP 97/71; PULSE 62; RESP 14; O2SAT 98
== END 2019-11-01 19:23 | disposition home or self-care (01) ==
LOC: ED 17:45
PROVIDERS: Emergency Provider Emergency Medicine; PCP Internal Medicine
DX: G43.109 Migraine with aura, not intractable, without status migrainosus (principal)
CPT/HCPCS: 70450; 96361; 96374; 96375; 99283; J7030; A4216

== ENCOUNTER 2019-11-11 00:55 | Emergency (ER) | payer BC, SELFPAY ==
[2019-11-11 01:00] VITALS: BP 118/64; PULSE 89; RESP 22; TEMP 36.6; O2SAT 100; BMI 31.1
--- NOTE | 2019-11-11 01:05 | CT_ITS ---
STUDY: CT ABDOMEN AND PELVIS WITH CONTRAST REASON FOR EXAM: Female, 24 years old. SEVERE RLQ PAIN SUDDEN ONSET WHILE SLEEPING, HX GB SX RADIATION DOSAGE (If Supplied By Facility): CTDIvol = ( 16.32 ) mGy, DLP = ( 932.00 ) mGycm TECHNIQUE: Transaxial images were obtained from the dome of the diaphragm to the symphysis pubis without oral contrast. Oral and amp; IV Gastrografin and amp; 100mL Isovue-370 was administered. Sagittal and coronal images were reconstructed. Individualized dose optimization techniques were used for this CT. COMPARISON: 11/29/2015. FINDINGS: Bilateral posterior dependent atelectasis noted. Questionable subtle bilateral lower lobe groundglass opacities which may indicate superimposed pneumonia. The visualized portions of the heart are within normal limits. Normal liver. Gallbladder is not visualized which may be due to severe contraction versus prior cholecystectomy. Normal spleen. Normal pancreas. Normal bilateral adrenal glands. Normal right kidney. Normal left kidney. Normal visualized stomach. Normal small intestine. Normal colon. The appendix is visualized and appears normal. Normal abdominal aorta. Normal inferior vena cava. Normal retroperitoneum. Normal urinary bladder. The uterus is anteverted. There are 2 left-sided ovarian cyst measuring 5.1 x 4.1 cm and 4.0 x 4.0 cm. Several cysts demonstrated within the right ovary, some degree of peripheral enhancement and largest measuring approximately 3.0 x 3.2 cm and suggestive of collapsing corpus luteum cyst. There is possible right-sided hydrosalpinx. There is mild to moderate free fluid in the cul-de-sac. There is mild free fluid within the right lower quadrant and less prominent within the left lower quadrant. Normal abdominal wall. Normal osseous structures. CT/Abdomen/Pelvis WITH Contrast IMPRESSION: Mild to moderate free fluid in the cul-de-sac and free fluid surrounding the bilateral ovaries with prominent bilateral ovarian cysts, largest seen on the left measuring up to 5.1 cm. Enhancement of the right-sided ovarian cysts which may represent collapsing corpus luteum cyst, differential diagnosis includes inflammatory process or hydrosalpinx, cannot exclude pelvic inflammatory disease. Clinical correlation recommended and further characterization with ultrasound of the pelvis recommended. No acute appendicitis. No bowel obstruction. Electronically Signed: Sandra Adams MD at 3:47 EDT , Service support ,
--- NOTE | 2019-11-11 01:06 | ED.VIS.GEN ---
History of Present Illness Chief Complaint: Abd Pain Informant: Patient Narrative: Patient states developed abdominal pain approximately 2 hours ago. Right lower quadrant. She describes a deep sleep severe deep ache. No home treatment. No previous pain like this before. No vaginal discharge. Denies . No history of ovarian cyst. History of remote cholecystectomy secondary to gallstone pancreatitis. Has not had problems since then. Never had pain like this before. Current severity is moderate to severe. Worsened by pushing on it. Associated with mild nausea. Denies any urinary symptoms. 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 has been on meds in the past. (3) Irregular menses Status: Acute (4) Secondary oligomenorrhea Status: Acute Comment: check labs, provera challenge ordered, pelvic ultrasound ordered Past Medical History - Allergies and Home Meds Allergies/Adverse Reactions: Allergies hydrocodone [From [place]] Adverse Reaction (Mild, Verified 11/11/19 00:59) Vomiting oxycodone [From Percocet] Adverse Reaction (Mild, Verified 11/11/19 00:59) Vomiting Primary Care Physician: Azeb White MD [Primary Care Provider] - Prior records reviewed: Yes Past Medical History: - - See problem list Surgical History: cholecystectomy Lives: With Family Smoking Status: Former smoker Alcohol: None Drugs: None - Family History Maternal Family History: Family History (Last Updated 05/25/19 @ 09:14 by Evelyn Hunt) Brother Asthma Hypertension Mother Asthma Hypertension Clotting disorder malignant hyperthermia--Mother Lupus Fibromyalgia Rheumatoid arthritis Family History: Reports: No pertinent history Review of Systems General: Denies: Chills, Fever, Sweats Eyes: Denies: Visual changes - bilaterally, Diplopia ENT: Denies: Rhinorrhea, Sore throat Cardiovascular: Denies: Chest pain, Palpitations Respiratory: Denies: Dyspnea, Cough, Dyspnea on exertion Gastrointestinal: Reports: Abdominal pain, Nausea. Denies: Vomiting, Diarrhea, Melena, Hematochezia Genitourinary: Denies: Dysuria, Hematuria, Frequency Musculoskeletal: Denies: Back pain, Extremity Pain Skin: Denies: Rash, Wounds Neurological: Denies: Headache, Weakness, Numbness Physical Exam General: Well nourished, Well developed, No Acute Distress Head: Normocephalic, Atraumatic Eyes: Perrl, EOMI ENT: Moist mucous membranes, No rhinorrhea Neck: Supple, Nontender Cardiovascular: Regular rate, Regular rhythm, No murmurs Respiratory: No distress, CTA bilaterally, Chest nontender Abdomen: Soft, Nondistended, Normal bowel sounds, Tender - Slight tenderness over the right lower quadrant appendix region.. Negative for: Nontender, Guarding, Rebound tenderness : - - Pelvic exam shows a normal external exam. Internal exam normal Back: Nontender, Normal Inspection Extremities: Nontender, No edema Skin: Normal color, No rash Neurological: Alert, Oriented x3, Cranial nerves II-XII grossly intact, Normal Strength, Normal Sensation Psychological: Normal affect, Normal Mood Diagnostic/Tx/Re-eval - Medical Decision Making IV fluids Zofran and morphine. Lab work and CT abdomen pelvis obtained. Lab work shows nothing acute. CBC normal. No elevated white count. Electrolytes unremarkable. Liver function test and lipase normal. negative. Urinalysis normal. CT abdomen pelvis was obtained shows possible ovarian cyst bilateral. Possible hydrosalpinx on the right. Pelvic exam showed no cervical discharge or CMT. I do not suspect she has PID. She is in a monogamous relationship with her . She is never had STD. Ultrasound was obtained which shows no ovarian torsion. There is mild free fluid in the pelvis likely from a ruptured right-sided ovarian cyst. No further cyst seen in the right ovary. Left ovary shows a large cyst. Patient will follow-up with her [employer]. Instructed on size of the left cyst as well. At this time I do not feel she needs to be admitted. Appendix was seen on CAT scan that shows no appendicitis. She feels much better will be discharged with a short course of Vicodin ED Disposition - Plan for ED Patient: Disposition: Home or Assisted Living Diagnosis: Ovarian cyst Instructions: ED Cyst Ovarian Prescriptions: Hydrocodone Bitart/Apap 5-325 [[place] 5MG-325MG] 1 tablet PO Q4H PRN PRN 2 Days #10 tablet PRN Reason: Pain Transmission Status: Received by [id number] Referrals: Azeb White MD [Primary Care Provider] - Additional Instructions: Also follow-up with your [employer] regarding your ovarian cyst
[2019-11-11] MEDS: 0.9% Normal Saline 1,000 ML 1000 ML IV (01:15)
[2019-11-11] MEDS: Ondansetron 4 MG/2 ML Vial IV (01:15)
[2019-11-11] MEDS: Morphine 4 MG/ML Syringe IV ×2 (01:15→04:36)
[2019-11-11 01:17] LABS: Absolute Lymphocyte Count 3.56 X10^3/uL (0.83-4.51); Basophil# 0.05 X10^3/uL; Basophil% 0.6 % (0-1); Eosinophil# 0.62 X10^3/uL; Hematocrit 38.8 % (37-47); Hemoglobin 12.3 g/dL (12.0-15.0); Lymphocyte # 3.56 X10^3/ul (4.0); Lymphocyte % 39.9 % (19-41); Mean Corp Hgb Conc 31.7 g/dL (32-36); Mean Corpuscular Hgb 26.7 pg (27.0-32.0); Mean Corpuscular Volume 84.3 fL (81-99); Mean Platelet Vol. 11.4 fl (6.2-12.0); Monocyte# 0.72 X10^3/uL; Monocyte% 8.1 % (0-10); NRBC Flagged by Analyzer 0 % (0-5); Neutrophil # 3.95 X10^3/uL (2.7-7.7); Neutrophil % 44.2 % (47-70); Platelet Count 219 K/mm3 (150-450); RBC Distribution Width CV 14.7 % (11.6-14.6); RBC Distribution Width SD 44.8 fl (35.1-43.9); White Blood Count 8.9 K/mm3 (4.4-11.0)
[2019-11-11 01:27] LABS: Internal QC Validated? YES +Cl - CLEAR BKGD; Pregnancy, Serum, hCG Quali. NEGATIVE Negative
[2019-11-11 01:35] LABS: AST(SGOT) 36 U/L (15-37); Alanine Aminotransfer ALT/SGPT 42 U/L (13-56); Albumin, Serum 3.4 g/dL (3.2-5.0); Alkaline Phosphatase 65 U/L (45-117); Anion Gap 6 (5-15); BUN 14 mg/dL (7-18); BUN/Creat Ratio 18.3 RATIO (10-20); Calcium,Total 9.1 mg/dL (8.5-10.1); Chloride 109 mmol/L (98-107); Creatinine, Serum 0.76 mg/dL (0.55-1.02); EST Glomerular Filtration Rate 99 mL/min (>60); Est Glom Filt Rate - Afr Amer 119 mL/min (>60); Estimated Creatinine Clearance 102.71 ml/min; Globulin 3.5 g/dL (2.2-4.2); Glucose 112 mg/dL (74-106); Lipase 133 U/L (73-393); Potassium 4.1 mmol/L (3.5-5.1); Protein, Total 6.9 g/dL (6.4-8.2); Sodium Level 141 mmol/L (136-145); Total Bilirubin < 0.10 mg/dL (0.20-1.00)
[2019-11-11 02:04] VITALS: BP 115/71; PULSE 86; RESP 19; O2SAT 100
[2019-11-11 02:40] LABS: Bacteria 0 SEEN /hpf (None Seen); Mucous, Urine 0 SEEN /hpf (<or=2+); Red Blood Cells-Urine 0 SEEN /hpf (0-5); Squamous Epithelial Cells - UA 0 SEEN /hpf (5-10)
[2019-11-11 02:41] LABS: Color, Urine Yellow (Yellow); Glucose, Dipstick Normal (Normal); Ketone-Dipstick Negative (Negative); Leukocyte Esterase-Dipstick Negative /ul (Negative); Nitrite-Dipstick Negative (Negative); Occult Blood-Urine Negative /ul (Negative); Protein-Dipstick Negative (Negative); Specific Gravity, Urine 1.015 (1.002-1.030); Urine Bilirubin Dipstick Negative (Negative); Urine Clarity Sl. Cloudy (Clear); Urine Urobilinogen Normal (Normal); Urine pH 6.5 (5.0 - 8.0)
[2019-11-11 02:50] LABS: Amorphous Sediment 1+; White Blood Cells 0-5 SEEN /hpf (0-5)
[2019-11-11 04:00] VITALS: BP 135/80; PULSE 86; RESP 18; O2SAT 99
--- NOTE | 2019-11-11 04:11 | US_ITS ---
STUDY: ULTRASOUND OF THE FEMALE PELVIS - REASON FOR EXAM: Female, 24 years old. RT SIDED PELVIC PAIN/ RULE OUT TORSION TECHNIQUE: Transvaginal TECHNICAL QUALITY: Adequate. COMPARISON: Pelvic ultrasound from 04/23/2019. CT abdomen Pelvis from same day. FINDINGS: The uterus is anteverted and is in a midline position. The uterus measures 8.3 x 5.8 x 8.2 cm. Normal uterine cervix. The endometrium measures 11.1 mm in thickness, and is hyperechoic. There is no demonstrated endometrial mass. There is no demonstrated myometrial mass. I.U.D. - The patient does not have an I.U.D. The right ovary is visualized. The right ovary measures 6.4 x 4.5 x 3.5 cm. There is no right ovarian cyst or ovarian mass. There is no visualized right adnexal mass or complex lesion. There is normal arterial and normal venous vascularity. The left ovary is visualized. The left ovary measures 5.9 x 6.7 x 5.5 cm. . There is normal arterial and normal venous vascularity. There is a 6.1 x 4.6 x 4.3 echogenic finding in the left ovary. Adjacent anechoic left ovarian cyst measuring 3 x 4.2 x 2 cm. There is fluid in the cul-de-sac as seen on CT. US/Transvaginal Non- IMPRESSION: No evidence for ovarian torsion. 6.1 cm left ovarian hypoechoic region, new from prior study likely hemorrhagic cyst. Recommend follow up pelvic ultrasound in six weeks. Bilateral ovarian cysts. Electronically Signed: Sandoval Raygoza, at 6:24 EDT Tel , Service support ,
[2019-11-11 06:00] VITALS: BP 132/84; PULSE 85; RESP 18; O2SAT 100
[2019-11-11 06:45] VITALS: PULSE 18
== END 2019-11-11 06:46 | disposition home or self-care (01) ==
PROVIDERS: Emergency Provider Emergency Medicine; PCP Internal Medicine
DX: N83.201 Unspecified ovarian cyst, right side (principal); N83.202 Unspecified ovarian cyst, left side; Z87.891 Personal history of nicotine dependence
CPT/HCPCS: 74177; 76830; 80053; 81001; 83690; 84703; 85025; 96361; 96374; 96375; 96376; 99283; J7030; Q9967; A4216; J2405

== ENCOUNTER → 2019-11-13 | Outpatient (CLI) | payer BC, SELFPAY ==
[2019-11-13 14:58] VITALS: BMI 31.1
[2019-11-15 20:11] LABS: HPV APTIMA, High Risk Negative (Negative)
== END | disposition home or self-care (01) ==
PROVIDERS: PCP Internal Medicine; Referring Provider Nurse Practitioner Women's Health; Visit Provider Nurse Practitioner Women's Health
DX: R87.610 Atypical squamous cells of undetermined significance on cytologic smear of cervix (ASC-US) (principal)
CPT/HCPCS: 87624; 88175; G0145

== ENCOUNTER → 2019-11-22 09:04 | Outpatient (CLI) | payer BC, SELFPAY ==
[2019-11-13 14:58] VITALS: BMI 31.1
[2019-11-22 09:48] LABS: Estradiol 33.8 pg/mL; Prolactin 16.7 ng/mL; Thyroid Stim Hormone (TSH) 2.31 uIU/mL (0.358-3.74)
== END ==
PROVIDERS: PCP Internal Medicine; Referring Provider Nurse Practitioner Women's Health; Visit Provider Nurse Practitioner Women's Health
DX: N91.4 Secondary oligomenorrhea (principal)
CPT/HCPCS: 36415; 82670; 84146; 84443

== ENCOUNTER → 2019-12-05 08:05 | Outpatient (CLI) | payer BC, SELFPAY ==
[2019-11-13 14:58] VITALS: BMI 31.1
--- NOTE | 2019-12-05 08:08 | US_ITS ---
STUDY: ULTRASOUND OF THE FEMALE PELVIS - COMPLETE REASON FOR EXAM: Female, 24 years old. FOLLOW UP CYST LMP: 11/20/2019 TECHNIQUE: Transabdominal and Transvaginal TECHNICAL QUALITY: Adequate. COMPARISON: 11/11/2019 FINDINGS: The uterus is anteverted and is in a midline position. The uterus measures 10.4 x 6.4 x 4.9 cm. Normal uterine cervix. The endometrium measures 8 mm in thickness, and is hyperechoic. There is separation of the endometrial stripe within the fundus the uterus suggestive of a bicornuate uterus. There is no demonstrated myometrial mass. I.U.D. - The patient does not have an I.U.D. The right ovary is visualized. The right ovary measures 4.0 x 2.6 x 3.2 cm. There is no right ovarian cyst or ovarian mass. There is no visualized right adnexal mass or complex lesion. There is normal arterial and normal venous vascularity. The left ovary is visualized. The left ovary measures 5.2 x 4.1 x 3.5 cm. 2.1 x 3.4 cm oval anechoic mass with increased transmission of the left ovary consistent with corpus luteum cyst. There is no visualized left adnexal mass or complex lesion. There is normal arterial and normal venous vascularity. There is no fluid in the cul-de-sac. The pre void volume of the bladder was ml. The post void volume of the bladder was ml. Polycystic ovary disease: Yes. US/Transvaginal Non- IMPRESSION: 1. Bicornuate uterus. 2. Enlarged polycystic ovaries. 3. 3.4 cm corpus luteum cyst of the left ovary. Electronically Signed: Yaron Bales MD at 9:31 EDT Tel , Service support ,
--- NOTE | 2019-12-05 08:23 | US_ITS ---
STUDY: ULTRASOUND OF THE FEMALE PELVIS - COMPLETE REASON FOR EXAM: Female, 24 years old. FOLLOW UP CYST LMP: 11/20/2019 TECHNIQUE: Transabdominal and Transvaginal TECHNICAL QUALITY: Adequate. COMPARISON: 11/11/2019 FINDINGS: The uterus is anteverted and is in a midline position. The uterus measures 10.4 x 6.4 x 4.9 cm. Normal uterine cervix. The endometrium measures 8 mm in thickness, and is hyperechoic. There is separation of the endometrial stripe within the fundus the uterus suggestive of a bicornuate uterus. There is no demonstrated myometrial mass. I.U.D. - The patient does not have an I.U.D. The right ovary is visualized. The right ovary measures 4.0 x 2.6 x 3.2 cm. There is no right ovarian cyst or ovarian mass. There is no visualized right adnexal mass or complex lesion. There is normal arterial and normal venous vascularity. The left ovary is visualized. The left ovary measures 5.2 x 4.1 x 3.5 cm. 2.1 x 3.4 cm oval anechoic mass with increased transmission of the left ovary consistent with corpus luteum cyst. There is no visualized left adnexal mass or complex lesion. There is normal arterial and normal venous vascularity. There is no fluid in the cul-de-sac. The pre void volume of the bladder was ml. The post void volume of the bladder was ml. Polycystic ovary disease: Yes. US/Pelvic (Non ) IMPRESSION: 1. Bicornuate uterus. 2. Enlarged polycystic ovaries. 3. 3.4 cm corpus luteum cyst of the left ovary. Electronically Signed: Yaron Balse MD at 9:31 EDT Tel , Service support ,
[2019-12-05 08:44] LABS: Progesterone Level 1.26 ng/mL (See Comment)
== END ==
PROVIDERS: PCP Internal Medicine; Referring Provider Nurse Practitioner Women's Health; Visit Provider Nurse Practitioner Women's Health
DX: N83.202 Unspecified ovarian cyst, left side (principal); N92.6 Irregular menstruation, unspecified
CPT/HCPCS: 36415; 76830; 76856; 84144

== ENCOUNTER → 2020-03-25 15:57 | Outpatient (CLI) | payer MEDICAID, SELFPAY ==
[2020-03-25 15:41] VITALS: BMI 31.1
[2020-03-25 16:54] LABS: Absolute Lymphocyte Count 1.87 X10^3/uL (0.83-4.51); Basophil# 0.03 X10^3/uL; Basophil% 0.4 % (0-1); Eosinophil# 0.46 X10^3/uL; Eosinophils% 6.8 % (0-5); Hematocrit 40.7 % (37-47); Hemoglobin 12.7 g/dL (12.0-15.0); Lymphocyte # 1.87 X10^3/ul (4.0); Lymphocyte % 27.8 % (19-41); Mean Corp Hgb Conc 31.2 g/dL (32-36); Mean Corpuscular Hgb 26.9 pg (27.0-32.0); Mean Corpuscular Volume 86.2 fL (81-99); Monocyte% 5.9 % (0-10); NRBC Flagged by Analyzer 0 % (0-5); Neutrophil # 3.96 X10^3/uL (2.7-7.7); Platelet Count 311 K/mm3 (150-450); RBC Distribution Width CV 15.7 % (11.6-14.6); RBC Distribution Width SD 49.2 fl (35.1-43.9); Red Blood Count 4.72 M/mm3 (4.2-5.4); White Blood Count 6.7 K/mm3 (4.4-11.0)
[2020-03-25 18:05] LABS: AST(SGOT) 27 U/L (15-37); Alanine Aminotransfer ALT/SGPT 44 U/L (13-56); Albumin, Serum 3.8 g/dL (3.2-5.0); Alkaline Phosphatase 79 U/L (45-117); Anion Gap 4 (5-15); BUN 7 mg/dL (7-18); BUN/Creat Ratio 9.2 RATIO (10-20); Calcium,Total 9.7 mg/dL (8.5-10.1); Chloride 108 mmol/L (98-107); Creatinine, Serum 0.76 mg/dL (0.55-1.02); EST Glomerular Filtration Rate 99 mL/min (>60); Est Glom Filt Rate - Afr Amer 120 mL/min (>60); Globulin 3.9 g/dL (2.2-4.2); Glucose 97 mg/dL (74-106); Potassium 3.9 mmol/L (3.5-5.1); Protein, Total 7.7 g/dL (6.4-8.2); Sodium Level 140 mmol/L (136-145)
== END ==
PROVIDERS: PCP Internal Medicine; Visit Provider Internal Medicine
DX: R53.81 Other malaise (principal); R53.83 Other fatigue; Z13.29 Encounter for screening for other suspected endocrine disorder
CPT/HCPCS: 36415; 80053; 84443; 85025

== ENCOUNTER 2020-08-20 00:31 | Emergency (ER) | payer MEDICAID, SELFPAY ==
[2020-03-25 15:41] VITALS: BMI 31.1
[2020-08-20 00:32] VITALS: BP 150/101; PULSE 89; RESP 24; TEMP 36.1; O2SAT 99
[2020-08-20 00:33] VITALS: BP 150/101; PULSE 89; RESP 22; TEMP 36.1; O2SAT 99; BMI 26.9
--- NOTE | 2020-08-20 00:55 | ED.DCSUM_ITS ---
- ER Visit Summary Date of Service: 08/20/20 Chief Complaint: Acute right lower quadrant abdominal pain History of Present Illness: The patient is a 25 F history of ovarian cyst and bicornate uterus. Patient states sudden onset of right lower quadrant abdominal pain about 9 PM the night. Associated nausea no vomiting. No diarrhea constipation. No dysuria. No vaginal bleeding or discharge. Last menstrual period was approximately 4 weeks ago. Prior cholecystectomy. No history of kidney stones no abdominal trauma. No fever nor chills. States this is not similar to her prior ovarian cyst pain. Physical Examination: Young female complaining of pain vital signs stable afebrile. HEENT exam unremarkable. Neck nontender no lymphadenopathy. Lungs clear to auscultation bilaterally. Heart regular rhythm rate about 90. No murmur. Abdomen soft. Nondistended. Normal bowel sounds. Only abdominal tenderness is in the right lower quadrant. Upper quadrant left lower quadrant unremarkable. No hernia or mass. No signs of obstruction. Soft. Patient moving all 4 extremities. No edema. Back nontender. Neurologically she is awake alert moving all 4 extremities with no focal motor deficits. Test Results: CBC normal white count 8 hemoglobin 12. Chemistries normal normal creatinine and gap. UA 250 occult blood 5-10 whites 5-10 red cells no bacteria. Serum negative. CT flank study no contrast shows mild right hydronephrosis and hydroureter consistent with a passed stone 2 mm seen in the bladder read by the radiologist reviewed by me. Also a 2 mm left UVJ stone. The appendix is seen is normal. Emergency Department Course and Treatment: Young female with right lower quadrant abdominal pain. Her gallbladder is out. Appendicitis is a possibility. Versus kidney stone versus ruptured ovarian cyst versus UTI. Versus ectopic which I think is less likely. Labs CT being obtained. She will be treated with IV morphine and Zofran. Repeat exam the patient is doing well at 239. Abdomen is benign. She had I went over all test results. She is feeling much better and comfortable being discharged home. Treatment Plan: Tylenol and Motrin for pain. Fluids and rest. Follow-up if not improving. Return if worse. Disposition: discharge Impression: Acute right lower quadrant abdominal pain secondary to past 2 mm kidney stone This note was generated with [employer] software. It may contain incorrect words, spelling, and punctuation that were not noted in review of the chart prior to signing ED Disposition - Plan for ED Patient: Referrals: Azeb White MD [Primary Care Provider] -
--- NOTE | 2020-08-20 00:58 | CT_ITS ---
STUDY: CT ABDOMEN AND PELVIS WITH CONTRAST REASON FOR EXAM: Female, 25 years old. Right lower quadrant pain RADIATION DOSAGE (If Supplied By Facility): CTDIvol = ( 11.63 ) mGy, DLP = ( 660.72 ) mGycm TECHNIQUE: Transaxial images were obtained from the dome of the diaphragm to the symphysis pubis without oral contrast. 100ML ISOVUE 370 was administered. Sagittal and coronal images were reconstructed. Individualized dose optimization techniques were used for this CT. COMPARISON: 11/11/2019 FINDINGS: The visualized lung bases are unremarkable. The visualized portions of the heart are within normal limits. Hypoattenuated lesion within the left lateral hepatic. Gallbladder is absent. Minimal central intrahepatic biliary duct dilatation. Normal spleen. Normal pancreas. Normal bilateral adrenal glands. No renal parenchymal lesion. Mild right-sided hydronephrosis and hydroureter with hyperemia of the urothelium. Minimal right perinephric fluid. There is a 2 millimeter calculus layering in the dependent portion of the urinary bladder. No left-sided hydronephrosis. Minimal left hydroureter. 2 mm calculus at the left ureterovesicular junction, new from prior imaging. Normal visualized stomach. Normal small intestine. Normal colon. The appendix is visualized and appears normal. Normal abdominal aorta. Normal inferior vena cava. Normal retroperitoneum. Normal urinary bladder. Normal uterus. Normal appearing bilateral ovarian follicles Normal abdominal wall. Normal osseous structures. CT/Abdomen/Pelvis W IV Cont ONLY IMPRESSION: 1. Mild right-sided hydroureter nephrosis with a small amount of perinephric fluid, with associated hyperemia of the urothelium and with a 2 mm calculus layering in the dependent portion of the urinary bladder, most likely representing a recently passed stone. 2. 2 mm left ureteral vesicular junction calculus with a left-sided hydroureter. 3. Cyst versus hemangioma versus focal fatty infiltrate within the left lateral hepatic segment at the level of the falciform ligament. Electronically Signed: Obdulio Watson MD at 2:11 EST Tel , Service support ,
[2020-08-20 01:08] LABS: Absolute Neutrophil Count 6.1 X10^3/uL (2.0-7.7); Basophil# 0.03 X10^3/uL; Basophil% 0.3 % (0-1); Eosinophils% 4.6 % (0-5); Hematocrit 38.9 % (37-47); Hemoglobin 12.5 g/dL (12.0-15.0); Lymphocyte % 18.5 % (19-41); Mean Corp Hgb Conc 32.1 g/dL (32-36); Mean Corpuscular Hgb 27.7 pg (27.0-32.0); Mean Corpuscular Volume 86.1 fL (81-99); Mean Platelet Vol. 10.3 fl (6.2-12.0); Monocyte# 0.52 X10^3/uL; NRBC Flagged by Analyzer 0 % (0-5); Neutrophil # 6.06 X10^3/uL (2.7-7.7); Neutrophil % 70.3 % (47-70); Platelet Count 276 K/mm3 (150-450); RBC Distribution Width CV 13.4 % (11.6-14.6); RBC Distribution Width SD 42.3 fl (35.1-43.9); Red Blood Count 4.52 M/mm3 (4.2-5.4); White Blood Count 8.6 K/mm3 (4.4-11.0)
[2020-08-20 01:13] LABS: Internal QC Validated? YES +Cl - CLEAR BKGD; Pregnancy, Serum, hCG Quali. NEGATIVE Negative
[2020-08-20 01:17] LABS: Anion Gap 5 (5-15); BUN 12 mg/dL (7-18); BUN/Creat Ratio 13.1 RATIO (10-20); Calcium,Total 9.4 mg/dL (8.5-10.1); Chloride 108 mmol/L (98-107); Creatinine, Serum 0.91 mg/dL (0.55-1.02); EST Glomerular Filtration Rate 80 mL/min (>60); Est Glom Filt Rate - Afr Amer 97 mL/min (>60); Estimated Creatinine Clearance 85.04 ml/min; Glucose 114 mg/dL (74-106); Potassium 4.1 mmol/L (3.5-5.1); Sodium Level 139 mmol/L (136-145)
[2020-08-20] MEDS: 0.9% Normal Saline 1,000 ML 1000 ML IV (01:19)
[2020-08-20] MEDS: morphine 8 MG/ML Syringe IV (01:19)
[2020-08-20] MEDS: Ondansetron 4 MG/2 ML Vial IV (01:19)
[2020-08-20 02:11] LABS: Bacteria 0 SEEN /hpf (None Seen); Mucous, Urine 0 SEEN /hpf (<or=2+)
[2020-08-20 02:12] LABS: Color, Urine Yellow (Yellow); Glucose, Dipstick Normal (Normal); Ketone-Dipstick Negative (Negative); Leukocyte Esterase-Dipstick 100 /ul (Negative); Nitrite-Dipstick Negative (Negative); Occult Blood-Urine 250 /ul (Negative); Protein-Dipstick 30 mg/dl (Negative); Urine Bilirubin Dipstick Negative (Negative); Urine Clarity Clear (Clear); Urine Urobilinogen Normal (Normal)
[2020-08-20 02:18] LABS: Red Blood Cells-Urine 5-10 SEEN /hpf (0-5); Squamous Epithelial Cells - UA 0-5 SEEN /hpf (5-10); White Blood Cells 5-10 SEEN /hpf (0-5)
--- NOTE | 2020-08-20 02:42 | ED.DEP ---
ED Disposition - Plan for ED Patient: Disposition: Home or Assisted Living Instructions: ED Kidney Stone, Passed Referrals: Azeb White MD [Primary Care Provider] - 3-5 Days if not improving Additional Instructions: Your labs are unremarkable. Your CAT scan is consistent with a kidney stone you passed. It small is about 2 mm. Plenty of fluids and rest. Tylenol and Motrin for pain. Follow-up with your doctor if not improving or return if worse.
[2020-08-20 02:51] VITALS: BP 105/54; PULSE 94; RESP 16; RESP 18; O2SAT 97
== END 2020-08-20 02:59 | disposition home or self-care (01) ==
PROVIDERS: Emergency Provider Emergency Medicine; PCP Internal Medicine
DX: N13.2 Hydronephrosis with renal and ureteral calculous obstruction (principal); Q51.3 Bicornate uterus; Z90.49 Acquired absence of other specified parts of digestive tract; Z72.0 Tobacco use
CPT/HCPCS: 74177; 80048; 81001; 84703; 85025; 96361; 96374; 96375; 99283; J7030; Q9967; A4216; J2405

== ENCOUNTER → 2020-10-01 13:16 | Outpatient (CLI) | payer MEDICAID, SELFPAY ==
[2020-10-01 14:05] LABS: hCG Titer Quant., Serum < 1 mIU/mL (1-3)
== END ==
PROVIDERS: PCP Internal Medicine; Referring Provider Obstetrics & Gynecology; Visit Provider Obstetrics & Gynecology
DX: N91.2 Amenorrhea, unspecified (principal)
CPT/HCPCS: 36415; 84702

== ENCOUNTER → 2020-12-18 18:00 | Outpatient (CLI) | payer MEDICAID, SELFPAY ==
[2020-12-18 18:59] LABS: hCG Titer Quant., Serum 255 mIU/mL (1-3)
== END ==
PROVIDERS: Nurse Practitioner Women's Health; PCP Internal Medicine; Referring Provider Obstetrics & Gynecology; Visit Provider Obstetrics & Gynecology
DX: N92.6 Irregular menstruation, unspecified (principal)
CPT/HCPCS: 36415; 84702

== ENCOUNTER → 2020-12-20 11:59 | Outpatient (CLI) | payer MEDICAID, SELFPAY ==
[2020-12-20 12:41] LABS: hCG Titer Quant., Serum 552 mIU/mL (1-3)
== END ==
PROVIDERS: Obstetrics & Gynecology; PCP Internal Medicine; Referring Provider Obstetrics & Gynecology; Visit Provider Obstetrics & Gynecology
DX: N91.2 Amenorrhea, unspecified (principal)
CPT/HCPCS: 36415; 84702

== ENCOUNTER → 2021-01-08 14:12 | Outpatient (CLI) | payer MEDICAID, SELFPAY ==
--- NOTE | 2021-01-08 14:14 | US_ITS ---
STUDY: FIRST TRIMESTER OBSTETRICAL ULTRASOUND (TWINS) REASON FOR EXAM: Female, 25 years old. LMP: 10/30/2020 dating TECHNIQUE: Transabdominal TECHNICAL QUALITY: Adequate. COMPARISON: None. FINDINGS: There are two demonstrated intrauterine gestational sacs. Two discrete placenta consistent with a dichorionic . Placental location not yet established. The amniotic membrane cannot be visualized. The estimated gestation age (EGA) by LMP is 10 weeks, 0 days. The estimated date of delivery (BI) by LMP is 08/06/2021. BABY A The mean sac diameter (MSD) measure 2.57 cm, indicating an estimated gestational age (EGA) of 7 weeks, 5 days. There is a visualized yolk sac. The yolk sac measures 0.34 cm. There is visualization of an embryo. The crown-rump length (CRL) measures 0.80 cm, indicating an estimated gestational age (EGA) of 6 weeks, 6 days. The estimated gestation age (EGA) by US is 7 weeks, 2 days. The estimated date of delivery (BI) by US is 08/25/2021. There is demonstrated cardiac activity with a heart rate 115 bpm. BABY B The mean sac diameter (MSD) measure 1.11 cm, indicating an estimated gestational age (EGA) of 5 weeks, 6 days. Gestational sac of baby B is of normal shape but smaller than baby A There is a visualized yolk sac. The yolk sac measures 0.30 cm. There is visualization of an embryo. The crown-rump length (CRL) measures 0.51 cm, indicating an estimated gestational age (EGA) of 6 weeks, 2 days. The estimated gestation age (EGA) by US is 6 weeks, 1 days. The estimated date of delivery (BI) by US is 09/02/2021. There is demonstrated cardiac activity with a heart rate 110 bpm. MATERNAL ANATOMY The uterus measures 10.8 x 6.0 x 8.7 cm. There is no demonstrated uterine fibroid. The cervix is closed. The right ovary measures 3.2 x 2.5 cm. There is a simple 1.4 cm cyst. The left ovary measures 2.9 x 3.1 cm. There is no left ovarian cyst. There is no visualized left adnexal mass or complex lesion. There is no fluid in the cul de sac. US/Init OB < 14Wks US IMPRESSION: Live dichorionic diamniotic twin . Heart rate for twin A 115, twin B 110. EGA by ultrasound is 6 weeks 6 days for twin A and 6 weeks 1 days for twin B. No suspicious sonographic findings. However, the gestational sac for twin B is smaller than for twin A has a normal sonographic appearance otherwise. BI for twin A is 08/25/2021, for twin B 09/02/2021 Pending Final Proof Editing
== END ==
PROVIDERS: PCP Internal Medicine; Referring Provider Nurse Practitioner Women's Health; Visit Provider Nurse Practitioner Women's Health
DX: Z34.90 Encounter for supervision of normal pregnancy, unspecified, unspecified trimester (principal)
CPT/HCPCS: 76801; 76802

== ENCOUNTER 2021-01-16 22:12 | Emergency (ER) | payer MEDICAID, SELFPAY ==
[2021-01-14 10:42] VITALS: BMI 26.9
[2021-01-16 22:13] VITALS: BP 129/75; PULSE 102; RESP 18; TEMP 36.6; O2SAT 99; BMI 27.6
--- NOTE | 2021-01-16 22:29 | US_ITS ---
HISTORY: with bleeding, history of twins. EXAMINATION: US OB Transvaginal TECHNIQUE: Transvaginal pelvic obstetrical ultrasound performed, twins. Grayscale, spectral waveform and color Doppler evaluation of bilateral ovaries performed. COMPARISON: Pelvic ultrasound from 01/08/21. FINDINGS: Uterus measures 11.3 x 6.5 x 9.1 cm. Dichorionic, diamniotic twin intrauterine again noted. Closed cervix. Amniotic fluid volume is subjectively within normal limits. Small heterogeneous and hypoechoic fluid collections abutting gestational sacs compatible with small subchorionic hematomas, measuring up to 1.8 cm diameter. Baby A located on the right with heart rate 174 bpm and estimated gestational age of 7 weeks 6 days based on crown-rump length measurement of 1.68 cm. Baby A gestational sac measures 3.91 cm mean diameter. Baby B located on the left with heart rate 157 bpm and estimated gestational age of 7 weeks 2 days based on crown-rump length measurement of 1.13 cm. Baby B gestational sac measures 1.62 cm mean diameter. Clinical age of 7 weeks 4 days based on LMP of 11/24/20. No significant free pelvic fluid demonstrated. Bilateral ovaries demonstrate normal color Doppler flow and spectral Doppler waveforms. Right ovary measures 4.5 x 2.2 x 3.3 cm with isoechoic 2.5 cm corpus luteum cyst and a few small anechoic follicles. Left ovary measures 3.9 x 2.4 x 3.1 cm with anechoic 2 cm cyst. IMPRESSION: 1. Live twin intrauterine gestations with estimated gestational ages of 7 weeks 6 days and 7 weeks 2 days based on crown-rump length measurements. Baby B gestational sac is smaller than baby a gestational sac. Clinical age of 7 weeks 4 days. 2. Small subchorionic hematomas. 3. Small right ovarian corpus luteum cyst and small simple appearing left ovarian cyst/follicle. at 0043 Reported and signed by: Valdez Lindsay MD Electronically Signed: Valdez Lindsay MD at 0:42 EDT Tel , Service support , HISTORY: with bleeding, history of twins. EXAMINATION: US OB Transvaginal TECHNIQUE: Transvaginal pelvic obstetrical ultrasound performed, twins. Grayscale, spectral waveform and color Doppler evaluation of bilateral ovaries performed. COMPARISON: Pelvic ultrasound from 01/08/21. FINDINGS: Uterus measures 11.3 x 6.5 x 9.1 cm. Dichorionic, diamniotic twin intrauterine again noted. Closed cervix. Amniotic fluid volume is subjectively within normal limits. Small heterogeneous and hypoechoic fluid collections abutting gestational sacs compatible with small subchorionic hematomas, measuring up to 1.8 cm diameter. Baby A located on the right with heart rate 174 bpm and estimated gestational age of 7 weeks 6 days based on crown-rump length measurement of 1.68 cm. Baby A gestational sac measures 3.91 cm mean diameter. Baby B located on the left with heart rate 157 bpm and estimated gestational age of 7 weeks 2 days based on crown-rump length measurement of 1.13 cm. Baby B gestational sac measures 1.62 cm mean diameter. Clinical age of 7 weeks 4 days based on LMP of 11/24/20. No significant free pelvic fluid demonstrated. Bilateral ovaries demonstrate normal color Doppler flow and spectral Doppler waveforms. Right ovary measures 4.5 x 2.2 x 3.3 cm with isoechoic 2.5 cm corpus luteum cyst and a few small anechoic follicles. Left ovary measures 3.9 x 2.4 x 3.1 cm with anechoic 2 cm cyst. US/Transvaginal w/Preg US
--- NOTE | 2021-01-16 22:30 | EDS_ITS ---
HPI HPI - Female History of Present Illness Chief Complaint: Vag Bld, Preg Informant: patient Bleeding Issue: Positive for Vaginal bleeding (Spotting) Onset: Today Narrative Narrative: Patient states that she fell at approximately 2 weeks ago that she was with twins. This past week she had spotting and went in for another ultrasound. Only 1 fetus was identified at that time. Patient states that the bleeding had resolved but then returned again tonight. She called Julia Stevens, nurse practitioner for [facility] and was advised to come in for another ultrasound. Patient reports some aching in her hips but states that is chronic for her. Blood type is O+. This is the patient's fourth . She has 2 live children at home. The third was delivered at term but the baby did at 20 days. Patient developed HELLP syndrome late in her third . [facility] Medical History (Updated 01/17/21 @ 01:[address] Janelle Bowden MD) Anxiety Back pain Cholelithiasis Chronic cholecystitis Depression GERD (gastroesophageal reflux disease) Hemorrhoids Home Medications [id number] fum 28 mg iron-folate no.6 1 mg-dha 300 mg capsule 1 cap PO .daily #90 cap 01/07/21 [Rx Last Taken Unknown] ondansetron 4 mg disintegrating tablet 4 mg PO Q4H PRN #60 tab 01/07/21 [Rx Last Taken Unknown] acetaminophen 325 mg capsule 325 mg PO ONCE PRN 01/14/21 [History Last Taken Unknown] Allergy/AdvReac Type Severity Reaction Status Date / Time hydrocodone [From [place]] AdvReac Mild Vomiting Verified 01/16/21 22:15 oxycodone [From Percocet] AdvReac Mild Vomiting Verified 01/16/21 22:15 Family History Brother Asthma Hypertension Mother Asthma Hypertension Clotting disorder malignant hyperthermia--Mother Lupus Fibromyalgia Rheumatoid arthritis Surgical History S/P colonoscopy S/P laparoscopic cholecystectomy (~09/03/17) S/P tonsillectomy and adenoidectomy Social History adopted: No household members: children and other details: 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 number of children: 2 current occupational status: employed 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 pets and animals: Yes pets and animals: dog(s) Smoking Status: Current every day smoker tobacco type: cigarettes quit status: considering quitting alcohol intake: former details: not since early 2019 substance use type: does not use caffeine: Yes frequency: 1-2 times per week seatbelt use: always do you feel safe at home: Yes ROS ROS ED Constitutional Constitutional ED: Denies chills or fever(s) Eyes Eyes: Denies change in vision ENT ENT ED: Denies sore throat Cardiovascular Cardiovascular: Denies chest pain Respiratory/Chest Respiratory/Chest: Denies cough or dyspnea Gastrointestinal Gastrointestinal: Denies abdominal pain, diarrhea, nausea or vomiting Genitourinary Genitourinary ED: Reports other Details: Vaginal bleeding/spotting ; Denies dysuria Musculoskeletal Musculoskeletal: Reports arthralgias; Denies back pain Integumentary Denies rash Neurologic Neurologic: Denies headache(s) or weakness Psychiatric Psychiatric: Denies anxiety or depression Endocrine Endocrinology: Denies polydipsia or polyuria Allergic/Immunologic Allergic/Immunologic ED: Denies urticaria EXAM Physical Exam Const Vital Signs: 01/16/21 22:13 01/17/21 01:06 Temperature 97.9 F Temperature Source Temporal Pulse Rate 102 H 78 Respiratory Rate 18 16 Blood Pressure 129/75 H 120/75 Blood Pressure Mean 93 90 Pulse Ox 99 100 Oxygen Delivery Method Room Air Room Air Positive well nourished and well developed General Appearance ED: well developed HEENT Reports normocephalic and head/scalp atraumatic Eyes PERRL and EOMs intact bilaterally Neck supple Chest Wall inspection of chest normal and palpation of chest normal Resp normal respiratory effort and clear to auscultation bilaterally Cardio regular rate and regular rhythm GI normal to inspection, nondistended, normoactive bowel sounds Palpation: soft Back/Spine no CVA tenderness Extremity normal to inspection Neuro oriented x3 and no sensory deficits noted Sensorium / Orientation: alert Motor Exam: strength 5/5 throughout Psych mental status grossly normal Skin no rashes or lesions noted MDM MDM MDM Narrative Medical decision making narrative: Patient's blood type is reviewed in the computer and is O+. hCG quant is obtained tonight. Urinalysis is obtained. Transvaginal ultrasound was obtained. Lab Data Attestation: I reviewed the patient's lab results. Labs: Laboratory Results - last 24 hr 01/16/21 01/16/21 22:40 22:40 HCG, Quant [id number] H Urine Color Yellow Urine Clarity Sl. Cloudy Urine pH 5.0 Ur Specific [place] 1.025 Urine Protein 15 H Urine Glucose (UA) Normal Urine Ketones 5 H Urine Occult Blood 10 H Urine Nitrite Negative Urine Bilirubin Negative Urine Urobilinogen 1 H Ur Leukocyte Esterase 25 H Urine RBC 0-5 SEEN Urine WBC 0-5 SEEN Ur Squamous Epith Cells 0-5 SEEN Urine Bacteria 2+ Urine Mucus 0 SEEN Radiography Diagnostic Testing: Radiology Impression Obstetrics Ultrasound 01/16/21 22:29 IMPRESSION: 1. Live twin intrauterine gestations with estimated gestational ages of 7 weeks 6 days and 7 weeks 2 days based on crown-rump length measurements. Baby B gestational sac is smaller than baby a gestational sac. Clinical age of 7 weeks 4 days. 2. Small subchorionic hematomas. 3. Small right ovarian corpus luteum cyst and small simple appearing left ovarian cyst/follicle. at 0043 Reported and signed by: Valdez Lindsay MD Electronically Signed: Valdez Lindsay MD at 0:42 EDT Tel , Service support , Treatment and Re-Evaluation Comments:: Ultrasound tonight does reveal twin gestation with heartbeats noted on both babies. I did speak with Dr. Hicks. She advised patient to follow pelvic rest and follow-up in the office. Discharge Plan Triage Chief Complaint: Vag Bld, Preg ED Provider: Janelle Bowden Dx/Rx/DC Orders Clinical Impression: Miscarriage, threatened, early Instructions: ED Possible Miscarriage ... Prescriptions: No Action Prenate DHA 28 mg iron-1 mg -300 mg capsule 1 cap PO .daily Qty: 90 RF: 4 ondansetron 4 mg tablet,disintegrating 4 mg PO Q4H PRN (Reason: nausea and vomiting) Qty: 60 RF: 2 acetaminophen [Tylenol] 325 mg capsule 325 mg PO ONCE PRN (Reason: Pain) RF: 0 Primary Care Provider: Azeb White Referrals: Azeb White MD [Primary Care Provider] - Maria Guadalupe Lyon MD [STAFF PHYSICIAN] - 1 Week Disposition Disposition: Home, Self Care
[2021-01-16 22:50] LABS: Mucous, Urine 0 SEEN /hpf (<or=2+)
[2021-01-16 22:52] LABS: Color, Urine Yellow (Yellow); Glucose, Dipstick Normal (Normal); Ketone-Dipstick 5 mg/dl (Negative); Leukocyte Esterase-Dipstick 25 /ul (Negative); Nitrite-Dipstick Negative (Negative); Occult Blood-Urine 10 /ul (Negative); Protein-Dipstick 15 mg/dl (Negative); Specific Gravity, Urine 1.025 (1.002-1.030); Urine Bilirubin Dipstick Negative (Negative); Urine Clarity Sl. Cloudy (Clear); Urine Urobilinogen 1 mg/dl (Normal)
[2021-01-16 22:58] LABS: Bacteria 2+ /hpf (None Seen); Red Blood Cells-Urine 0-5 SEEN /hpf (0-5); Squamous Epithelial Cells - UA 0-5 SEEN /hpf (5-10); White Blood Cells 0-5 SEEN /hpf (0-5)
[2021-01-17 01:06] VITALS: BP 120/75; PULSE 78; RESP 16; O2SAT 100
== END 2021-01-17 01:15 | disposition home or self-care (01) ==
PROVIDERS: Emergency Provider Emergency Medicine; PCP Internal Medicine
DX: O20.0 Threatened abortion (principal); O30.001 Twin pregnancy, unspecified number of placenta and unspecified number of amniotic sacs, first trimester; O99.891 Other specified diseases and conditions complicating pregnancy; K21.9 Gastro-esophageal reflux disease without esophagitis; O34.81 Maternal care for other abnormalities of pelvic organs, first trimester; N83.11 Corpus luteum cyst of right ovary; N83.02 Follicular cyst of left ovary; O99.331 Smoking (tobacco) complicating pregnancy, first trimester; F17.210 Nicotine dependence, cigarettes, uncomplicated; Z87.19 Personal history of other diseases of the digestive system; Z3A.01 Less than 8 weeks gestation of pregnancy
CPT/HCPCS: 76817; 81001; 84702; 99282

== ENCOUNTER → 2021-01-26 | Outpatient (CLI) | payer MEDICAID, SELFPAY ==
[2021-01-26 09:26] VITALS: BMI 27.6
[2021-01-29 20:11] LABS: Chlamydia By Nucleic Acid AMP Negative (Negative)
[2021-01-30 08:23] LABS: Gonococcus By Nucleic Acid AMP Negative (Negative)
[2021-02-03 08:18] LABS: HPV APTIMA, High Risk Positive (Negative); HPV Reflexed? YES, CHARGE PATIENT
== END | disposition home or self-care (01) ==
LOC: LABSPEC 17:14
PROVIDERS: PCP Internal Medicine; Visit Provider Obstetrics & Gynecology
DX: Z12.4 Encounter for screening for malignant neoplasm of cervix (principal); Z11.3 Encounter for screening for infections with a predominantly sexual mode of transmission
CPT/HCPCS: 87491; 87591; 87624; 88175; G0145

== ENCOUNTER → 2021-01-30 14:38 | Outpatient (CLI) | payer MEDICAID, SELFPAY ==
[2021-01-26 09:26] VITALS: BMI 27.6
--- NOTE | 2021-01-30 14:41 | US_ITS ---
STUDY: FIRST TRIMESTER OBSTETRICAL ULTRASOUND (TWINS) REASON FOR EXAM: Female, 25 years old. LMP: 11/24/2020. Patient fell down steps. Question well-being. TECHNIQUE: Transvaginal TECHNICAL QUALITY: Adequate. COMPARISON: 01/16/2021. FINDINGS: There are two demonstrated intrauterine gestational sacs. There is a diamniotic dichorionic twin . The amniotic fluid is subjectively within normal limits.. Amniotic membrane was visualized. The estimated gestation age (EGA) by LMP is 9 weeks, days. The estimated date of delivery (BI) by LMP is 08/31/2021.. BABY A The mean sac diameter (MSD) measure 5.1 cm, indicating an estimated gestational age (EGA) of 10 weeks, 6 days. There is a visualized yolk sac. The yolk sac measures 0.48 cm. There is visualization of an embryo. The crown-rump length (CRL) measures 3.26 cm, indicating an estimated gestational age (EGA) of 9 weeks, 4 days. The estimated gestation age (EGA) by US is 10 weeks, 2 days. The estimated date of delivery (BI) by US is 08/26/2021. There is demonstrated cardiac activity with a heart rate 154 bpm. BABY B The mean sac diameter (MSD) measure 3.04 cm, indicating an estimated gestational age (EGA) of 8 weeks, 1 days. There is a visualized yolk sac. The yolk sac measures 12.55 cm. There is visualization of an embryo. The crown-rump length (CRL) measures 3.03 cm, indicating an estimated gestational age (EGA) of weeks, 4 days. The estimated gestation age (EGA) by US is 8 weeks, 6 days. The estimated date of delivery (BI) by US is 09/05/2019. There is demonstrated cardiac activity with a heart rate 164 bpm. MATERNAL ANATOMY The uterus measures 12.5 x 7.9 x 11 cm. There is no demonstrated uterine fibroid. The cervix is closed. The right ovary measures 5.4 x 2.4 x 2.4. There is no right ovarian cyst. There is no visualized right adnexal mass or complex lesion. The left ovary measures 4.7 x 2.8 x 3.3. There are multiple follicles of the left ovary without a dominant cyst. There is no visualized left adnexal mass or complex lesion. There is no fluid in the cul de sac. IMPRESSION: 1. Live intrauterine twin , as above. 2. Baby A demonstrates an estimated gestational age of 10 weeks 2 days with an BI of 08/26/2021. This correlates with the prior ultrasound. heart rate is 154 bpm. 3. Baby B demonstrates an estimated gestational age of 8 weeks, 6 days with an BI of 09/05/2021. This correlates with the prior ultrasound. heart rate is 164 bpm. 4. No evidence of subchorionic hemorrhage or other uterine or ovarian abnormality. Electronically Signed: Blas Vila DO at 16:37 EDT Tel [phone], Service support , STUDY: FIRST TRIMESTER OBSTETRICAL ULTRASOUND (TWINS) REASON FOR EXAM: Female, 25 years old. LMP: 11/24/2020. Patient fell down steps. Question well-being. TECHNIQUE: Transvaginal TECHNICAL QUALITY: Adequate. COMPARISON: 01/16/2021. FINDINGS: There are two demonstrated intrauterine gestational sacs. There is a diamniotic dichorionic twin . The amniotic fluid is subjectively within normal limits.. Amniotic membrane was visualized. The estimated gestation age (EGA) by LMP is 9 weeks, days. The estimated date of delivery (BI) by LMP is 08/31/2021.. BABY A The mean sac diameter (MSD) measure 5.1 cm, indicating an estimated gestational age (EGA) of 10 weeks, 6 days. There is a visualized yolk sac. The yolk sac measures 0.48 cm. There is visualization of an embryo. The crown-rump length (CRL) measures 3.26 cm, indicating an estimated gestational age (EGA) of 9 weeks, 4 days. The estimated gestation age (EGA) by US is 10 weeks, 2 days. The estimated date of delivery (BI) by US is 08/26/2021. There is demonstrated cardiac activity with a heart rate 154 bpm. BABY B The mean sac diameter (MSD) measure 3.04 cm, indicating an estimated gestational age (EGA) of 8 weeks, 1 days. There is a visualized yolk sac. The yolk sac measures 12.55 cm. There is visualization of an embryo. The crown-rump length (CRL) measures 3.03 cm, indicating an estimated gestational age (EGA) of weeks, 4 days. The estimated gestation age (EGA) by US is 8 weeks, 6 days. The estimated date of delivery (BI) by US is 09/05/2019. There is demonstrated cardiac activity with a heart rate 164 bpm. MATERNAL ANATOMY The uterus measures 12.5 x 7.9 x 11 cm. There is no demonstrated uterine fibroid. The cervix is closed. The right ovary measures 5.4 x 2.4 x 2.4. There is no right ovarian cyst. There is no visualized right adnexal mass or complex lesion. The left ovary measures 4.7 x 2.8 x 3.3. There are multiple follicles of the left ovary without a dominant cyst. There is no visualized left adnexal mass or complex lesion. There is no fluid in the cul de sac. US/Transvaginal w/Preg US IMPRESSION: 1. Live intrauterine twin , as above. 2. Baby A demonstrates an estimated gestational age of 10 weeks 2 days with an BI of 08/26/2021. This correlates with the prior ultrasound. heart rate is 154 bpm. 3. Baby B demonstrates an estimated gestational age of 8 weeks, 6 days with an BI of 09/05/2021. This correlates with the prior ultrasound. heart rate is 164 bpm. 4. No evidence of subchorionic hemorrhage or other uterine or ovarian abnormality. Electronically Signed: Blas Vila DO at 16:37 EDT Tel [phone], Service support ,
[2021-01-30 17:37] LABS: Absolute Lymphocyte Count 1.51 X10^3/uL (0.83-4.51); Absolute Neutrophil Count 5.2 X10^3/uL (2.0-7.7); Basophil# 0.03 X10^3/uL; Basophil% 0.4 % (0-1); Eosinophil# 0.47 X10^3/uL; Hematocrit 35.1 % (37-47); Hemoglobin 10.9 g/dL (12.0-15.0); Lymphocyte # 1.51 X10^3/ul (0.83-4.51); Lymphocyte % 19.2 % (19-41); Mean Corp Hgb Conc 31.1 g/dL (32-36); Mean Corpuscular Hgb 25.7 pg (27.0-32.0); Mean Corpuscular Volume 82.8 fL (81-99); Mean Platelet Vol. 10.9 fl (6.2-12.0); Monocyte# 0.58 X10^3/uL; Monocyte% 7.4 % (0-10); NRBC Flagged by Analyzer 0 % (0-5); Neutrophil # 5.23 X10^3/uL (2.7-7.7); Neutrophil % 66.5 % (47-70); Platelet Count 272 K/mm3 (150-450); RBC Distribution Width CV 16.3 % (11.6-14.6); RBC Distribution Width SD 49.3 fl (35.1-43.9); Red Blood Count 4.24 M/mm3 (4.2-5.4); White Blood Count 7.9 K/mm3 (4.4-11.0)
[2021-01-30 18:41] LABS: HIV - WCH Non-Reactive (Nonreactive); Hepatitis B Surface Antigen Non-Reactive (Nonreactive); Hepatitis C Antibody Non-Reactive (Nonreactive); Rubella IgG Reactive (Nonreactive); Syphilis Antibodies Non-reactive
== END ==
PROVIDERS: Obstetrics & Gynecology; PCP Internal Medicine; Referring Provider Nurse Practitioner Women's Health; Visit Provider Nurse Practitioner Women's Health
DX: O09.90 Supervision of high risk pregnancy, unspecified, unspecified trimester (principal); O30.049 Twin pregnancy, dichorionic/diamniotic, unspecified trimester; Z3A.00 Weeks of gestation of pregnancy not specified
CPT/HCPCS: 36415; 76817; 85025; 86703; 86762; 86780; 86803; 86850; 86900; 86901; 87340

== ENCOUNTER 2021-02-07 20:26 | Emergency (ER) | payer MEDICAID, SELFPAY ==
[2021-01-26 09:26] VITALS: BMI 27.6
[2021-02-07 20:27] VITALS: BP 128/70; PULSE 107; RESP 16; TEMP 36.6; O2SAT 98; BMI 27.8
--- NOTE | 2021-02-07 20:41 | EX.ED.DYSGE1 ---
HPI History of Present Illness Chief Complaint: Dizziness Detail of Chief Complaint: Dizziness that started about an hour ago. Informant: patient Narrative Narrative: Patient presents to the emergency department complaint of dizziness after taking a hot shower. Patient states that she started feeling lightheaded and so she sat down for 10 minutes but when she stood she still felt dizzy. She went lay down for another 10 to 15 minutes and she continued to feel dizzy so she presents for evaluation. Patient states that she is 12 weeks with twins. She has had a pelvic ultrasound. She denies abdominal pain or cramping or vaginal bleeding. She denies recent illness. She denies fevers. Prior similar symptoms: No PFSH PFSH Medical History (Updated 02/07/21 @ 22:[address] Ezekiel Pagan, ) Anxiety Back pain Cholelithiasis Chronic cholecystitis Depression GERD (gastroesophageal reflux disease) Hemorrhoids Home Medications -vsbl fum 28 mg iron-folate no.6 1 mg-dha 300 mg capsule 1 cap PO .daily #90 cap 01/07/21 [Rx Last Taken Unknown] ondansetron 4 mg disintegrating tablet 4 mg PO Q4H PRN #60 tab 01/07/21 [Rx Last Taken Unknown] acetaminophen 325 mg capsule 325 mg PO ONCE PRN 01/14/21 [History Last Taken Unknown] Allergy/AdvReac Type Severity Reaction Status Date / Time hydrocodone [From [place]] AdvReac Mild Vomiting Verified 02/07/21 20:29 oxycodone [From Percocet] AdvReac Mild Vomiting Verified 02/07/21 20:29 Family History Brother Asthma Hypertension Mother Asthma Hypertension Clotting disorder malignant hyperthermia--Mother Lupus Fibromyalgia Rheumatoid arthritis Surgical History S/P colonoscopy S/P laparoscopic cholecystectomy (~09/03/17) S/P tonsillectomy and adenoidectomy Social History adopted: No household members: children and other details: 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 current occupational status: employed 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 pets and animals: Yes pets and animals: dog(s) Smoking Status: Current every day smoker tobacco type: cigarettes quit status: considering quitting alcohol intake: former details: not since early 2019 substance use type: does not use caffeine: Yes frequency: 1-2 times per week seatbelt use: always do you feel safe at home: Yes ROS ROS ED ROS Narrative Dizziness Constitutional Constitutional ED: Reports systems reviewed and no addt'l complaints, except as documented; Denies body ache(s), change in weight or chills Eyes Eyes: Denies acute decrease in peripheral vision, change in vision, double vision or loss of vision ENT ENT ED: Reports none; Denies ear pain, lip swelling, loss taste/smell, neck pain, otalgia or sore throat Cardiovascular Cardiovascular: Reports none; Denies abdominal pain, chest pain with activity, leg edema, lightheadedness, palpitations, rapid heart rate or syncope Respiratory/Chest Respiratory/Chest: Reports none; Denies change in mental status, dry cough, dyspnea, hemoptysis, shortness of breath at rest or shortness of breath with exertion Gastrointestinal Gastrointestinal: Reports none; Denies abdominal pain, change in stool character, diarrhea, hematemesis, hematochezia, melena, rectal bleeding or vomiting Genitourinary Genitourinary ED: Reports none; Denies abdominal discomfort, anuria, dysuria, genital pain or polyuria Musculoskeletal Musculoskeletal: Reports none; Denies arthralgias, back pain, difficulty walking, extremity pain, muscle weakness or myalgias Integumentary Reports none; Denies abscess or rash Neurologic Neurologic: Reports none; Denies abnormal gait, confusion, focal weakness, frequent falls, headache(s), loss of vision, numbness, paresthesias, radicular pain, vertigo or weakness Psychiatric Psychiatric: Reports systems reviewed and no addt'l complaints, except as documented and none; Denies behavioral changes, confusion, difficulty concentrating, hallucinations, suicidal ideation, tactile hallucinations or visual hallucinations Endocrine Endocrinology: Denies none, cold intolerance, excessive sweating, fatigue or heat intolerance Hematologic/Lymphatic Hematologic/Lymphatic: Reports none; Denies anemia, easy bleeding or easy bruising Allergic/Immunologic Allergic/Immunologic ED: Denies as per HPI, none, lip swelling, mouth swelling, throat swelling, tongue swelling or hives EXAM Physical Exam Const Vital Signs: 02/07/21 20:27 02/07/21 21:04 02/07/21 21:05 Temperature 98 F Temperature Source Temporal Pulse Rate 107 H Pulse Rate [Lying] 83 Pulse Rate [Sitting] 89 Respiratory Rate 16 Respiratory Effort Normal Non-Labored Blood Pressure 128/70 H Blood Pressure [Lying] 114/70 Blood Pressure [Sitting] 120/81 H Blood Pressure [Standing] 124/76 H Blood Pressure Mean 89 Blood Pressure Mean [Lying] 84 Blood Pressure Mean [Sitting] 94 Blood Pressure Mean [Standing] 92 Pulse Ox 98 Oxygen Delivery Method Room Air Positive well nourished and well developed General Appearance ED: well developed and NAD HEENT Reports TM's clear and moist mucous membranes normocephalic and atraumatic; Negative for trauma or tenderness Tympanic Membrane ED: Yes TM's clear Eyes PERRL and EOMs intact bilaterally General Eye ED: Negative for pale conjunctiva or scleral icterus Neck no lymphadenopathy, supple and no JVD General: Negative for tenderness Chest Wall inspection of chest normal and palpation of chest normal Chest: Negative for tenderness Resp normal respiratory effort and clear to auscultation bilaterally Effort and Inspection: Negative for respiratory distress or pain with movement Auscultation: Negative for rhonchi, wheezes or diminished lung sounds Cardio regular rate, regular rhythm, S1 normal heart sound, S2 normal heart sound and no murmurs Peripheral Pulses: pulses 2+ throughout GI normal to inspection, nondistended, normoactive bowel sounds, soft to palpation, non-tender, non-distended and no masses Back/Spine no CVA tenderness and no thoracic nor lumbar tenderness Extremity normal to inspection General Extremety ED: Negative for edema General Extremity: Negative for edema Neuro oriented x3, CN's II-XII intact bilaterally, no sensory deficits noted and gait normal Sensorium / Orientation: awake, alert, oriented to person, oriented to place and oriented to time Motor Exam: strength 5/5 throughout and strength abnormal Psych mental status grossly normal Skin no rashes or lesions noted and no wounds MDM MDM MDM Narrative Medical decision making narrative: Patient was given a liter normal same fluid bolus. She is essentially asymptomatic currently. I feel she can be safely discharged home. Patient's only 12 weeks and did not feel heart tones would be able to be elicited. She is not having any concerning symptoms of vaginal bleeding or abdominal pain or cramping. Patient advised to follow-up with her [employer] SERVICES LIBRARIAN within next 3 to 5 days. Lab Data Attestation: I reviewed the patient's lab results. Labs: Laboratory Results - last 24 hr 02/07/21 02/07/21 02/07/21 20:40 20:50 20:50 WBC 9.7 RBC 4.26 Hgb 11.0 L Hct 35.1 L MCV 82.4 MCH 25.8 L MCHC 31.3 L RDW Std Deviation 49.9 H RDW Coeff of [place] 16.6 H Plt Count 278 MPV 10.4 Immature Gran % (Auto) 0.300 Neut % (Auto) 67.5 Lymph % (Auto) 19.9 [place] % (Auto) 6.3 Eos % (Auto) 5.6 H Baso % (Auto) 0.4 Absolute Neuts (auto) 6.5 Absolute Lymphs (auto) 1.93 Nucleated RBC % 0 Sodium 135 L Potassium 3.6 Chloride 105 Carbon Dioxide 22.0 Anion Gap 8 BUN 10 Creatinine 0.62 Estim Creat Clear Calc 124.82 Est GFR (MDRD) Af Amer 151 Est GFR (MDRD) Non-Af 124 BUN/Creatinine Ratio 16.2 Glucose 75 Calcium 9.4 Urine Color Yellow Urine Clarity Sl. Cloudy Urine pH 6.0 Ur Specific [place] 1.025 Urine Protein 30 H Urine Glucose (UA) Normal Urine Ketones 5 H Urine Occult Blood 25 H Urine Nitrite Negative Urine Bilirubin Negative Urine Urobilinogen 1 H Ur Leukocyte Esterase 100 H Urine RBC 0 SEEN Urine WBC 0-5 SEEN Ur Squamous Epith Cells 0-5 SEEN Calcium Oxalate Crystal 1+ Urine Bacteria 1+ Hyaline Casts 0-5 SEEN Urine Mucus 1+ Discharge Plan Triage Chief Complaint: Dizziness ED Provider: Ezekiel Pagan Dx/Rx/DC Orders Clinical Impression: Near syncope, Vasovagal episode Instructions: ED Near-Fainting- Vagal Reaction Prescriptions: No Action Prenate DHA 28 mg iron-1 mg -300 mg capsule 1 cap PO .daily Qty: 90 RF: 4 ondansetron 4 mg tablet,disintegrating 4 mg PO Q4H PRN (Reason: nausea and vomiting) Qty: 60 RF: 2 acetaminophen [Tylenol] 325 mg capsule 325 mg PO ONCE PRN (Reason: Pain) RF: 0 Primary Care Provider: Azeb White Referrals: Azeb White MD [Primary Care Provider] - Nicole Brunson MD [STAFF PHYSICIAN] - 3-5 Days Disposition Disposition: Home, Self Care
[2021-02-07 20:54] LABS: Red Blood Cells-Urine 0 SEEN /hpf (0-5)
[2021-02-07] MEDS: 0.9% Normal Saline 1,000 ML 1000 ML IV (20:55)
[2021-02-07 20:56] LABS: Absolute Lymphocyte Count 1.93 X10^3/uL (0.83-4.51); Absolute Neutrophil Count 6.5 X10^3/uL (2.0-7.7); Basophil# 0.04 X10^3/uL; Basophil% 0.4 % (0-1); Eosinophil# 0.54 X10^3/uL; Eosinophils% 5.6 % (0-5); Hematocrit 35.1 % (37-47); Lymphocyte # 1.93 X10^3/ul (0.83-4.51); Lymphocyte % 19.9 % (19-41); Mean Corp Hgb Conc 31.3 g/dL (32-36); Mean Corpuscular Hgb 25.8 pg (27.0-32.0); Mean Corpuscular Volume 82.4 fL (81-99); Mean Platelet Vol. 10.4 fl (6.2-12.0); Monocyte# 0.61 X10^3/uL; Monocyte% 6.3 % (0-10); NRBC Flagged by Analyzer 0 % (0-5); Neutrophil # 6.53 X10^3/uL (2.7-7.7); Neutrophil % 67.5 % (47-70); Platelet Count 278 K/mm3 (150-450); RBC Distribution Width CV 16.6 % (11.6-14.6); RBC Distribution Width SD 49.9 fl (35.1-43.9); Red Blood Count 4.26 M/mm3 (4.2-5.4); White Blood Count 9.7 K/mm3 (4.4-11.0)
[2021-02-07 20:59] LABS: Color, Urine Yellow (Yellow); Glucose, Dipstick Normal (Normal); Ketone-Dipstick 5 mg/dl (Negative); Leukocyte Esterase-Dipstick 100 /ul (Negative); Nitrite-Dipstick Negative (Negative); Occult Blood-Urine 25 /ul (Negative); Protein-Dipstick 30 mg/dl (Negative); Specific Gravity, Urine 1.025 (1.002-1.030); Urine Bilirubin Dipstick Negative (Negative); Urine Clarity Sl. Cloudy (Clear); Urine Urobilinogen 1 mg/dl (Normal)
[2021-02-07 21:04] VITALS: BP 114/70; BP 120/81; BP 124/76; PULSE 83; PULSE 89
[2021-02-07 21:05] LABS: Bacteria 1+ /hpf (None Seen); Calcium Oxalate Crystals Ur 1+ /hpf (<or=2+); Hyaline Cast 0-5 SEEN /lpf (0-5); Mucous, Urine 1+ /hpf (<or=2+); Squamous Epithelial Cells - UA 0-5 SEEN /hpf (5-10); White Blood Cells 0-5 SEEN /hpf (0-5)
[2021-02-07 21:09] LABS: Anion Gap 8 (5-15); BUN 10 mg/dL (7-18); BUN/Creat Ratio 16.2 RATIO (10-20); Calcium,Total 9.4 mg/dL (8.5-10.1); Chloride 105 mmol/L (98-107); Creatinine, Serum 0.62 mg/dL (0.55-1.02); EST Glomerular Filtration Rate 124 mL/min (>60); Est Glom Filt Rate - Afr Amer 151 mL/min (>60); Estimated Creatinine Clearance 124.82 ml/min; Glucose 75 mg/dL (74-106); Potassium 3.6 mmol/L (3.5-5.1); Sodium Level 135 mmol/L (136-145)
[2021-02-07 22:18] VITALS: BP 109/67; PULSE 82; RESP 16; O2SAT 98
== END 2021-02-07 22:19 | disposition home or self-care (01) ==
PROVIDERS: Emergency Provider Emergency Medicine; PCP Internal Medicine
DX: O26.891 Other specified pregnancy related conditions, first trimester (principal); R55 Syncope and collapse; O99.611 Diseases of the digestive system complicating pregnancy, first trimester; K21.9 Gastro-esophageal reflux disease without esophagitis; O30.001 Twin pregnancy, unspecified number of placenta and unspecified number of amniotic sacs, first trimester; O99.331 Smoking (tobacco) complicating pregnancy, first trimester; F17.210 Nicotine dependence, cigarettes, uncomplicated; Z87.19 Personal history of other diseases of the digestive system; Z3A.12 12 weeks gestation of pregnancy
CPT/HCPCS: 80048; 81001; 85025; 96360; 99284; A4216

== ENCOUNTER → 2021-02-10 09:29 | Outpatient (CLI) | payer MEDICAID, SELFPAY ==
[2021-02-10 08:50] VITALS: BMI 27.8
[2021-02-10 10:41] LABS: NATERA MAILED SPECIMEN
== END ==
PROVIDERS: PCP Internal Medicine; Referring Provider Obstetrics & Gynecology; Visit Provider Obstetrics & Gynecology
DX: Z34.81 Encounter for supervision of other normal pregnancy, first trimester (principal)
CPT/HCPCS: 36415

== ENCOUNTER → 2021-06-01 12:39 | Outpatient (CLI) | payer MEDICAID, SELFPAY ==
[2021-06-01 12:55] LABS: Absolute Lymphocyte Count 2.02 X10^3/uL (0.83-4.51); Absolute Neutrophil Count 10.6 X10^3/uL (2.0-7.7); Basophil# 0.03 X10^3/uL; Basophil% 0.2 % (0-1); Eosinophil# 0.32 X10^3/uL; Eosinophils% 2.2 % (0-5); Hematocrit 28.1 % (37-47); Hemoglobin 8.8 g/dL (12.0-15.0); Lymphocyte # 2.02 X10^3/ul (0.83-4.51); Lymphocyte % 14.1 % (19-41); Mean Corp Hgb Conc 31.3 g/dL (32-36); Mean Corpuscular Hgb 25.6 pg (27.0-32.0); Mean Corpuscular Volume 81.7 fL (81-99); Mean Platelet Vol. 10.8 fl (6.2-12.0); Monocyte# 1.11 X10^3/uL; Monocyte% 7.8 % (0-10); NRBC Flagged by Analyzer 0 % (0-5); Neutrophil # 10.59 X10^3/uL (2.7-7.7); Neutrophil % 74.2 % (47-70); Platelet Count 237 K/mm3 (150-450); RBC Distribution Width CV 14.6 % (11.6-14.6); RBC Distribution Width SD 42.6 fl (35.1-43.9); Red Blood Count 3.44 M/mm3 (4.2-5.4); White Blood Count 14.3 K/mm3 (4.4-11.0)
[2021-06-01 13:25] LABS: Glucose Challenge Gest 1H 50g 99 mg/dL (70-140)
== END ==
PROVIDERS: PCP Internal Medicine; Referring Provider Obstetrics & Gynecology; Visit Provider Obstetrics & Gynecology
DX: O09.90 Supervision of high risk pregnancy, unspecified, unspecified trimester (principal); Z13.1 Encounter for screening for diabetes mellitus; Z3A.00 Weeks of gestation of pregnancy not specified
CPT/HCPCS: 36415; 82950; 85025

== ENCOUNTER → 2021-06-05 14:02 | Outpatient (CLI) | payer MEDICAID, SELFPAY ==
--- NOTE | 2021-06-05 14:03 | US_ITS ---
STUDY: SECOND AND THIRD TRIMESTER OBSTETRICAL ULTRASOUND - TWIN REASON FOR EXAM: Female, 25 years old. LMP: 11/21/2020 growth - twins TECHNIQUE: Transabdominal TECHNICAL QUALITY: Adequate. COMPARISON: 01/30/2021 FINDINGS: There are two intrauterine fetuses. Two discrete placenta common consistent with a dichorionic . Placental location for twin A is posterior and not low lying, grade 0. For twin B it is fundal/posterior also grade 0 The amniotic membrane cannot be visualized. There is a normal amniotic fluid volume within each amniotic sac. The uterine wall is normal. There is a competent closed cervical os. The cervix measures 4.3 cm in length. The bilateral adnexal regions are normal. Fetus A demonstrates cardiac activity with a heart rate of 145 bpm. Fetus ?A? is in a cephalic presentation. Fetus B demonstrates cardiac activity with a heart rate of 133 bpm. Fetus B is in a cephalic presentation. FETUS A BIOMETRY: BPD: 7.5 cm: 29 weeks, 6 days HC: 27.2 cm: 29 weeks, 4 days AC: 23.8 cm: 28 weeks, 0 days FL: 5.4 cm: 28 weeks, 2 days age by current US: 28 weeks, 3 days. BI by current US: 08/25/2021. Estimated weight: 1241 grams, +/- 186 grams, 58 %. Age by LMP: 28 weeks, 0 days. BI by LMP: 08/28/2021. FETUS B BIOMETRY: BPD: 7.5 cm: 30 weeks, 0 days HC: 27.1 cm: 29 weeks, 3 days AC: 24 cm: 28 weeks, 1 days FL: 4.9 cm: 26 weeks, 2 days age by current US: 28 weeks, 1 days. BI by current US: 09/24/2021. Estimated weight: 1153 grams, +/- 173 grams, 36 %. Age by LMP: 28 weeks, 0 days. BI by LMP: 08/28/2021. US/OB Limited With Biometrics IMPRESSION: Live twin gestation, twin A measures 28 weeks 3 days, twin B 28 weeks 1 day with heart rate at 145 for twin A and 133 for twin B. No suspicious sonographic findings, BI estimated at 08/25/2021 Electronically Signed: Vasile Loya MD at 16:33 EST , Service support ,
== END ==
PROVIDERS: PCP Internal Medicine; Referring Provider Obstetrics & Gynecology; Visit Provider Obstetrics & Gynecology
DX: O09.90 Supervision of high risk pregnancy, unspecified, unspecified trimester (principal); O30.049 Twin pregnancy, dichorionic/diamniotic, unspecified trimester; Z3A.00 Weeks of gestation of pregnancy not specified
CPT/HCPCS: 76816

== ENCOUNTER 2021-06-22 12:45 | Outpatient (CLI) | payer MEDICAID, SELFPAY ==
[2021-06-22] VITALS (17 sets, daily range): BP systolic 109–120; BP diastolic 65–71; PULSE 86–192; RESP 16–18; TEMP 36.6–37.2; O2SAT 93–98; BMI 33.4
[2021-06-22] MEDS: Magnesium Sulfate 4gm/100mL 4 GM/100 ML IV.SOLN. IV (13:47)
[2021-06-22 13:49] LABS: Absolute Neutrophil Count 7.5 X10^3/uL (2.0-7.7); Basophil# 0.02 X10^3/uL; Basophil% 0.2 % (0-1); Eosinophils% 3.8 % (0-5); Hematocrit 23.1 % (37-47); Hemoglobin 7.1 g/dL (12.0-15.0); Mean Corp Hgb Conc 30.7 g/dL (32-36); Mean Corpuscular Hgb 24.6 pg (27.0-32.0); Mean Corpuscular Volume 79.9 fL (81-99); Mean Platelet Vol. 10.9 fl (6.2-12.0); Monocyte# 0.71 X10^3/uL; Monocyte% 6.7 % (0-10); NRBC Flagged by Analyzer 0 % (0-5); Neutrophil # 7.46 X10^3/uL (2.7-7.7); Neutrophil % 70.5 % (47-70); Platelet Count 196 K/mm3 (150-450); RBC Distribution Width CV 14.8 % (11.6-14.6); RBC Distribution Width SD 42.9 fl (35.1-43.9); Red Blood Count 2.89 M/mm3 (4.2-5.4); White Blood Count 10.6 K/mm3 (4.4-11.0)
[2021-06-22] MEDS: Lactated Ringers 1,000 ML 50 ML IV (13:50)
[2021-06-22 14:00] LABS: Fibrinogen 480 mg/dl (203-444)
[2021-06-22] MEDS: Betamethasone/Betamethasone 30 MG/5 ML Vial 12 MG IM (14:00)
[2021-06-22] MEDS: 0.9% Saline Lock 10 ML Syringe IV ×3 (14:00→15:41)
[2021-06-22] MEDS: Indomethacin 25 MG Capsule 50 MG PO (14:01)
[2021-06-22 14:07] LABS: Amphetamine Urine VISTA NEGATIVE (<1000 ng/mL); Barbiturate Urine VISTA NEGATIVE (< 200 ng/mL); Benzodiazepine Urine VISTA NEGATIVE (< 200 ng/mL); Cocaine Urine VISTA NEGATIVE (< 300 ng/mL); Ecstacy Urine VISTA NEGATIVE (< 500 ng/mL); Methadone Urine VISTA NEGATIVE (< 300 ng/mL); PCP Urine VISTA NEGATIVE (< 25 ng/mL); THC Urine VISTA NEGATIVE (< 50 ng/mL); Vista UDS pH Range 7
--- NOTE | 2021-06-22 14:09 | OB.TRI.HP_ITS ---
HPI - General HPI Narrative MARLON QUINTERO, is a 25 F who presents with ctx and pelvic pressure. she was seen in office a few days ago with some pressure but no ctx, was .5-1 thick and high, posterior, now has made change to 50/-2.. Ctx are irregular on the monitor. positioning is vertex transverse. Maternal Data Information BI Calculator Estimated Delivery Date Method Current WG Current Estimate 08/28/21 Ultrasound #1 30w 3d Other Estimates 06/22/21 LMP (Uncertain) 40w 0d # 2 PFSH PFSH Medical History (Updated 06/22/21 @ 14:[address] Nicole Brunson MD) Anxiety Back pain Cholelithiasis Chronic cholecystitis Depression GERD (gastroesophageal reflux disease) Hemorrhoids Home Medications [id number] fum 28 mg iron-folate no.6 1 mg-dha 300 mg capsule 1 cap PO .daily #90 cap 01/07/21 [Rx Last Taken 06/21/21] acetaminophen 325 mg capsule 325 mg PO ONCE PRN 01/14/21 [History Last Taken Unknown] ondansetron 4 mg disintegrating tablet 4 mg PO Q4H PRN #60 tab 04/08/21 [Rx Last Taken Unknown] Allergy/AdvReac Type Severity Reaction Status Date / Time hydrocodone [From [place]] AdvReac Mild Vomiting Verified 06/15/21 11:32 oxycodone [From Percocet] AdvReac Mild Vomiting Verified 06/15/21 11:32 Family History Brother Asthma Hypertension Mother Asthma Hypertension Clotting disorder malignant hyperthermia--Mother Lupus Fibromyalgia Rheumatoid arthritis Surgical History S/P colonoscopy S/P laparoscopic cholecystectomy (~09/03/17) S/P tonsillectomy and adenoidectomy Social History adopted: No household members: children and other details: 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 Date Name GA/Weeks Outcome Route Bth Weight Gen Labor Lgth Anesthesia Del Locatn Provider FOB 01/11/15 Dennis 38 live - full term 7LB 8 OZ Male 10 ep idural [facility] S[facility]IE 08/10/17 Rex 38 live - full term 5lbs 9oz 4 hours epidural [facility] SM 09/07/18 Juan M ( SIDS) 35 live - M hetal epidural [facility] Dr. Nicole Brunson Delivery Date: 01/11/15 No issues during or delivery. [place] Delivery Date: 08/10/17 No issues during or delivery. [place] Delivery Date: 09/07/18 labor abruption; preeclampsia with severe features Chanel Gonzales Visit Details Expected Delivery Route/Plan if vtx vtx by 37 Labor Preferences- CB/BF classes: [] labor support person: [] labor intervention preferences: [] pain management options preferred: [] cut cord/dad catch: [] : [] PP control planned: [] discussed possible routes of delivery and associated risks: [] special requests: [] Plans Covid status: counseled regarding risk of covid in vs vaccination and declined vaccination Flu vaccine: declined Tdap vaccine: declined Rhogam: na LARC form signed: [] Problem list reviewed and updated with the most current plan of care details and appropriate orders placed. Relevant counseling for the gestational age provided. Continue routine care and follow up unless otherwise noted in visit notes/problem list details OB Flowsheet Initial Weight: Not Recorded Date -?-?-?-?-?--?-?-?-?-?-?-?- EGA Weight BP Urine Prot -?-?-?-?-?-?-?-?-?-?-?-?- Glucose FHR FuHt Pres Dilation -?-?-?-?-?-?-?-?-?-?-?-?- Effaced St Visit Note 01/14/21 -?-?-?-?-?-?-?-?-?-?-?-?- 7w 5d 166 lb 120/72 -?-?-?-?-?-?-?-?-?-?-?-?- A -?-?-?-?-?-?-?-?-?-?-?-?- B A -?-?-?-?-?-?-?-?-?-?-?-?- B -?-?-?-?-?-?-?-?-?-?-?-?- A -?-?-?-?-?-?-?-?-?-?-?-?- B A GP - work in for spotting. Prior US showed twins. Paz live IUP with vanishing twin noted on US GP - work in for spotting. Nohemi tidwell US showed twins. Paz live IUP with vanishing twin noted on US. CRL consistent with prior US. -?-?-?-?-?-?-?-?-?-?-?-?- B 01/26/21 -?-?-?-?-?-?-?-?-?-?-?-?- 9w 3d 171 lb 120/80 -?-?-?-?-?-?-?-?-?-?-?-?- A 175 -?-?-?-?-?-?-?-?-?-?-?-?- B 175 A -?-?-?-?-?-?-?-?-?-?-?-?- B -?-?-?-?-?-?-?-?-?-?-?-?- A -?-?-?-?-?-?-?-?-?-?-?-?- B A SM- no vb crampi ng, thick dividing membrane, sac for B smaller than A, A measuring 9w6d B measuring 9w0d. -?-?-?-?-?-?-?-?-?-?-?-?- B 02/10/21 -?-?-?-?-?-?-?-?-?-?-?-?- 11w 4d 170 lb 102/66 Negative -?-?-?-?-?-?-?-?-?-?-?-?- Negative A 160 -?-?-?-?-?-?-?-?-?-?-?-?- B 157 A -?-?-?-?-?-?-?-?-?-?-?-?- B -?-?--?-?-?-?-?-?-?-?-?-?- A -?-?-?-?-?-?-?-?-?-?-?-?- B A SM- no vb crampi dontrell yi done -?-?-?-?-?-?-?-?-?-?-?-?- B 02/23/21 -?-?-?-?-?-?-?-?-?-?-?-?- 13w 3d 166 lb 6 oz 130/72 -?-?-?-?-?-?-?-?-?-?-?-?- A 157 -?-?-?-?-?-?-?-?-?-?-?-?- B 144 A -?-?-?-?-?-?-?-?-?-?-?-?- B -?-?-?-?--?-?-?-?-?-?-?-?- A -?-?-?-?-?-?-?-?-?-?-?-?- B A GP - no cramping or bleeding. +FM. Anatomy ordered. -?-?-?-?-?-?-?-?-?-?-?-?- B 04/08/21 -?-?-?-?-?--?-?-?-?-?-?-?- 19w 5d Negative -?-?-?-?-?-?-?-?-?-?-?-?- Negative A 120 -?-?-?-?-?-?-?-?-?-?-?-?- B 135 A Cephalic -?-?-?-?-?-?-?-?-?-?-?-?- B Cephalic -?-?-?-?-?-?-?-?-?-?-?-?- A -?-?-?-?-?-?-?-?-?-?-?-?- B A GP - no ctx, LOF , VB, DFM. Anatomy scheduled next week. GP - no ctx, LOF, VB, DFM. A natomy scheduled next week. Discussed management of sciatica -?-?-?-?-?-?-?-?-?-?-?-?- B 06/01/21 -?-?-?-?-?-?-?-?-?-?-?-?- 27w 3d 191 lb 122/50 -?-?-?--?-?-?-?-?-?-?-?-?- A 145 -?-?-?-?-?-?-?-?-?-?-?-?- B 140 A -?-?-?-?-?-?-?-?-?-?-?-?- B -?-?-?-?-?-?-?-?-?-?-?-?- A -?-?-?-?-?-?-?-?-?-?--?-?- B A SM- no vb lof go od fm nor egular ctx cbc gct now -?-?-?-?-?-?-?-?-?-?-?-?- B 06/15/21 -?-?-?-?-?-?-?-?-?-?-?-?- 29w 3d 196 lb 8 oz 118/72 Nega tive -?-?-?-?-?-?-?-?-?-?-?-?- Negative A 155 -?-?-?-?-?-?-?-?-?-?-?-?- B 155 A -?-?-?-?-?-?-?-?-?-?-?-?- B 1 -?-?-?-?-?-?-?-?-?-?-?-?- 0 A -4 -?-?-?-?-?-?-?-?-?-?-?-?- B A SM- no vb lof go od fm irregular ctx -?-?-?-?-?-?-?-?-?-?-?-?- B 06/22/21 -?-?-?-?-?-?-?-?-?-?-?-?- 30w 3d 200 lb 13.458 oz 118 /70 120/71 120/71 109/65 115/71 -?-?-?-?-?-?-?-?-?-?-?-?- A -?-?-?-?-?-?-?-?-?-?-?-?- B A -?-?-?-?-?-?-?-?-?-?-?-?- B -?-?-?-?-?-?-?-?-?-?-?-?- A -?-?-?-?-?-?-?-?-?-?-?-?- B A -?-?-?-?-?-?-?-?-?-?-?-?- B ROS Constitutional Constitutional: Reports systems reviewed and no addt'l complaints, except as documented and as per HPI ENT HEENT: Reports systems reviewed and no addt'l complaints, except as documented Cardiovascular Cardiovascular: Reports systems reviewed and no addt'l complaints, except as documented Respiratory/Chest Respiratory/Chest: Reports systems reviewed and no addt'l complaints, except as documented Gastrointestinal Gastrointestinal: Reports as per HPI Genitourinary Genitourinary: Reports as per HPI Musculoskeletal Musculoskeletal: Reports systems reviewed and no addt'l complaints, except as documented Integumentary Integumentary: Reports systems reviewed and no addt'l complaints, except as documented Neurologic Neurologic: Reports systems reviewed and no addt'l complaints, except as documented Physical Exam Const alert, oriented x3 and no apparent distress HEENT Head and Scalp: normocephalic and atraumatic Neck full ROM and no lymphadenopathy Chest inspection of chest normal Resp normal respiratory effort GI GI Narrative: gravid, abdomen nontender, AGA Manual OB Exam: dilated, effaced and station NST FHR Rate Baby A Baseline: 140 Variability:: Moderate Accelerations:: 15 x 15 Decelerations:: None NST Reactive:: Yes FHR Category:: Category I FHR Rate Baby B Baseline: 140 Variability:: Moderate Accelerations:: 15 x 15 Decelerations:: None NST Reactive:: Yes FHR Category:: Category I Uterine Activity:: irregular Assessment & Plan (1) Anemia affecting : COMMENT: needs IV Venofer (2) Dichorionic diamniotic twin gestation: COMMENT: 06/05 growth US nl, low risk NIPT fraternal twins female and male (3) Nausea/vomiting in : COMMENT: Rx zofran (4) Social discord: COMMENT: Divorce pending. (5) Supervision of high risk , antepartum: COMMENT: PRR Girl/Boy PC:Rex Collins Owen(dec SIDS) FOB not involved (6) : QUALIFIERS: Weeks of gestation: 29 weeks Qualified Code(s): Z3A.29 - 29 weeks gestation of COMMENT: declines carrier and genetic screen (7) Currently in first trimester with unknown date of last menstrual period: COMMENT: US ordered (8) Dysthymia: COMMENT: stable (9) labor: COMMENT: transport to [facility], Indocin, celestone, Magnesium sulfate, ampicillin. cbc, cmp, tox, gbs collected PLAN: see PL comments Dr Gamino accepting transfer Charges/Coding Multi Select Codes Visit Charges Office Visit/Consults: 75381 OV L3 Est Urinary/Genital Urinary/Genital CPT Codes: 03649-92 non-stress test Interp
[2021-06-22] MEDS: Magnesium Sulfate 4gm/100mL 2 GM/50 ML IV.SOLN. IV (14:10)
[2021-06-22] MEDS: Magnesium Sulfate 20 GM/500 ML BAG IV (14:23)
[2021-06-22 14:28] LABS: ALB/GLOB Ratio 0.6 RATIO (0.9-2.4); AST(SGOT) 16 U/L (15-37); Alanine Aminotransfer ALT/SGPT 17 U/L (13-56); Albumin, Serum 2.3 g/dL (3.2-5.0); Alkaline Phosphatase 83 U/L (45-117); Anion Gap 12 (5-15); BUN 4 mg/dL (7-18); BUN/Creat Ratio 6.9 RATIO (10-20); Calcium,Total 8.9 mg/dL (8.5-10.1); Chloride 107 mmol/L (98-107); Creatinine, Serum 0.58 mg/dL (0.55-1.02); EST Glomerular Filtration Rate 134 mL/min (>60); Est Glom Filt Rate - Afr Amer 162 mL/min (>60); Estimated Creatinine Clearance 133.42 ml/min; Globulin 3.7 g/dL (2.2-4.2); Glucose 86 mg/dL (74-106); Potassium 3.3 mmol/L (3.5-5.1); Sodium Level 142 mmol/L (136-145)
[2021-06-22 15:10] LABS: Group B Strep DNA By PCR Negative (Negative); Internal Control PASS; Probe Check PASS; Specimen Processing Control PASS
--- NOTE | 2021-06-29 14:49 | NURSING ---
Documented on the eMAR to document LR & Magnesium Sulfate as infused for charge purposes. Documentation of infusing during transport was on the medical screening exam.
== END 2021-06-22 15:44 | disposition home or self-care (01) ==
LOC: WPOUT 12:53 → WP 12:53
PROVIDERS: PCP Internal Medicine; Visit Provider Obstetrics & Gynecology
DX: O60.03 Preterm labor without delivery, third trimester (principal); O30.043 Twin pregnancy, dichorionic/diamniotic, third trimester; O99.013 Anemia complicating pregnancy, third trimester; O09.293 Supervision of pregnancy with other poor reproductive or obstetric history, third trimester; D64.9 Anemia, unspecified; O99.333 Smoking (tobacco) complicating pregnancy, third trimester; F17.210 Nicotine dependence, cigarettes, uncomplicated; Z3A.29 29 weeks gestation of pregnancy
CPT/HCPCS: 96361; 96365; 96368; 36415; 59025; 59050; 76815; 80053; 80307; 85025; 85384; 87081; 87426; 87653; 96372; 99218; J7120; A4216; G0378; J0702

== ENCOUNTER → 2021-07-03 13:59 | Outpatient (CLI) | payer MEDICAID, SELFPAY ==
--- NOTE | 2021-07-03 14:07 | US_ITS ---
STUDY: SECOND AND THIRD TRIMESTER OBSTETRICAL ULTRASOUND - LIMITED REASON FOR EXAM: Female, 25 years old. growth PRIOR ULTRASOUND: 06.05.21 TECHNIQUE: Transabdominal TECHNICAL QUALITY: Adequate. FINDINGS: There is a twin intrauterine fetus. Fetus A: Fetus ?A? is in a cephalic presentation. There is demonstrated cardiac activity with a heart rate of 132 bpm. There is a normal amniotic fluid volume. The largest amniotic fluid pocket measures 3.4 cm. The placenta is posterior in location and is not low lying. There are Grade 0 placental changes. The cervix measures cm in length: 3.6. BIOMETRY: BPD: 85 mm: 34 weeks, 0 days HC: 302 mm: 33 weeks, 3 days AC: 272 mm: 31 weeks, 2 days FL: 61 mm: 31 weeks, 3 days CI: 82 FL/AC: 22 FL/BPD: 71 HC/AC: 1.11 age by current US: 32 weeks, 2 days. BI by current US: 2.9.22. Estimated weight: 1861 grams, +/- 279 grams, 36 %. age by prior US: 32 weeks, 3 days. BI by prior US: 2.8.22. Age by LMP: 32 weeks, 0 days. BI by LMP: 2.11.22. Fetus B: Fetus B is in a cephalic presentation. There is demonstrated cardiac activity with a heart rate of 132 bpm. There is a normal amniotic fluid volume. The largest amniotic fluid pocket measures 3.1 cm. The placenta is posterior in location and is not low lying. There are Grade 0 placental changes. The cervix measures cm in length: 3.6. BIOMETRY: BPD: 86 mm: 34 weeks, 5 days HC: 299 mm: 33 weeks, 1 days AC: 256 mm: 29 weeks, 6 days FL: 56 mm: 29 weeks, 5 days CI: 87 FL/AC: 22 FL/BPD: 65 HC/AC: 1.16 age by current US: 31 weeks, 3 days. BI by current US: 2.15.22. Estimated weight: 1612 grams, +/- 242 grams, 9.41 %. age by prior US: 32 weeks, 1 days. BI by prior US: 2.10.22. Age by LMP: 32 weeks, 0 days. BI by LMP: 2.11.22. IMPRESSION: There is a twin live intrauterine . Fetus A: Fetus A demonstrates cardiac activity with a heart rate of 132 bpm. age by current US: 32 weeks, 2 days. BI by current US: 2.9.22. Estimated weight: 1861 grams, +/- 279 grams, 36 %. Fetus B: Fetus B demonstrates cardiac activity with a heart rate of 132 bpm. age by current US: 31 weeks, 3 days. BI by current US: 2.15.22. Estimated weight: 1612 grams, +/- 242 grams, 9.41 %. EFW is less than 10%. Intrauterine growth restriction (IUGR) or Small for gestational age (SGA) should be considered. Electronically Signed: Fawad Castellano MD at 21:29 EST , Service support , STUDY: SECOND AND THIRD TRIMESTER OBSTETRICAL ULTRASOUND - LIMITED REASON FOR EXAM: Female, 25 years old. growth PRIOR ULTRASOUND: 06.05.21 TECHNIQUE: Transabdominal TECHNICAL QUALITY: Adequate. FINDINGS: There is a twin intrauterine fetus. Fetus A: Fetus ?A? is in a cephalic presentation. There is demonstrated cardiac activity with a heart rate of 132 bpm. There is a normal amniotic fluid volume. The largest amniotic fluid pocket measures 3.4 cm. The placenta is posterior in location and is not low lying. There are Grade 0 placental changes. The cervix measures cm in length: 3.6. BIOMETRY: BPD: 85 mm: 34 weeks, 0 days HC: 302 mm: 33 weeks, 3 days AC: 272 mm: 31 weeks, 2 days FL: 61 mm: 31 weeks, 3 days CI: 82 FL/AC: 22 FL/BPD: 71 HC/AC: 1.11 age by current US: 32 weeks, 2 days. BI by current US: 2.9.22. Estimated weight: 1861 grams, +/- 279 grams, 36 %. age by prior US: 32 weeks, 3 days. BI by prior US: 2.8.22. Age by LMP: 32 weeks, 0 days. IB by LMP: 2.11.22. Fetus B: Fetus B is in a cephalic presentation. There is demonstrated cardiac activity with a heart rate of 132 bpm. There is a normal amniotic fluid volume. The largest amniotic fluid pocket measures 3.1 cm. The placenta is posterior in location and is not low lying. There are Grade 0 placental changes. The cervix measures cm in length: 3.6. BIOMETRY: BPD: 86 mm: 34 weeks, 5 days HC: 299 mm: 33 weeks, 1 days AC: 256 mm: 29 weeks, 6 days FL: 56 mm: 29 weeks, 5 days CI: 87 FL/AC: 22 FL/BPD: 65 HC/AC: 1.16 age by current US: 31 weeks, 3 days. BI by current US: 2.15.22. Estimated weight: 1612 grams, +/- 242 grams, 9.41 %. age by prior US: 32 weeks, 1 days. BI by prior US: 2.10.22. Age by LMP: 32 weeks, 0 days. BI by LMP: 2.11.22. US/OB Limited With Biometrics
== END ==
LOC: OPUS 14:00 → US 14:05
PROVIDERS: PCP Internal Medicine; Referring Provider Obstetrics & Gynecology; Visit Provider Obstetrics & Gynecology
DX: O09.90 Supervision of high risk pregnancy, unspecified, unspecified trimester (principal); O30.049 Twin pregnancy, dichorionic/diamniotic, unspecified trimester; Z3A.00 Weeks of gestation of pregnancy not specified
CPT/HCPCS: 76816

== ENCOUNTER → 2021-07-16 14:27 | Outpatient (CLI) | payer MEDICAID, SELFPAY ==
--- NOTE | 2021-07-16 14:33 | US_ITS ---
STUDY: OBSTETRICAL ULTRASOUND - BIOPHYSICAL PROFILE REASON FOR EXAM: Female, 25 years old. well being PRIOR ULTRASOUND: Jul 03 2021 2:14pm TECHNIQUE: Transabdominal TECHNICAL QUALITY: Adequate. FINDINGS: There is a twin intrauterine fetus. Fetus A: Fetus A is in a cephalic presentation. There is demonstrated cardiac activity with a heart rate of 135 bpm. There is a normal amniotic fluid volume. The largest amniotic fluid pocket measures 5 cm. The placenta is anterior in location and is not low lying. Cervical length of 38 mm. . Age by LMP: 33 weeks, 6 days. BI by LMP: 2.11.22. BIOPHYSICAL PROFILE: Breathing Movements (FBM): 2 Gross Body Movements (GBM): 2 Tone (FT): 2 Amniotic Fluid Volume (AFV): 2 TOTAL SCORE: 8 / 8 Fetus B: Fetus B is in an transverse lie with the head on the maternal left side. There is demonstrated cardiac activity with a heart rate of 134 bpm. There is a normal amniotic fluid volume. The largest amniotic fluid pocket measures 5.7cm. The placenta is anterior in location and is not low lying. Cervical length of 38 mm. Age by LMP: 33 weeks, 6 days. BI by LMP: 2.11.22. BIOPHYSICAL PROFILE: Breathing Movements (FBM): 2 Gross Body Movements (GBM): 2 Tone (FT): 2 Amniotic Fluid Volume (AFV): 2 TOTAL SCORE: 8 / 8 IMPRESSION: Fetus A and B: Normal biophysical profile of 8/8. There is a twin intrauterine fetus. Fetus A: with a heart rate of 135 bpm. Fetus B: with a heart rate of 134 bpm. Age by LMP: 33 weeks, 6 days. BI by LMP: 2.11.22. Electronically Signed: Fawad Castellano MD at 16:30 EST , Service support , STUDY: OBSTETRICAL ULTRASOUND - BIOPHYSICAL PROFILE REASON FOR EXAM: Female, 25 years old. well being PRIOR ULTRASOUND: Jul 03 2021 2:14pm TECHNIQUE: Transabdominal TECHNICAL QUALITY: Adequate. FINDINGS: There is a twin intrauterine fetus. Fetus A: Fetus A is in a cephalic presentation. There is demonstrated cardiac activity with a heart rate of 135 bpm. There is a normal amniotic fluid volume. The largest amniotic fluid pocket measures 5 cm. The placenta is anterior in location and is not low lying. Cervical length of 38 mm. . Age by LMP: 33 weeks, 6 days. BI by LMP: 2.11.22. BIOPHYSICAL PROFILE: Breathing Movements (FBM): 2 Gross Body Movements (GBM): 2 Tone (FT): 2 Amniotic Fluid Volume (AFV): 2 TOTAL SCORE: 8 / 8 Fetus B: Fetus B is in an transverse lie with the head on the maternal left side. There is demonstrated cardiac activity with a heart rate of 134 bpm. There is a normal amniotic fluid volume. The largest amniotic fluid pocket measures 5.7cm. The placenta is anterior in location and is not low lying. Cervical length of 38 mm. Age by LMP: 33 weeks, 6 days. BI by LMP: 2.11.22. BIOPHYSICAL PROFILE: Breathing Movements (FBM): 2 Gross Body Movements (GBM): 2 Tone (FT): 2 Amniotic Fluid Volume (AFV): 2 TOTAL SCORE: 8 / 8 US/Biophysical Prof W/O Non Stres
== END ==
PROVIDERS: PCP Internal Medicine; Visit Provider Obstetrics & Gynecology
DX: O36.5990 Maternal care for other known or suspected poor fetal growth, unspecified trimester, not applicable or unspecified (principal)
CPT/HCPCS: 76819

== ENCOUNTER 2021-07-23 18:25 | Outpatient (CLI) | payer MEDICAID, SELFPAY ==
[2021-07-23 18:36] VITALS: TEMP 36.8
[2021-07-23 18:37] VITALS: BP 104/61; PULSE 88
[2021-07-23 18:38] VITALS: BMI 34.2
[2021-07-23 19:27] VITALS: BP 124/81; PULSE 91; TEMP 37.1; O2SAT 97
--- NOTE | 2021-07-23 20:50 | OB.TRI.NOTE ---
HPI - General HPI Narrative MARLON QUINTERO, is a 25 @ 34 weeks 6 days who presents to L&D on07/23/2021 with the complaint of pelvic pressure pressure. She was examined in the office yesterday and the week prior and was 4.5-5 cm dilated without contractions and baby a was not engaged the the cervix. She is carrying a di/di twin and both of the fetus' are in the cephalic presentation. Baby has has IUGR and she is ordered to have twice weekly bpp's due to inability to make appts with MFM for follow up scans. Maternal Data Information BI Calculator Estimated Delivery Date Method Current WG Current Estimate 08/28/21 Ultrasound #1 35w 2d Other Estimates 06/22/21 LMP (Uncertain) 44w 6d # 2 PFSH PFSH Medical History (Updated 07/26/21 @ 03:[address] Janelle Christie, DO) Anxiety Back pain Cholelithiasis Chronic cholecystitis Depression GERD (gastroesophageal reflux disease) Hemorrhoids Home Medications [id number] fum 28 mg iron-folate no.6 1 mg-dha 300 mg capsule 1 cap PO .daily #90 cap 01/07/21 [Rx Last Taken 07/23/21] acetaminophen 325 mg capsule 325 mg PO ONCE PRN 01/14/21 [History Last Taken Unknown] ondansetron 4 mg disintegrating tablet 4 mg PO Q4H PRN #60 tab 04/08/21 [Rx Last Taken Unknown] Allergy/AdvReac Type Severity Reaction Status Date / Time hydrocodone [From [place]] AdvReac Mild Vomiting Verified 07/22/21 11:54 oxycodone [From Percocet] AdvReac Mild Vomiting Verified 07/22/21 11:54 Family History Brother Asthma Hypertension Mother Asthma Hypertension Clotting disorder malignant hyperthermia--Mother Lupus Fibromyalgia Rheumatoid arthritis Surgical History S/P colonoscopy S/P laparoscopic cholecystectomy (~09/03/17) S/P tonsillectomy and adenoidectomy Social History adopted: No household members: children and other details: 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 number of children: 2 current occupational status: employed 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 Date Name GA/Weeks Outcome Route Bth Weight Gen Labor Lgth Anesthesia Del Locatn Provider FOB 01/11/15 Dennis 38 live - full term 7LB 8 OZ Male 10 epidural H SUSIE 08/10/17 Rex 38 live - full term 5lbs 9oz 4 hours epidural [facility] SM 09/07/18 Juan M ( SIDS) 35 live - Male epidural [facility] Dr. Nicole Brunson Delivery Date: 01/11/15 No issues during or delivery. [place] Delivery Date: 08/10/17 No issues during or delivery. [place] Delivery Date: 09/07/18 labor abruption; preeclampsia with severe features Chanel Gonzales Visit Details Expected Delivery Route/Plan if vtx vtx by 37 Labor Preferences- CB/BF classes: [] labor support person: [] labor intervention preferences: [] pain management options preferred: [] cut cord/dad catch: [] : [] PP control planned: [] discussed possible routes of delivery and associated risks: [] special requests: [] Plans Covid status: counseled regarding risk of covid in vs vaccination and declined vaccination Flu vaccine: declined Tdap vaccine: declined Rhogam: na LARC form signed: [] Problem list reviewed and updated with the most current plan of care details and appropriate orders placed. Relevant counseling for the gestational age provided. Continue routine care and follow up unless otherwise noted in visit notes/problem list details OB Flowsheet Initial Weight: Not Recorded Date <del>?</del> EGA Weight BP Urine Prot <del>?</del> Glucose FHR FuHt Pres Dilation <del>?</del> Effaced St Visit Note 01/14/21 <del>?</del> 7w 5d 166 lb 120/72 <del>?</del> A <del>?</del> B A <del>?</del> B <del>?</del> A <del>?</del> B A GP - work in for spotting. Prior US showed twins. Paz live IUP with vanishing twin noted on US GP - work in for spotting. Prior US showed twins. Paz live IUP with vanishing twin noted on US. CRL consistent with prior US. <del>?</del> B 01/26/21 <del>?</del> 9w 3d 171 lb 120/80 <del>?</del> A 175 <del>?</del> B 175 A <del>?</del> B <del>?</del> A <del>?</del> B A SM- no vb cramping, thick dividing membrane, sac for B smaller than A, A measuring 9w6d B measuring 9w0d. <del>?</del> B 02/10/21 <del>?</del> 11w 4d 170 lb 102/66 Negative <del>?</del> Negative A 160 <del>?</del> B 157 A <del>?</del> B <del>?</del> A <del>?</del> B A SM- no vb cramping, nipt done <del>?</del> B 02/23/21 <del>?</del> 13w 3d 166 lb 6 oz 130/72 <del>?</del> A 157 <del>?</del> B 144 A <del>?</del> B <del>?</del> A <del>?</del> B A GP - no cramping or bleeding. +FM. Anatomy ordered. <del>?</del> B 04/08/21 <del>?</del> 19w 5d Negative <del>?</del> Negative A 120 <del>?</del> B 135 A Cephalic <del>?</del> B Cephalic <del>?</del> A <del>?</del> B A GP - no ctx, LOF, VB, DFM. Anatomy scheduled next week. GP - no ctx, LOF, VB, DFM. Anatomy scheduled next week. Discussed management of sciatica <del>?</del> B 06/01/21 <del>?</del> 27w 3d 191 lb 122/50 <del>?</del> A 145 <del>?</del> B 140 A <del>?</del> B <del>?</del> A <del>?</del> B A SM- no vb lof good fm nor egular ctx cbc gct now <del>?</del> B 06/15/21 <del>?</del> 29w 3d 196 lb 8 oz 118/72 Negative <del>?</del> Negative A 155 <del>?</del> B 155 A <del>?</del> B 1 <del>?</del> 0 A -4 <del>?</del> B A SM- no vb lof good fm irregular ctx <del>?</del> B 06/22/21 <del>?</del> 30w 3d 200 lb 13.458 oz 118/70 120/71 120/71 109/65 111/65 115/71 115/71 114/68 114/68 114/67 114/67 111/65 111/65 <del>?</del> A <del>?</del> B A <del>?</del> B <del>?</del> A <del>?</del> B A <del>?</del> B 06/26/21 <del>?</del> 31w 0d 201 lb 102/66 Negative <del>?</del> Negative A 135 <del>?</del> B 135 35 A Cephalic <del>?</del> B Cephalic 3 <del>?</del> 60 A -2 <del>?</del> B A SM- no vb lof good fm x 2, no more pelvic pressure or regular ctx, discharged from [facility], stable <del>?</del> B 06/30/21 <del>?</del> 31w 4d 197 lb 132/80 <del>?</del> A 150 <del>?</del> B 150 A <del>?</del> B <del>?</del> A <del>?</del> B A SM- no vb lof good fm no regular ctx or pelvic pressure <del>?</del> B 07/08/21 <del>?</del> 32w 5d 198 lb 130/80 Negative <del>?</del> Negative A 126 <del>?</del> B 131 A Cephalic <del>?</del> B Cephalic 4 <del>?</del> 50 A -2 <del>?</del> B A JV- no lof, vaginal bleeding, or dec fm. labor precautions discussed <del>?</del> B baby a 36th% baby b 9th% -to see mfm tuesday07/16/21 <del>?</del> 33w 6d 202 lb 4 oz 128/80 Negative <del>?</del> Negative A 135 <del>?</del> B 135 A <del>?</del> B 4 <del>?</del> A <del>?</del> B A SM- no vb lof good fm stil having irregular ctx. patient declining seeing mfm in [place], discussed increased mortality rate if not having proper screening. discussed twice weekly bpps, kick counts etc. <del>?</del> B 07/22/21 <del>?</del> 34w 5d 208 lb 122/88 <del>?</del> A 138 <del>?</del> B 141 A Cephalic <del>?</del> B Cephalic 5 <del>?</del> 70 A -2 <del>?</del> B A JV- ballotable baby a presentation and patient appears comfortabe. incidental bpp on babies performed at bedside today were 02/22. formal scan for bpp is on Tuesday due to IUGR. pt is still moderately anemic (Hg7) will 7set up for iron infusion if patient is willing. <del>?</del> B 07/23/21 <del>?</del> 34w 6d 206 lb 2.115 oz 104/61 124/81 <del>?</del> A <del>?</del> B A <del>?</del> B <del>?</del> A <del>?</del> B A <del>?</del> B ROS Constitutional Constitutional: Reports systems reviewed and no addt'l complaints, except as documented Gastrointestinal Gastrointestinal: Denies bloating, constipation, cramping, diarrhea, nausea or vomiting Genitourinary Genitourinary: Reports other Details: Denies vaginal odor, vaginal bleeding, or vaginal discharge ; Denies difficulty urinating or flank pain Physical Exam HEENT normocephalic Resp normal respiratory effort and normal air movement no CVA tenderness Amniotic Fluid: other cx unchanged from exam in the office yesterday and there are no contractions on the monitor Extremity normal to inspection General Extremity: edema bilateral (trace ) NST FHR Rate Baby A Baseline: 130 Variability:: Moderate Accelerations:: 15 x 15 Decelerations:: None NST Reactive:: Yes FHR Category:: Category I FHR Rate Baby B Baseline: 130 Variability:: Moderate Accelerations:: 15 x 15 Decelerations:: None NST Reactive:: Yes Assessment & Plan (1) IUGR (intrauterine growth restriction) affecting care of mother: COMMENT: BABY B- MFM referral faxed 07/06/21. (2) labor: COMMENT: s/p steroids at 30 weeks. stable 3 cm AT 30 weeks, and 34 weeks 4-5 cm (3) Tobacco use affecting in third trimester, antepartum: COMMENT: vaping, encouraed cessation (4) Anemia affecting : COMMENT: recommended IV Venofer, repeat cbc first week July still showed moderate anemia. recommend 2nd infusion series if still able to get this prior to delivery. (5) Dichorionic diamniotic twin gestation: COMMENT: 06/05 growth US nl, low risk NIPT fraternal twins female and male now has IUGR twin B (6) Supervision of high risk , antepartum: COMMENT: PRR Girl/Boy PC:Rex Collins Owen(dec SIDS) FOB not involved (7) Dysthymia: COMMENT: stable (8) Atypical squamous cell changes of undetermined significance (ASCUS) on cervical cytology with positive high risk human papilloma virus (HPV): COMMENT: 10/2019 ASCUS, neg HPV. Pap in 2020 needed (9) : QUALIFIERS: Weeks of gestation: 34 weeks Qualified Code(s): Z3A.34 - 34 weeks gestation of COMMENT: declines carrier and genetic screen; GBS neg PLAN: False labor twin gestation with reassuring tracing x 2. keep BPP appt tomorrow. Return if further concerns for worsening pressure or contractions. will follow closely. Charges/Coding Multi Select Codes Visit Charges Office Visit/Consults: 73943 OV L3 Est Urinary/Genital Urinary/Genital CPT Codes: 81707-00 non-stress test Interp
--- NOTE | 2021-07-23 20:50 | OB.TRI.HP_ITS ---
HPI - General HPI Narrative MARLON QUINTERO, is a 25 @ 34 weeks 6 days who presents to L&D on07/23/2021 with the complaint of pelvic pressure pressure. She was examined in the office yesterday and the week prior and was 4.5-5 cm dilated without contractions and baby a was not engaged the the cervix. She is carrying a di/di twin and both of the fetus' are in the cephalic presentation. Baby has has IUGR and she is ordered to have twice weekly bpp's due to inability to make appts with MFM for follow up scans. Maternal Data Information BI Calculator Estimated Delivery Date Method Current WG Current Estimate 08/28/21 Ultrasound #1 35w 2d Other Estimates 06/22/21 LMP (Uncertain) 44w 6d # 2 PFSH PFSH Medical History (Updated 07/26/21 @ 03:[address] Janelle Christie, DO) Anxiety Back pain Cholelithiasis Chronic cholecystitis Depression GERD (gastroesophageal reflux disease) Hemorrhoids Home Medications [id number] fum 28 mg iron-folate no.6 1 mg-dha 300 mg capsule 1 cap PO .daily #90 cap 01/07/21 [Rx Last Taken 07/23/21] acetaminophen 325 mg capsule 325 mg PO ONCE PRN 01/14/21 [History Last Taken Unknown] ondansetron 4 mg disintegrating tablet 4 mg PO Q4H PRN #60 tab 04/08/21 [Rx Last Taken Unknown] Allergy/AdvReac Type Severity Reaction Status Date / Time hydrocodone [From [place]] AdvReac Mild Vomiting Verified 07/22/21 11:54 oxycodone [From Percocet] AdvReac Mild Vomiting Verified 07/22/21 11:54 Family History Brother Asthma Hypertension Mother Asthma Hypertension Clotting disorder malignant hyperthermia--Mother Lupus Fibromyalgia Rheumatoid arthritis Surgical History S/P colonoscopy S/P laparoscopic cholecystectomy (~09/03/17) S/P tonsillectomy and adenoidectomy Social History adopted: No household members: children and other details: 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 number of children: 2 current occupational status: employed 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 Date Name GA/Weeks Outcome Route Bth Weight Gen Labor Lgth Anesthesia Del Locatn Provider FOB 01/11/15 Dennis 38 live - full term 7LB 8 OZ Male 10 ep idural [facility] SUSIE 08/10/17 Rex 38 live - full term 5lbs 9oz 4 hours epidural [facility] 09/07/18 Juan M ( SIDS) 35 live - M hetal epidural [facility] Dr. Nicole Brunson Delivery Date: 01/11/15 No issues during or delivery. Luiza Gutierrezh Delivery Date: 08/10/17 No issues during or delivery. Luiza Gutierrezh Delivery Date: 09/07/18 labor abruption; preeclampsia with severe features Chanel Gonzales Visit Details Expected Delivery Route/Plan if vtx vtx by 37 Labor Preferences- CB/BF classes: [] labor support person: [] labor intervention preferences: [] pain management options preferred: [] cut cord/dad catch: [] : [] PP control planned: [] discussed possible routes of delivery and associated risks: [] special requests: [] Plans Covid status: counseled regarding risk of covid in vs vaccination and declined vaccination Flu vaccine: declined Tdap vaccine: declined Rhogam: na LARC form signed: [] Problem list reviewed and updated with the most current plan of care details and appropriate orders placed. Relevant counseling for the gestational age provided. Continue routine care and follow up unless otherwise noted in visit notes/problem list details OB Flowsheet Initial Weight: Not Recorded Date -?-?-?-?-?-?-?-?-?-?-?-?- EGA Weight BP Urine Prot -?-?-?-?-?-?-?-?-?-?-?-?- Glucose FHR FuHt Pres Dilation -?-?-?-?-?-?-?-?-?-?-?-?- Effaced St Visit Note 01/14/21 -?-?-?-?-?-?-?-?-?-?-?-?- 7w 5d 166 lb 120/72 -?-?-?-?-?-?-?-?-?-?-?-?- A -?-?-?-?-?-?-?-?-?-?-?-?- B A -?-?-?-?-?-?-?-?-?-?-?-?- B -?-?-?-?-?-?-?-?-?-?-?-?- A -?-?-?-?-?-?-?-?-?-?-?-?- B A GP - work in for spotting. Prior US showed twins. Paz live IUP with vanishing twin noted on US GP - work in for spotting. P rior US showed twins. Paz live IUP with vanishing twin noted on US. CRL consistent with prior US. -?-?-?-?-?-?-?-?-?-?-?-?- B 01/26/21 -?-?-?-?-?-?-?-?-?-?-?-?- 9w 3d 171 lb 120/80 -?-?-?-?-?-?-?-?-?-?-?-?- A 175 -?-?-?-?-?-?-?-?-?-?-?-?- B 175 A -?-?-?-?-?-?-?-?-?-?-?-?- B -?-?-?-?-?-?-?-?-?-?-?-?- A -?-?-?-?-?-?-?-?-?-?-?-?- B A SM- no vb crampi ng, thick dividing membrane, sac for B smaller than A, A measuring 9w6d B measuring 9w0d. -?-?-?-?-?-?-?-?-?-?-?-?- B 02/10/21 -?-?-?-?-?-?-?-?-?-?-?-?- 11w 4d 170 lb 102/66 Negative -?-?-?-?-?-?-?-?-?-?-?-?- Negative A 160 -?-?-?-?-?-?-?-?-?-?-?-?- B 157 A -?-?-?-?-?-?-?-?-?-?-?-?- B -?-?-?-?-?-?-?-?-?-?-?-?- A -?-?-?-?-?-?-?-?-?-?-?-?- B A SM- no vb crampi ng nipt done -?-?-?-?-?-?-?-?-?-?-?-?- B 02/23/21 -?-?-?-?-?-?-?-?-?-?-?-?- 13w 3d 166 lb 6 oz 130/72 -?-?-?-?-?-?-?-?-?-?-?-?- A 157 -?-?-?-?-?-?-?-?-?-?-?-?- B 144 A -?-?-?-?-?-?-?-?-?-?-?-?- B -?-?-?-?-?-?-?-?-?-?-?-?- A -?-?-?-?-?-?-?-?-?-?-?-?- B A GP - no cramping or bleeding. +FM. Anatomy ordered. -?-?-?-?-?-?-?-?-?-?-?-?- B 04/08/21 -?-?-?-?-?-?-?-?-?-?-?-?- 19w 5d Negative -?-?-?-?-?-?-?-?-?-?-?-?- Negative A 120 -?-?-?-?-?-?-?-?-?-?-?-?- B 135 A Cephalic -?-?-?-?-?-?-?-?-?-?-?-?- B Cephalic -?-?-?-?-?-?-?-?-?-?-?-?- A -?-?-?-?-?-?-?-?-?-?--?-?- B A GP - no ctx, LOF , VB, DFM. Anatomy scheduled next week. GP - no ctx, LOF, VB, DFM. A natomy scheduled next week. Discussed management of sciatica -?-?-?-?-?-?-?-?-?-?-?-?- B 06/01/21 -?-?-?-?-?-?-?-?-?-?-?-?- 27w 3d 191 lb 122/50 -?-?-?-?-?-?-?-?-?-?-?-?- A 145 -?-?-?-?-?-?-?-?-?-?-?-?- B 140 A -?-?-?-?-?-?-?-?-?-?-?-?- B -?-?-?-?-?-?-?-?-?-?-?-?- A -?-?-?-?-?-?-?-?-?-?-?-?- B A SM- no vb lof go od fm nor egular ctx cbc gct now -?-?-?--?-?-?-?-?-?-?-?-?- B 06/15/21 -?-?-?-?-?-?-?-?-?-?-?-?- 29w 3d 196 lb 8 oz 118/72 Nega tive -?-?-?-?-?-?-?-?-?-?-?-?- Negative A 155 -?-?-?-?-?-?-?--?-?-?-?-?- B 155 A -?-?-?-?-?-?-?-?-?-?-?-?- B 1 -?-?-?-?-?-?-?-?-?-?-?-?- 0 A -4 -?-?-?-?-?-?-?-?-?-?-?-?- B A SM- no vb lof go od fm irregular ctx -?-?-?-?-?-?-?-?-?-?-?-?- B 06/22/21 -?-?-?-?-?-?-?-?-?-?-?-?- 30w 3d 200 lb 13.458 oz 118 /70 120/71 120/71 109/65 111/65 115/71 115/71 114/68 114/68 114/67 114/67 111/65 111/65 -?-?-?-?-?-?-?-?-?-?-?-?- A -?-?-?-?-?-?-?-?-?-?-?-?- B A -?-?-?-?-?-?-?-?-?-?-?-?- B -?-?-?-?-?-?--?-?-?-?-?-?- A -?-?-?-?-?-?-?-?-?-?-?-?- B A -?-?-?-?-?-?-?-?-?-?-?-?- B 06/26/21 -?-?-?-?-?-?-?-?-?-?-?-?- 31w 0d 201 lb 102/66 Negative -?-?-?-?-?-?-?-?-?-?-?-?- Negative A 135 -?-?-?-?-?-?-?-?-?-?-?-?- B 135 35 A Cephalic -?-?-?-?-?-?-?-?-?-?-?-?- B Cephalic 3 -?-?-?--?-?-?-?-?-?-?-?-?- 60 A -2 -?-?-?-?-?-?-?-?-?-?-?-?- B A SM- no vb lof go od fm x 2, no more pelvic pressure or regular ctx, discharged from [facility], stable -?--?-?-?-?-?-?-?-?-?-?-?- B 06/30/21 -?-?-?-?-?-?-?-?-?-?-?-?- 31w 4d 197 lb 132/80 -?-?-?-?-?-?-?-?-?-?-?-?- A 150 -?-?-?-?-?-?-?-?-?-?-?-?- B 150 A -?-?-?-?-?-?-?-?-?-?-?-?- B -?-?-?-?-?-?-?-?-?-?-?-?- A -?-?-?-?-?-?-?-?-?-?-?-?- B A SM- no vb lof go od fm no regular ctx or pelvic pressure -?-?-?-?-?-?-?-?-?-?-?-?- B 07/08/21 -?-?-?-?-?-?-?-?-?-?-?-?- 32w 5d 198 lb 130/80 Negative -?-?-?-?-?-?-?-?-?-?-?-?- Negative A 126 -?-?-?-?-?-?-?-?-?-?-?-?- B 131 A Cephalic -?-?-?-?-?-?-?-?-?-?-?-?- B Cephalic 4 -?-?-?-?-?-?-?-?-?-?-?-?- 50 A -2 -?-?-?-?-?-?-?-?-?-?-?-?- B A JV- no lof, vagi nal bleeding, or dec fm. labor precautions discussed -?-?-?-?-?-?-?-?-?-?-?-?- B baby a 36th% baby b 9th% -to see mfm tuesday07/16/21 -?-?-?-?-?--?-?-?-?-?-?-?- 33w 6d 202 lb 4 oz 128/80 Nega tive -?-?-?-?-?-?-?-?-?-?-?-?- Negative A 135 -?-?-?-?-?-?-?-?-?-?-?-?- B 135 A -?-?-?-?-?-?-?-?-?-?--?-?- B 4 -?-?-?-?-?-?-?-?-?-?-?-?- A -?-?-?-?-?-?-?-?-?-?-?-?- B A SM- no vb lof go od fm stil having irregular ctx. patient declining seeing mfm in [place], discussed increased mortality rate if not having proper screening. discussed twice weekly bpps, kick counts etc. -?-?-?-?-?-?-?-?-?-?-?-?- B 07/22/21 -?-?-?-?-?-?--?-?-?-?-?-?- 34w 5d 208 lb 122/88 -?-?-?-?-?-?-?-?-?-?-?-?- A 138 -?-?-?-?-?-?-?-?-?-?-?-?- B 141 A Cephalic -?-?-?-?-?-?-?-?-?-?-?-?- B Cephalic 5 -?-?-?-?-?-?-?-?-?-?-?-?- 70 A -2 -?-?-?-?-?-?-?-?-?-?-?-?- B A JV- ballotable b alex a presentation and patient appears comfortabe. incidental bpp on babies performed at bedside today were 02/22. formal scan for bpp is on Tuesday due to IUGR. pt is still moderately anemic (Hg7) will 7set up for iron infusion if patient is willing. -?-?-?-?-?--?-?-?-?-?-?-?- B 07/23/21 -?-?-?-?-?-?-?-?-?-?-?-?- 34w 6d 206 lb 2.115 oz 104/ 61 124/81 -?-?-?-?-?-?-?-?-?-?-?-?- A -?-?-?-?-?-?-?-?-?-?-?-?- B A -?-?-?-?-?-?-?-?-?-?-?-?- B -?-?-?-?-?-?-?-?-?-?-?-?- A -?-?-?-?-?-?-?-?-?-?-?-?- B A -?-?-?-?-?-?-?-?-?-?-?-?- B ROS Constitutional Constitutional: Reports systems reviewed and no addt'l complaints, except as documented Gastrointestinal Gastrointestinal: Denies bloating, constipation, cramping, diarrhea, nausea or vomiting Genitourinary Genitourinary: Reports other Details: Denies vaginal odor, vaginal bleeding, or vaginal discharge ; Denies difficulty urinating or flank pain Physical Exam HEENT normocephalic Resp normal respiratory effort and normal air movement no CVA tenderness Amniotic Fluid: other cx unchanged from exam in the office yesterday and there are no contractions on the monitor Extremity normal to inspection General Extremity: edema bilateral (trace ) NST FHR Rate Baby A Baseline: 130 Variability:: Moderate Accelerations:: 15 x 15 Decelerations:: None NST Reactive:: Yes FHR Category:: Category I FHR Rate Baby B Baseline: 130 Variability:: Moderate Accelerations:: 15 x 15 Decelerations:: None NST Reactive:: Yes Assessment & Plan (1) IUGR (intrauterine growth restriction) affecting care of mother: COMMENT: BABY B- MFM referral faxed 07/06/21. (2) labor: COMMENT: s/p steroids at 30 weeks. stable 3 cm AT 30 weeks, and 34 weeks 4-5 cm (3) Tobacco use affecting in third trimester, antepartum: COMMENT: vaping, encouraed cessation (4) Anemia affecting : COMMENT: recommended IV Venofer, repeat cbc first week July still showed moderate anemia. recommend 2nd infusion series if still able to get this prior to delivery. (5) Dichorionic diamniotic twin gestation: COMMENT: 06/05 growth US nl, low risk NIPT fraternal twins female and male now has IUGR twin B (6) Supervision of high risk , antepartum: COMMENT: PRR Girl/Boy PC:Rex Collins Owen(dec SIDS) FOB not involved (7) Dysthymia: COMMENT: stable (8) Atypical squamous cell changes of undetermined significance (ASCUS) on cervical cytology with positive high risk human papilloma virus (HPV): COMMENT: 10/2019 ASCUS, neg HPV. Pap in 2020 needed (9) : QUALIFIERS: Weeks of gestation: 34 weeks Qualified Code(s): Z3A.34 - 34 weeks gestation of COMMENT: declines carrier and genetic screen; GBS neg PLAN: False labor twin gestation with reassuring tracing x 2. keep BPP appt tomorrow. Return if further concerns for worsening pressure or contractions. will follow closely. Charges/Coding Multi Select Codes Visit Charges Office Visit/Consults: 16791 OV L3 Est Urinary/Genital Urinary/Genital CPT Codes: 73031-63 non-stress test Interp
== END 2021-07-23 23:59 | disposition home or self-care (01) ==
LOC: WPOUT 18:35 → WP 18:35
PROVIDERS: PCP Internal Medicine; Visit Provider Obstetrics & Gynecology
DX: O26.893 Other specified pregnancy related conditions, third trimester (principal); R10.2 Pelvic and perineal pain; Z3A.34 34 weeks gestation of pregnancy; O30.043 Twin pregnancy, dichorionic/diamniotic, third trimester; O99.613 Diseases of the digestive system complicating pregnancy, third trimester; K21.9 Gastro-esophageal reflux disease without esophagitis; O36.5931 Maternal care for other known or suspected poor fetal growth, third trimester, fetus 1; O99.333 Smoking (tobacco) complicating pregnancy, third trimester; F17.290 Nicotine dependence, other tobacco product, uncomplicated; O09.93 Supervision of high risk pregnancy, unspecified, third trimester
CPT/HCPCS: 59025; 59050; 99218; G0378

== ENCOUNTER 2021-08-03 14:40 | Outpatient (CLI) | payer MEDICAID, SELFPAY ==
[2021-08-03] VITALS (9 sets, daily range): BP systolic 125–128; BP diastolic 76–83; PULSE 90–127; TEMP 36.7–36.9; O2SAT 97–99; BMI 34.7
--- NOTE | 2021-08-03 15:08 | US_ITS ---
Refer to twin gestation ultrasound Electronically Signed: Yaron Bales MD at 17:32 EST Tel , Service support , STUDY: SECOND AND THIRD TRIMESTER OBSTETRICAL ULTRASOUND - TWIN REASON FOR EXAM: Female, 26 years old. LMP: 11/21/2020 Twins: fall and IUGR TECHNIQUE: Transabdominal TECHNICAL QUALITY: Adequate. COMPARISON: 07/16/2021 FINDINGS: There are two intrauterine fetuses. Two discrete placenta common consistent with a dichorionic . Placenta is posterior and fundal. The amniotic membrane cannot be visualized. There is a normal amniotic fluid volume within each amniotic sac. The uterine wall is normal. There is a competent closed cervical os. The cervix measures cm in length. Fetus A demonstrates external genitalia. Fetus A demonstrates cardiac activity with a heart rate of 153 bpm. Fetus ?A? is in a cephalic presentation. Fetus B demonstrates external genitalia. Fetus B demonstrates cardiac activity with a heart rate of bpm. Fetus B is in a cephalic presentation. FETUS A BIOMETRY: BPD: 9.2 cm: 37 weeks, 2 days HC: 33.3 cm: 38 weeks, 0 days AC: 32.1 cm: 36 weeks, 0 days FL: 7.0 cm: 36 weeks, 0 days CI: 80.67 FL/BPD: 76.7 FL/HC: 21.07 FL/AC: 21.89 HC/AC: 1.04 age by current US: 37 weeks, 2 days. BI by current US: 08/22/2021. Estimated weight: 2930 grams, +/- 440 grams, 52 %. Age by LMP: 36 weeks, 3 days. BI by LMP: 08/28/2021. FETUS B BIOMETRY: BPD: 9.2 cm: 37 weeks, 3 days HC: 33.2 cm: 37 weeks, 5 days AC: 29.9 cm: 33 weeks, 6 days FL: 6.5 cm: 33 weeks, 2 days CI: 81.86 FL/BPD: 70.19 FL/HC: 19.54 FL/AC: 21.65 HC/AC: 1.11 age by current US: 36 weeks, 0 days. BI by current US: 08/31/2021. Estimated weight: 2437 grams, +/- 366 grams, 11 %. Age by LMP: 36 weeks, 3 days. BI by LMP: 08/28/2021. US/OB Limited With Biometrics IMPRESSION: Normal intrauterine . Electronically Signed: Yaron Bales MD at 17:31 EST Tel , Service support ,
--- NOTE | 2021-08-03 17:29 | OB.TRI.PN ---
Progress Notes Date of Service: 08/03/21 Progress Note: Patient presents for triage evaluation secondary to fall onto buttox FHT: a 130 b 120 Moderate variability reactive no decelerations category I tracing Maish Vaya: no regular Contractions Assessment and plan: s/p fall modified bpp WNL Reactive NST x 2, reassuring maternal and status patient discharged to home to follow-up . See problem list details for additional plan information. Charges/Coding Procedures Urinary/Genital [id number]: [id number] non-stress test Interp
[2021-08-03 18:04] LABS: Color, Urine Yellow (Yellow); Glucose, Dipstick Normal (Normal); Ketone-Dipstick 5 mg/dl (Negative); Leukocyte Esterase-Dipstick Negative /ul (Negative); Nitrite-Dipstick Negative (Negative); Occult Blood-Urine Negative /ul (Negative); Protein-Dipstick Negative (Negative); Specific Gravity, Urine 1.015 (1.002-1.030); Urine Bilirubin Dipstick Negative (Negative); Urine Clarity Clear (Clear); Urine Urobilinogen Normal (Normal)
[2021-08-03 18:15] LABS: Protein, Urine (Random) 13.6 mg/dL (<11.9); Protein:Creat Ratio 334 mg/g CRE (0-200)
[2021-08-03 19:32] LABS: Hematocrit 26.2 % (37-47); Hemoglobin 7.9 g/dL (12.0-15.0); Mean Corp Hgb Conc 30.2 g/dL (32-36); Mean Corpuscular Hgb 23.7 pg (27.0-32.0); Mean Corpuscular Volume 78.7 fL (81-99); Mean Platelet Vol. 10.9 fl (6.2-12.0); Platelet Count 199 K/mm3 (150-450); RBC Distribution Width CV 16.6 % (11.6-14.6); RBC Distribution Width SD 46.4 fl (35.1-43.9); Red Blood Count 3.33 M/mm3 (4.2-5.4); White Blood Count 10.4 K/mm3 (4.4-11.0)
[2021-08-03 19:51] LABS: ALB/GLOB Ratio 0.6 RATIO (0.9-2.4); AST(SGOT) 22 U/L (15-37); Alanine Aminotransfer ALT/SGPT 14 U/L (13-56); Albumin, Serum 2.4 g/dL (3.2-5.0); Alkaline Phosphatase 116 U/L (45-117); Anion Gap 9 (5-15); BUN 6 mg/dL (7-18); Calcium,Total 9.1 mg/dL (8.5-10.1); Chloride 108 mmol/L (98-107); Creatinine, Serum 0.46 mg/dL (0.55-1.02); EST Glomerular Filtration Rate 174 mL/min (>60); Est Glom Filt Rate - Afr Amer 210 mL/min (>60); Estimated Creatinine Clearance 166.77 ml/min; Glucose 76 mg/dL (74-106); Potassium 3.7 mmol/L (3.5-5.1); Protein, Total 6.4 g/dL (6.4-8.2); Sodium Level 138 mmol/L (136-145)
== END 2021-08-03 23:59 | disposition home or self-care (01) ==
LOC: WPOUT 14:45 → WP 14:45
PROVIDERS: PCP Internal Medicine; Visit Provider Obstetrics & Gynecology
DX: Z34.90 Encounter for supervision of normal pregnancy, unspecified, unspecified trimester (principal); Z04.3 Encounter for examination and observation following other accident
CPT/HCPCS: 59025; 80053; 85027; 76816 ×2; 84156; G0378 ×2; 59050 ×2; 82570; 81002; 99218

== ENCOUNTER 2021-08-05 00:38 | Inpatient (IN) | payer MEDICAID, SELFPAY ==
[2021-08-05] VITALS (51 sets, daily range): BP systolic 106–148; BP diastolic 55–96; PULSE 70–110; RESP 16–18; TEMP 36.3–37.1; O2SAT 88–100; BMI 35.0
[2021-08-05] MEDS: Lactated Ringers 1,000 ML 200 ML IV (01:00)
[2021-08-05 01:48] LABS: Absolute Lymphocyte Count 1.78 X10^3/uL (0.83-4.51); Absolute Neutrophil Count 8.2 X10^3/uL (2.0-7.7); Basophil# 0.03 X10^3/uL; Basophil% 0.3 % (0-1); Eosinophil# 0.29 X10^3/uL; Eosinophils% 2.6 % (0-5); Hematocrit 25.3 % (37-47); Hemoglobin 7.6 g/dL (12.0-15.0); Lymphocyte # 1.78 X10^3/ul (0.83-4.51); Lymphocyte % 16.1 % (19-41); Mean Corpuscular Hgb 23.6 pg (27.0-32.0); Mean Corpuscular Volume 78.6 fL (81-99); Mean Platelet Vol. 10.7 fl (6.2-12.0); Monocyte# 0.65 X10^3/uL; Monocyte% 5.9 % (0-10); NRBC Flagged by Analyzer 0 % (0-5); Neutrophil # 8.24 X10^3/uL (2.7-7.7); Neutrophil % 74.6 % (47-70); Platelet Count 199 K/mm3 (150-450); RBC Distribution Width CV 16.6 % (11.6-14.6); RBC Distribution Width SD 46.3 fl (35.1-43.9); Red Blood Count 3.22 M/mm3 (4.2-5.4); White Blood Count 11.1 K/mm3 (4.4-11.0)
[2021-08-05] MEDS: fentaNYL-bupivacaine (epidural) 100 ML BAG EPIDURAL (02:25)
[2021-08-05] MEDS: Lactated Ringers 500 ML 999 ML IV (04:50)
[2021-08-05] MEDS: Sodium Citrate/Citric Acid 30 ML UDC PO (05:18)
--- NOTE | 2021-08-05 05:20 | HP.PCM.OB_ITS ---
HPI - General General Date of Admission: 08/05/21 HPI Narrative MARLON QUINTERO, is a 26 F who presents IAL 5-6 cm dilated no vb lof admits good fm. she has had a complicated by twins and iugr of baby B and has not been compliant with testing. Maternal Data Information BI Calculator Estimated Delivery Date Method Current WG Current Estimate 08/28/21 Ultrasound #1 36w 5d Other Estimates 06/22/21 LMP (Uncertain) 46w 2d # 2 PFSH PFSH Medical History (Updated 08/05/21 @ 01:28 by Rosalind Rosales) Anxiety Back pain Cholelithiasis Chronic cholecystitis Depression GERD (gastroesophageal reflux disease) Hemorrhoids History of prior with IUGR HPV (human papilloma virus) infection Home Medications acetaminophen 325 mg capsule 325 mg PO ONCE PRN 01/14/21 [History Last Taken 08/04/21] multivit 57-blpm-esqdmm 6-dha [Prenate DHA] 1 cap PO .daily 08/03/21 [History Last Taken 08/04/21] Allergy/AdvReac Type Severity Reaction Status Date / Time hydrocodone [From [place]] AdvReac Mild Vomiting Verified 08/03/21 15:27 oxycodone [From Percocet] AdvReac Mild Vomiting Verified 08/03/21 15:27 Family History Brother Asthma Hypertension Mother Asthma Hypertension Clotting disorder malignant hyperthermia--Mother Lupus Fibromyalgia Rheumatoid arthritis Surgical History S/P colonoscopy S/P laparoscopic cholecystectomy (~09/03/17) S/P tonsillectomy and adenoidectomy Social History adopted: No household members: children and other details: children 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 number of children: 2 current occupational status: employed 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 Date Name GA/Weeks Outcome Route Bth Weight Gen Labor Lgth Anesthesia Del Locatn Provider FOB 01/11/15 Dennis 38 live - full term 7LB 8 OZ Male 10 ep idural [facility] SUSIE 08/10/17 Rex 38 live - full term 5lbs 9oz 4 hours epidural [facility] SM 09/07/18 Juan M ( SIDS) 35 live - M hetal epidural [facility] Dr. Nicole Brunson Delivery Date: 01/11/15 No issues during or delivery. Matt[facility] Delivery Date: 08/10/17 No issues during or delivery. [place] Delivery Date: 09/07/18 labor abruption; preeclampsia with severe features Chanel Gonzales Visit Details Expected Delivery Route/Plan if vtx vtx by 37 Labor Preferences- CB/BF classes: [] labor support person: [] labor intervention preferences: [] pain management options preferred: [] cut cord/dad catch: [] : [] PP control planned: [] discussed possible routes of delivery and associated risks: [] special requests: [] Plans Covid status: counseled regarding risk of covid in vs vaccination and declined vaccination Flu vaccine: declined Tdap vaccine: declined Rhogam: na LARC form signed: [] Problem list reviewed and updated with the most current plan of care details and appropriate orders placed. Relevant counseling for the gestational age provided. Continue routine care and follow up unless otherwise noted in visit notes/problem list details OB Flowsheet Initial Weight: Not Recorded Date -?-?-?-?-?-?-?-?-?-?-?-?- EGA Weight BP Urine Prot -?-?-?-?-?-?-?-?-?-?-?-?- Glucose FHR FuHt Pres Dilation -?-?--?-?-?-?-?-?-?-?-?-?- Effaced St Visit Note 01/14/21 -?-?-?-?-?-?-?-?-?-?-?-?- 7w 5d 166 lb 120/72 -?-?-?-?-?-?-?-?-?-?-?-?- A -?-?-?-?-?-?-?-?-?-?-?-?- B A -?-?-?-?-?-?-?-?-?-?-?-?- B -?-?-?-?-?-?-?-?-?-?-?-?- A -?-?-?-?-?-?-?-?-?-?-?-?- B A GP - work in for spotting. Prior US showed twins. Paz live IUP with vanishing twin noted on US GP - work in for spotting. P diann US showed twins. Paz live IUP with vanishing twin noted on US. CRL consistent with prior US. -?-?-?-?-?-?-?-?-?-?-?-?- B 01/26/21 -?-?-?-?-?-?-?-?-?-?-?-?- 9w 3d 171 lb 120/80 -?-?-?-?-?-?-?-?-?-?-?-?- A 175 -?-?-?-?-?-?-?-?-?-?-?-?- B 175 A -?-?-?-?-?-?-?-?-?-?-?-?- B -?-?-?-?-?-?-?-?-?-?-?-?- A -?-?-?-?-?-?-?-?-?-?-?-?- B A SM- no vb cracarmeni ng, thick dividing membrane, sac for B smaller than A, A measuring 9w6d B measuring 9w0d. -?-?-?-?-?-?-?-?-?-?-?-?- B 02/10/21 -?-?-?-?-?-?-?-?-?-?-?-?- 11w 4d 170 lb 102/66 Negative -?-?-?-?-?-?-?-?-?-?-?-?- Negative A 160 -?-?-?-?-?-?-?-?-?-?-?-?- B 157 A -?-?-?-?-?-?-?-?-?-?-?-?- B -?-?-?-?-?-?-?-?-?-?-?-?- A -?-?-?-?-?-?-?-?-?-?-?-?- B A SM- no vb crampi dontrell yi done -?-?-?-?-?-?-?-?-?-?-?-?- B 02/23/21 -?-?-?-?-?-?-?-?-?-?-?-?- 13w 3d 166 lb 6 oz 130/72 -?-?-?-?-?-?-?-?-?-?-?-?- A 157 -?-?-?-?-?-?-?-?-?-?-?-?- B 144 A -?-?--?-?-?-?-?-?-?-?-?-?- B -?-?-?-?-?-?-?-?-?-?-?-?- A -?-?-?-?-?-?-?-?-?-?-?-?- B A GP - no cramping or bleeding. +FM. Anatomy ordered. -?-?-?-?-?-?-?-?-?-?-?-?- B 04/08/21 -?-?-?-?-?-?-?-?-?-?-?-?- 19w 5d Negative -?-?-?-?-?-?-?-?-?-?-?-?- Negative A 120 -?-?-?-?-?-?-?-?-?-?-?-?- B 135 A Cephalic -?-?-?-?-?-?-?-?-?-?-?-?- B Cephalic -?-?-?-?-?-?-?-?-?-?-?-?- A -?-?-?-?-?-?-?-?-?-?-?-?- B A GP - no ctx, LOF , VB, DFM. Anatomy scheduled next week. GP - no ctx, LOF, VB, DFM. A natomy scheduled next week. Discussed management of sciatica -?-?-?-?-?-?-?-?-?-?-?-?- B 06/01/21 -?-?-?-?-?-?-?-?-?-?-?-?- 27w 3d 191 lb 122/50 -?-?-?-?-?-?-?-?-?-?-?-?- A 145 -?-?-?-?-?-?-?-?-?-?-?-?- B 140 A -?-?-?-?-?-?-?-?-?-?-?-?- B -?-?-?-?-?-?-?-?-?-?--?-?- A -?-?-?-?-?-?-?-?-?-?-?-?- B A SM- no vb lof go od fm nor egular ctx cbc gct now -?-?-?-?-?-?-?-?-?-?-?-?- B 06/15/21 -?-?-?-?-?-?-?-?-?-?-?-?- 29w 3d 196 lb 8 oz 118/72 Nega tive -?-?-?-?-?-?-?-?-?-?-?-?- Negative A 155 -?-?-?-?-?-?-?-?-?-?-?-?- B 155 A -?-?-?-?-?-?-?-?-?-?-?-?- B 1 -?-?-?-?-?-?-?-?-?-?-?-?- 0 A -4 -?-?-?-?-?-?-?-?-?-?-?-?- B A SM- no vb lof go od fm irregular ctx -?-?-?-?-?-?-?-?-?-?-?-?- B 06/22/21 -?-?-?-?-?-?-?-?-?-?-?-?- 30w 3d 200 lb 13.458 oz 118 /70 120/71 120/71 109/65 111/65 115/71 115/71 114/68 /68 114/67 114/67 111/65 /65 -?-?-?-?-?-?-?-?-?-?--?-?- A -?-?-?-?-?-?-?-?-?-?-?-?- B A -?-?-?-?-?-?-?-?-?-?-?-?- B -?-?-?-?-?-?-?-?-?-?-?-?- A -?-?-?-?-?-?-?-?-?-?-?-?- B A -?-?-?-?-?-?-?-?-?-?-?-?- B 06/26/21 -?-?-?-?-?-?-?-?-?-?-?-?- 31w 0d 201 lb 102/66 Negative -?-?-?-?-?-?-?-?-?-?-?-?- Negative A 135 -?-?-?-?-?-?-?-?-?-?-?-?- B 135 35 A Cephalic -?-?-?-?-?-?-?-?-?-?-?-?- B Cephalic 3 -?-?-?-?-?-?-?-?-?-?-?-?- 60 A -2 -?-?-?-?-?-?-?-?-?-?-?-?- B A SM- no vb lof go od fm x 2, no more pelvic pressure or regular ctx, [place] [facility] [place] -?-?-?-?-?-?-?-?-?-?-?-?- B 06/30/21 -?-?-?-?-?-?-?-?-?-?-?-?- 31w 4d 197 lb 132/80 -?-?-?-?-?-?-?-?-?-?-?-?- A 150 -?-?-?-?-?-?-?-?-?-?-?-?- B 150 A -?-?-?-?-?-?-?-?-?-?-?-?- B -?-?-?-?-?-?-?-?-?-?-?-?- A -?-?-?-?-?-?-?-?-?-?-?-?- B A SM- no vb lof go od fm no regular ctx or pelvic pressure -?-?-?-?-?-?-?-?-?-?-?-?- B 07/08/21 -?-?-?-?-?-?-?-?-?-?-?-?- 32w 5d 198 lb 130/80 Negative -?-?-?-?-?-?-?-?-?-?-?-?- Negative A 126 -?-?-?-?-?-?-?-?-?-?-?-?- B 131 A Cephalic -?-?-?-?-?-?-?-?-?-?-?-?- B Cephalic 4 -?-?-?-?-?-?-?-?-?-?-?-?- 50 A -2 -?-?-?-?-?-?-?-?-?-?-?-?- B A JV- no lof, vagi nal bleeding, or dec fm. labor precautions discussed -?-?-?-?-?-?-?-?-?-?-?-?- B baby a 36th% baby b 9th% -to see mfm tuesday07/16/21 -?-?-?-?-?-?-?-?-?-?-?-?- 33w 6d 202 lb 4 oz 128/80 Nega tive -?-?-?-?-?-?-?-?-?-?-?-?- Negative A 135 -?-?-?-?-?-?-?-?-?-?-?-?- B 135 A -?-?-?-?-?-?-?-?-?-?-?-?- B 4 -?-?-?-?-?-?-?-?-?-?-?-?- A -?-?-?-?-?-?-?-?-?-?-?-?- B A SM- no vb lof go od fm stil having irregular ctx. patient declining seeing mfm in [place], discussed increased mortality rate if not having proper screening. discussed twice weekly bpps, kick counts etc. -?-?-?-?-?-?-?-?-?-?-?-?- B 07/22/21 -?-?-?-?-?-?-?-?-?-?-?-?- 34w 5d 208 lb 122/88 -?-?--?-?-?-?-?-?-?-?-?-?- A 138 -?-?-?-?-?-?-?-?-?-?-?-?- B 141 A Cephalic -?-?-?-?-?-?-?-?-?-?-?-?- B Cephalic 5 -?-?-?-?-?-?-?-?-?-?-?-?- 70 A -2 -?-?-?-?-?-?-?-?-?-?-?-?- B A JV- ballotable b alex a presentation and patient appears comfortabe. incidental bpp on babies performed at bedside today were 02/22. formal scan for bpp is on Tuesday due to IUGR. pt is still moderately anemic (Hg7) will 7set up for iron infusion if patient is willing. -?-?-?-?-?-?-?-?-?-?-?-?- B 07/23/21 -?-?-?-?-?-?-?-?-?-?-?-?- 34w 6d 206 lb 2.115 oz 104/ 61 124/81 -?-?-?-?-?-?-?-?-?-?-?-?- A -?-?-?-?-?-?-?-?-?-?-?-?- B A -?-?-?-?-?-?-?-?-?-?-?-?- B -?-?-?-?-?-?-?-?-?-?-?-?- A -?-?-?-?-?-?-?-?-?-?-?-?- B A -?-?-?-?-?-?-?-?-?-?-?-?- B 08/05/21 -?-?-?-?-?-?-?-?-?-?-?-?- 36w 5d 210 lb 8 oz 142/91 142/91 129/96 127/79 133/69 127/64 148/72 123/76 137/83 132/72 121/64 124/70 -?-?-?-?-?-?-?-?-?-?-?-?- A -?-?-?-?-?-?-?-?-?-?-?-?- B A -?-?-?-?-?-?-?-?-?-?-?-?- B -?-?-?-?-?-?-?-?-?-?-?-?- A -?-?-?-?-?-?-?-?-?-?-?-?- B A -?-?-?-?-?-?-?-?-?-?-?-?- B NST FHR Rate Baby A Baseline: 130 Variability:: Moderate Accelerations:: 15 x 15 Decelerations:: None NST Reactive:: Yes FHR Category:: Category I Uterine Activity:: q3-5 FHR Rate Baby B Baseline: 140 Variability:: Moderate Accelerations:: 15 x 15 Decelerations:: None NST Reactive:: Yes ROS Constitutional Constitutional: Reports systems reviewed and no addt'l complaints, except as documented ENT HEENT: Reports systems reviewed and no addt'l complaints, except as documented Cardiovascular Cardiovascular: Reports systems reviewed and no addt'l complaints, except as documented Respiratory/Chest Respiratory/Chest: Reports systems reviewed and no addt'l complaints, except as documented Gastrointestinal Gastrointestinal: Reports systems reviewed and no addt'l complaints, except as documented and nausea; Denies abdominal pain Genitourinary Genitourinary: Reports systems reviewed and no addt'l complaints, except as documented, contractions Details: present and frequency (regular ) and movement Details: present Musculoskeletal Musculoskeletal: Reports systems reviewed and no addt'l complaints, except as documented Integumentary Integumentary: Reports as per HPI Neurologic Neurologic: Reports systems reviewed and no addt'l complaints, except as documented Endocrine Endocrinology: Reports systems reviewed and no addt'l complaints, except as documented Vital Signs Vital Signs Vital Signs: 08/05/21 00:33 08/05/21 00:35 08/05/21 00:59 Temperature 97.8 F 97.8 F Temperature Source Temporal Temporal Pulse Rate 85 85 Respiratory Rate 16 Blood Pressure 142/91 H 142/91 H Blood Pressure Mean 108 BP Systolic 142 BP Diastolic 91 Blood Pressure Source Monitor Blood Pressure Position Semi-Fowlers Blood Pressure Location Right Arm Pulse Ox Oxygen Delivery Method Room Air 08/05/21 01:22 08/05/21 02:11 08/05/21 02:16 Temperature 97.9 F Temperature Source Temporal Pulse Rate 73 80 91 Respiratory Rate Blood Pressure 129/96 H Blood Pressure Mean BP Systolic 129 BP Diastolic 96 Blood Pressure Source Blood Pressure Position Blood Pressure Location Pulse Ox 99 98 98 Oxygen Delivery Method 08/05/21 02:21 08/05/21 02:24 08/05/21 02:26 Temperature Temperature Source Pulse Rate 90 95 87 Respiratory Rate Blood Pressure 127/79 H Blood Pressure Mean BP Systolic 127 BP Diastolic 79 Blood Pressure Source Blood Pressure Position Blood Pressure Location Pulse Ox 98 91 98 Oxygen Delivery Method 08/05/21 02:29 08/05/21 02:30 08/05/21 02:31 Temperature 97.7 F L Temperature Source Temporal Pulse Rate 83 87 84 Respiratory Rate Blood Pressure 133/69 H 127/64 H Blood Pressure Mean BP Systolic 133 127 BP Diastolic 69 64 Blood Pressure Source Blood Pressure Position Blood Pressure Location Pulse Ox 98 Oxygen Delivery Method 08/05/21 02:36 08/05/21 02:41 08/05/21 02:46 Temperature Temperature Source Pulse Rate 94 96 Respiratory Rate Blood Pressure 148/72 H 123/76 H Blood Pressure Mean BP Systolic 148 123 BP Diastolic 72 76 Blood Pressure Source Blood Pressure Position Blood Pressure Location Pulse Ox 99 98 99 Oxygen Delivery Method 08/05/21 02:47 08/05/21 02:51 08/05/21 02:56 Temperature Temperature Source Pulse Rate 110 H 90 96 Respiratory Rate Blood Pressure 137/83 H 132/72 H Blood Pressure Mean BP Systolic 137 132 BP Diastolic 83 72 Blood Pressure Source Blood Pressure Position Blood Pressure Location Pulse Ox 98 98 Oxygen Delivery Method 08/05/21 03:01 08/05/21 03:06 08/05/21 03:11 Temperature Temperature Source Pulse Rate 105 H 95 99 Respiratory Rate Blood Pressure Blood Pressure Mean BP Systolic BP Diastolic Blood Pressure Source Blood Pressure Position Blood Pressure Location Pulse Ox 99 99 98 Oxygen Delivery Method 08/05/21 03:16 08/05/21 03:21 08/05/21 03:53 Temperature Temperature Source Pulse Rate 106 H 89 94 Respiratory Rate Blood Pressure Blood Pressure Mean BP Systolic BP Diastolic Blood Pressure Source Blood Pressure Position Blood Pressure Location Pulse Ox 100 99 94 Oxygen Delivery Method 08/05/21 03:58 08/05/21 04:04 08/05/21 04:05 Temperature 97.9 F Temperature Source Temporal Pulse Rate 92 76 Respiratory Rate Blood Pressure 121/64 H Blood Pressure Mean BP Systolic 121 BP Diastolic 64 Blood Pressure Source Blood Pressure Position Blood Pressure Location Pulse Ox 97 Oxygen Delivery Method 08/05/21 04:37 08/05/21 04:42 08/05/21 04:47 Temperature Temperature Source Pulse Rate 77 83 88 Respiratory Rate Blood Pressure Blood Pressure Mean BP Systolic BP Diastolic Blood Pressure Source Blood Pressure Position Blood Pressure Location Pulse Ox 99 98 99 Oxygen Delivery Method 08/05/21 04:52 08/05/21 04:57 08/05/21 05:02 Temperature Temperature Source Pulse Rate 95 101 H 88 Respiratory Rate Blood Pressure 124/70 H Blood Pressure Mean BP Systolic 124 BP Diastolic 70 Blood Pressure Source Blood Pressure Position Blood Pressure Location Pulse Ox 99 92 100 Oxygen Delivery Method 08/05/21 05:07 08/05/21 05:12 08/05/21 05:18 Temperature Temperature Source Pulse Rate 82 88 92 Respiratory Rate Blood Pressure Blood Pressure Mean BP Systolic BP Diastolic Blood Pressure Source Blood Pressure Position Blood Pressure Location Pulse Ox 100 99 91 Oxygen Delivery Method Weight Weight: 210 lb 8 oz Body Mass Index (BMI) 35.0 Physical Exam Const alert, oriented x3 and healthy appearing Constitutional Narrative: uncomfortable with contractions HEENT normocephalic and moist oral mucous membranes Head and Scalp: atraumatic Neck full ROM, no lymphadenopathy, supple and thyroid normal General: trachea midline Thyroid: thyroid normal Lymph Lymphatic: no lymphadenopathy noted Chest inspection of chest normal Resp normal respiratory effort Cardio regular rate GI normal to inspection, nondistended, normoactive bowel sounds, soft to palpation and non-tender Inspection: gravid external exam normal Bimanual Exam - Vag & Uterus: uterus non-tender Manual OB Exam: estimated gestational size appropriate, presentation cephalic (x2 on US), dilated 5-6, effaced 90 and station -1 Extremity normal to inspection General Extremity: Negative for edema Skin no rashes or lesions noted Neuro deep tendon reflexes 2+ bilaterally Motor Exam: strength 5/5 throughout and clonus absent Psych mental status grossly normal Labs Labs Labs: Blood Type O POSITIVE Antibody Screen NEGATIVE Hct 25.3 % (37-47) L Hgb 7.6 g/dL (12.0-15.0) L Obstetrics US Syphilis Total Ab Non-reactive Rubella IgG Antibody Reactive (Nonreactive) Hep Bs Antigen Non-Reactive (Nonreactive) Neisseria gonorrhoeae DNA (RAMAN) Negative (Negative) HIV 1&2 Antibody Non-Reactive (Nonreactive) C.trachomatis DNA (PCR) Negative (Negative) Glucose 1 Hr 50 gm 99 mg/dL (70-140) Group B Strep DNA Negative (Negative) Rhogam given: No Miscellaneous Test Assessment & Plan (1) Atypical squamous cell changes of undetermined significance (ASCUS) on cervical cytology with positive high risk human papilloma virus (HPV): COMMENT: 10/2019 ASCUS, neg HPV. Pap in 2020 needed (2) Dysthymia: COMMENT: stable (3) : QUALIFIERS: Weeks of gestation: 34 weeks Qualified Code(s): Z3A.34 - 34 weeks gestation of COMMENT: declines carrier and genetic screen; GBS neg
--- NOTE | 2021-08-05 05:46 | PLAC_PTH ---
PATIENT: MARLON QUINTERO LOC: [facility] U#:[id number] AGE/SX: 26/F ROOM: WP003 RE08/05/[address]: Dr. Nicole Brunson MD : 1995 BED: 1 DIS: 08/07/2021 SPEC #: [id number] RECD: 08/05/21 09:28 STATUS: TRUONG GREER #: [id number] BROCK: 08/05/21 05:[address]: Nicole Brunson DEPT: SURGICAL PATHOLOGY RECD BY: Irina Lovelace ENTERED: 08/05/21 10:58 SP TYPE: PLACENTA OTHR DR: Dr. Azeb White MD Tissues: Placenta, NOS Procedures: Surgery Specimen Level V HEADER OPERATION: Vaginal delivery PRE-OP DIAGNOSIS: Twin delivery TISSUE SUBMITTED: Placenta MICROSCOPIC DIAGNOSIS Dichorionic diamniotic twin placenta: Placental A (440 gm) Umbilical cord ? trivascular with no inflammation. Peripheral membranes ? no pathologic change. Placental disc ? mild Chaitanya-Keven change and intervillous congestion. Placental B (279 gm) Umbilical cord ? trivascular with no inflammation. Peripheral membranes ? no pathologic change. Placental disc ? Chaitanya-Keven change, mildly increased intraparenchymal fibrin plaques and intervillous congestion. AM:mary 08/07/2021 MICROSCOPIC DESCRIPTION Slides are reviewed. GROSS DESCRIPTION SPECIMEN: TWIN PLACENTA Placenta A is identified by a clamp on the umbilical cord. The specimen consists of twin placenta with two separate placental discs, umbilical cord and membranous sac. Dividing membranous septum is present in the center of the two placental discs. / CLINICAL INFORMATION: A. Weight: A ? 2.725 kg; B ? 2.375 kg B. Gestational Age: 36 weeks C. Sex: A ? Female, B - Male PLACENTA A: PLACENTAL WEIGHT (POST FIXATION): 440 gm PLACENTAL DIMENSIONS: 19 x 14 x 4 cm PLACENTAL SHAPE: Usual ovoid PLACENTAL WEIGHT FOR GESTATIONAL AGE: Within 10-99th percentile (over/under percentile) MEMBRANES - Present A. Insertion: Marginal B. Site of rupture from edge: 4 cm from edge of placental disc C. Color of membrane: Bang-lyle D. Abnormalities: None UMBILICAL CORD - Present A. Color: Bang-lyle B. Insertion: Marginal C. Length: 20 cm D. Diameter: 1.5 cm E. Number of vessels: Three F. Abnormalities: None PLACENTA B: PLACENTAL WEIGHT (POST FIXATION): 279 gm PLACENTAL DIMENSIONS: 17 x 10 x 4 cm PLACENTAL SHAPE: Usual ovoid PLACENTAL WEIGHT FOR GESTATIONAL AGE: Under 10th percentile MEMBRANES - Present A. Insertion: Marginal B. Site of rupture from edge: The membranes appear to be fragmented. Distance of rupture cannot be assessed. C. Color of membrane: Bang-lyle D. Abnormalities: A portion of the dividing membranous septum is also noted in the membrane of placenta B. UMBILICAL CORD - Present A. Color: Bang-lyle B. Insertion: Membranes, velamentous insertion 1.5 cm away from the edge of the placenta C. Length: 25 cm D. Diameter: 1.2 cm E. Number of vessels: Three F. Abnormalities: None PLACENTAL DISC - Present A. Color of surface: Bang-lyle B. surface abnormalities: None C. Maternal cotyledons: Maternal surface appears to be disrupted, however, appear to be complete. D. Attached retro placental clot: No clot E. Cut surface: Dark red and spongy F. Lesions: None G. Separate clot: Absent SECTIONS SUBMITTED: 11 cassettes 1 - Dividing membranous septum, 2-6 - placenta A (2 - membrane roll, 3 - umbilical cord, end inked black, 4-6 - body of the placenta), 7-11 - placenta B (7 - membrane roll, 8 - umbilical cord, end inked black, 9-11 - body of the placenta). SJ:mary 08/06/2021 TC:5 CPT: 05096 x2
--- NOTE | 2021-08-05 06:05 | EX.PCM.OBRPT ---
Assessment & Plan (1) Atypical squamous cell changes of undetermined significance (ASCUS) on cervical cytology with positive high risk human papilloma virus (HPV): COMMENT: 10/2019 ASCUS, neg HPV. Pap in 2020 needed (2) Dysthymia: COMMENT: stable (3) : QUALIFIERS: Weeks of gestation: 34 weeks Qualified Code(s): Z3A.34 - 34 weeks gestation of COMMENT: declines carrier and genetic screen; GBS neg (4) Supervision of high risk , antepartum: COMMENT: PRR Girl/Boy PC:Rex Collins Owen(dec SIDS) FOB not involved (5) Dichorionic diamniotic twin gestation: COMMENT: 06/05 growth US nl, low risk NIPT fraternal twins female and male now has IUGR twin B (6) Anemia affecting : COMMENT: recommended IV Venofer, repeat cbc first week July still showed moderate anemia. recommend 2nd infusion series if still able to get this prior to delivery. (7) Tobacco use affecting in third trimester, antepartum: COMMENT: vaping, encouraed cessation (8) labor: COMMENT: s/p steroids at 30 weeks. stable 3 cm AT 30 weeks, and 34 weeks 4-5 cm (9) IUGR (intrauterine growth restriction) affecting care of mother: COMMENT: BABY B- MFM referral faxed 07/06/21. (10) Vaginal delivery: COMMENT: twins boy and girl abdi IAL PTL 36 SM Maternal Data Information BI Calculator Estimated Delivery Date Method Current WG Current Estimate 08/28/21 Ultrasound #1 36w 5d Other Estimates 06/22/21 LMP (Uncertain) 46w 2d # 2 Vaginal Delivery Operative Information Pre-Operative Diagnosis: IAL Post-Operative Diagnosis: same Surgery / Procedure Performed: Spontaneous Vaginal Delivery (twins x 2) Type of Anesthesia: Epidural Special Medications: none Estimated Blood Loss: 100 Fluids Replaced: crystalloid Findings Description of Procedure: Patient began pushing and delivered the head in the MILE presentation. The head was delivered atraumatically . The anterior and posterior shoulders delivered without complication followed by the rest of the and the infant was placed on the maternal abdomen. Delayed cord clamping was employed for approximately 60 seconds. after arom clear fluid, and several contractions the baby b head delivered MILE and the head was delivered atraumatically followed by the rest of the without complication. delayed cord clamping for 60 seconds. the Cord was clamped and cut and gentle traction was applied to the cords and the placenta delivered spontaneously immediately following it was noted to be intact with three-vessel cord. The perineum and vagina were inspected and noted to have no laceration. EBL was 100 cc. Patient and tolerated delivery well. Presentation: GALLITO Amniotic Membrane Rupture Type: Artificial Amniotic Fluid Description: Clear Placental Delivery Description: Spontaneous Placenta Disposition: [facility] Cord Vessel Description: 3 Vessels Cord Entanglement: None Delayed Cord Clamping: Yes Post Vaginal Delivery Medications Given After Delivery: IV Pitocin Episiotomy Description: None Laceration: None Complication Complications: None Procedures Urinary/Genital [id number]: [id number] Vaginal Delivery+ Care([facility]) (twins ? modifier? both vaginal deliveries)
[2021-08-05] MEDS: Oxytocin 30 units/NS 500 ml 30 UNITS/500 ML IV.SOLN 334 UNITS IV (06:30)
[2021-08-05] MEDS: 0.9% Saline Lock 10 ML Syringe IV (13:32)
[2021-08-05] MEDS: Naproxen 500 MG Tablet PO (13:32)
[2021-08-05] MEDS: Acetaminophen 500 MG Tablet 1000 MG PO (19:43)
[2021-08-06] VITALS: BP 137/62; PULSE 75; RESP 16; TEMP 36.8
[2021-08-06 04:40] VITALS: BP 127/67; PULSE 66; RESP 16; TEMP 36.6
[2021-08-06] MEDS: Acetaminophen 500 MG Tablet 1000 MG PO ×3 (06:31→21:34)
[2021-08-06 09:31] VITALS: BP 125/68; PULSE 62; RESP 14; TEMP 36.8
--- NOTE | 2021-08-06 09:31 | NURSING ---
this nurse agrees with assessment and vital signs of Stacey, student nurse.
--- NOTE | 2021-08-06 10:11 | PCM.PN.OB ---
Subjective Subjective Patient doing well without complaints. Tolerating PO. Ambulating and voiding without difficulty. feeding well. Denies chest pain, shortness of breath, calf pain/swelling, fevers, chills, lightheadedness. Objective Data Objective Data Vital Signs: Vital Signs Temp Pulse Resp BP Pulse Ox 98.3 F 62 14 125/68 H 91 08/06/21 09:31 08/06/21 09:31 08/06/21 09:31 08/06/21 09:31 08/05/21 05:18 Oxygen Delivery Method Room Air Weight: 210 lb 8 oz Body Mass Index (BMI) 35.0 Intake & Output: Intake and Output for Last 24 Hours 08/04/21 08/05/21 08/06/21 23:59 23:59 23:59 Intake Total 1407.5 / 1407.5 Output Total 1300 / 1300 Balance 107.5 / 107.5 Lab / Micro Data Result Diagrams: 08/05/21 01:05 Micro: Microbiology 08/05/21 01:00 Nasal Secretion SARS-CoV-2 Antigen (Rapid) - Final ROS Constitutional Constitutional: Reports systems reviewed and no addt'l complaints, except as documented Cardiovascular Cardiovascular: Reports systems reviewed and no addt'l complaints, except as documented Respiratory/Chest Respiratory/Chest: Reports systems reviewed and no addt'l complaints, except as documented Gastrointestinal Gastrointestinal: Reports systems reviewed and no addt'l complaints, except as documented Physical Exam Const alert, oriented x3 and no apparent distress HEENT Head and Scalp: atraumatic Resp normal respiratory effort GI soft to palpation and non-tender Bimanual Exam - Vag & Uterus: uterus non-tender Uterus Palpation: uterus fundus firm (below Umbilicus) Assessment & Plan (1) Vaginal delivery: COMMENT: twins boy and girl abdi IAL PTL 36 PLAN: s/p PPD # 1. routine post delivery care 2. breast feeding- support given 3. rh positive 4. rubella immune anemia- give IV venofer.
[2021-08-06] MEDS: 0.9% Saline Lock 10 ML Syringe IV (11:44)
[2021-08-06 13:48] VITALS: BP 113/90; PULSE 80; RESP 12; TEMP 36.9
--- NOTE | 2021-08-06 13:52 | NURSING ---
This instructor, Nathalie Banks RN reviewed the student nurseJoan Scale documentation on 08/06/21
--- NOTE | 2021-08-06 16:47 | CASEMGMT ---
Social Work Labor and Delivery Unit Social work consult noted and received for history of loss due to SIDS. Medical records reviewed. This tag writer familiar with patient/mother of baby (MOB) from prior delivery at [facility]. Noted, that MOB delivered twins with one baby admitting to the [facility]. For continuity of care of families who have babies admitted to the [facility], this tag writer also provides social work services to the [facility]. This tag writer will also follow and provide support through that unit. Plan to see MOB on 08.08.2021 for assessment, support, and determination of referral/resource needs. -BINA Sapp, GOLF INSTRUCTOR
[2021-08-06 21:15] VITALS: BP 130/73; PULSE 67; RESP 16; TEMP 37
[2021-08-07 02:21] VITALS: BP 112/52; PULSE 62; RESP 16; TEMP 36.9
[2021-08-07 08:00] VITALS: BP 120/55; PULSE 69; RESP 20; TEMP 36.9
[2021-08-07] MEDS: Naproxen 500 MG Tablet PO (08:28)
--- NOTE | 2021-08-07 09:33 | PCM.PN.OB ---
Subjective Subjective Patient doing well without complaints. Tolerating PO. Ambulating and voiding without difficulty. Denies chest pain, shortness of breath, calf pain/swelling, fevers, chills, lightheadedness. Objective Data Objective Data Vital Signs: Vital Signs Temp Pulse Resp BP Pulse Ox 98.4 F 62 16 112/52 L 91 08/07/21 02:21 08/07/21 02:21 08/07/21 02:21 08/07/21 02:21 08/05/21 05:18 Oxygen Delivery Method Room Air Weight: 210 lb 8 oz Body Mass Index (BMI) 35.0 Intake & Output: Intake and Output for Last 24 Hours 08/05/21 08/06/21 08/07/21 23:59 23:59 23:59 Intake Total 1407.5 / 1407.5 110 / 110 Output Total 1300 / 1300 Balance 107.5 / 107.5 110 / 110 Lab / Micro Data Result Diagrams: 08/05/21 01:05 Micro: Microbiology 08/05/21 01:00 Nasal Secretion SARS-CoV-2 Antigen (Rapid) - Final ROS Constitutional Constitutional: Reports systems reviewed and no addt'l complaints, except as documented Cardiovascular Cardiovascular: Reports systems reviewed and no addt'l complaints, except as documented Respiratory/Chest Respiratory/Chest: Reports systems reviewed and no addt'l complaints, except as documented Gastrointestinal Gastrointestinal: Reports systems reviewed and no addt'l complaints, except as documented Physical Exam Const alert, oriented x3 and no apparent distress HEENT Head and Scalp: atraumatic Resp normal respiratory effort GI soft to palpation and non-tender Bimanual Exam - Vag & Uterus: uterus non-tender Uterus Palpation: uterus fundus firm (below Umbilicus) Assessment & Plan (1) Vaginal delivery: COMMENT: twins boy and girl josey and jose IAL PTL 36 SM (2) Dysthymia: COMMENT: stable (3) Atypical squamous cell changes of undetermined significance (ASCUS) on cervical cytology with positive high risk human papilloma virus (HPV): COMMENT: 10/2019 ASCUS, neg HPV. Pap in 2020 needed (4) Anemia affecting : COMMENT: recommended IV Venofer, repeat cbc first week July still showed moderate anemia. recommend 2nd infusion series if still able to get this prior to delivery. PLAN: s/p PPD # 2 1. routine post delivery care 2. bottle feeding 3. rh positive 4. rubella immune discharge immediate due to baby B being transported
--- NOTE | 2021-08-07 09:33 | PCM.DC ---
Discharge Instructions Diet Discharge Diet: No restrictions Activity Discharge Activity: Return to Normal Activity, May Not Drive (while taking narcotic pain medications.) and May Shower May resume sexual activity in: 4-6 weeks Dressing / Incision Call your doctor if your incision/area has: Continuous Slow Oozing, Sudden Increased Bleeding, Increased Pain/ Swelling, Increased Redness and Foul Smelling Discharge Follow Up Care Please Follow Up With: Nicole Brunson MD When: Call [phone] to make an appointment with your doctor in 6 weeks. If you had elevated blood pressure or 4th degree laceration, you will need to be seen in 2 weeks. Test Results: Test results from this visit will be discussed in further detail at your follow-up appointment, if applicable. Discharge Plan Admission Admit Date/Time: 08/05/21 00:38 Attending Provider: Nicole Brunson Primary Care Provider: Azeb White Discharge Orders/Prescriptions Prescriptions: New naproxen [naproxen] 500 MG tablet 500 mg PO BID PRN PRN (Reason: Pain) Qty: 30 RF: 1 naproxen 250 MG tablet 250 - 500 mg PO Q8H PRN PRN (Reason: MILD PAIN) Qty: 30 RF: 1 Slow Fe 142 MG tablet extended release 142 mg PO BID Qty: 60 RF: 1 Continued acetaminophen [Tylenol] 325 mg capsule 325 mg PO ONCE PRN (Reason: Pain) RF: 0 Prenate DHA 28 mg iron-1 mg -300 mg capsule 1 cap PO .daily RF: 0 Referrals / Follow Up: Azeb White MD [Primary Care Provider] - Disposition Disposition (needs filled in before D/C Order can be placed): Home, Self Care
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
[2021-08-10 10:01] LABS: Pathology Specimen OB SEE PATHOLOGY REPORT
--- NOTE | 2021-08-10 10:26 | CASEMGMT ---
Social Work Labor and Delivery Called Gregorio GREENWOOD at [facility]'s voiced request to this technical proposal writer on 08.07.2021. Spoke with [facility] work, Halima Mcgee, to update to of twins. Submitted [facility] referral via [facility]'s secure web based referral form, for baby girl , as per [facility]'s verbal permission. No other services requested or indicated.
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
== END 2021-08-07 10:35 | disposition home or self-care (01) | DRG 560 ==
LOC: WPOUT 00:39 → WP 00:39
PROVIDERS: Admitting Provider Obstetrics & Gynecology; PCP Internal Medicine; Visit Provider Obstetrics & Gynecology
DX: O30.043 Twin pregnancy, dichorionic/diamniotic, third trimester (principal); Z37.2 Twins, both liveborn; O60.14X2 Preterm labor third trimester with preterm delivery third trimester, fetus 2; O36.5930 Maternal care for other known or suspected poor fetal growth, third trimester, not applicable or unspecified; O99.344 Other mental disorders complicating childbirth; F34.1 Dysthymic disorder; F17.210 Nicotine dependence, cigarettes, uncomplicated; O99.02 Anemia complicating childbirth; Z3A.34 34 weeks gestation of pregnancy; O99.334 Smoking (tobacco) complicating childbirth; R87.610 Atypical squamous cells of undetermined significance on cytologic smear of cervix (ASC-US); Z87.59 Personal history of other complications of pregnancy, childbirth and the puerperium
CPT/HCPCS: 59025; 59050; 76815; 76816; 80053; 81002; 82570; 84156; 85025; 85027; 86850; 86900; 86901; 87426; 88307; 99218; J1756; J7120; A4216; G0378; J2405

== ENCOUNTER → 2021-11-09 | Outpatient (CLI) | payer MEDICAID, SELFPAY ==
[2021-11-16 16:02] LABS: HPV Reflexed? NOT INDICATED
== END | disposition home or self-care (01) ==
PROVIDERS: PCP Internal Medicine; Visit Provider Obstetrics & Gynecology
DX: Z12.4 Encounter for screening for malignant neoplasm of cervix (principal)
CPT/HCPCS: G0145; 88175

== ENCOUNTER → 2021-11-09 | Outpatient (CLI) | payer MEDICAID, SELFPAY ==
[2021-11-09 17:20] LABS: Absolute Lymphocyte Count 1.99 X10^3/uL (0.83-4.51); Absolute Neutrophil Count 3.1 X10^3/uL (2.0-7.7); Basophil# 0.02 X10^3/uL; Basophil% 0.3 % (0-1); Eosinophil# 0.62 X10^3/uL; Eosinophils% 9.9 % (0-5); Hematocrit 38.9 % (37-47); Hemoglobin 11.8 g/dL (12.0-15.0); Lymphocyte # 1.99 X10^3/ul (0.83-4.51); Lymphocyte % 31.8 % (19-41); Mean Corp Hgb Conc 30.3 g/dL (32-36); Mean Corpuscular Hgb 25.3 pg (27.0-32.0); Mean Corpuscular Volume 83.5 fL (81-99); Monocyte# 0.48 X10^3/uL; Monocyte% 7.7 % (0-10); NRBC Flagged by Analyzer 0 % (0-5); Neutrophil # 3.14 X10^3/uL (2.7-7.7); Neutrophil % 50.1 % (47-70); Platelet Count 306 K/mm3 (150-450); RBC Distribution Width SD 54.7 fl (35.1-43.9); Red Blood Count 4.66 M/mm3 (4.2-5.4); White Blood Count 6.3 K/mm3 (4.4-11.0)
[2021-11-09 18:49] LABS: Thyroid Stim Hormone (TSH) 2.73 uIU/mL (0.358-3.74)
== END | disposition home or self-care (01) ==
PROVIDERS: PCP Internal Medicine; Visit Provider Obstetrics & Gynecology
DX: N93.9 Abnormal uterine and vaginal bleeding, unspecified (principal)
CPT/HCPCS: 36415; 84443; 85025; 88175; G0145

== ENCOUNTER → 2021-11-24 | Outpatient (CLI) | payer MEDICAID, SELFPAY ==
--- NOTE | 2021-11-24 12:32 | US_ITS ---
STUDY: ULTRASOUND TRANSVAGINAL CLINICAL: Female, 26 years old. aub -- POST X 3 MONTHS TECHNIQUE: Transvaginal COMPARISON: None. FINDINGS: Normal uterine size measuring 9.4 x 7.2 x 5.2 cm in maximal craniocaudal dimension. This is a septate uterus. The right side measures 1.7 cm the left side measuring 1.4 cm. There are no endometrial masses, and there is no fluid in the endometrial cavity. Normal uterine cervix. There is a small nabothian cyst. Normal right ovary, measuring 3.3 x 2.4 x 2.9 cm cm. There are multiple follicles without a dominant cyst. Normal left ovary, measuring 4.1 x 4.5 x 2.5 cm. There are multiple follicles without a dominant cyst. There is no free fluid in the pelvis. Polycystic ovary disease: No. US/Pelvic (Non ) IMPRESSION: Nonspecific mildly prominent appearance of the septate uterus endometrium. No visualized retained products. Small amount of free fluid Multiple small follicles left ovary. Limited visualization of the right ovary. Electronically Signed: Belen Larson MD at 7:57 EDT Reading Location ID and State: [facility] [place] Tel , Service support ,
--- NOTE | 2021-11-24 12:32 | US_ITS ---
STUDY: ULTRASOUND TRANSVAGINAL CLINICAL: Female, 26 years old. aub -- POST X 3 MONTHS TECHNIQUE: Transvaginal COMPARISON: None. FINDINGS: Normal uterine size measuring 9.4 x 7.2 x 5.2 cm in maximal craniocaudal dimension. This is a septate uterus. The right side measures 1.7 cm the left side measuring 1.4 cm. There are no endometrial masses, and there is no fluid in the endometrial cavity. Normal uterine cervix. There is a small nabothian cyst. Normal right ovary, measuring 3.3 x 2.4 x 2.9 cm cm. There are multiple follicles without a dominant cyst. Normal left ovary, measuring 4.1 x 4.5 x 2.5 cm. There are multiple follicles without a dominant cyst. There is no free fluid in the pelvis. Polycystic ovary disease: No. US/Transvaginal Non- IMPRESSION: Nonspecific mildly prominent appearance of the septate uterus endometrium. No visualized retained products. Small amount of free fluid Multiple small follicles left ovary. Limited visualization of the right ovary. Electronically Signed: Belen Larson MD at 7:57 EDT ,
== END | disposition home or self-care (01) ==
LOC: OPUS 12:31
PROVIDERS: PCP Internal Medicine; Referring Provider Obstetrics & Gynecology; Visit Provider Obstetrics & Gynecology
DX: N93.9 Abnormal uterine and vaginal bleeding, unspecified (principal)
CPT/HCPCS: 76830; 76856

== ENCOUNTER 2022-03-02 07:25 | Day surgery (SDC) | payer MEDICAID, SELFPAY ==
--- NOTE | 2022-03-01 16:52 | HP.PCM_ITS ---
History and Physical MR#: [id number] Acct: [id number] Name:? MARLON QUINTERO [facility] Rep #: [id number] : 1995 ? ? Provider: Dr. Nicole Brunson MD Age/Sex:? 26/F ? ? Location: [facility] [place] Status: Signed Intake Vital Signs ? 01/22/2214:45 01/22/2214:46 Height 5 ft 5 in 5 ft 5 in Weight: 155 lb ? BMI 25.7 ? BP 114/72 ? Intake Visit Reasons:?2 month f/u aub/colposcopy Allergies hydrocodone [From [place]] Adverse Reaction (Mild, Verified 08/03/21 15:27) Vomitingoxycodone [From Percocet] Adverse Reaction (Mild, Verified 08/03/21 15:27) Vomiting PFSH Medical History?(Updated 01/22/22 @ 14:[address] Nicole Brunson MD) Anxiety Back pain Cholelithiasis Chronic cholecystitis Depression GERD (gastroesophageal reflux disease) Hemorrhoids History of prior with IUGR HPV (human papilloma virus) infection LGSIL (low grade squamous intraepithelial dysplasia) Septate uterus Surgical History? S/P colonoscopy S/P laparoscopic cholecystectomy (~09/03/17) S/P tonsillectomy and adenoidectomy Family History? Brother Asthma HypertensionMother Asthma Hypertension Clotting disorder malignant hyperthermia--Mother Lupus Fibromyalgia Rheumatoid arthritis Social History? adopted:? No household members:? 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 2 current occupational status:? 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 Yes pets and animals: dog(s) Smoking Status:? Current every day smoker Smokeless tobacco user:? dissolvable tobacco Electronic Cigarette Use:? with nicotine quit status:? considering quitting alcohol intake:? former details:? not since 2019 substance use type:? does not use caffeine:? Yes frequency:? 1-2 times per week seatbelt use:? always do you feel safe at home:? Yes HPI 2 month f/u aub/colposcopy Details: MARLON QUINTERO is a 26 year old who presents for fu of AUB, she is still having painful heavy periods and bleeidg in between menses, having it eveyr two weeks.? she has been on the ocp with no improvement.? she is wnating definitive treatment to proceed with a hysterectomy.? she is stable mood rosario she is done with childbearing.? she is still single. she understand this is steirlization and she will not conceive again and she wants to proceed. she has used an IUD in the past and it fell out twice and she conceived, and she has used depo provera and had irregular bleeding and conceived. Female Reproductive History Cycle Length: 21-35 Bleeding Duration: 5 Questions: metorrhagia: No, sexually active: Yes, dyspareunia: No and PCB: No Menopausal Symptoms: No hot flashes, No night sweats, No weight change, No mood changes, No difficulty concentrating, No sleep problems and No change in libido Pregancy History ? ? ? 4 ? Elective abortions ? Hx Para ? ? ? 3 ? Spontaneous abortions ? Hx # Term Pregnancies ? Ectopic pregnancies ? Hx # Pregnancies ? Multiple births ? # of living children ? ? ? 3 Past Pregnancies Del. Date Name GA/Weeks Outcome Route Bth Weight Gen Labor Lgth Anesthesia Del Locatn Provider FOB 01/11/15 Dennis 38 live - full term 7LB 8 OZ Male 1 0 epidural [facility] SUSIE ? 08/10/17 Rex 38 live - full term 5lbs 9oz ? 4 hours epidural [facility] SM ? 09/07/18 Juan M ( SIDS) 35 live - ? Male ? epidural [facility] Dr. Nicole Brunson ? 08/06/21 36 live - ? Female ? ? [facility] Nannette ? 08/06/21 Keven ( 4 days old) 36 live - ? Male ? ? [facility] Nannette ? Delivery Date: 01/11/15? Last Updated by: Georgiana Gutierrez ? ? ? No issues during or delivery. Delivery Date: 08/10/17? Last Updated by: Georgiana Gutierrez ? ? ? No issues during or delivery. Delivery Date: 09/07/18? Last Updated by: Loly Diaz ? ? ? labor abruption; preeclampsia with severe features.? date of 09/27/18 ? ? ? Delivery Date: 08/06/21? Last Updated by: Loly Diaz ? ? ? IOL 36 wks Delivery Date: 08/06/21? Last Updated by: Loly Diaz ? ? ? IOL 36 wks ROS Const Constitutional: Denies fatigue, night sweats, weight gain or weight loss ENT ENT: Reports system reviewed and no additional complaints, except as documented Cardio Card: Denies chest pain Resp Resp: Denies cough or dyspnea GI GI: Reports as per HPI; Denies constipation, nausea or vomiting : Reports as per HPI; Denies hot flashes, nipple discharge, vaginal discharge, vaginal dryness, vaginal odor or vaginal pruritus Musc Musc: Denies arthralgias, back pain or muscle weakness Skin Skin/Breast: Denies alopecia, change in hair, dry skin, breast mass, breast pain, breast skin changes or nipple discharge Neuro Neuro: Reports system reviewed and no additional complaints, except as documented Psych Psych: Reports system reviewed and no additional complaints, except as documented; Denies change in libido or difficulty concentrating Endo Endo: Denies cold intolerance, excessive sweating, heat intolerance or keyla ydipsia Caio/Lymph Hematologic/Lymphatic: Denies easy bleeding, Denies easy bruising and Denies lymphadenopathy Exam Const General: cooperative, healthy appearing, comfortable, no acute distress and well developed Orientation: alert [facility] Head: normal to inspection and normocephalic Ears: hearing grossly normal bilaterally and external ears normal Nose: external nose normal and nares normal Face and sinus: normal facial exam Neck Neck: normal visual inspection and no lymphadenopathy Thyroid: thyroid normal Chest Chest palpation & inspection: normal inspection of the chest Resp Effort & Inspection: normal respiratory effort Auscultation: clear to auscultation bilaterally Cardio Rate: regular rate Rhythm: regular rhythm Heart Sounds: S1 normal and S2 normal GI Inspection: normal to inspection and non-distended Palpation: soft and no hepatosplenomegaly General: bladder normal to palpation External Female Exam: normal external appearance and normal appearance of the urethra Urethra: normal appearance of the urethra, normal palpation and no discharge Speculum Exam - Vagina: normal appearance of the vagina and normal vaginal discharge Speculum Exam - Cervix: normal appearance of the cervix and nontender Bimanual Exam- Vagina & Uterus: normal bimanual exam, uterine size normal, bladder normal to palpation, uterine shape normal, No tender, uterine mobility normal, consistency normal, normal palpation and non-tender Bimanual Exam- Adnexa, other: normal adnexae, adnexae mobile, no masses and normal Pelvic Support: normal Musc Other: gross motor intact no deficits, full bilateral strength Skin General: no rashes or lesions noted Neuro General: patient alert, patient awake, moves all extremities and no focal motor deficits Motor: muscle tone normal throughout Extrem General: normal to inspection and no pedal edema Psych Appearance: grossly normal Mental Status: mental status grossly normal Affect: normal affect Speech and Movement: speech and movement normal Coding Level of Care Code Off vis,est,level 4 Diagnoses LGSIL (low grade squamous intraepithelial dysplasia)? Abnormal uterine bleeding? N93.9 Anemia affecting ? O99.019 Atypical squamous cell changes of undetermined significance (ASCUS) on cervical cytology with positive high risk human papilloma virus (HPV)? R87.610; R87.810 Assessment and Plan Assessment and Plan (1) LGSIL (low grade squamous intraepithelial dysplasia): ?Status:?Acute ?Comment: colposcopy scheduled for 01/08/22 (2) Abnormal uterine bleeding: ?Status:?Acute ?Comment: AUB heavy painful menses, failed OCP, IUD, and depo provera.? plan TVHBS. (3) Anemia affecting : ?Status:?Acute ?Comment: recommended IV Venofer, repeat cbc first week July still showed moderate anemia. recommend 2nd infusion series if still able to get this prior to delivery. (4) Atypical squamous cell changes of undetermined significance (ASCUS) on cervical cytology with positive high risk human papilloma virus (HPV): ?Status:?Acute ?Comment: 10/2019 ASCUS, neg HPV. Pap in 2020 needed Plan After discussing the patient's diagnosis and treatment plan options, patient wishes to proceed with surgical management.? I have discussed with the patient the risks, benefits, and alternatives of the procedure which include but are not limited to risks of anesthesia, bleeding, infection, possible damage to bowel, bladder, or surrounding vasculature which could lead to additional surgery to evaluate any complications.? Patient agrees to procedure and wishes to proceed.? ACOG/uptodate references given for additional information regarding procedure.? UPDATE- I have seen the patient and performed any clinically relevant updates to the history and physical exam. Nicole Brunson MD
[2022-03-02] VITALS (10 sets, daily range): BP systolic 105–128; BP diastolic 60–85; PULSE 65–87; RESP 16–18; TEMP 35.9–36.7; O2SAT 98–100; BMI 26.7
--- NOTE | 2022-03-02 | IMM_PTH ---
PATIENT: MARLON QUINTERO [place] [facility] [id number] AGE/SX: 26/F ROOM: RE03/02/[address]: Dr. Nicole Brunson MD : 1995 BED: DIS: 03/02/2022 SPEC #: [id number] RECD: 03/03/22 10:36 STATUS: TRUONG REQ #: [id number] BROCK: 03/02/22 00:[address]: Nicole Brunson DEPT: IMMUNOHISTOCHEMISTRY RECD BY: Coby Underwood ENTERED: 03/03/22 10:49 SP TYPE: IMMUNO OTHR DR: Dr. Azeb White MD Tissues: Uterus, NOS Procedures: p16 (initial) KI-67 (add) PHYSICIAN & INSTITUTION [place] [id number] SPECIMEN INFORMATION: Tissue Source: Uterus, bilateral fallopian tubes Clinical Info: Abnormal uterine bleeding, anemia, LGSIL Specimen Number: [id number] block 7 CPT code: 95293, 72112 METHODOLOGY: Deparaffinized sections of prefer/formalin-fixed tissue or PAP/DQ stained slides are incubated with monoclonal/polyclonal antibodies/oligonucleotide probes. Localization is made via biotin free immunoperoxidase method. Appropriate controls are performed and reacted as expected. Results on target cell population are indicated in the following table: RESULTS: ANTIBODY / CLONE RESULT Block 7 P16 (E6H4) positive, rare cells Ki-67 (30-9) positive, low to moderate These tests were developed and their performance characteristics determined by [facility]. They may not have been cleared or approved by the U.S. Food and Drug Administration. The FDA has determined that such clearance or approval is not necessary. The above immunohistochemical/dualISH markers are ordered and reviewed by the Pathologist. INTERPRETATION: Uterus and bilateral fallopian tubes: - Epithelial atypia favor reactive epithelial changes - Moderate to marked acute and chronic inflammation - Negative for dysplasia. SJ:melanie 03/04/22
[2022-03-02 08:38] LABS: Absolute Lymphocyte Count 2.51 X10^3/uL (0.83-4.51); Absolute Neutrophil Count 3.4 X10^3/uL (2.0-7.7); Basophil# 0.04 X10^3/uL; Basophil% 0.6 % (0-1); Eosinophil# 0.61 X10^3/uL; Eosinophils% 8.7 % (0-5); Hemoglobin 11.9 g/dL (12.0-15.0); Lymphocyte # 2.51 X10^3/ul (0.83-4.51); Lymphocyte % 35.8 % (19-41); Mean Corp Hgb Conc 31.3 g/dL (32-36); Mean Corpuscular Hgb 26.8 pg (27.0-32.0); Mean Corpuscular Volume 85.6 fL (81-99); Mean Platelet Vol. 10.5 fl (6.2-12.0); Monocyte# 0.48 X10^3/uL; Monocyte% 6.8 % (0-10); NRBC Flagged by Analyzer 0 % (0-5); Neutrophil # 3.36 X10^3/uL (2.7-7.7); Platelet Count 325 K/mm3 (150-450); RBC Distribution Width CV 14.5 % (11.6-14.6); RBC Distribution Width SD 45.5 fl (35.1-43.9); Red Blood Count 4.44 M/mm3 (4.2-5.4)
[2022-03-02 08:40] LABS: Internal QC Validated? YES +Cl - CLEAR BKGD; Pregnancy, Urine Negative Negative
[2022-03-02] MEDS: Phenazopyridine 95 MG Tablet 190 MG PO (08:47)
[2022-03-02] MEDS: Gabapentin 600 MG Tablet PO (08:47)
[2022-03-02] MEDS: Celecoxib 200 MG Capsule 400 MG PO (08:48)
[2022-03-02] MEDS: Acetaminophen 500 MG Tablet 1000 MG PO (08:48)
[2022-03-02] MEDS: Scopolamine 1mg/72hr Patch 1 PATCH TD (08:49)
[2022-03-02] MEDS: dexAMETHasone 10 MG/ML Vial 8 MG IV (08:49)
[2022-03-02] MEDS: Enoxaparin 40 MG/0.4 ML Syringe SC (08:49)
[2022-03-02] MEDS: Lactated Ringers 1,000 ML 40 ML IV ×3 (08:50→12:17)
--- NOTE | 2022-03-02 08:56 | PCM.OPRPT ---
Problems Associated Problem List Diagnoses (1) LGSIL (low grade squamous intraepithelial dysplasia): (2) Anemia affecting : (3) Abnormal uterine bleeding: (4) Septate uterus: Report of Operation Date of Procedure: 03/02/22 Pre-Operative Diagnosis: see A/P Post-Operative Diagnosis: same Surgery/Procedure Performed:: TVH BS Description of Surgical Findings:: nl uterus tubes Surgeon: Nicole Brunson neurosurgical nurse: Cher Paulino Type of Anesthesia: General Special Medications: none Specimen's removed: uterus, tubes Drains: coronel Estimated Blood Loss (mL): 200 Fluids Replaced: crystalloid Description of Procedure: Patient was taken to the operating room and was placed under general anesthesia was prepped and draped in normal sterile fashion in the dorsal lithotomy position. Preoperative antibiotics and SCDs and Coronel catheter was placed inside the bladder. Weighted speculum was placed in the vagina and the anterior and posterior lip of the cervix was grasped with 2 Al clamps and circumferentially injected with dilute vasopressin. A circumferential incision was made with a scalpel and the posterior cul-de-sac was entered into sharply and a longneck speculum was placed. The anterior cul-de-sac was also dissected down and entered into sharply and the uterosacral ligaments were clamped cut and suture ligated bilaterally followed by the cardinal ligaments which were Clamped cut and suture ligated bilaterally with 0 Monocryl. The uterus serially descended and progressive bites were taken bilaterally up to the level of the utero-ovarian ligament bilaterally which was clamped transected and double ligated with 0 Monocryl suture and 0 Vicryl free tie. Bilateral fallopian tubes and ovaries were well visualized and noted be within normal limits and the bilateral fallopian tubes were transected across the base with a Kym clamp and removed and sutured with 0 Vicryl suture. Excellent hemostasis was noted. posterior peritoneum closed with 2-0 vicryl. The vagina was closed with [id number]-ot-vepio 0 Vicryl pop offs including the posterior and anterior peritoneum in the reapproximation. Excellent hemostasis was noted. All instruments removed from the vagina clear urine was noted at the end of the procedure and patient was awoken and taken recovery in stable condition. Grafts/Implants Used: none Complications none Admit VTE Documentation VTE Present on Admission: No VTE Mechan Device Prophylaxis: SCD's VTE Pharm Prophylaxis ordered?: Yes Multi Select Codes Urinary/Genital Urinary/Genital CPT Codes: 01046 TVH+BS/O <250gr uterus
[2022-03-02 08:57] LABS: Magnesium 1.8 mg/dL (1.6-2.6)
--- NOTE | 2022-03-02 08:57 | DCINST_ITS ---
Discharge Instructions Diet Discharge Diet: No restrictions Activity May resume sexual activity in: 6 weeks Weight Bearing Status: Full weight bearing Dressing / Incision Call your doctor if your incision/area has: Continuous Slow Oozing, Sudden Increased Bleeding, Increased Pain/ Swelling, Increased Redness and Foul Smelling Discharge Call your doctor if you observe: Fever of 101 or Higher, Using more than 1 pad per hour, Shortness of breath, Chest pain and Uncontrolled pain Suture Line Care: Avoid Pulling/Pushing and Avoid Pinching/Bending Remove Dressing in: 1 week (if present) Cleanse incision/area with: Soap & Water and Keep Dressing Clean & Dry Follow Up Care Please Follow Up With: Nicole Brunson MD When: Call to make an appointment with your doctor for a postop visit in 2 and 6 weeks. Test Results: Test results from this visit will be discussed in further detail at your follow- up appointment, if applicable. Discharge Plan Admission Attending Provider: Nicole Brunson Primary Care Provider: Azeb White Discharge Orders/Prescriptions Prescriptions: New naproxen 250 mg tablet 250 - 500 mg PO Q8H PRN PRN (Reason: MILD PAIN) Qty: 30 1RF oxycodone-acetaminophen [Percocet] 5-325 mg tablet 1 tab PO Q6H PRN (Reason: pain) 7 Days Qty: 20 0RF Referrals / Follow Up: Azeb White MD [Primary Care Provider] - Disposition Disposition (needs filled in before D/C Order can be placed): Home, Self Care
[2022-03-02] MEDS: Magnesium 2 GM IV (09:08)
[2022-03-02] MEDS: Cefazolin 2 GM in 0.9% Normal Saline 100 ML IV (09:27)
[2022-03-02 09:30] LABS: Bedside Glucose 120 mg/dL (74-106)
--- NOTE | 2022-03-02 09:45 | HYST_PTH ---
PATIENT: MARLON QUINTERO [place] [facility] [place] U[place][id number] AGE/SX: 26/F ROOM: RE03/02/[address]: Dr. Nicole Brunson MD : 1995 BED: DIS: 03/02/2022 SPEC #: [id number] RECD: 03/02/22 12:40 STATUS: TRUONG RECrow #: [id number] BROCK: 03/02/22 09:[address]: Nicole Brunson DEPT: SURGICAL PATHOLOGY RECD BY: Irina Lovelace ENTERED: 03/02/22 12:46 SP TYPE: HYSTERECT OTHR DR: Dr. Azeb White MD Tissues: Uterus, NOS Procedures: Surgery Specimen Level V HEADER OPERATION: ERAS, hysterectomy, vaginal, salpingectomy PRE-OP DIAGNOSIS: Abnormal uterine bleeding, anemia, LGSIL TISSUE SUBMITTED: Uterus, bilateral fallopian tubes MICROSCOPIC DIAGNOSIS Uterus, cervix and bilateral fallopian tubes, vaginal hysterectomy and bilateral salpingectomy: Cervix ? extensive moderate to marked epithelial and subepithelial acute and chronic inflammation. - psoriasiform epithelial hyperplasia. - Epithelial atypia, favor reactive epithelial changes. - Negative for dysplasia. - See comment. Endometrium ? proliferative endometrium. Myometrium - no pathologic diagnosis. Right and left fallopian tubes - no pathologic diagnosis. SJ 03/03/22 COMMENT Immunohistochemistry ([id number]) for surrogate HPV marker (p16) supports the above diagnosis. Case has been reviewed in consultation with Dr. Adan who concurs with the above diagnosis. IDC:AM MICROSCOPIC DESCRIPTION Slides are reviewed. GROSS DESCRIPTION Received in fixative is one container labeled with the patient's name and designated uterus, cervix and bilateral fallopian tubes. The specimen consists of a previously open anteriorly hysterectomy specimen consisting of uterus, cervix and detached bilateral fallopian tubes. The uterus with cervix weighs 112 gm and measures 9 x 7 x 4.5 cm. The serosal surface is smooth. The ectocervical mucosa is unremarkable. The external os is oval in contour. The endocervical canal measures 3.0 cm in length and the endocervical mucosa is unremarkable. The triangular endometrial cavity measures 4 cm in length and 3 cm in width. The endometrium is ruiz glistening and measures 0.1cm in thickness. Sections of the uterine wall do not reveal any mass lesions and measures up to 2.5 cm in thickness. Fallopian tubes are not identified as right or left and each measure 4 cm in length and 0.5 cm in diameter. One of the fallopian tube also show a paratubal cyst filled with clear fluid and measures 1.5 cm in greatest dimension. Sections reveal unremarkable cut surfaces. Resection margin of the cervix is inked black and it is transected at internal os and inked margin is inked blue. Employee'S Representative sections are submitted in 18 cassettes as follows: 1 ? 12 cervix like a cone, cassette 1 contains the 1 o?clock and cassette contains 12 position, 13 &1 4 - anterior uterine wall, 15 & 16 - posterior uterine wall, 17 ? one fallopian tube, 18 ? second fallopian tube and paratubal cyst , /SJ:melanie 03/02/22 TC:5 CPT: 22751
[2022-03-02] MEDS: Vasopressin 20 UNITS/ML Vial (10:12)
[2022-03-02] MEDS: Ondansetron ODT 4 MG Tablet PO (10:34)
[2022-03-02] MEDS: Ketorolac 30 MG/ML Syringe IV (13:40)
[2022-03-02 14:44] LABS: Hematocrit 40.7 % (37-47); Hemoglobin 12.6 g/dL (12.0-15.0); Mean Corpuscular Hgb 26.8 pg (27.0-32.0); Mean Corpuscular Volume 86.4 fL (81-99); Mean Platelet Vol. 10.1 fl (6.2-12.0); Platelet Count 333 K/mm3 (150-450); RBC Distribution Width CV 14.5 % (11.6-14.6); RBC Distribution Width SD 46.3 fl (35.1-43.9); Red Blood Count 4.71 M/mm3 (4.2-5.4); White Blood Count 12.1 K/mm3 (4.4-11.0)
== END 2022-03-02 15:00 | disposition home or self-care (01) ==
LOC: SDC 07:27 → AC 07:28
PROVIDERS: Anesthesiology; PCP Internal Medicine; Referring Provider Obstetrics & Gynecology; Visit Provider Obstetrics & Gynecology
PROC: (CPT 58260; principal; 2022-03-02 09:25)
DX: N85.2 Hypertrophy of uterus (principal); M06.9 Rheumatoid arthritis, unspecified; N93.9 Abnormal uterine and vaginal bleeding, unspecified; Q51.28 Other and unspecified doubling of uterus
CPT/HCPCS: 58262; 00944; 81025; 82962; 83735; 85025; 85027; 86850; 86900; 86901; 88307; 88341; 88342; J7120; J2405